=== PATIENT | female | born 1955 | race African-American/Black ===

== ENCOUNTER 2016-06-07 20:16 | Emergency (ER) | payer BC ==
[~2016-06-07] VITALS: Ht 165.1 cm; Wt 68.9 kg
[~2016-06-07 20:16] MED LIST: ACET325T9 PO; ASPI-482 PO; CALC500T PO; DOCU100C5 PO; ENOX40DI3 SQ; GABA-585 PO; GLIM4TAB2 PO; LISI1TAB5 PO; METF10002 PO; NAPR500T3 PO; OXYC1TAB7 PO; POTA20TA84 PO; PRAV40TA2 PO; SITA100T PO; TRAM50TA PO
[2016-06-07 20:38] VITALS: BP 179/111
[2016-06-07] MEDS ORDERED: DOXYCYCLINE HYCLATE 100 MG TABLET PO ONE (21:15)
[2016-06-07] MEDS ORDERED: DOXY100C2 PO (21:26)
--- NOTE | 2016-06-08 02:21 | ED.ADGEN ---
Past Medical History Past Medical History: Diabetes-Type II, High Cholesterol, Hypertension, Vascular Disease Past Surgical History: Cholecystectomy, Hysterectomy Additional Past Surgical Histo: right left vein graft Alcohol Use: None Drug Use: None Adult General Chief Complaint Chief Complaint: POST-OP PROBLEM HPI HPI Patient is a 60 year old woman, with a history of hypertension, diabetes mellitus, vascular disease, who presents to the emergency department for evaluation of her right foot. Patient has a history of bypass graft placement for her right lower extremity several weeks ago with Dr. Spangler of vascular surgery, was seen by a physical therapist today at home, this was the physical therapist first visit, who was concerned the patient may have worsening of known foot necrosis. Patient states that she does have some drainage from her right great toe, however she denies any increased drainage, any increased pain, or any significant change in her symptoms or the evaluation of the foot. She does have daily dressing changes. Patient states that she is compliant with medications. Denies any nausea or vomiting, chest pain or shortness of breath, any fevers or chills. No injuries. Review of Systems Review of Systems Constitutional: Denies fever or chills. [] Eyes: Denies change in visual acuity. [] HENT: Denies nasal congestion or sore throat. [] Respiratory: Denies cough or shortness of breath. [] Cardiovascular: Denies chest pain or edema. [] GI: Denies abdominal pain, nausea, vomiting, bloody stools or diarrhea. [] : Denies dysuria. [] Musculoskeletal: Denies back pain, pain which is chronic and persistent in her right foot in leg. Integument: Denies rash. [] Neurologic: Denies headache, focal weakness or sensory changes. [] Endocrine: Denies polyuria or polydipsia. [] Lymphatic: Denies swollen glands. [] Psychiatric: Denies depression or anxiety. [] Current Medications Current Medications Current Medications Medications (Trade) Dose Ordered Sig/Chai Start Time Stop Time Status Last Admin Dose Admin Doxycycline Hyclate (Vibra-Tab) 100 mg 1X ONCE 06/07/16 21:15 06/07/16 21:16 DC 06/07/16 21:22 100 MG Allergies Allergies Allergies Coded Allergies Type Severity Reaction Last Updated Verified hydrocodone Allergy Intermediate 05/12/16 Yes morphine Adverse Reaction Intermediate 05/11/16 Yes Physical Exam Physical Exam Constitutional: Well developed, well nourished, no acute distress, non-toxic appearance. [] HENT: Normocephalic, atraumatic, bilateral external ears normal, oropharynx moist, no oral exudates, nose normal. [] Eyes: PERRLA, EOMI, conjunctiva normal, no discharge. [] Neck: Normal range of motion, no tenderness, supple, no stridor. [] Cardiovascular:Heart rate regular rhythm, no murmur, S1, S2, rubs or gallops. [] Lungs & Thorax: Bilateral breath sounds clear to auscultation, no wheezing, rhonchi, rales. No chest tenderness or crepitus. [] Abdomen: Bowel sounds normal, soft, no tenderness, no masses, no pulsatile masses. [] Skin: Warm, dry, patient with healing surgical incisions with Steri-Strips in place along her right lower extremity, from the thigh down to the ankle, no evidence of induration or abscess formation, sites are healing well, patient with necrosis of the toes of the right foot, with odor of necrosis, with a small out of wet gangrene, but no active drainage, mild tenderness to palpation , but no significant areas of induration, tenderness, or evidence of acute deformity or injury. Back: No tenderness, no CVA tenderness. [] Extremities: No tenderness, no cyanosis, no clubbing, ROM intact, no edema. [] Neurologic: Alert and oriented X 3, normal motor function, normal sensory function, no focal deficits noted. [] Psychologic: Affect normal, judgement normal, mood normal. [] Current Patient Data Vital Signs Vital Signs Date Time Temp Pulse Resp B/P Pulse Ox O2 Delivery O2 Flow Rate FiO2 06/07/16 20:38 97 18 179/111 100 Room Air 06/07/16 20:33 98.2 98.2 EKG EKG Not indicated. [] Radiology/Procedures Radiology/Procedures Not indicated. [] Course & Med Decision Making Course & Med Decision Making Pertinent Labs and Imaging studies reviewed. (See chart for details) Patient with known necrosis noted of the foot, surgical incision sites look as though they're healing well. Patient states that her foot does not appear to have changed recently, she denies any new symptoms or other concerns. This was the first time that the physical therapist evaluated the patient's foot, and this unfamiliarity with the patient's condition was the trigger for her recommendation. I did discuss the findings and the patient's presentation with Dr. Moody, date that he evaluated the patient yesterday, and that there were no significant changes noted during his examination, or any significant changes based on the report of the examination today in the emergency department. I stated that I do not have any acute concerns and the patient's evaluation, and her denial of any new or different symptoms. I do not believe that any blood work or additional evaluation is required at this time, however we will start the patient on doxycycline to be given twice daily for the next 10 days, to cover for any potential infection that may be brewing. Patient to continue her ibuprofen as needed for pain control, which she states has been controlling her pain without issue. Patient instructed to contact the office tomorrow to set up for an appointment to be seen in the office next Monday. I did discuss these recommendations with the patient and her family at bedside, patient was very much agreeable with this plan, given first dose of doxycycline in the ED without issue, she had recently taken her eye Profen, and declined additional medication in the ED. To return to the ED for any concerning symptoms as discussed, to follow-up as stated. Dragon Disclaimer Dragon Disclaimer This electronic medical record was generated, in whole or in part, using a voice recognition dictation system. Departure Impression: Primary Impression: Foot pain, right Disposition: 01 HOME, SELF-CARE Condition: STABLE Scripts Doxycycline Hyclate 100 Mg Capsule1 Cap PO BID #[id number] CAP Prov:RUSSELL AYALA DO 06/07/16 RUSSELL AYALA DO Jun 08, 2016 02:21
== END 2016-06-07 21:30 | disposition home or self-care (01) ==
LOC: ER 20:16
DX: M79.671 Pain in right foot (principal); E78.00 Pure hypercholesterolemia, unspecified; E11.9 Type 2 diabetes mellitus without complications; I10 Essential (primary) hypertension; Z90.49 Acquired absence of other specified parts of digestive tract; Z90.710 Acquired absence of both cervix and uterus; Z88.5 Allergy status to narcotic agent
CPT/HCPCS: 99284

== ENCOUNTER 2016-07-27 08:35 | Inpatient (IN) | payer BC ==
[2016-07-27] VITALS (9 sets, daily range): BP systolic 134–152; BP diastolic 75–95
[~2016-07-27] VITALS: Ht 162.6 cm; Wt 77.1 kg
[~2016-07-27 08:35] MED LIST changes: +CEFAZOLIN 2GM PREMIX 50 ML IV PRN; +CEFAZOLIN SODIUM IRR ONE; +DOXY100C2 PO; +FENTANYL PF 100 MCG/2 ML VIAL. IV PRN; +INSU100V13 SQ; +IV RINGERS,LACTATED 1000ML 1,000 ML IV SCH; +LIDOCAINE 1% 1 ML SYRINGE. ID PRN; +NORMAL SALINE IRR ONE; +ONDANSETRON PF 4 MG/2 ML VIAL. IV PRN; +PROCHLORPERAZINE 10 MG/2 ML VIAL. IV PRN
[2016-07-27 09:23] LABS: BASO % 0 % (0-3); EOS % 2 % (0-3); HEMOGLOBIN 11.2 g/dL (12.0-15.5); LYMPH # 1.7 x10^3/uL (1.0-4.8); LYMPH % 18 % (24-48); MEAN CORPUSCULAR HEMOGLOBIN 27 pg (25-35); MEAN CORPUSCULAR HGB CONC 33 g/dL (31-37); MEAN CORPUSCULAR VOLUME 83 fL (79-100); MONO % 5 % (0-9); NEUT % 75 % (31-73); PLATELET COUNT 505 x10^3/uL (140-400); RED BLOOD COUNT 4.12 x10^6/uL (3.50-5.40); RED CELL DISTRIBUTION WIDTH 15.4 % (11.5-14.5); WHITE BLOOD COUNT 9.4 x10^3/uL (4.0-11.0)
[2016-07-27 09:32] LABS: CALCIUM 10.4 mg/dL (8.5-10.1); CREATININE 0.9 mg/dL (0.6-1.0); GFR 77.8; POTASSIUM 3.6 mmol/L (3.5-5.1)
[2016-07-27] MEDS ORDERED: SEVOFLURANE 31 TO 60 MINUTES. IH ONE (09:39)
[2016-07-27] MEDS ORDERED: LIDOCAINE 2% 100 MG/5 ML DISP.SYRIN. ONE (09:39)
[2016-07-27] MEDS ORDERED: FAMOTIDINE 20 MG/2 ML VIAL ONE (09:39)
[2016-07-27] MEDS ORDERED: PROPOFOL 20 ML IV ONE (09:39)
[2016-07-27] MEDS ORDERED: LIDOCAINE 1% PF 30 ML VIAL. ONE (09:55)
[2016-07-27] MEDS ORDERED: PHENYLEPHRINE in 0.9% NACL PF 1 MG/10 ML DISP.SYRIN. IV ONE (10:19)
[2016-07-27] MEDS ORDERED: EPHEDRINE PF IN SALINE 50 MG/5 ML DISP.SYRIN. IV ONE (10:40)
[2016-07-27] MEDS ORDERED: DEXTROSE 50% 25 GM / 50ML DISP.SYRIN. IV ONE (11:13)
--- NOTE | 2016-07-27 11:29 | PDOC4 ---
Operative Note Operative Note DX 1. osteo right great toe 2. 3 X 3 cm eschar dorsum of right foot laterally with involvement of fascia and extensor tendons OP: 1. right great toe amputation with primary closure 2. excisional debridement of right dorsal foot ulcer involving skin, fascial and tendons Surg: Amaury local mac pt will need to be admitted for wound care of the dorsal ulcer with wound vac placement. SAVI EDWARDS II, MD Jul 27, 2016 11:29
--- NOTE | 2016-07-27 12:11 | OP ---
DATE OF SURGERY: 07/27/2016 PREOPERATIVE DIAGNOSES: 1. Osteomyelitis, right great toe. 2. Full thickness eschar and dorsum of the right foot. OPERATION PERFORMED: 1. Right great toe partial amputation with primary closure. 2. Excision of dorsal foot wound, full thickness involving the skin, fascia and tendons. SURGEON: Edin Rebolledo MD. ANESTHESIA: Local MAC. INDICATIONS: This is a lady who had a right femoral to anterior tibial bypass for limb threatening ischemia of the right foot. She has developed dry gangrene of the right great toe tip and she has also developed a dorsal foot ulcer with eschar. The operation risks and benefits were explained. OPERATIVE FINDINGS: The toe amputation site bled well. The distal phalanx was resected and the proximal phalanx was rongeured to healthy bone. All bled well and primary closure was done. The dorsal eschar measured 3 x 3 cm and was full thickness and extended down to the extensor tendons which were partially excised. The wound bed bled fairly well. She will need a wound VAC ____ coverage of this. DESCRIPTION OF PROCEDURE: The right foot was prepped and draped. The patient underwent anesthesia sedation. Local infiltration with 1% plain lidocaine was then performed around the base of the right great toe and the dorsal foot eschar. A circumferential incision was made around the great toe and the distal phalanx was resected. The proximal phalanx was then rongeured down to healthy bone. The skin edges bled well. Fish mouth incisions were then made medially and laterally. The wound was then copiously irrigated and closed with interrupted 4-0 nylon. The bone was sent for pathology. The dorsal foot eschar was excised. This measures about 3 x 3 cm. Again excisional debridement was done of the skin, dermis and fascia down to the tendons which were scraped and partially resected. The wound appeared clean ____ this extensive debridement. Wound was then irrigated and dressed with saline moistened gauze, Xeroform and Kerlix. The patient tolerated the procedure well. She will need to be admitted for extensive wound care and wound VAC placement on the dorsal foot ulcer. EDIN REBOLLEDO MD DR: GERARDO/kylee JOB#: [id number] / [id number]
[2016-07-27] MEDS: FENTANYL PF 100 MCG/2 ML VIAL. IV PRN ×4 (12:18→23:33)
[2016-07-27] MEDS ORDERED: KETOROLAC TROMETHAMINE 30 MG/ML SYRINGE. IV ONE (14:15)
[2016-07-27] MEDS ORDERED: ACETAMINOPHEN 325 MG TABLET. PO PRN (14:15)
[2016-07-27] MEDS ORDERED: POTASSIUM CL 20MEQ D5-0.45NACL 1,000 ML IV ONE (14:15)
[2016-07-27] MEDS ORDERED: DEXTROSE 50% 25 GM / 50ML DISP.SYRIN. IV PRN (14:15)
[2016-07-27] MEDS ORDERED: POTASSIUM CHLORIDE 20 MEQ PO SCH (15:00)
[2016-07-27] MEDS: HYDROCHLOROTHIAZIDE 12.5 MG CAPSULE. PO SCH (15:14)
[2016-07-27] MEDS: ASPIRIN ENTERIC COATED 81 MG TABLET.DR. PO SCH (15:17)
[2016-07-27] MEDS: LISINOPRIL 20 MG TABLET PO SCH (15:17)
[2016-07-27] MEDS: GABAPENTIN 100 MG CAPSULE. PO SCH ×2 (15:17→20:58)
--- NOTE | 2016-07-27 15:50 | PDOC1 ---
History and Physical Date of Admission Date of Admission DATE: 07/27/16 TIME: 15:42 Identification/Chief Complaint Chief Complaint foot pain, toe infection Source Source: Caregiver, Chart review, Patient History of Present Illness History of Present Illness Admit for sched amputation by Vascular surgery today ongoing pain left heel and right toe poorly able to ambulate, complains of a lot of pain, both feet her roomate report having to help her more recently with ADL's that Chloé is having more trouble eating Past Medical History Cardiovascular: HTN, Hyperlipidemia Endocrine: Diabetes Past Surgical History Past Surgical History: Cholecystectomy, Hysterectomy Family History Family History: No Significant Social History Smoke: No ALCOHOL: none Drugs: None Current Medications Current Medications Current Medications Ondansetron HCl (Zofran) 4 mg PRN Q6HRS PRN IV Nausea; Start 07/27/16 at 07:00 ; Stop 07/28/16 at 06:59 Fentanyl Citrate (Fentanyl 2ml Vial) 25 mcg PRN Q5MIN PRN IV MILD PAIN; Start 07/27/16 at 07:00; Stop 07/28/16 at 06:59 Fentanyl Citrate 50 mcg 50 mcg PRN Q5MIN PRN IV MODERATE PAIN Last administered on 07/27/16 12:18; Start 07/27/16 at 07:00; Stop 07/28/16 at 06:59 Lactated Ringer's (Iv Lactated Ringers) 1,000 ml @ 30 mls/hr Q24H IV Last administered on 07/27/16 09:21; Start 07/27/16 at 07:00; Stop 07/27/16 at 18:59 Lidocaine HCl 2 ml 1X PRN PRN ID IV START; Start 07/27/16 at 07:00; Stop at 06:59 Prochlorperazine Edisylate 5 mg 5 mg PACU PRN PRN IV NAUSEA; Start 07/27/16 at 07:00; Stop 07/28/16 at 06:59 Cefazolin Sodium 1 gm/Sodium Chloride 250 ml @ 250 mls/hr 1X ONCE IRR Last administered on 07/27/16t 10:20; Start 07/27/16 at 08:00; Stop 07/27/16 at 08:59 ; Status DC Cefazolin Sodium/ Dextrose 50 ml @ 100 mls/hr 1X PREOP PRN IV PRIOR TO PROCEDURE Last administered on 07/27/16 10:17; Start 07/27/16 at 06:00; Stop at 18:00 Propofol (Diprivan) 20 ml @ As Directed STK-MED ONCE IV ; Start 07/27/16 at 09: 39; Stop 07/27/16 at 09:40; Status DC Lidocaine HCl 100 mg STK-MED ONCE .ROUTE ; Start 07/27/16 at 09:39; Stop at 09:40; Status DC Sevoflurane (Ultane) 30 ml STK-MED ONCE IH ; Start 07/27/16 at 09:39; Stop 07/27 at 09:40; Status DC Famotidine (Pepcid) 20 mg STK-MED ONCE .ROUTE ; Start 07/27/16 at 09:39; Stop at 09:40; Status DC Lidocaine HCl 30 ml STK-MED ONCE .ROUTE Last administered on 07/27/16 10:31; Start 07/27/16 at 09:55; Stop 07/27/16 at 09:56; Status DC Phenylephrine HCl 1 mg STK-MED ONCE IV ; Start 07/27/16 at 10:19; Stop 07/27/16 at 10:20; Status DC Ephedrine Sulfate 50 mg STK-MED ONCE IV ; Start 07/27/16 at 10:40; Stop at 10:41; Status DC Dextrose 25 gm STK-MED ONCE IV ; Start 07/27/16 at 11:13; Stop 07/27/16 at 11:14 ; Status DC Fentanyl Citrate 50 mcg 50 mcg PRN Q2HR PRN IV PAIN Last administered on 14:17; Start 07/27/16 at 14:15 Potassium Chloride/Dextrose/ Sod Cl (KCl 20 Meq In D5W-1/2 NS) 1,000 ml @ 80 mls/hr 1X ONCE IV Last administered on 07/27/16 15:03; Start 07/27/16 at 14: 15; Stop 07/28/16 at 02:44 Ketorolac Tromethamine (Toradol) 30 mg 1X ONCE IV Last administered on 15:11; Start 07/27/16 at 14:15; Stop 07/27/16 at 14:16; Status DC Acetaminophen (Tylenol) 325 mg PRN TID PRN PO pain; Start 07/27/16 at 14:15 Aspirin (Ecotrin) 81 mg DAILY PO Last administered on 07/27/16 15:17; Start at 15:00 Gabapentin (Neurontin) 100 mg TID PO Last administered on 07/27/16 15:17; Start 07/27/16 at 15:00 Metformin HCl (Glucophage) 1,000 mg BIDWMEALS PO ; Start 07/27/16 at 17:00 Naproxen (Naprosyn) 500 mg BID PO ; Start 07/27/16 at 21:00 Glimepiride (Amaryl) 4 mg BID PO ; Start 07/27/16 at 21:00 Insulin Detemir (Levemir) 10 units DAILY07 SQ ; Start 07/28/16 at 07:00 Lisinopril (Prinivil) 20 mg DAILY PO Last administered on 07/27/16 15:17; Start 07/27/16 at 15:00 Non-Formulary Medication 20 meq DAILY PO ; Start 07/27/16 at 15:00; Stop at 15:00; Status DC Atorvastatin Calcium (Lipitor) 10 mg QHS PO ; Start 07/27/16 at 21:00 Linagliptin (Tradjenta) 5 mg QHS PO ; Start 07/27/16 at 21:00 Insulin Aspart (Novolog) 0-7 UNITS TIDWMEALS SQ ; Start 07/27/16 at 17:00 Dextrose 12.5 gm PRN Q15MIN PRN IV SEE COMMENTS; Start 07/27/16 at 14:15 Potassium Chloride (Klor-Con) 20 meq DAILYWBKFT PO ; Start 07/28/16 at 08:00 Hydrochlorothiazide (Microzide) 12.5 mg DAILY PO Last administered on 15:14; Start 07/27/16 at 15:00 Active Scripts Active Reported Levemir (Insulin Detemir) 100 Unit/1 Ml Vial 10 Unit SQ DAILY07 K-Tab ER (Potassium Chloride) 20 Meq Tablet.er 20 Meq PO DAILY Oxycodone-Acetaminophen 5-325 (Oxycodone Hcl/Acetaminophen) 1 Each Tablet 1 Each PO Q4HRS PRN Aspir 81 (Aspirin) 81 Mg Tablet.dr 1 Tab PO DAILY Tylenol (Acetaminophen) 325 Mg Tablet 2 Tab PO TID Lisinopril-Hctz 20-12.5 Mg Tab (Lisinopril/Hydrochlorothiazide) 1 Each Tablet 1 Tab PO DAILY Naproxen 500 Mg Tablet 1 Tab PO BID Gabapentin 100 Mg Capsule 100 Mg PO QHS Metformin Hcl 1,000 Mg Tablet 1 Tab PO BID Glimepiride 4 Mg Tablet 1 Tab PO BID Pravastatin Sodium 40 Mg Tablet 1 Tab PO QHS Januvia (Sitagliptin Phosphate) 100 Mg Tablet 1 Tab PO QHS Allergies Allergies: Coded Allergies: hydromorphone (Verified Allergy, Intermediate, Unknown, 07/27/16) HALLUCINATIONS hydrocodone (Verified Adverse Reaction, Intermediate, Nausea and Vomiting , 07/27/16) morphine (Verified Adverse Reaction, Intermediate, Unknown, 07/27/16) hallucinations ROS General: YES: Appetite, Fatigue, Malaise, Night Sweats, No: Chills, Other PSYCHOLOGICAL ROS: YES: Anxiety, Memory difficulties Eyes: Yes Dry eyes, No Blurry vision, No Decreased vision, No Double vision, No Excessive tearing , No Eye Pain, No Itchy Eyes, No Loss of vision, No Other, No Photophobia, No Scotomata, No Uses contacts, No Uses glasses Respiratory: No: Cough, Hemoptysis, Orthopnea, Other, Pleuritic Pain, SOB with excertion, Shortness of breath, Sputum Changes, Stridor, Tachypnea, Wheezing Cardiovascular: No Chest Pain, No Edema, No Lt Headedness, No Orthopnea, No Other, No Palpitations, No Paroxysmal Noc. Dyspnea Gastrointestinal: Yes Nausea, No Abdominal Pain, No Constipation, No Diarrhea, No Hematochezia, No Melena, No Other, No Vomiting Genitourinary: No , No , No , No , No , No , No , No Discharge, No Dysuria, No Flank Pain, No Frequency, No Hematuria, No Incontinence, No Other, No Pain, No Retention, No Urgency Musculoskeletal: Yes Gait Disturbance, Yes Joint Pain, Yes Joint Stiffness, Yes Joint Swelling, Yes Pain In: (feet bilat) Neurological: Yes Gait Disturbance, No Behavorial Changes, No Bowel/Bladder ControlChng, No Confusion, No Dizziness, No Headaches, No Impaired Coord/balance, No Memory Loss, No Numbness/ Tingling, No Other, No Seizures, No Speech Problems, No Tremors, No Visual Changes, No Weakness Skin: No Acne, No Dry Skin, No Eczema, No Hair Changes, No Lumps, No Mole Changes, No Mottling, No Nail Changes, No Other, No Pruritus, No Rash, No Skin Lesion Changes Physical Exam General: Alert, Oriented X3, Cooperative, mild distress, moderate distress HEENT: Atraumatic, EOMI Lungs: Normal air movement Heart: no gallops, no murmurs Abdomen: Normal bowel sounds, Soft Rectal Exam: not examined Extremities: No clubbing, Normal pulses Skin: No rashes, No significant lesion Neuro: Normal tone, Sensation intact, Other (good str. odd affect, complains of pain limits exam) Psych/Mental Status: Other (odd affect, not talking much, family responded to questtions mostly) Vitals Vitals Vital Signs Date Time Temp Pulse Resp B/P Pulse Ox O2 Delivery O2 Flow Rate FiO2 07/27/16 15:17 93 145/80 07/27/16 14:17 Room Air 07/27/16 12:39 14 100 2.0 07/27/16 12:34 93.0 93.0 Labs Labs Laboratory Tests Test 07/27/16 09:10 07/27/16 11:13 07/27/16 11:33 07/27/16 12:41 White Blood Count 9.4x10^3/uL (4.0-11.0) Red Blood Count 4.12x10^6/uL (3.50-5.40) Hemoglobin 11.2g/dL (12.0-15.5) Hematocrit 34.0% (36.0-47.0) Mean Corpuscular Volume 83fL (79-100) Mean Corpuscular Hemoglobin 27pg (25-35) Mean Corpuscular Hemoglobin Concent 33g/dL (31-37) Red Cell Distribution Width 15.4% (11.5-14.5) Platelet Count 505x10^3/uL (140-400) Neutrophils (%) (Auto) 75% (31-73) Lymphocytes (%) (Auto) 18% (24-48) Monocytes (%) (Auto) 5% (0-9) Eosinophils (%) (Auto) 2% (0-3) Basophils (%) (Auto) 0% (0-3) Neutrophils # (Auto) 7.1x10^3uL (1.8-7.7) Lymphocytes # (Auto) 1.7x10^3/uL (1.0-4.8) Monocytes # (Auto) 0.4x10^3/uL (0.0-1.1) Eosinophils # (Auto) 0.2x10^3/uL (0.0-0.7) Basophils # (Auto) 0.0x10^3/uL (0.0-0.2) Prothrombin Time 13.0SEC (11.7-14.0) Prothromb Time International Ratio 1.0 (0.8-1.1) Activated Partial Thromboplast Time 41SEC (24-38) Sodium Level 143mmol/L (136-145) Potassium Level 3.6mmol/L (3.5-5.1) Chloride Level 105mmol/L (98-107) Carbon Dioxide Level 27mmol/L (21-32) Anion Gap 11 (6-14) Blood Urea Nitrogen 37mg/dL (7-20) Creatinine 0.9mg/dL (0.6-1.0) Estimated GFR (Cockcroft-Gault) 77.8 Glucose Level 47mg/dL (70-99) Calcium Level 10.4mg/dL (8.5-10.1) Glucose (Fingerstick) 57mg/dL (70-99) 82mg/dL (70-99) 111mg/dL (70-99) Laboratory Tests Test 07/27/16 09:10 07/27/16 11:13 07/27/16 11:33 07/27/16 12:41 White Blood Count 9.4x10^3/uL (4.0-11.0) Red Blood Count 4.12x10^6/uL (3.50-5.40) Hemoglobin 11.2g/dL (12.0-15.5) Hematocrit 34.0% (36.0-47.0) Mean Corpuscular Volume 83fL (79-100) Mean Corpuscular Hemoglobin 27pg (25-35) Mean Corpuscular Hemoglobin Concent 33g/dL (31-37) Red Cell Distribution Width 15.4% (11.5-14.5) Platelet Count 505x10^3/uL (140-400) Neutrophils (%) (Auto) 75% (31-73) Lymphocytes (%) (Auto) 18% (24-48) Monocytes (%) (Auto) 5% (0-9) Eosinophils (%) (Auto) 2% (0-3) Basophils (%) (Auto) 0% (0-3) Neutrophils # (Auto) 7.1x10^3uL (1.8-7.7) Lymphocytes # (Auto) 1.7x10^3/uL (1.0-4.8) Monocytes # (Auto) 0.4x10^3/uL (0.0-1.1) Eosinophils # (Auto) 0.2x10^3/uL (0.0-0.7) Basophils # (Auto) 0.0x10^3/uL (0.0-0.2) Prothrombin Time 13.0SEC (11.7-14.0) Prothromb Time International Ratio 1.0 (0.8-1.1) Activated Partial Thromboplast Time 41SEC (24-38) Sodium Level 143mmol/L (136-145) Potassium Level 3.6mmol/L (3.5-5.1) Chloride Level 105mmol/L (98-107) Carbon Dioxide Level 27mmol/L (21-32) Anion Gap 11 (6-14) Blood Urea Nitrogen 37mg/dL (7-20) Creatinine 0.9mg/dL (0.6-1.0) Estimated GFR (Cockcroft-Gault) 77.8 Glucose Level 47mg/dL (70-99) Calcium Level 10.4mg/dL (8.5-10.1) Glucose (Fingerstick) 57mg/dL (70-99) 82mg/dL (70-99) 111mg/dL (70-99) VTE Prophylaxis Ordered VTE Prophylaxis Devices: No VTE Pharmacological Prophylaxi: Yes Assessment/Plan Assessment/Plan Osteomyelitis right great toe Dm2, ulceration, infection, PVD DM2, poor control gen weakness adn debility anxiety d/o or depression, not treated CARLOS CHAVEZ MD Jul 27, 2016 15:50
[2016-07-27] MEDS: ENOXAPARIN 40 MG/0.4 ML DISP.SYRIN. SQ SCH (15:58)
[2016-07-27] MEDS ORDERED: FENTANYL PF 100 MCG/2 ML VIAL. IV ONE (16:00)
[2016-07-27] MEDS: INSULIN ASPART 300 UNITS/3 ML INSULN.PEN SQ SCH (16:55)
[2016-07-27] MEDS: METFORMIN 1,000 MG TABLET PO SCH (16:55)
--- NOTE | 2016-07-27 17:05 | RAD ---
EXAM: Left foot 3 views. HISTORY: Left heel pain. COMPARISON: None. FINDINGS: There is soft tissue swelling along the heel inferiorly and laterally. Correlate for IS at the sites. There is no underlying cortical erosion. There are small plantar and posterior calcaneal spurs. There is flattening at the subtalar joint which may be projectional. Osteopenia is severe. IMPRESSION: 1. Soft tissue swelling along the heel. Correlate for overlying ulcer. No evidence of acute osteomyelitis by radiographs. 2. Flattening of Boehler's angle may be projectional artifact. Correlate for prior calcaneal fracture.
[2016-07-27] MEDS ORDERED: PIP/TAZO PER PHARMACY MC PRN (19:15)
[2016-07-27] MEDS ORDERED: VANCOMYCIN 2 GM in IV NORMAL SALINE 500ML BAG 500 ML IV ONE (19:30)
[2016-07-27] MEDS: PIPERACILLIN/TAZOBACTAM 3.375 GM in IV NORMAL SALINE 50ML 50 ML IV SCH ×2 (20:07→20:15)
[2016-07-27] MEDS: ATORVASTATIN CALCIUM 10 MG TABLET. PO SCH (20:58)
[2016-07-27] MEDS: GLIMEPIRIDE 2 MG TABLET PO SCH (20:58)
[2016-07-27] MEDS: OXYCODONE IR 5 MG TABLET. PO PRN (20:58)
[2016-07-27] MEDS: LINAGLIPTIN 5 MG TABLET PO SCH (20:58)
[2016-07-27] MEDS: NAPROXEN 500 MG TABLET PO SCH (20:59)
[2016-07-27] MEDS: VANCOMYCIN PER PHARMACY MC PRN (21:17)
--- NOTE | 2016-07-28 01:55 | ACF ---
Admission Forms Criteria OSTEOMYELITIS Clinical Indications for Admission to Inpatient Care (Place 'X' for any and all applicable criteria) Admission is indicated by ANY ONE of the following (1)(2)(3)(4)(5)(6): [ ] I. Significant systemic illness indicated by 2 or more of the following: [ ]a) Core (eg rectal) temperature greater or equal [id number](37.8C) in an adult [ ]b) Oral temperature[A] greater than or equal to 99.3 degrees F ( 37.4 degrees C) in an adult [ ]c) Heart rate greater than 90 beats per minute [ ]d) Respiratory rate greater than 20 breaths per minute or PaCO2 less than 32 mm Hg (4.3 kPa) [ ]e) White blood cell count > 12,000/mm3 (12 x109/L) or < 4000/mm3 ( 4 x109/L) or > 10% band cells [ ] II. Hemodynamic instability [X] III. Severe pain requiring acute inpatient management [ ] IV. Bacteremia [ ] V. Mental status change (new) [X] . Limb-threatening infection [ ] VII. Suspected necrotizing soft tissue infection (e.g., gas in tissue) [ ] VIII.Surgical intervention required (e.g., bone or soft tissue debridement, removal of foreign body, or revascularization procedure) not performable in outpatient or emergency department level of care(7) [ ] IX. Appropriate monitoring and therapy (IV antibiotics) cannot be immediately arranged for home or outpatient setting [ ] XI. Outpatient treatment failure (e.g., resistant organism identified, adverse medication effect, progression or lack of sufficient improvement of infection) [ ] XII. High-risk comorbid condition present including ANY ONE of the following : [ ]a) Poorly controlled diabetes (e.g., HbA1c greater than 10% (0.1)) [ ]b) Vascular insufficiency to affected area [ ]c) Cirrhosis [ ]d) Neutropenia [ ]e) Asplenia [ ]f) Immunosuppression (e.g., chronic systemic corticosteroid use) [ ]g) Symptomatic heart failure [ ] XIII.Joint involvement (e.g., septic arthritis) suspected [ ] XIV. Vertebral osteomyelitis [ ] XV. Skull-base osteomyelitis (e.g.,"malignant external otitis")[A](8)(9)(10 ) Extended stay beyond goal length of stay may be needed for(1)(3)(4)(5)(24)(25): [ ]a) Inadequate clinical response to antibiotics (e.g., continued fever, hypotension) [ ]b) Bacteremia [ ]c) Surgical intervention needed (e.g., beyond superficial debridement)(26) [ ]d) Vertebral osteomyelitis with spinal cord compression, abscess formation, or mechanical instability [ ]e) Antibiotic-resistant organism identified (e.g., methicillin-resistant Staphylococcal aureus) [ ]f) Deep venous thrombosis [ ]g) Unstable comorbidities (e.g., heart failure, renal insufficiency, immunosuppressed state)(28) The original [facility] [employer] content created by [facility] [employer] has been revised. The portions of the content which have been revised are identified through the use of italic text or in bold, and [facility] has neither reviewed nor approved the modified material. All other unmodified content is copyright [facility].Edition 2016. Admission Criteria Met?: Yes SAMMI GOLD Jul 28, 2016 01:55
[2016-07-28 03:00] VITALS: BP 146/86
[2016-07-28] MEDS: OXYCODONE IR 5 MG TABLET. PO PRN ×4 (03:16→21:22)
[2016-07-28 04:58] LABS: BASO # 0.1 x10^3/uL (0.0-0.2); BASO % 1 % (0-3); EOS % 3 % (0-3); HEMATOCRIT 28.3 % (36.0-47.0); HEMOGLOBIN 9.6 g/dL (12.0-15.5); LYMPH # 2.5 x10^3/uL (1.0-4.8); LYMPH % 28 % (24-48); MEAN CORPUSCULAR HEMOGLOBIN 28 pg (25-35); MEAN CORPUSCULAR HGB CONC 34 g/dL (31-37); MEAN CORPUSCULAR VOLUME 83 fL (79-100); MONO % 5 % (0-9); NEUT % 63 % (31-73); PLATELET COUNT 364 x10^3/uL (140-400); RED CELL DISTRIBUTION WIDTH 15.2 % (11.5-14.5); WHITE BLOOD COUNT 8.9 x10^3/uL (4.0-11.0)
[2016-07-28 05:18] LABS: ALBUMIN 3.2 g/dL (3.4-5.0); ALBUMIN/GLOBULIN RATIO 0.8 (1.0-1.7); CALCIUM 9.4 mg/dL (8.5-10.1); CREATININE 0.9 mg/dL (0.6-1.0); GFR 77.8; POTASSIUM 4.1 mmol/L (3.5-5.1); TOTAL BILIRUBIN 0.3 mg/dL (0.2-1.0); TOTAL PROTEIN 7.2 g/dL (6.4-8.2)
[2016-07-28] MEDS: PIPERACILLIN/TAZOBACTAM 3.375 GM in IV NORMAL SALINE 50ML 50 ML IV SCH ×3 (05:59→17:45)
[2016-07-28] MEDS: FENTANYL PF 100 MCG/2 ML VIAL. IV PRN ×2 (06:07→17:46)
[2016-07-28 07:00] VITALS: BP 129/75
[2016-07-28] MEDS: INSULIN ASPART 300 UNITS/3 ML INSULN.PEN SQ SCH ×3 (08:00→17:00)
[2016-07-28] MEDS: GLIMEPIRIDE 2 MG TABLET PO SCH ×2 (09:03→21:23)
[2016-07-28] MEDS: POTASSIUM CHLORIDE 20 MEQ TABLET.ER. PO SCH (09:04)
[2016-07-28] MEDS: NAPROXEN 500 MG TABLET PO SCH ×2 (09:04→21:23)
[2016-07-28] MEDS: METFORMIN 1,000 MG TABLET PO SCH ×2 (09:04→17:45)
[2016-07-28] MEDS: ASPIRIN ENTERIC COATED 81 MG TABLET.DR. PO SCH (09:04)
[2016-07-28] MEDS: GABAPENTIN 100 MG CAPSULE. PO SCH ×3 (09:04→21:22)
[2016-07-28] MEDS: LISINOPRIL 20 MG TABLET PO SCH (09:05)
[2016-07-28] MEDS: HYDROCHLOROTHIAZIDE 12.5 MG CAPSULE. PO SCH (09:05)
[2016-07-28] MEDS: VANCOMYCIN 1.25 GM in IV NORMAL SALINE 250ML 250 ML IV SCH ×2 (09:06→21:26)
[2016-07-28] MEDS: INSULIN DETEMIR 300 UNITS/3 ML INSULN.PEN. SQ SCH (09:18)
--- NOTE | 2016-07-28 09:31 | PDOC ---
PROGRESS NOTES Chief Complaint Chief Complaint 1. Osteomyelitis right great toe- s/p right great toe amputation 2. Ulceration/ wound secondary to Poorly Controlled T2DM 3. T2DM 4. PVD 5. HTN 6. HLD 7. Generalized weakness 8. Anxiety d/o or depression, not treated History of Present Illness History of Present Illness Pt up in bed doing well this AM. Daughter at bedside had questions about placement after discharge- discussed with daughter that we would get SW to come and evaluate pt. The pt still has some pain at the site of the amputation and is still complaining of the same generalized weakness. Otherwise improved from admission per her report. Vitals Vitals Vital Signs Date Time Temp Pulse Resp B/P Pulse Ox O2 Delivery O2 Flow Rate FiO2 07/28/16 09:05 96 129/75 07/28/16 09:03 Room Air 07/28/16 07:00 97.9 18 98 97.9 07/27/16 12:39 2.0 Physical Exam General: Alert, Oriented X3, Cooperative, No acute distress Heart: Regular rate, Normal S1, Normal S2, No murmurs Lungs: Clear, Other (no wheezes) Abdomen: Normal bowel sounds, Soft, No tenderness Extremities: No clubbing, Normal pulses, Other (Dressing of Right Great Toe Clean/Dry/Intact) Skin: No rashes, Other (Dressing intact of Amputation site) Labs LABS Laboratory Tests Test 07/27/16 11:13 07/27/16 11:33 07/27/16 12:41 07/27/16 16:55 Glucose (Fingerstick) 57mg/dL (70-99) 82mg/dL (70-99) 111mg/dL (70-99) 139mg/dL (70-99) Test 07/27/16 20:43 07/28/16 04:30 07/28/16 08:15 Glucose (Fingerstick) 195mg/dL (70-99) White Blood Count 8.9x10^3/uL (4.0-11.0) Red Blood Count 3.40x10^6/uL (3.50-5.40) Hemoglobin 9.6g/dL (12.0-15.5) Hematocrit 28.3% (36.0-47.0) Mean Corpuscular Volume 83fL (79-100) Mean Corpuscular Hemoglobin 28pg (25-35) Mean Corpuscular Hemoglobin Concent 34g/dL (31-37) Red Cell Distribution Width 15.2% (11.5-14.5) Platelet Count 364x10^3/uL (140-400) Neutrophils (%) (Auto) 63% (31-73) Lymphocytes (%) (Auto) 28% (24-48) Monocytes (%) (Auto) 5% (0-9) Eosinophils (%) (Auto) 3% (0-3) Basophils (%) (Auto) 1% (0-3) Neutrophils # (Auto) 5.6x10^3uL (1.8-7.7) Lymphocytes # (Auto) 2.5x10^3/uL (1.0-4.8) Monocytes # (Auto) 0.4x10^3/uL (0.0-1.1) Eosinophils # (Auto) 0.2x10^3/uL (0.0-0.7) Basophils # (Auto) 0.1x10^3/uL (0.0-0.2) Sodium Level 143mmol/L (136-145) Potassium Level 4.1mmol/L (3.5-5.1) Chloride Level 108mmol/L (98-107) Carbon Dioxide Level 24mmol/L (21-32) Anion Gap 11 (6-14) Blood Urea Nitrogen 27mg/dL (7-20) Creatinine 0.9mg/dL (0.6-1.0) Estimated GFR (Cockcroft-Gault) 77.8 BUN/Creatinine Ratio 30 (6-20) Glucose Level 132mg/dL (70-99) Calcium Level 9.4mg/dL (8.5-10.1) Total Bilirubin 0.3mg/dL (0.2-1.0) Aspartate Amino Transf (AST/SGOT) 11U/L (15-37) Alanine Aminotransferase (ALT/SGPT) 15U/L (14-59) Alkaline Phosphatase 111U/L (46-116) Total Protein 7.2g/dL (6.4-8.2) Albumin 3.2g/dL (3.4-5.0) Albumin/Globulin Ratio 0.8 (1.0-1.7) Ionized Calcium 1.32mmol/L (1.13-1.32) Review of Systems Review of Systems Complaining of Pain at Right Great Toe Complaining of generalized Weakness All other ROS negative Assessment and Plan Assessmemt and Plan Problems Medical Problems: (1) Osteomyelitis due to type 2 diabetes mellitus Status: Acute 1. Osteomyelitis right great toe- s/p right great toe amputation 2. Ulceration/ wound secondary to Poorly Controlled T2DM 3. T2DM 4. PVD 5. HTN 6. HLD 7. Generalized weakness 8. Anxiety d/o or depression, not treated Plan: - Continue Regular care per floor protocol - Continue Regular Glucose checks and Diabetic Regimen - Vascular Surgery Consulted- appreciate recommendations -s/p right great toe amputation - Continue Abx treatment w/ Vancomycin and Zosyn - Continue Pain Control Regimen - Continue Regular Wound Care - PT/OT to evaluate and treat - SW Consulted- for SNU Eval vs. LTAC - Will continue Regular home medications Problems: Comment Review of Relevant I have reviewed the following items alma (where applicable) has been applied. Labs Laboratory Tests Test 07/27/16 09:10 07/27/16 11:13 07/27/16 11:33 07/27/16 12:41 White Blood Count 9.4x10^3/uL (4.0-11.0) Red Blood Count 4.12x10^6/uL (3.50-5.40) Hemoglobin 11.2g/dL (12.0-15.5) Hematocrit 34.0% (36.0-47.0) Mean Corpuscular Volume 83fL (79-100) Mean Corpuscular Hemoglobin 27pg (25-35) Mean Corpuscular Hemoglobin Concent 33g/dL (31-37) Red Cell Distribution Width 15.4% (11.5-14.5) Platelet Count 505x10^3/uL (140-400) Neutrophils (%) (Auto) 75% (31-73) Lymphocytes (%) (Auto) 18% (24-48) Monocytes (%) (Auto) 5% (0-9) Eosinophils (%) (Auto) 2% (0-3) Basophils (%) (Auto) 0% (0-3) Neutrophils # (Auto) 7.1x10^3uL (1.8-7.7) Lymphocytes # (Auto) 1.7x10^3/uL (1.0-4.8) Monocytes # (Auto) 0.4x10^3/uL (0.0-1.1) Eosinophils # (Auto) 0.2x10^3/uL (0.0-0.7) Basophils # (Auto) 0.0x10^3/uL (0.0-0.2) Prothrombin Time 13.0SEC (11.7-14.0) Prothromb Time International Ratio 1.0 (0.8-1.1) Activated Partial Thromboplast Time 41SEC (24-38) Sodium Level 143mmol/L (136-145) Potassium Level 3.6mmol/L (3.5-5.1) Chloride Level 105mmol/L (98-107) Carbon Dioxide Level 27mmol/L (21-32) Anion Gap 11 (6-14) Blood Urea Nitrogen 37mg/dL (7-20) Creatinine 0.9mg/dL (0.6-1.0) Estimated GFR (Cockcroft-Gault) 77.8 Glucose Level 47mg/dL (70-99) Calcium Level 10.4mg/dL (8.5-10.1) Glucose (Fingerstick) 57mg/dL (70-99) 82mg/dL (70-99) 111mg/dL (70-99) Test 07/27/16 16:55 07/27/16 20:43 07/28/16 04:30 07/28/16 08:15 Glucose (Fingerstick) 139mg/dL (70-99) 195mg/dL (70-99) White Blood Count 8.9x10^3/uL (4.0-11.0) Red Blood Count 3.40x10^6/uL (3.50-5.40) Hemoglobin 9.6g/dL (12.0-15.5) Hematocrit 28.3% (36.0-47.0) Mean Corpuscular Volume 83fL (79-100) Mean Corpuscular Hemoglobin 28pg (25-35) Mean Corpuscular Hemoglobin Concent 34g/dL (31-37) Red Cell Distribution Width 15.2% (11.5-14.5) Platelet Count 364x10^3/uL (140-400) Neutrophils (%) (Auto) 63% (31-73) Lymphocytes (%) (Auto) 28% (24-48) Monocytes (%) (Auto) 5% (0-9) Eosinophils (%) (Auto) 3% (0-3) Basophils (%) (Auto) 1% (0-3) Neutrophils # (Auto) 5.6x10^3uL (1.8-7.7) Lymphocytes # (Auto) 2.5x10^3/uL (1.0-4.8) Monocytes # (Auto) 0.4x10^3/uL (0.0-1.1) Eosinophils # (Auto) 0.2x10^3/uL (0.0-0.7) Basophils # (Auto) 0.1x10^3/uL (0.0-0.2) Sodium Level 143mmol/L (136-145) Potassium Level 4.1mmol/L (3.5-5.1) Chloride Level 108mmol/L (98-107) Carbon Dioxide Level 24mmol/L (21-32) Anion Gap 11 (6-14) Blood Urea Nitrogen 27mg/dL (7-20) Creatinine 0.9mg/dL (0.6-1.0) Estimated GFR (Cockcroft-Gault) 77.8 BUN/Creatinine Ratio 30 (6-20) Glucose Level 132mg/dL (70-99) Calcium Level 9.4mg/dL (8.5-10.1) Total Bilirubin 0.3mg/dL (0.2-1.0) Aspartate Amino Transf (AST/SGOT) 11U/L (15-37) Alanine Aminotransferase (ALT/SGPT) 15U/L (14-59) Alkaline Phosphatase 111U/L (46-116) Total Protein 7.2g/dL (6.4-8.2) Albumin 3.2g/dL (3.4-5.0) Albumin/Globulin Ratio 0.8 (1.0-1.7) Ionized Calcium 1.32mmol/L (1.13-1.32) Laboratory Tests Test 07/27/16 11:13 07/27/16 11:33 07/27/16 12:41 07/27/16 16:55 Glucose (Fingerstick) 57mg/dL (70-99) 82mg/dL (70-99) 111mg/dL (70-99) 139mg/dL (70-99) Test 07/27/16 20:43 07/28/16 04:30 07/28/16 08:15 Glucose (Fingerstick) 195mg/dL (70-99) White Blood Count 8.9x10^3/uL (4.0-11.0) Red Blood Count 3.40x10^6/uL (3.50-5.40) Hemoglobin 9.6g/dL (12.0-15.5) Hematocrit 28.3% (36.0-47.0) Mean Corpuscular Volume 83fL (79-100) Mean Corpuscular Hemoglobin 28pg (25-35) Mean Corpuscular Hemoglobin Concent 34g/dL (31-37) Red Cell Distribution Width 15.2% (11.5-14.5) Platelet Count 364x10^3/uL (140-400) Neutrophils (%) (Auto) 63% (31-73) Lymphocytes (%) (Auto) 28% (24-48) Monocytes (%) (Auto) 5% (0-9) Eosinophils (%) (Auto) 3% (0-3) Basophils (%) (Auto) 1% (0-3) Neutrophils # (Auto) 5.6x10^3uL (1.8-7.7) Lymphocytes # (Auto) 2.5x10^3/uL (1.0-4.8) Monocytes # (Auto) 0.4x10^3/uL (0.0-1.1) Eosinophils # (Auto) 0.2x10^3/uL (0.0-0.7) Basophils # (Auto) 0.1x10^3/uL (0.0-0.2) Sodium Level 143mmol/L (136-145) Potassium Level 4.1mmol/L (3.5-5.1) Chloride Level 108mmol/L (98-107) Carbon Dioxide Level 24mmol/L (21-32) Anion Gap 11 (6-14) Blood Urea Nitrogen 27mg/dL (7-20) Creatinine 0.9mg/dL (0.6-1.0) Estimated GFR (Cockcroft-Gault) 77.8 BUN/Creatinine Ratio 30 (6-20) Glucose Level 132mg/dL (70-99) Calcium Level 9.4mg/dL (8.5-10.1) Total Bilirubin 0.3mg/dL (0.2-1.0) Aspartate Amino Transf (AST/SGOT) 11U/L (15-37) Alanine Aminotransferase (ALT/SGPT) 15U/L (14-59) Alkaline Phosphatase 111U/L (46-116) Total Protein 7.2g/dL (6.4-8.2) Albumin 3.2g/dL (3.4-5.0) Albumin/Globulin Ratio 0.8 (1.0-1.7) Ionized Calcium 1.32mmol/L (1.13-1.32) Medications Current Medications Ondansetron HCl (Zofran) 4 mg PRN Q6HRS PRN IV Nausea; Start 07/27/16 at 07:00 ; Stop 07/28/16 at 06:59; Status DC Fentanyl Citrate (Fentanyl 2ml Vial) 25 mcg PRN Q5MIN PRN IV MILD PAIN; Start 07/27/16 at 07:00; Stop 07/28/16 at 06:59; Status DC Fentanyl Citrate 50 mcg 50 mcg PRN Q5MIN PRN IV MODERATE PAIN Last administered on 07/27/16 20:10; Start 07/27/16 at 07:00; Stop 07/28/16 at 06:59 ; Status DC Lactated Ringer's (Iv Lactated Ringers) 1,000 ml @ 30 mls/hr Q24H IV Last administered on 07/27/16 09:21; Start 07/27/16 at 07:00; Stop 07/27/16 at 18:59 ; Status DC Lidocaine HCl 2 ml 1X PRN PRN ID IV START; Start 07/27/16 at 07:00; Stop at 06:59; Status DC Prochlorperazine Edisylate 5 mg 5 mg PACU PRN PRN IV NAUSEA; Start 07/27/16 at 07:00; Stop 07/28/16 at 06:59; Status DC Cefazolin Sodium 1 gm/Sodium Chloride 250 ml @ 250 mls/hr 1X ONCE IRR Last administered on 07/27/16 10:20; Start 07/27/16 at 08:00; Stop 07/27/16 at 08:59 ; Status DC Cefazolin Sodium/ Dextrose 50 ml @ 100 mls/hr 1X PREOP PRN IV PRIOR TO PROCEDURE Last administered on 07/27/16 10:17; Start 07/27/16 at 06:00; Stop at 18:00; Status DC Propofol (Diprivan) 20 ml @ As Directed STK-MED ONCE IV ; Start 07/27/16 at 09: 39; Stop 07/27/16 at 09:40; Status DC Lidocaine HCl 100 mg STK-MED ONCE .ROUTE ; Start 07/27/16 at 09:39; Stop at 09:40; Status DC Sevoflurane (Ultane) 30 ml STK-MED ONCE IH ; Start 07/27/16 at 09:39; Stop 07/27 at 09:40; Status DC Famotidine (Pepcid) 20 mg STK-MED ONCE .ROUTE ; Start 07/27/16 at 09:39; Stop at 09:40; Status DC Lidocaine HCl 30 ml STK-MED ONCE .ROUTE Last administered on 07/27/16 10:31; Start 07/27/16 at 09:55; Stop 07/27/16 at 09:56; Status DC Phenylephrine HCl 1 mg STK-MED ONCE IV ; Start 07/27/16 at 10:19; Stop 07/27/16 at 10:20; Status DC Ephedrine Sulfate 50 mg STK-MED ONCE IV ; Start 07/27/16 at 10:40; Stop at 10:41; Status DC Dextrose 25 gm STK-MED ONCE IV ; Start 07/27/16 at 11:13; Stop 07/27/16 at 11:14 ; Status DC Fentanyl Citrate 50 mcg 50 mcg PRN Q2HR PRN IV PAIN Last administered on 06:07; Start 07/27/16 at 14:15 Potassium Chloride/Dextrose/ Sod Cl (KCl 20 Meq In D5W-1/2 NS) 1,000 ml @ 80 mls/hr 1X ONCE IV Last administered on 07/27/16 15:03; Start 07/27/16 at 14: 15; Stop 07/28/16 at 02:44; Status DC Ketorolac Tromethamine (Toradol) 30 mg 1X ONCE IV Last administered on 15:11; Start 07/27/16 at 14:15; Stop 07/27/16 at 14:16; Status DC Acetaminophen (Tylenol) 325 mg PRN TID PRN PO pain; Start 07/27/16 at 14:15 Aspirin (Ecotrin) 81 mg DAILY PO Last administered on 07/28/16 09:04; Start at 15:00 Gabapentin (Neurontin) 100 mg TID PO Last administered on 07/28/16 09:04; Start 07/27/16 at 15:00 Metformin HCl (Glucophage) 1,000 mg BIDWMEALS PO Last administered on 09:04; Start 07/27/16 at 17:00 Naproxen (Naprosyn) 500 mg BID PO Last administered on 07/28/16 09:04; Start 07/27/16 at 21:00 Glimepiride (Amaryl) 4 mg BID PO Last administered on 07/28/16 09:03; Start at 21:00 Insulin Detemir (Levemir) 10 units DAILY07 SQ Last administered on 07/28/16 09 :18; Start 07/28/16 at 07:00 Lisinopril (Prinivil) 20 mg DAILY PO Last administered on 07/28/16 09:05; Start 07/27/16 at 15:00 Non-Formulary Medication 20 meq DAILY PO ; Start 07/27/16 at 15:00; Stop at 15:00; Status DC Atorvastatin Calcium (Lipitor) 10 mg QHS PO Last administered on 07/27/16 20: 58; Start 07/27/16 at 21:00 Linagliptin (Tradjenta) 5 mg QHS PO Last administered on 07/27/16 20:58; Start 07/27/16 at 21:00 Insulin Aspart (Novolog) 0-7 UNITS TIDWMEALS SQ ; Start 07/27/16 at 17:00 Dextrose 12.5 gm PRN Q15MIN PRN IV SEE COMMENTS; Start 07/27/16 at 14:15 Potassium Chloride (Klor-Con) 20 meq DAILYWBKFT PO Last administered on 09:04; Start 07/28/16 at 08:00 Hydrochlorothiazide (Microzide) 12.5 mg DAILY PO Last administered on 09:05; Start 07/27/16 at 15:00 Fentanyl Citrate (Fentanyl 2ml Vial) 75 mcg 1X ONCE IV Last administered on 16:19; Start 07/27/16 at 16:00; Stop 07/27/16 at 16:01; Status DC Oxycodone HCl (Roxicodone) 5 mg PRN Q4HRS PRN PO PAIN Last administered on 07/28 09:03; Start 07/27/16 at 15:45 Enoxaparin Sodium (Lovenox Per Pharmacy Prophylaxis Dosing) 1 each PRN DAILY PRN MC SEE COMMENTS; Start 07/27/16 at 16:00 Enoxaparin Sodium (Lovenox 40mg Syringe) 40 mg Q24H SQ ; Start 07/27/16 at 16:00 Vancomycin HCl (Vanco Per Pharmacy) 1 each PRN DAILY PRN MC SEE COMMENTS Last administered on 07/27/16 21:17; Start 07/27/16 at 19:15 Piperacillin Sod/ Tazobactam Sod 1 each 1 each PRN DAILY PRN MC SEE COMMENTS; Start 07/27/16 at 19:15 Piperacillin Sod/ Tazobactam Sod 3.375 gm/Sodium Chloride 50 ml @ 100 mls/hr Q6HRS IV Last administered on 07/28/16 05:59; Start 07/27/16 at 19:30 Vancomycin HCl 2 gm/Sodium Chloride 500 ml @ 250 mls/hr 1X ONCE IV Last administered on 07/27/16 20:58; Start 07/27/16 at 19:30; Stop 07/27/16 at 21:29 ; Status DC Vancomycin HCl/ Sodium Chloride (Iv Sodium Chloride 0.9% 250ml) 250 ml @ 167 mls/hr Q12H IV Last administered on 07/28/16 09:06; Start 07/28/16 at 09:00 Vancomycin HCl 1 each 1X ONCE MC ; Start 07/29/16 at 08:30; Stop 07/29/16 at 08 :31 Active Scripts Active Reported Levemir (Insulin Detemir) 100 Unit/1 Ml Vial 10 Unit SQ DAILY07 K-Tab ER (Potassium Chloride) 20 Meq Tablet.er 20 Meq PO DAILY Oxycodone-Acetaminophen 5-325 (Oxycodone Hcl/Acetaminophen) 1 Each Tablet 1 Each PO Q4HRS PRN Aspir 81 (Aspirin) 81 Mg Tablet.dr 1 Tab PO DAILY Tylenol (Acetaminophen) 325 Mg Tablet 2 Tab PO TID Lisinopril-Hctz 20-12.5 Mg Tab (Lisinopril/Hydrochlorothiazide) 1 Each Tablet 1 Tab PO DAILY Naproxen 500 Mg Tablet 1 Tab PO BID Gabapentin 100 Mg Capsule 100 Mg PO QHS Metformin Hcl 1,000 Mg Tablet 1 Tab PO BID Glimepiride 4 Mg Tablet 1 Tab PO BID Pravastatin Sodium 40 Mg Tablet 1 Tab PO QHS Januvia (Sitagliptin Phosphate) 100 Mg Tablet 1 Tab PO QHS Vitals/I & O Vital Sign - Last 24 Hours 07/27/16 07/27/16 07/27/16 07/27/16 11:09 11:09 11:24 11:39 Temp 96 96.0 Pulse 79 80 84 Resp 16 16 16 B/P 124/70 155/80 144/82 Pulse Ox 100 100 100 O2 Delivery Mask Simple Mask Simple Mask Room Air O2 Flow Rate 10 10 10 07/27/16 07/27/16 07/27/16 07/27/16 11:54 12:09 12:18 12:30 Temp 97.2 97.2 97.2 97.2 Pulse 84 90 Resp 18 18 18 B/P 150/87 182/86 Pulse Ox 100 100 100 O2 Delivery Room Air Room Air Room Air O2 Flow Rate 2.0 07/27/16 07/27/16 07/27/16 07/27/16 12:34 12:39 12:39 13:25 Temp 93.0 93.0 Pulse 84 83 83 88 Resp 14 14 14 14 B/P 137/85 141/85 141/85 141/87 Pulse Ox 100 100 100 100 O2 Delivery Nasal Cannula Room Air Nasal Cannula Room Air O2 Flow Rate 2.0 2.0 07/27/16 07/27/16 07/27/16 07/27/16 13:32 13:34 14:17 14:32 Temp 93.0 93.0 Pulse 90 84 89 Resp 14 14 14 B/P 152/95 137/85 136/85 Pulse Ox 100 100 O2 Delivery Room Air Room Air Room Air Room Air 07/27/16 07/27/16 07/27/16 2/22/17 15:00 15:17 19:00 23:00 Temp 97.6 98.8 98.6 97.6 98.8 98.6 Pulse 94 93 93 100 Resp 14 16 16 B/P 134/95 145/80 141/75 150/76 Pulse Ox 100 93 100 O2 Delivery Room Air Room Air Room Air 07/27/16 07/28/16 07/28/16 07/28/16 23:33 03:00 07:00 09:03 Temp 98.6 97.9 98.6 97.9 Pulse 99 96 Resp 18 18 B/P 146/86 129/75 Pulse Ox 94 98 O2 Delivery Room Air Room Air Room Air Room Air 07/28/16 09:05 Pulse 96 B/P 129/75 Intake and Output 07/27/16 07/27/16 07/28/16 15:00 23:00 07:00 Intake Total 800 ml 340 ml 600 ml Output Total 25 ml 400 ml Balance 775 ml -60 ml 600 ml TIFFANIE SIMPSON III DO Jul 28, 2016 09:31
--- NOTE | 2016-07-28 10:05 | PDOC ---
Infectious Disease Note ROS ROS GEN: Denies fevers, chills, sweats HEENT: Denies blurred vision, sore throat CV: Denies chest pain RESP: Denies shortness of air, cough GI: Denies n/v/d NEURO: Denies confusion, dizziness MSK: Denies weakness, joint pain/swelling Vital Sign Vital Signs Vital Signs Date Time Temp Pulse Resp B/P Pulse Ox O2 Delivery O2 Flow Rate FiO2 07/28/16 09:05 96 129/75 07/28/16 09:03 Room Air 07/28/16 07:00 97.9 18 98 97.9 07/27/16 12:39 2.0 Physical Exam PHYSICAL EXAM GENERAL: NAD, Alert HEENT: PERRL, OC/OP NECK: Supple, no JVD, no LN LUNGS: Clear HEART: S1S2, no gallop, no murmur ABD: Soft, NT, no organomegaly, no rebound EXT: No edema, no cyanosis [employer]: Alert, oriented x 3, no focal neurologic deficit SKIN: No rash IV: ok Labs Lab Laboratory Tests Test 07/27/16 11:13 07/27/16 11:33 07/27/16 12:41 07/27/16 16:55 Glucose (Fingerstick) 57mg/dL (70-99) 82mg/dL (70-99) 111mg/dL (70-99) 139mg/dL (70-99) Test 07/27/16 20:43 07/28/16 04:30 07/28/16 08:15 Glucose (Fingerstick) 195mg/dL (70-99) White Blood Count 8.9x10^3/uL (4.0-11.0) Red Blood Count 3.40x10^6/uL (3.50-5.40) Hemoglobin 9.6g/dL (12.0-15.5) Hematocrit 28.3% (36.0-47.0) Mean Corpuscular Volume 83fL (79-100) Mean Corpuscular Hemoglobin 28pg (25-35) Mean Corpuscular Hemoglobin Concent 34g/dL (31-37) Red Cell Distribution Width 15.2% (11.5-14.5) Platelet Count 364x10^3/uL (140-400) Neutrophils (%) (Auto) 63% (31-73) Lymphocytes (%) (Auto) 28% (24-48) Monocytes (%) (Auto) 5% (0-9) Eosinophils (%) (Auto) 3% (0-3) Basophils (%) (Auto) 1% (0-3) Neutrophils # (Auto) 5.6x10^3uL (1.8-7.7) Lymphocytes # (Auto) 2.5x10^3/uL (1.0-4.8) Monocytes # (Auto) 0.4x10^3/uL (0.0-1.1) Eosinophils # (Auto) 0.2x10^3/uL (0.0-0.7) Basophils # (Auto) 0.1x10^3/uL (0.0-0.2) Sodium Level 143mmol/L (136-145) Potassium Level 4.1mmol/L (3.5-5.1) Chloride Level 108mmol/L (98-107) Carbon Dioxide Level 24mmol/L (21-32) Anion Gap 11 (6-14) Blood Urea Nitrogen 27mg/dL (7-20) Creatinine 0.9mg/dL (0.6-1.0) Estimated GFR (Cockcroft-Gault) 77.8 BUN/Creatinine Ratio 30 (6-20) Glucose Level 132mg/dL (70-99) Calcium Level 9.4mg/dL (8.5-10.1) Total Bilirubin 0.3mg/dL (0.2-1.0) Aspartate Amino Transf (AST/SGOT) 11U/L (15-37) Alanine Aminotransferase (ALT/SGPT) 15U/L (14-59) Alkaline Phosphatase 111U/L (46-116) Total Protein 7.2g/dL (6.4-8.2) Albumin 3.2g/dL (3.4-5.0) Albumin/Globulin Ratio 0.8 (1.0-1.7) Ionized Calcium 1.32mmol/L (1.13-1.32) Objective Assessment Infected right great toe s/p amputation with primary closure 07/27 Right foot lateral dorsum eschar s/p I and D to tendon and fascia 07/27 DM PAD s/p bypass RLE 05/2016 Left heel pressure ulcer Plan Plan of Care Wound vac to be placed to lateral foot Cont Iv abx for now hope to change to po soon. Await Vascular F/u F/u labs and cults D/w family Thank you # [id number] BRIAN LEVINE MD Jul 28, 2016 10:05
[2016-07-28] MEDS: VANCOMYCIN PER PHARMACY MC PRN (10:50)
[2016-07-28 11:00] VITALS: BP 131/80
--- NOTE | 2016-07-28 13:37 | PDOC ---
SURGICAL PROGRESS NOTE Subjective complains of incisional pain right foot Vital Signs Vital Signs Date Time Temp Pulse Resp B/P Pulse Ox O2 Delivery O2 Flow Rate FiO2 07/28/16 11:00 97.7 94 18 131/80 98 Room Air 97.7 07/27/16 12:39 2.0 I&O Intake and Output 07/28/16 07:00 Intake Total 1740 ml Output Total 425 ml Balance 1315 ml Intake Oral 590 ml IV Total 1150 ml Output Urine Total 400 ml Estimated Blood Loss 25 ml # Voids 1 Extremities: Other (right great toe amp site ok; awaiting wound vac placement right dorsal foot wound; 2+ graft pulse lateral leg; left heel tender, not fluctuant) Labs Laboratory Tests Test 07/27/16 09:10 07/27/16 11:13 07/27/16 11:33 07/27/16 12:41 White Blood Count 9.4x10^3/uL (4.0-11.0) Red Blood Count 4.12x10^6/uL (3.50-5.40) Hemoglobin 11.2g/dL (12.0-15.5) Hematocrit 34.0% (36.0-47.0) Mean Corpuscular Volume 83fL (79-100) Mean Corpuscular Hemoglobin 27pg (25-35) Mean Corpuscular Hemoglobin Concent 33g/dL (31-37) Red Cell Distribution Width 15.4% (11.5-14.5) Platelet Count 505x10^3/uL (140-400) Neutrophils (%) (Auto) 75% (31-73) Lymphocytes (%) (Auto) 18% (24-48) Monocytes (%) (Auto) 5% (0-9) Eosinophils (%) (Auto) 2% (0-3) Basophils (%) (Auto) 0% (0-3) Neutrophils # (Auto) 7.1x10^3uL (1.8-7.7) Lymphocytes # (Auto) 1.7x10^3/uL (1.0-4.8) Monocytes # (Auto) 0.4x10^3/uL (0.0-1.1) Eosinophils # (Auto) 0.2x10^3/uL (0.0-0.7) Basophils # (Auto) 0.0x10^3/uL (0.0-0.2) Prothrombin Time 13.0SEC (11.7-14.0) Prothromb Time International Ratio 1.0 (0.8-1.1) Activated Partial Thromboplast Time 41SEC (24-38) Sodium Level 143mmol/L (136-145) Potassium Level 3.6mmol/L (3.5-5.1) Chloride Level 105mmol/L (98-107) Carbon Dioxide Level 27mmol/L (21-32) Anion Gap 11 (6-14) Blood Urea Nitrogen 37mg/dL (7-20) Creatinine 0.9mg/dL (0.6-1.0) Estimated GFR (Cockcroft-Gault) 77.8 Glucose Level 47mg/dL (70-99) Calcium Level 10.4mg/dL (8.5-10.1) Glucose (Fingerstick) 57mg/dL (70-99) 82mg/dL (70-99) 111mg/dL (70-99) Test 07/27/16 16:55 07/27/16 20:43 07/28/16 04:30 07/28/16 07:16 Glucose (Fingerstick) 139mg/dL (70-99) 195mg/dL (70-99) 81mg/dL (70-99) White Blood Count 8.9x10^3/uL (4.0-11.0) Red Blood Count 3.40x10^6/uL (3.50-5.40) Hemoglobin 9.6g/dL (12.0-15.5) Hematocrit 28.3% (36.0-47.0) Mean Corpuscular Volume 83fL (79-100) Mean Corpuscular Hemoglobin 28pg (25-35) Mean Corpuscular Hemoglobin Concent 34g/dL (31-37) Red Cell Distribution Width 15.2% (11.5-14.5) Platelet Count 364x10^3/uL (140-400) Neutrophils (%) (Auto) 63% (31-73) Lymphocytes (%) (Auto) 28% (24-48) Monocytes (%) (Auto) 5% (0-9) Eosinophils (%) (Auto) 3% (0-3) Basophils (%) (Auto) 1% (0-3) Neutrophils # (Auto) 5.6x10^3uL (1.8-7.7) Lymphocytes # (Auto) 2.5x10^3/uL (1.0-4.8) Monocytes # (Auto) 0.4x10^3/uL (0.0-1.1) Eosinophils # (Auto) 0.2x10^3/uL (0.0-0.7) Basophils # (Auto) 0.1x10^3/uL (0.0-0.2) Sodium Level 143mmol/L (136-145) Potassium Level 4.1mmol/L (3.5-5.1) Chloride Level 108mmol/L (98-107) Carbon Dioxide Level 24mmol/L (21-32) Anion Gap 11 (6-14) Blood Urea Nitrogen 27mg/dL (7-20) Creatinine 0.9mg/dL (0.6-1.0) Estimated GFR (Cockcroft-Gault) 77.8 BUN/Creatinine Ratio 30 (6-20) Glucose Level 132mg/dL (70-99) Calcium Level 9.4mg/dL (8.5-10.1) Total Bilirubin 0.3mg/dL (0.2-1.0) Aspartate Amino Transf (AST/SGOT) 11U/L (15-37) Alanine Aminotransferase (ALT/SGPT) 15U/L (14-59) Alkaline Phosphatase 111U/L (46-116) Total Protein 7.2g/dL (6.4-8.2) Albumin 3.2g/dL (3.4-5.0) Albumin/Globulin Ratio 0.8 (1.0-1.7) Test 07/28/16 08:15 07/28/16 10:56 Ionized Calcium 1.32mmol/L (1.13-1.32) Glucose (Fingerstick) 125mg/dL (70-99) Laboratory Tests Test 07/27/16 16:55 07/27/16 20:43 07/28/16 04:30 07/28/16 07:16 Glucose (Fingerstick) 139mg/dL (70-99) 195mg/dL (70-99) 81mg/dL (70-99) White Blood Count 8.9x10^3/uL (4.0-11.0) Red Blood Count 3.40x10^6/uL (3.50-5.40) Hemoglobin 9.6g/dL (12.0-15.5) Hematocrit 28.3% (36.0-47.0) Mean Corpuscular Volume 83fL (79-100) Mean Corpuscular Hemoglobin 28pg (25-35) Mean Corpuscular Hemoglobin Concent 34g/dL (31-37) Red Cell Distribution Width 15.2% (11.5-14.5) Platelet Count 364x10^3/uL (140-400) Neutrophils (%) (Auto) 63% (31-73) Lymphocytes (%) (Auto) 28% (24-48) Monocytes (%) (Auto) 5% (0-9) Eosinophils (%) (Auto) 3% (0-3) Basophils (%) (Auto) 1% (0-3) Neutrophils # (Auto) 5.6x10^3uL (1.8-7.7) Lymphocytes # (Auto) 2.5x10^3/uL (1.0-4.8) Monocytes # (Auto) 0.4x10^3/uL (0.0-1.1) Eosinophils # (Auto) 0.2x10^3/uL (0.0-0.7) Basophils # (Auto) 0.1x10^3/uL (0.0-0.2) Sodium Level 143mmol/L (136-145) Potassium Level 4.1mmol/L (3.5-5.1) Chloride Level 108mmol/L (98-107) Carbon Dioxide Level 24mmol/L (21-32) Anion Gap 11 (6-14) Blood Urea Nitrogen 27mg/dL (7-20) Creatinine 0.9mg/dL (0.6-1.0) Estimated GFR (Cockcroft-Gault) 77.8 BUN/Creatinine Ratio 30 (6-20) Glucose Level 132mg/dL (70-99) Calcium Level 9.4mg/dL (8.5-10.1) Total Bilirubin 0.3mg/dL (0.2-1.0) Aspartate Amino Transf (AST/SGOT) 11U/L (15-37) Alanine Aminotransferase (ALT/SGPT) 15U/L (14-59) Alkaline Phosphatase 111U/L (46-116) Total Protein 7.2g/dL (6.4-8.2) Albumin 3.2g/dL (3.4-5.0) Albumin/Globulin Ratio 0.8 (1.0-1.7) Test 07/28/16 08:15 07/28/16 10:56 Ionized Calcium 1.32mmol/L (1.13-1.32) Glucose (Fingerstick) 125mg/dL (70-99) Problem List Problems Medical Problems: (1) Osteomyelitis due to type 2 diabetes mellitus Status: Acute Assessment/Plan Imp: 1. status post right fem tib bypass and recent right great toe amp, debridement of dorsal lateral foot wound down to tendon and right heel decub 2. early pressure decub. left heel Plan: ok to transfer to [facility] facility if wound vac can be placed right dorsal foot wound 2. offload left heel and observe for now. Problems: SAVI EDWARDS II, MD Jul 28, 2016 13:37
[2016-07-28 15:00] VITALS: BP 146/88
[2016-07-28] MEDS: ENOXAPARIN 40 MG/0.4 ML DISP.SYRIN. SQ SCH (17:46)
[2016-07-28 19:00] VITALS: BP 134/81
[2016-07-28] MEDS: LINAGLIPTIN 5 MG TABLET PO SCH (21:22)
[2016-07-28] MEDS: ATORVASTATIN CALCIUM 10 MG TABLET. PO SCH (21:23)
[2016-07-28 23:00] VITALS: BP 140/87
[2016-07-29] MEDS: PIPERACILLIN/TAZOBACTAM 3.375 GM in IV NORMAL SALINE 50ML 50 ML IV SCH ×2 (00:30→06:01)
[2016-07-29 03:00] VITALS: BP 123/77
[2016-07-29 07:00] VITALS: BP 120/69
[2016-07-29] MEDS: INSULIN DETEMIR 300 UNITS/3 ML INSULN.PEN. SQ SCH (07:00)
[2016-07-29] MEDS: INSULIN ASPART 300 UNITS/3 ML INSULN.PEN SQ SCH ×3 (07:35→17:00)
[2016-07-29] MEDS: METFORMIN 1,000 MG TABLET PO SCH (08:00)
[2016-07-29] MEDS: GLIMEPIRIDE 2 MG TABLET PO SCH ×2 (08:33→13:38)
[2016-07-29 08:36] LABS: BASO # 0.1 x10^3/uL (0.0-0.2); BASO % 1 % (0-3); EOS % 3 % (0-3); HEMATOCRIT 28.7 % (36.0-47.0); HEMOGLOBIN 9.4 g/dL (12.0-15.5); LYMPH % 28 % (24-48); MEAN CORPUSCULAR HEMOGLOBIN 28 pg (25-35); MEAN CORPUSCULAR HGB CONC 33 g/dL (31-37); MEAN CORPUSCULAR VOLUME 84 fL (79-100); MONO % 7 % (0-9); NEUT % 62 % (31-73); PLATELET COUNT 304 x10^3/uL (140-400); RED CELL DISTRIBUTION WIDTH 15.2 % (11.5-14.5); WHITE BLOOD COUNT 7.3 x10^3/uL (4.0-11.0)
[2016-07-29 08:48] LABS: CALCIUM 9.5 mg/dL (8.5-10.1); GFR 68.9; POTASSIUM 3.8 mmol/L (3.5-5.1)
[2016-07-29] MEDS: VANCOMYCIN 1.25 GM in IV NORMAL SALINE 250ML 250 ML IV SCH (09:00)
[2016-07-29] MEDS: POTASSIUM CHLORIDE 20 MEQ TABLET.ER. PO SCH (09:11)
[2016-07-29] MEDS: GABAPENTIN 100 MG CAPSULE. PO SCH ×3 (09:11→21:04)
[2016-07-29] MEDS: ASPIRIN ENTERIC COATED 81 MG TABLET.DR. PO SCH (09:11)
[2016-07-29] MEDS: HYDROCHLOROTHIAZIDE 12.5 MG CAPSULE. PO SCH (09:12)
[2016-07-29] MEDS: NAPROXEN 500 MG TABLET PO SCH ×2 (09:12→21:04)
[2016-07-29] MEDS: LISINOPRIL 20 MG TABLET PO SCH (09:13)
[2016-07-29] MEDS: VANCOMYCIN PER PHARMACY MC PRN (09:15)
--- NOTE | 2016-07-29 09:15 | CONS ---
DATE OF CONSULTATION: 07/28/2016 ROOM: 518. REQUESTING PHYSICIAN: Dr. Santos. REASON FOR CONSULTATION: Osteomyelitis of the toe. HISTORY OF PRESENT ILLNESS: This is a very pleasant 60-year-old -[place] female with history of diabetes with peripheral neuropathy as well as peripheral arterial disease. In May of 2016, she underwent right lower extremity bypass grafting. She was placed in a rehab facility for approximately 2 weeks. At that time, she was complaining of pain rubbing her feet and she developed a pressure ulcer on her left foot. She had been seeing Dr. Rebolledo in the outpatient setting every Monday for the past several weeks. This past Monday, she was scheduled to undergo amputation of her right great toe. She states that she was followed by her primary care doctor, ____ who did a culture at some point of the toe and sent those results to Dr. Rebolledo. She took 2 weeks of antibiotics, and she believes it was Augmentin, but she has been off those for several weeks. She has not been having any fever or chills, but she does have some night sweats. She has no headaches, occasional sinus drainage. No cough or chest pain. No nausea, vomiting, diarrhea, dysuria, frequency, or urgency. Denies any trauma. She was admitted on the and taken to the operating room and underwent amputation of her right great toe with primary closure. She then underwent debridement of a 3 x 3 cm eschar on the dorsum of the right foot laterally involving the fascia and the extensor tendons. I was contacted post procedure and was informed that she had osteomyelitis, instituted vancomycin and Zosyn. Currently, she is sitting in the chair. She is feeling somewhat better. PAST MEDICAL HISTORY: Positive again for the history of diabetes. She has a history of neuropathy, history of peripheral arterial disease, hypertension, and hyperlipidemia. She has had a cataract. PAST SURGICAL HISTORY: Positive for hysterectomy, cholecystectomy and the above-mentioned bypass surgery and amputation of the toe and debridement of the wound. REVIEW OF SYSTEMS: Otherwise negative except as mentioned above. ALLERGIES: No known drug allergies. SOCIAL HISTORY: No tobacco or alcohol. FAMILY HISTORY: Noncontributory. CURRENT MEDICATIONS: Include vancomycin and Zosyn. She did receive cefazolin perioperatively. Tylenol, Ecotrin, Lipitor, gabapentin, Amaryl, Levemir, and Prinivil. Other meds are available and reviewed in the chart. PHYSICAL EXAMINATION: VITAL SIGNS: She has been afebrile, temperature 97.9, pulse 96, respirations 18, and blood pressure 129/75. CONSTITUTIONAL: She is sitting in a chair. She is cooperative, in no acute distress. Her feet are elevated. HEENT: Pupils are equal and reactive. She has normal conjunctivae. She has decreased vision in her left eye. Oral cavity, pharynx is clear. NECK: Supple, no JVD. LUNGS: Clear to auscultation bilaterally. HEART: S1, S2. ABDOMEN: Soft, nontender, nondistended, positive bowel sounds. EXTREMITIES: Without clubbing or cyanosis. Her right foot is heavily bandaged. Her left heel has an unstageable pressure ulcer. It is somewhat tender. SKIN: Warm to touch without signs of rash. NEUROLOGIC: She is nonfocal, moves all extremities. PSYCHIATRIC: Affect is appropriate. LABORATORY DATA: White count 8.9, hemoglobin 9.6, platelets of 364 with a normal differential. Creatinine 0.9, glucose 132. Normal liver function study test. There are no culture results. X-ray of her left foot does not show any bony abnormality. IMPRESSION: 1. Infected right great toe status post amputation with primary closure on 07/27/2016. 2. Right lateral dorsum eschar 3 x 3, status post I and D to tendon and fascia on 07/27/2016. 3. Diabetes. 4. Peripheral arterial disease status post bypass right lower extremity in May 2016. 5. Left heel pressure ulcer. RECOMMENDATIONS: Wound VAC is to be placed per Vascular to the lateral foot. Continue IV antibiotics for now. We will change to p.o. soon. We will await [facility]ascular followup. Follow up on labs and cultures. Discussed with the family. Thank you for allowing me to participate in this patient's care. If you have any questions, please do not hesitate to contact me. BRIAN LEVINE MD DR: TRAVIS/kylee JOB#: [id number] / [id number]
--- NOTE | 2016-07-29 09:34 | PDOC ---
Infectious Disease Note Subjective Subjective Min pain but ok Reports feeling "funny" and pain in both legs. ROS ROS GEN: Denies fevers, chills, sweats HEENT: Denies blurred vision, sore throat CV: Denies chest pain RESP: Denies shortness of air, cough GI: Denies n/v/d NEURO: Denies confusion, dizziness MSK: Denies weakness, joint pain/swelling Vital Sign Vital Signs Vital Signs Date Time Temp Pulse Resp B/P Pulse Ox O2 Delivery O2 Flow Rate FiO2 07/29/16 09:13 85 120/69 07/29/16 07:00 98.0 16 98 Room Air 98.0 Physical Exam PHYSICAL EXAM GENERAL: NAD, Alert, coop HEENT: PERRL, OC/OP- clear NECK: Supple, no JVD, no LN LUNGS: Clear HEART: S1S2, no gallop, no murmur ABD: Soft, NT, no organomegaly, no rebound EXT: No edema, no cyanosis; clean, Great toe on right is clean. Right heel is clean. Right lateral foot wound very clean CHIEF RECORDIST: Alert, oriented x 3, no focal neurologic deficit SKIN: No rash IV: ok Labs Lab Laboratory Tests Test 07/28/16 10:56 07/28/16 16:08 07/28/16 21:18 07/29/16 07:31 Glucose (Fingerstick) 125mg/dL (70-99) 94mg/dL (70-99) 55mg/dL (70-99) 33mg/dL (70-99) Test 07/29/16 07:51 07/29/16 08:20 Glucose (Fingerstick) 213mg/dL (70-99) White Blood Count 7.3x10^3/uL (4.0-11.0) Red Blood Count 3.40x10^6/uL (3.50-5.40) Hemoglobin 9.4g/dL (12.0-15.5) Hematocrit 28.7% (36.0-47.0) Mean Corpuscular Volume 84fL (79-100) Mean Corpuscular Hemoglobin 28pg (25-35) Mean Corpuscular Hemoglobin Concent 33g/dL (31-37) Red Cell Distribution Width 15.2% (11.5-14.5) Platelet Count 304x10^3/uL (140-400) Neutrophils (%) (Auto) 62% (31-73) Lymphocytes (%) (Auto) 28% (24-48) Monocytes (%) (Auto) 7% (0-9) Eosinophils (%) (Auto) 3% (0-3) Basophils (%) (Auto) 1% (0-3) Neutrophils # (Auto) 4.5x10^3uL (1.8-7.7) Lymphocytes # (Auto) 2.0x10^3/uL (1.0-4.8) Monocytes # (Auto) 0.5x10^3/uL (0.0-1.1) Eosinophils # (Auto) 0.2x10^3/uL (0.0-0.7) Basophils # (Auto) 0.1x10^3/uL (0.0-0.2) Sodium Level 144mmol/L (136-145) Potassium Level 3.8mmol/L (3.5-5.1) Chloride Level 109mmol/L (98-107) Carbon Dioxide Level 24mmol/L (21-32) Anion Gap 11 (6-14) Blood Urea Nitrogen 21mg/dL (7-20) Creatinine 1.0mg/dL (0.6-1.0) Estimated GFR (Cockcroft-Gault) 68.9 Glucose Level 173mg/dL (70-99) Calcium Level 9.5mg/dL (8.5-10.1) Vancomycin Level Trough 26.4mcg/mL (10.0-20.0) Vancomycin Last Dose Date 07/28/16 Vancomycin Last Dose Time 2100 Objective Assessment Infected right great toe s/p amputation with primary closure 07/27 Right foot lateral dorsum eschar s/p I and D to tendon and fascia 07/27. No bone on exam and very clean DM PAD s/p bypass RLE 05/2016 Left heel pressure ulcer Plan Plan of Care D/c abx Vanc and Zosyn after today Wound vac to be placed to lateral foot Please call with questions BRIAN LEVINE MD Jul 29, 2016 09:34
[2016-07-29] MEDS: FENTANYL PF 100 MCG/2 ML VIAL. IV PRN ×2 (10:18→14:35)
[2016-07-29 11:00] VITALS: BP 135/81
[2016-07-29] MEDS ORDERED: PIPERACILLIN/TAZOBACTAM 3.375 GM in IV NORMAL SALINE 50ML 50 ML IV SCH (12:00)
--- NOTE | 2016-07-29 12:28 | PDOC ---
PROGRESS NOTES Chief Complaint Chief Complaint 1. Osteomyelitis right great toe- s/p right great toe amputation 2. Ulceration/ wound secondary to Poorly Controlled T2DM 3. T2DM 4. Hypoglycemia 5. PVD 6. HTN 7. HLD 8. Generalized weakness 9. Anxiety d/o or depression, not treated History of Present Illness History of Present Illness Pt up in bed doing well this AM. Brother at bedside today with pt. Pt states she is doing better today. She is still complaining of some generalized weakness but has been working with PT/OT when possible. The pt also stated she is having some pain at the incision site but the pain is controlled with the pain medications. MARIAM RN- Pt hypoglycemic overnight; Will modify Diabetic Regimen Vitals Vitals Vital Signs Date Time Temp Pulse Resp B/P Pulse Ox O2 Delivery O2 Flow Rate FiO2 07/29/16 11:00 98.1 97 20 135/81 99 Room Air 98.1 07/29/16 10:48 2.0 Physical Exam General: Alert, Oriented X3, Cooperative, No acute distress Heart: Regular rate, Normal S1, Normal S2, No murmurs Lungs: Clear, Other (no wheezes) Abdomen: Normal bowel sounds, Soft, No tenderness Extremities: No clubbing, No edema, Other (right great toe amp site ok; awaiting wound vac placement right dorsal foot wound; left heel tender, not fluctuant; Normal Capillary Refill in both Lower Extremities) Skin: No rashes, Other (Dressing intact over Amputation site) Labs LABS Laboratory Tests Test 07/28/16 16:08 07/28/16 21:18 07/29/16 07:31 07/29/16 07:51 Glucose (Fingerstick) 94mg/dL (70-99) 55mg/dL (70-99) 33mg/dL (70-99) 213mg/dL (70-99) Test 07/29/16 08:20 White Blood Count 7.3x10^3/uL (4.0-11.0) Red Blood Count 3.40x10^6/uL (3.50-5.40) Hemoglobin 9.4g/dL (12.0-15.5) Hematocrit 28.7% (36.0-47.0) Mean Corpuscular Volume 84fL (79-100) Mean Corpuscular Hemoglobin 28pg (25-35) Mean Corpuscular Hemoglobin Concent 33g/dL (31-37) Red Cell Distribution Width 15.2% (11.5-14.5) Platelet Count 304x10^3/uL (140-400) Neutrophils (%) (Auto) 62% (31-73) Lymphocytes (%) (Auto) 28% (24-48) Monocytes (%) (Auto) 7% (0-9) Eosinophils (%) (Auto) 3% (0-3) Basophils (%) (Auto) 1% (0-3) Neutrophils # (Auto) 4.5x10^3uL (1.8-7.7) Lymphocytes # (Auto) 2.0x10^3/uL (1.0-4.8) Monocytes # (Auto) 0.5x10^3/uL (0.0-1.1) Eosinophils # (Auto) 0.2x10^3/uL (0.0-0.7) Basophils # (Auto) 0.1x10^3/uL (0.0-0.2) Sodium Level 144mmol/L (136-145) Potassium Level 3.8mmol/L (3.5-5.1) Chloride Level 109mmol/L (98-107) Carbon Dioxide Level 24mmol/L (21-32) Anion Gap 11 (6-14) Blood Urea Nitrogen 21mg/dL (7-20) Creatinine 1.0mg/dL (0.6-1.0) Estimated GFR (Cockcroft-Gault) 68.9 Glucose Level 173mg/dL (70-99) Calcium Level 9.5mg/dL (8.5-10.1) Vancomycin Level Trough 26.4mcg/mL (10.0-20.0) Vancomycin Last Dose Date 07/28/16 Vancomycin Last Dose Time 2100 Review of Systems Review of Systems Complaining of weakness Complaining of pain at the amputation site All other ROS negative Assessment and Plan Assessmemt and Plan Problems Medical Problems: (1) Osteomyelitis due to type 2 diabetes mellitus Status: Acute 1. Osteomyelitis right great toe- s/p right great toe amputation 2. Ulceration/ wound secondary to Poorly Controlled T2DM 3. T2DM 4. Hypoglycemia 5. PVD 6. HTN 7. HLD 8. Generalized weakness 9. Anxiety d/o or depression, not treated Plan: - Continue Regular care per floor protocol - Continue Regular Glucose checks and Diabetic Monitoring - hypoglycemic at times overnight per RN report; likely secondary to oral medications - Held: Tradjenta, Amaryl, and Metformin this AM - Will stop Tradjenta and Metformin at this time; May resume Amaryl in AM - Vascular Surgery Consulted- appreciate recommendations -s/p right great toe amputation - ID Consulted- Appreciate recommendations - Continue Abx treatment w/ Vancomycin and Zosyn; will discontinue after (07/29/2016) - Wound Vac to be placed 07/29/2016 - Continue regular home medications - Continue Pain Control with narcotics prn - Continue Regular Wound Care - PT/OT to continue to evaluate and treat - SW Consulted- for SNU Eval vs. LTAC - Disposition: Awaiting SW recommendation on placement after discussion with family; Discharge possible if placement found and wound vac placed Problems: Comment Review of Relevant I have reviewed the following items alma (where applicable) has been applied. Labs Laboratory Tests Test 07/27/16 12:41 07/27/16 16:55 07/27/16 20:43 07/28/16 04:30 Glucose (Fingerstick) 111mg/dL (70-99) 139mg/dL (70-99) 195mg/dL (70-99) White Blood Count 8.9x10^3/uL (4.0-11.0) Red Blood Count 3.40x10^6/uL (3.50-5.40) Hemoglobin 9.6g/dL (12.0-15.5) Hematocrit 28.3% (36.0-47.0) Mean Corpuscular Volume 83fL (79-100) Mean Corpuscular Hemoglobin 28pg (25-35) Mean Corpuscular Hemoglobin Concent 34g/dL (31-37) Red Cell Distribution Width 15.2% (11.5-14.5) Platelet Count 364x10^3/uL (140-400) Neutrophils (%) (Auto) 63% (31-73) Lymphocytes (%) (Auto) 28% (24-48) Monocytes (%) (Auto) 5% (0-9) Eosinophils (%) (Auto) 3% (0-3) Basophils (%) (Auto) 1% (0-3) Neutrophils # (Auto) 5.6x10^3uL (1.8-7.7) Lymphocytes # (Auto) 2.5x10^3/uL (1.0-4.8) Monocytes # (Auto) 0.4x10^3/uL (0.0-1.1) Eosinophils # (Auto) 0.2x10^3/uL (0.0-0.7) Basophils # (Auto) 0.1x10^3/uL (0.0-0.2) Sodium Level 143mmol/L (136-145) Potassium Level 4.1mmol/L (3.5-5.1) Chloride Level 108mmol/L (98-107) Carbon Dioxide Level 24mmol/L (21-32) Anion Gap 11 (6-14) Blood Urea Nitrogen 27mg/dL (7-20) Creatinine 0.9mg/dL (0.6-1.0) Estimated GFR (Cockcroft-Gault) 77.8 BUN/Creatinine Ratio 30 (6-20) Glucose Level 132mg/dL (70-99) Hemoglobin A1c 7.4% (4.8-5.6) Calcium Level 9.4mg/dL (8.5-10.1) Total Bilirubin 0.3mg/dL (0.2-1.0) Aspartate Amino Transf (AST/SGOT) 11U/L (15-37) Alanine Aminotransferase (ALT/SGPT) 15U/L (14-59) Alkaline Phosphatase 111U/L (46-116) Total Protein 7.2g/dL (6.4-8.2) Albumin 3.2g/dL (3.4-5.0) Albumin/Globulin Ratio 0.8 (1.0-1.7) Test 07/28/16 07:16 07/28/16 08:15 07/28/16 10:56 07/28/16 16:08 Glucose (Fingerstick) 81mg/dL (70-99) 125mg/dL (70-99) 94mg/dL (70-99) Ionized Calcium 1.32mmol/L (1.13-1.32) Test 07/28/16 21:18 07/29/16 07:31 07/29/16 07:51 07/29/16 08:20 Glucose (Fingerstick) 55mg/dL (70-99) 33mg/dL (70-99) 213mg/dL (70-99) White Blood Count 7.3x10^3/uL (4.0-11.0) Red Blood Count 3.40x10^6/uL (3.50-5.40) Hemoglobin 9.4g/dL (12.0-15.5) Hematocrit 28.7% (36.0-47.0) Mean Corpuscular Volume 84fL (79-100) Mean Corpuscular Hemoglobin 28pg (25-35) Mean Corpuscular Hemoglobin Concent 33g/dL (31-37) Red Cell Distribution Width 15.2% (11.5-14.5) Platelet Count 304x10^3/uL (140-400) Neutrophils (%) (Auto) 62% (31-73) Lymphocytes (%) (Auto) 28% (24-48) Monocytes (%) (Auto) 7% (0-9) Eosinophils (%) (Auto) 3% (0-3) Basophils (%) (Auto) 1% (0-3) Neutrophils # (Auto) 4.5x10^3uL (1.8-7.7) Lymphocytes # (Auto) 2.0x10^3/uL (1.0-4.8) Monocytes # (Auto) 0.5x10^3/uL (0.0-1.1) Eosinophils # (Auto) 0.2x10^3/uL (0.0-0.7) Basophils # (Auto) 0.1x10^3/uL (0.0-0.2) Sodium Level 144mmol/L (136-145) Potassium Level 3.8mmol/L (3.5-5.1) Chloride Level 109mmol/L (98-107) Carbon Dioxide Level 24mmol/L (21-32) Anion Gap 11 (6-14) Blood Urea Nitrogen 21mg/dL (7-20) Creatinine 1.0mg/dL (0.6-1.0) Estimated GFR (Cockcroft-Gault) 68.9 Glucose Level 173mg/dL (70-99) Calcium Level 9.5mg/dL (8.5-10.1) Vancomycin Level Trough 26.4mcg/mL (10.0-20.0) Vancomycin Last Dose Date 07/28/16 Vancomycin Last Dose Time 2100 Laboratory Tests Test 07/28/16 16:08 07/28/16 21:18 07/29/16 07:31 07/29/16 07:51 Glucose (Fingerstick) 94mg/dL (70-99) 55mg/dL (70-99) 33mg/dL (70-99) 213mg/dL (70-99) Test 07/29/16 08:20 White Blood Count 7.3x10^3/uL (4.0-11.0) Red Blood Count 3.40x10^6/uL (3.50-5.40) Hemoglobin 9.4g/dL (12.0-15.5) Hematocrit 28.7% (36.0-47.0) Mean Corpuscular Volume 84fL (79-100) Mean Corpuscular Hemoglobin 28pg (25-35) Mean Corpuscular Hemoglobin Concent 33g/dL (31-37) Red Cell Distribution Width 15.2% (11.5-14.5) Platelet Count 304x10^3/uL (140-400) Neutrophils (%) (Auto) 62% (31-73) Lymphocytes (%) (Auto) 28% (24-48) Monocytes (%) (Auto) 7% (0-9) Eosinophils (%) (Auto) 3% (0-3) Basophils (%) (Auto) 1% (0-3) Neutrophils # (Auto) 4.5x10^3uL (1.8-7.7) Lymphocytes # (Auto) 2.0x10^3/uL (1.0-4.8) Monocytes # (Auto) 0.5x10^3/uL (0.0-1.1) Eosinophils # (Auto) 0.2x10^3/uL (0.0-0.7) Basophils # (Auto) 0.1x10^3/uL (0.0-0.2) Sodium Level 144mmol/L (136-145) Potassium Level 3.8mmol/L (3.5-5.1) Chloride Level 109mmol/L (98-107) Carbon Dioxide Level 24mmol/L (21-32) Anion Gap 11 (6-14) Blood Urea Nitrogen 21mg/dL (7-20) Creatinine 1.0mg/dL (0.6-1.0) Estimated GFR (Cockcroft-Gault) 68.9 Glucose Level 173mg/dL (70-99) Calcium Level 9.5mg/dL (8.5-10.1) Vancomycin Level Trough 26.4mcg/mL (10.0-20.0) Vancomycin Last Dose Date 07/28/16 Vancomycin Last Dose Time 2100 Medications Current Medications Ondansetron HCl (Zofran) 4 mg PRN Q6HRS PRN IV Nausea; Start 07/27/16 at 07:00 ; Stop 07/28/16 at 06:59; Status DC Fentanyl Citrate (Fentanyl 2ml Vial) 25 mcg PRN Q5MIN PRN IV MILD PAIN; Start 07/27/16 at 07:00; Stop 07/28/16 at 06:59; Status DC Fentanyl Citrate 50 mcg 50 mcg PRN Q5MIN PRN IV MODERATE PAIN Last administered on 07/27/16 20:10; Start 07/27/16 at 07:00; Stop 07/28/16 at 06:59 ; Status DC Lactated Ringer's (Iv Lactated Ringers) 1,000 ml @ 30 mls/hr Q24H IV Last administered on 07/27/16 09:21; Start 07/27/16 at 07:00; Stop 07/27/16 at 18:59 ; Status DC Lidocaine HCl 2 ml 1X PRN PRN ID IV START; Start 07/27/16 at 07:00; Stop at 06:59; Status DC Prochlorperazine Edisylate 5 mg 5 mg PACU PRN PRN IV NAUSEA; Start 07/27/16 at 07:00; Stop 07/28/16 at 06:59; Status DC Cefazolin Sodium 1 gm/Sodium Chloride 250 ml @ 250 mls/hr 1X ONCE IRR Last administered on 07/27/16 10:20; Start 07/27/16 at 08:00; Stop 07/27/16 at 08:59 ; Status DC Cefazolin Sodium/ Dextrose 50 ml @ 100 mls/hr 1X PREOP PRN IV PRIOR TO PROCEDURE Last administered on 07/27/16 10:17; Start 07/27/16 at 06:00; Stop at 18:00; Status DC Propofol (Diprivan) 20 ml @ As Directed STK-MED ONCE IV ; Start 07/27/16 at 09: 39; Stop 07/27/16 at 09:40; Status DC Lidocaine HCl 100 mg STK-MED ONCE .ROUTE ; Start 07/27/16 at 09:39; Stop at 09:40; Status DC Sevoflurane (Ultane) 30 ml STK-MED ONCE IH ; Start 07/27/16 at 09:39; Stop 07/27 at 09:40; Status DC Famotidine (Pepcid) 20 mg STK-MED ONCE .ROUTE ; Start 07/27/16 at 09:39; Stop at 09:40; Status DC Lidocaine HCl 30 ml STK-MED ONCE .ROUTE Last administered on 07/27/16 10:31; Start 07/27/16 at 09:55; Stop 07/27/16 at 09:56; Status DC Phenylephrine HCl 1 mg STK-MED ONCE IV ; Start 07/27/16 at 10:19; Stop 07/27/16 at 10:20; Status DC Ephedrine Sulfate 50 mg STK-MED ONCE IV ; Start 07/27/16 at 10:40; Stop at 10:41; Status DC Dextrose 25 gm STK-MED ONCE IV ; Start 07/27/16 at 11:13; Stop 07/27/16 at 11:14 ; Status DC Fentanyl Citrate 50 mcg 50 mcg PRN Q2HR PRN IV PAIN Last administered on 10:18; Start 07/27/16 at 14:15 Potassium Chloride/Dextrose/ Sod Cl (KCl 20 Meq In D5W-1/2 NS) 1,000 ml @ 80 mls/hr 1X ONCE IV Last administered on 07/27/16 15:03; Start 07/27/16 at 14: 15; Stop 07/28/16 at 02:44; Status DC Ketorolac Tromethamine (Toradol) 30 mg 1X ONCE IV Last administered on 15:11; Start 07/27/16 at 14:15; Stop 07/27/16 at 14:16; Status DC Acetaminophen (Tylenol) 325 mg PRN TID PRN PO pain; Start 07/27/16 at 14:15 Aspirin (Ecotrin) 81 mg DAILY PO Last administered on 07/29/16 09:11; Start at 15:00 Gabapentin (Neurontin) 100 mg TID PO Last administered on 07/29/16 09:11; Start 07/27/16 at 15:00 Metformin HCl (Glucophage) 1,000 mg BIDWMEALS PO Last administered on 17:45; Start 07/27/16 at 17:00 Naproxen (Naprosyn) 500 mg BID PO Last administered on 07/29/16 09:12; Start 07/27/16 at 21:00 Glimepiride (Amaryl) 4 mg BID PO Last administered on 07/28/16 21:23; Start at 21:00 Insulin Detemir (Levemir) 10 units DAILY07 SQ Last administered on 07/28/16 09 :18; Start 07/28/16 at 07:00 Lisinopril (Prinivil) 20 mg DAILY PO Last administered on 07/29/16 09:13; Start 07/27/16 at 15:00 Non-Formulary Medication 20 meq DAILY PO ; Start 07/27/16 at 15:00; Stop at 15:00; Status DC Atorvastatin Calcium (Lipitor) 10 mg QHS PO Last administered on 07/28/16 21: 23; Start 07/27/16 at 21:00 Linagliptin (Tradjenta) 5 mg QHS PO Last administered on 07/28/16 21:22; Start 07/27/16 at 21:00 Insulin Aspart (Novolog) 0-7 UNITS TIDWMEALS SQ ; Start 07/27/16 at 17:00 Dextrose 12.5 gm PRN Q15MIN PRN IV SEE COMMENTS Last administered on 07/29/16 10:19; Start 07/27/16 at 14:15 Potassium Chloride (Klor-Con) 20 meq DAILYWBKFT PO Last administered on 09:11; Start 07/28/16 at 08:00 Hydrochlorothiazide (Microzide) 12.5 mg DAILY PO Last administered on 09:12; Start 07/27/16 at 15:00 Fentanyl Citrate (Fentanyl 2ml Vial) 75 mcg 1X ONCE IV Last administered on 16:19; Start 07/27/16 at 16:00; Stop 07/27/16 at 16:01; Status DC Oxycodone HCl (Roxicodone) 5 mg PRN Q4HRS PRN PO PAIN Last administered on 07/28 21:22; Start 07/27/16 at 15:45 Enoxaparin Sodium (Lovenox Per Pharmacy Prophylaxis Dosing) 1 each PRN DAILY PRN MC SEE COMMENTS; Start 07/27/16 at 16:00 Enoxaparin Sodium (Lovenox 40mg Syringe) 40 mg Q24H SQ Last administered on 17:46; Start 07/27/16 at 16:00 Vancomycin HCl (Vanco Per Pharmacy) 1 each PRN DAILY PRN MC SEE COMMENTS Last administered on 07/29/16 09:15; Start 07/27/16 at 19:15; Stop 07/29/16 at 10:38 ; Status DC Piperacillin Sod/ Tazobactam Sod 1 each 1 each PRN DAILY PRN MC SEE COMMENTS; Start 07/27/16 at 19:15 Piperacillin Sod/ Tazobactam Sod 3.375 gm/Sodium Chloride 50 ml @ 100 mls/hr Q6HRS IV Last administered on 07/29/16 06:01; Start 07/27/16 at 19:30; Stop at 10:38; Status DC Vancomycin HCl 2 gm/Sodium Chloride 500 ml @ 250 mls/hr 1X ONCE IV Last administered on 07/27/16 20:58; Start 07/27/16 at 19:30; Stop 07/27/16 at 21:29 ; Status DC Vancomycin HCl/ Sodium Chloride (Iv Sodium Chloride 0.9% 250ml) 250 ml @ 167 mls/hr Q12H IV Last administered on 07/28/16 21:26; Start 07/28/16 at 09:00; Stop 07/29/16 at 09:10; Status DC Vancomycin HCl 1 each 1 each 1X ONCE MC Last administered on 07/29/16 08:30; Start 07/29/16 at 08:30; Stop 07/29/16 at 08:31; Status DC Vancomycin HCl 1.25 gm/Sodium Chloride 250 ml @ 167 mls/hr Q24H IV ; Start at 21:00; Stop 07/29/16 at 21:00; Status DC Piperacillin Sod/ Tazobactam Sod/ Sodium Chloride (Zosyn/Iv Sodium Chloride 0.9 % 50ml) 50 ml @ 100 mls/hr Q6HRS IV ; Start 07/29/16 at 12:00; Stop 07/29/16 at 14:00 Active Scripts Active Reported Levemir (Insulin Detemir) 100 Unit/1 Ml Vial 10 Unit SQ DAILY07 K-Tab ER (Potassium Chloride) 20 Meq Tablet.er 20 Meq PO DAILY Oxycodone-Acetaminophen 5-325 (Oxycodone Hcl/Acetaminophen) 1 Each Tablet 1 Each PO Q4HRS PRN Aspir 81 (Aspirin) 81 Mg Tablet.dr 1 Tab PO DAILY Tylenol (Acetaminophen) 325 Mg Tablet 2 Tab PO TID Lisinopril-Hctz 20-12.5 Mg Tab (Lisinopril/Hydrochlorothiazide) 1 Each Tablet 1 Tab PO DAILY Naproxen 500 Mg Tablet 1 Tab PO BID Gabapentin 100 Mg Capsule 100 Mg PO QHS Metformin Hcl 1,000 Mg Tablet 1 Tab PO BID Glimepiride 4 Mg Tablet 1 Tab PO BID Pravastatin Sodium 40 Mg Tablet 1 Tab PO QHS Januvia (Sitagliptin Phosphate) 100 Mg Tablet 1 Tab PO QHS Vitals/I & O Vital Sign - Last 24 Hours 07/28/16 07/28/16 07/28/16 07/28/16 13:52 14:52 15:00 17:46 Temp 98.7 98.7 Pulse 97 Resp 20 B/P 146/88 Pulse Ox 98 O2 Delivery Room Air Room Air Room Air Room Air 07/28/16 07/28/16 07/29/16 07/29/16 19:00 23:00 03:00 07:00 Temp 98.8 99.5 98.1 98.0 98.8 99.5 98.1 98.0 Pulse 99 110 93 85 Resp 18 18 16 B/P 134/81 140/87 123/77 120/69 Pulse Ox 99 100 98 98 O2 Delivery Room Air Room Air Room Air Room Air 07/29/16 07/29/16 07/29/16 07/29/16 09:13 10:18 10:48 11:00 Temp 98.1 98.1 Pulse 85 97 Resp 20 B/P 120/69 135/81 Pulse Ox 98 99 99 O2 Delivery Room Air Room Air Room Air O2 Flow Rate 2.0 Intake and Output 07/28/16 07/28/16 07/29/16 15:00 23:00 07:00 Intake Total 220 ml 500 ml Balance 220 ml 500 ml TIFFANIE SIMPSON III DO Jul 29, 2016 12:28
[2016-07-29 15:00] VITALS: BP 159/86
--- NOTE | 2016-07-29 17:13 | PATHOLOGY ---
PATHOLOGY REPORT * * * * * * * * FINAL DIAGNOSIS: Right great toe and separate segments of bone, right great toe amputation: - Gangrenous necrosis of toe with ulceration and acute cellulitis and focal acute osteomyelitis. (JPM:csd; d/t: 07/29/2016) REPORT ELECTRONICALLY SIGNED BY: Rafa De La Cruz M.D. DATE/TIME: 07/29/2016 17:12 * * * * * * * * GROSS PATHOLOGY: A. The specimen is received in formalin labeled "Chloé Arreola, right great toe". Received is an amputated digit measuring 3.4 x 3.4 x 2.8 cm in greatest dimensions. The bone margin is smooth and concave in appearance, consistent with disarticulation. The bone and soft tissue margins are inked black. The nail is present displaying a yeager-murray and slightly thickened appearance measuring 1.6 x 1.4 cm. The epidermal surface is light murray, partially crusted to necrotic in appearance. Also received within the specimen container are multiple additional segments of light murray bone admixed with white-murray fibrous soft tissue measuring 3.6 x 3.0 x 1.1 cm in aggregate dimensions. The specimen is submitted representatively as follows: A1-A2 full-thickness longitudinal cross-section of toe, divided into proximal and distal aspects, following decalcification A3 route sales representative sections of separately submitted segments of bone, following decalcification. (CAA; 07/28/2016) INITIAL CPT CODE(S): A; 24800, 60219 Professional services [place] [facility] [place] [address] Technical services performed by [email or web address] at [address] [place] [address]. 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
[2016-07-29] MEDS: ENOXAPARIN 40 MG/0.4 ML DISP.SYRIN. SQ SCH (17:17)
--- NOTE | 2016-07-29 18:14 | PDOC ---
SURGICAL PROGRESS NOTE Subjective no complaints Vital Signs Vital Signs Date Time Temp Pulse Resp B/P Pulse Ox O2 Delivery O2 Flow Rate FiO2 07/29/16 15:05 97 Room Air 07/29/16 15:00 98.2 97 20 159/86 98.2 07/29/16 14:35 2.0 I&O Intake and Output 07/29/16 07:00 Intake Total 720 ml Balance 720 ml Intake Oral 720 ml # Voids 2 Extremities: Other (2+ graft pulse right leg; wound vac in place dorsum of right foot.; left heel has callous) Labs Laboratory Tests Test 07/27/16 20:43 07/28/16 04:30 07/28/16 07:16 07/28/16 08:15 Glucose (Fingerstick) 195mg/dL (70-99) 81mg/dL (70-99) White Blood Count 8.9x10^3/uL (4.0-11.0) Red Blood Count 3.40x10^6/uL (3.50-5.40) Hemoglobin 9.6g/dL (12.0-15.5) Hematocrit 28.3% (36.0-47.0) Mean Corpuscular Volume 83fL (79-100) Mean Corpuscular Hemoglobin 28pg (25-35) Mean Corpuscular Hemoglobin Concent 34g/dL (31-37) Red Cell Distribution Width 15.2% (11.5-14.5) Platelet Count 364x10^3/uL (140-400) Neutrophils (%) (Auto) 63% (31-73) Lymphocytes (%) (Auto) 28% (24-48) Monocytes (%) (Auto) 5% (0-9) Eosinophils (%) (Auto) 3% (0-3) Basophils (%) (Auto) 1% (0-3) Neutrophils # (Auto) 5.6x10^3uL (1.8-7.7) Lymphocytes # (Auto) 2.5x10^3/uL (1.0-4.8) Monocytes # (Auto) 0.4x10^3/uL (0.0-1.1) Eosinophils # (Auto) 0.2x10^3/uL (0.0-0.7) Basophils # (Auto) 0.1x10^3/uL (0.0-0.2) Sodium Level 143mmol/L (136-145) Potassium Level 4.1mmol/L (3.5-5.1) Chloride Level 108mmol/L (98-107) Carbon Dioxide Level 24mmol/L (21-32) Anion Gap 11 (6-14) Blood Urea Nitrogen 27mg/dL (7-20) Creatinine 0.9mg/dL (0.6-1.0) Estimated GFR (Cockcroft-Gault) 77.8 BUN/Creatinine Ratio 30 (6-20) Glucose Level 132mg/dL (70-99) Hemoglobin A1c 7.4% (4.8-5.6) Calcium Level 9.4mg/dL (8.5-10.1) Total Bilirubin 0.3mg/dL (0.2-1.0) Aspartate Amino Transf (AST/SGOT) 11U/L (15-37) Alanine Aminotransferase (ALT/SGPT) 15U/L (14-59) Alkaline Phosphatase 111U/L (46-116) Total Protein 7.2g/dL (6.4-8.2) Albumin 3.2g/dL (3.4-5.0) Albumin/Globulin Ratio 0.8 (1.0-1.7) Ionized Calcium 1.32mmol/L (1.13-1.32) Test 07/28/16 10:56 07/28/16 16:08 07/28/16 21:18 07/29/16 07:31 Glucose (Fingerstick) 125mg/dL (70-99) 94mg/dL (70-99) 55mg/dL (70-99) 33mg/dL (70-99) Test 07/29/16 07:51 07/29/16 08:20 07/29/16 11:45 07/29/16 17:07 Glucose (Fingerstick) 213mg/dL (70-99) 140mg/dL (70-99) 95mg/dL (70-99) White Blood Count 7.3x10^3/uL (4.0-11.0) Red Blood Count 3.40x10^6/uL (3.50-5.40) Hemoglobin 9.4g/dL (12.0-15.5) Hematocrit 28.7% (36.0-47.0) Mean Corpuscular Volume 84fL (79-100) Mean Corpuscular Hemoglobin 28pg (25-35) Mean Corpuscular Hemoglobin Concent 33g/dL (31-37) Red Cell Distribution Width 15.2% (11.5-14.5) Platelet Count 304x10^3/uL (140-400) Neutrophils (%) (Auto) 62% (31-73) Lymphocytes (%) (Auto) 28% (24-48) Monocytes (%) (Auto) 7% (0-9) Eosinophils (%) (Auto) 3% (0-3) Basophils (%) (Auto) 1% (0-3) Neutrophils # (Auto) 4.5x10^3uL (1.8-7.7) Lymphocytes # (Auto) 2.0x10^3/uL (1.0-4.8) Monocytes # (Auto) 0.5x10^3/uL (0.0-1.1) Eosinophils # (Auto) 0.2x10^3/uL (0.0-0.7) Basophils # (Auto) 0.1x10^3/uL (0.0-0.2) Sodium Level 144mmol/L (136-145) Potassium Level 3.8mmol/L (3.5-5.1) Chloride Level 109mmol/L (98-107) Carbon Dioxide Level 24mmol/L (21-32) Anion Gap 11 (6-14) Blood Urea Nitrogen 21mg/dL (7-20) Creatinine 1.0mg/dL (0.6-1.0) Estimated GFR (Cockcroft-Gault) 68.9 Glucose Level 173mg/dL (70-99) Calcium Level 9.5mg/dL (8.5-10.1) Vancomycin Level Trough 26.4mcg/mL (10.0-20.0) Vancomycin Last Dose Date 07/28/16 Vancomycin Last Dose Time 2100 Laboratory Tests Test 07/28/16 21:18 07/29/16 07:31 07/29/16 07:51 07/29/16 08:20 Glucose (Fingerstick) 55mg/dL (70-99) 33mg/dL (70-99) 213mg/dL (70-99) White Blood Count 7.3x10^3/uL (4.0-11.0) Red Blood Count 3.40x10^6/uL (3.50-5.40) Hemoglobin 9.4g/dL (12.0-15.5) Hematocrit 28.7% (36.0-47.0) Mean Corpuscular Volume 84fL (79-100) Mean Corpuscular Hemoglobin 28pg (25-35) Mean Corpuscular Hemoglobin Concent 33g/dL (31-37) Red Cell Distribution Width 15.2% (11.5-14.5) Platelet Count 304x10^3/uL (140-400) Neutrophils (%) (Auto) 62% (31-73) Lymphocytes (%) (Auto) 28% (24-48) Monocytes (%) (Auto) 7% (0-9) Eosinophils (%) (Auto) 3% (0-3) Basophils (%) (Auto) 1% (0-3) Neutrophils # (Auto) 4.5x10^3uL (1.8-7.7) Lymphocytes # (Auto) 2.0x10^3/uL (1.0-4.8) Monocytes # (Auto) 0.5x10^3/uL (0.0-1.1) Eosinophils # (Auto) 0.2x10^3/uL (0.0-0.7) Basophils # (Auto) 0.1x10^3/uL (0.0-0.2) Sodium Level 144mmol/L (136-145) Potassium Level 3.8mmol/L (3.5-5.1) Chloride Level 109mmol/L (98-107) Carbon Dioxide Level 24mmol/L (21-32) Anion Gap 11 (6-14) Blood Urea Nitrogen 21mg/dL (7-20) Creatinine 1.0mg/dL (0.6-1.0) Estimated GFR (Cockcroft-Gault) 68.9 Glucose Level 173mg/dL (70-99) Calcium Level 9.5mg/dL (8.5-10.1) Vancomycin Level Trough 26.4mcg/mL (10.0-20.0) Vancomycin Last Dose Date 07/28/16 Vancomycin Last Dose Time 2100 Test 07/29/16 11:45 07/29/16 17:07 Glucose (Fingerstick) 140mg/dL (70-99) 95mg/dL (70-99) Problem List Problems Medical Problems: (1) Osteomyelitis due to type 2 diabetes mellitus Status: Acute Assessment/Plan 1. patent right fem-ant. tib bypass; debridement of dorsal foot ulcer and right great toe amp. 2. left heel decubitus , extent unknown Plan: cont suction dressing right foot 2. will debride left heel with a ronguer tomorrow to determine extent of wound. Problems: SAVI EDWARDS II, MD Jul 29, 2016 18:14
[2016-07-29 19:05] VITALS: BP 164/92
[2016-07-29] MEDS: OXYCODONE IR 5 MG TABLET. PO PRN (19:29)
[2016-07-29] MEDS ORDERED: VANCOMYCIN 1.25 GM in IV NORMAL SALINE 250ML 250 ML IV SCH (21:00)
[2016-07-29] MEDS: ATORVASTATIN CALCIUM 10 MG TABLET. PO SCH (21:05)
[2016-07-29 23:08] VITALS: BP 172/103
[2016-07-30 02:56] VITALS: BP 161/92
[2016-07-30 03:49] LABS: BASO # 0.1 x10^3/uL (0.0-0.2); BASO % 1 % (0-3); EOS % 3 % (0-3); HEMATOCRIT 27.6 % (36.0-47.0); HEMOGLOBIN 9.1 g/dL (12.0-15.5); LYMPH # 2.4 x10^3/uL (1.0-4.8); LYMPH % 35 % (24-48); MEAN CORPUSCULAR HEMOGLOBIN 27 pg (25-35); MEAN CORPUSCULAR HGB CONC 33 g/dL (31-37); MEAN CORPUSCULAR VOLUME 83 fL (79-100); MONO % 7 % (0-9); NEUT % 54 % (31-73); PLATELET COUNT 299 x10^3/uL (140-400); RED BLOOD COUNT 3.31 x10^6/uL (3.50-5.40); WHITE BLOOD COUNT 6.8 x10^3/uL (4.0-11.0)
[2016-07-30 04:08] LABS: CALCIUM 9.8 mg/dL (8.5-10.1); CREATININE 0.8 mg/dL (0.6-1.0); GFR 89.1; POTASSIUM 3.8 mmol/L (3.5-5.1)
[2016-07-30 07:00] VITALS: BP 144/89
[2016-07-30] MEDS: INSULIN ASPART 300 UNITS/3 ML INSULN.PEN SQ SCH ×3 (08:00→18:10)
[2016-07-30] MEDS: POTASSIUM CHLORIDE 20 MEQ TABLET.ER. PO SCH (09:19)
[2016-07-30] MEDS: GABAPENTIN 100 MG CAPSULE. PO SCH ×3 (09:19→21:07)
[2016-07-30] MEDS: ASPIRIN ENTERIC COATED 81 MG TABLET.DR. PO SCH (09:19)
[2016-07-30] MEDS: HYDROCHLOROTHIAZIDE 12.5 MG CAPSULE. PO SCH (09:19)
[2016-07-30] MEDS: NAPROXEN 500 MG TABLET PO SCH ×2 (09:19→21:07)
[2016-07-30] MEDS: GLIMEPIRIDE 2 MG TABLET PO SCH ×2 (09:19→21:07)
[2016-07-30] MEDS: LISINOPRIL 20 MG TABLET PO SCH (09:20)
[2016-07-30] MEDS: OXYCODONE IR 5 MG TABLET. PO PRN ×4 (09:23→22:57)
[2016-07-30] MEDS: INSULIN DETEMIR 300 UNITS/3 ML INSULN.PEN. SQ SCH (09:28)
[2016-07-30 11:40] VITALS: BP 137/92
--- NOTE | 2016-07-30 11:45 | PDOC ---
PROGRESS NOTES Chief Complaint Chief Complaint 1. Osteomyelitis right great toe- s/p right great toe amputation 2. Ulceration/ wound secondary to Poorly Controlled T2DM 3. T2DM 4. Hypoglycemia 5. PVD 6. HTN 7. HLD 8. Generalized weakness 9. Anxiety d/o or depression, not treated History of Present Illness History of Present Illness Pt resting comfortably in bed today NAD. VSS Awaiting possible procedure later today [facility]- Glucose under control with medication adjustments yesterday ; Awaiting procedure today per Ama[facility] note from 07/29/2016 Vitals Vitals Vital Signs Date Time Temp Pulse Resp B/P Pulse Ox O2 Delivery O2 Flow Rate FiO2 07/30/16 10:20 Room Air 07/30/16 09:20 88 144/89 07/30/16 07:00 98.1 20 100 98.1 07/29/16 14:35 2.0 Physical Exam General: Alert, Oriented X3, Cooperative, No acute distress Heart: Regular rate, Normal S1, Normal S2, No murmurs Lungs: Clear, Other (no wheezes) Abdomen: Normal bowel sounds, Soft, No tenderness Extremities: No cyanosis, No edema, Other (Normal Capillary Refill present; Dressing in place over amputation site C/D/I; left heel callous noted) Skin: No rashes, No significant lesion, Other (Dressing C/D/I over Amputation site) Labs LABS Laboratory Tests Test 07/29/16 11:45 07/29/16 17:07 07/29/16 20:34 07/30/16 03:10 Glucose (Fingerstick) 140mg/dL (70-99) 95mg/dL (70-99) 196mg/dL (70-99) White Blood Count 6.8x10^3/uL (4.0-11.0) Red Blood Count 3.31x10^6/uL (3.50-5.40) Hemoglobin 9.1g/dL (12.0-15.5) Hematocrit 27.6% (36.0-47.0) Mean Corpuscular Volume 83fL (79-100) Mean Corpuscular Hemoglobin 27pg (25-35) Mean Corpuscular Hemoglobin Concent 33g/dL (31-37) Red Cell Distribution Width 15.0% (11.5-14.5) Platelet Count 299x10^3/uL (140-400) Neutrophils (%) (Auto) 54% (31-73) Lymphocytes (%) (Auto) 35% (24-48) Monocytes (%) (Auto) 7% (0-9) Eosinophils (%) (Auto) 3% (0-3) Basophils (%) (Auto) 1% (0-3) Neutrophils # (Auto) 3.6x10^3uL (1.8-7.7) Lymphocytes # (Auto) 2.4x10^3/uL (1.0-4.8) Monocytes # (Auto) 0.5x10^3/uL (0.0-1.1) Eosinophils # (Auto) 0.2x10^3/uL (0.0-0.7) Basophils # (Auto) 0.1x10^3/uL (0.0-0.2) Sodium Level 142mmol/L (136-145) Potassium Level 3.8mmol/L (3.5-5.1) Chloride Level 108mmol/L (98-107) Carbon Dioxide Level 25mmol/L (21-32) Anion Gap 9 (6-14) Blood Urea Nitrogen 20mg/dL (7-20) Creatinine 0.8mg/dL (0.6-1.0) Estimated GFR (Cockcroft-Gault) 89.1 Glucose Level 117mg/dL (70-99) Calcium Level 9.8mg/dL (8.5-10.1) Test 07/30/16 07:51 Glucose (Fingerstick) 131mg/dL (70-99) Review of Systems Review of Systems Complaining of weakness Complaining of pain at site of toe amputation All other ROS negative Assessment and Plan Assessmemt and Plan Problems Medical Problems: (1) Osteomyelitis due to type 2 diabetes mellitus Status: Acute 1. Osteomyelitis right great toe- s/p right great toe amputation 2. Ulceration/ wound secondary to Poorly Controlled T2DM 3. T2DM 4. Hypoglycemia 5. PVD 6. HTN 7. HLD 8. Generalized weakness 9. Anxiety d/o or depression, not treated Plan: - Continue Regular care per floor protocol - Continue Regular Glucose checks and Diabetic Monitoring - Hypoglycemic episodes; Adjustments to meds on 07/29/2016 show improvement in sugars today - Stopped Tradjenta and Metformin yesterday - Amaryl Given today and will continue daily - Vascular Surgery Consulted- appreciate recommendations - s/p right great toe amputation - plan is for Left Heel debridement w/ candy on 07/30/2016 - ID Consulted- Appreciate recommendations - Vanc and Zosyn Discontinued - Wound Vac needed - Continue Regular Wound Care - Pending Wound Vac Placement; waiting on insurance approval - Continue regular home medications - Continue Pain Control with narcotics prn - PT/OT to continue to evaluate and treat - SW Consulted- Spoke with daughter (NOE) would like to take pt home on discharge and F/U outpt with wound care clinic in place of [facility]. [facility] wound vac application started online awaiting datacap developer by wound care nurse before application can be completed for submission/Insurance approval. - Disposition: Discharge pending due to further procedures today and wound vac placement Problems: Comment Review of Relevant I have reviewed the following items alma (where applicable) has been applied. Labs Laboratory Tests Test 07/28/16 16:08 07/28/16 21:18 07/29/16 07:31 07/29/16 07:51 Glucose (Fingerstick) 94mg/dL (70-99) 55mg/dL (70-99) 33mg/dL (70-99) 213mg/dL (70-99) Test 07/29/16 08:20 07/29/16 11:45 07/29/16 17:07 07/29/16 20:34 White Blood Count 7.3x10^3/uL (4.0-11.0) Red Blood Count 3.40x10^6/uL (3.50-5.40) Hemoglobin 9.4g/dL (12.0-15.5) Hematocrit 28.7% (36.0-47.0) Mean Corpuscular Volume 84fL (79-100) Mean Corpuscular Hemoglobin 28pg (25-35) Mean Corpuscular Hemoglobin Concent 33g/dL (31-37) Red Cell Distribution Width 15.2% (11.5-14.5) Platelet Count 304x10^3/uL (140-400) Neutrophils (%) (Auto) 62% (31-73) Lymphocytes (%) (Auto) 28% (24-48) Monocytes (%) (Auto) 7% (0-9) Eosinophils (%) (Auto) 3% (0-3) Basophils (%) (Auto) 1% (0-3) Neutrophils # (Auto) 4.5x10^3uL (1.8-7.7) Lymphocytes # (Auto) 2.0x10^3/uL (1.0-4.8) Monocytes # (Auto) 0.5x10^3/uL (0.0-1.1) Eosinophils # (Auto) 0.2x10^3/uL (0.0-0.7) Basophils # (Auto) 0.1x10^3/uL (0.0-0.2) Sodium Level 144mmol/L (136-145) Potassium Level 3.8mmol/L (3.5-5.1) Chloride Level 109mmol/L (98-107) Carbon Dioxide Level 24mmol/L (21-32) Anion Gap 11 (6-14) Blood Urea Nitrogen 21mg/dL (7-20) Creatinine 1.0mg/dL (0.6-1.0) Estimated GFR (Cockcroft-Gault) 68.9 Glucose Level 173mg/dL (70-99) Calcium Level 9.5mg/dL (8.5-10.1) Vancomycin Level Trough 26.4mcg/mL (10.0-20.0) Vancomycin Last Dose Date 07/28/16 Vancomycin Last Dose Time 2100 Glucose (Fingerstick) 140mg/dL (70-99) 95mg/dL (70-99) 196mg/dL (70-99) Test 07/30/16 03:10 07/30/16 07:51 White Blood Count 6.8x10^3/uL (4.0-11.0) Red Blood Count 3.31x10^6/uL (3.50-5.40) Hemoglobin 9.1g/dL (12.0-15.5) Hematocrit 27.6% (36.0-47.0) Mean Corpuscular Volume 83fL (79-100) Mean Corpuscular Hemoglobin 27pg (25-35) Mean Corpuscular Hemoglobin Concent 33g/dL (31-37) Red Cell Distribution Width 15.0% (11.5-14.5) Platelet Count 299x10^3/uL (140-400) Neutrophils (%) (Auto) 54% (31-73) Lymphocytes (%) (Auto) 35% (24-48) Monocytes (%) (Auto) 7% (0-9) Eosinophils (%) (Auto) 3% (0-3) Basophils (%) (Auto) 1% (0-3) Neutrophils # (Auto) 3.6x10^3uL (1.8-7.7) Lymphocytes # (Auto) 2.4x10^3/uL (1.0-4.8) Monocytes # (Auto) 0.5x10^3/uL (0.0-1.1) Eosinophils # (Auto) 0.2x10^3/uL (0.0-0.7) Basophils # (Auto) 0.1x10^3/uL (0.0-0.2) Sodium Level 142mmol/L (136-145) Potassium Level 3.8mmol/L (3.5-5.1) Chloride Level 108mmol/L (98-107) Carbon Dioxide Level 25mmol/L (21-32) Anion Gap 9 (6-14) Blood Urea Nitrogen 20mg/dL (7-20) Creatinine 0.8mg/dL (0.6-1.0) Estimated GFR (Cockcroft-Gault) 89.1 Glucose Level 117mg/dL (70-99) Calcium Level 9.8mg/dL (8.5-10.1) Glucose (Fingerstick) 131mg/dL (70-99) Laboratory Tests Test 07/29/16 11:45 07/29/16 17:07 07/29/16 20:34 07/30/16 03:10 Glucose (Fingerstick) 140mg/dL (70-99) 95mg/dL (70-99) 196mg/dL (70-99) White Blood Count 6.8x10^3/uL (4.0-11.0) Red Blood Count 3.31x10^6/uL (3.50-5.40) Hemoglobin 9.1g/dL (12.0-15.5) Hematocrit 27.6% (36.0-47.0) Mean Corpuscular Volume 83fL (79-100) Mean Corpuscular Hemoglobin 27pg (25-35) Mean Corpuscular Hemoglobin Concent 33g/dL (31-37) Red Cell Distribution Width 15.0% (11.5-14.5) Platelet Count 299x10^3/uL (140-400) Neutrophils (%) (Auto) 54% (31-73) Lymphocytes (%) (Auto) 35% (24-48) Monocytes (%) (Auto) 7% (0-9) Eosinophils (%) (Auto) 3% (0-3) Basophils (%) (Auto) 1% (0-3) Neutrophils # (Auto) 3.6x10^3uL (1.8-7.7) Lymphocytes # (Auto) 2.4x10^3/uL (1.0-4.8) Monocytes # (Auto) 0.5x10^3/uL (0.0-1.1) Eosinophils # (Auto) 0.2x10^3/uL (0.0-0.7) Basophils # (Auto) 0.1x10^3/uL (0.0-0.2) Sodium Level 142mmol/L (136-145) Potassium Level 3.8mmol/L (3.5-5.1) Chloride Level 108mmol/L (98-107) Carbon Dioxide Level 25mmol/L (21-32) Anion Gap 9 (6-14) Blood Urea Nitrogen 20mg/dL (7-20) Creatinine 0.8mg/dL (0.6-1.0) Estimated GFR (Cockcroft-Gault) 89.1 Glucose Level 117mg/dL (70-99) Calcium Level 9.8mg/dL (8.5-10.1) Test 07/30/16 07:51 Glucose (Fingerstick) 131mg/dL (70-99) Medications Current Medications Ondansetron HCl (Zofran) 4 mg PRN Q6HRS PRN IV Nausea; Start 07/27/16 at 07:00 ; Stop 07/28/16 at 06:59; Status DC Fentanyl Citrate (Fentanyl 2ml Vial) 25 mcg PRN Q5MIN PRN IV MILD PAIN; Start 07/27/16 at 07:00; Stop 07/28/16 at 06:59; Status DC Fentanyl Citrate 50 mcg 50 mcg PRN Q5MIN PRN IV MODERATE PAIN Last administered on 07/27/16t 20:10; Start 07/27/16 at 07:00; Stop 07/28/16 at 06:59 ; Status DC Lactated Ringer's (Iv Lactated Ringers) 1,000 ml @ 30 mls/hr Q24H IV Last administered on 07/27/16 09:21; Start 07/27/16 at 07:00; Stop 07/27/16 at 18:59 ; Status DC Lidocaine HCl 2 ml 1X PRN PRN ID IV START; Start 07/27/16 at 07:00; Stop at 06:59; Status DC Prochlorperazine Edisylate 5 mg 5 mg PACU PRN PRN IV NAUSEA; Start 07/27/16 at 07:00; Stop 07/28/16 at 06:59; Status DC Cefazolin Sodium 1 gm/Sodium Chloride 250 ml @ 250 mls/hr 1X ONCE IRR Last administered on 07/27/16 10:20; Start 07/27/16 at 08:00; Stop 07/27/16 at 08:59 ; Status DC Cefazolin Sodium/ Dextrose 50 ml @ 100 mls/hr 1X PREOP PRN IV PRIOR TO PROCEDURE Last administered on 07/27/16 10:17; Start 07/27/16 at 06:00; Stop at 18:00; Status DC Propofol (Diprivan) 20 ml @ As Directed STK-MED ONCE IV ; Start 07/27/16 at 09: 39; Stop 07/27/16 at 09:40; Status DC Lidocaine HCl 100 mg STK-MED ONCE .ROUTE ; Start 07/27/16 at 09:39; Stop at 09:40; Status DC Sevoflurane (Ultane) 30 ml STK-MED ONCE IH ; Start 07/27/16 at 09:39; Stop 07/27 at 09:40; Status DC Famotidine (Pepcid) 20 mg STK-MED ONCE .ROUTE ; Start 07/27/16 at 09:39; Stop at 09:40; Status DC Lidocaine HCl 30 ml STK-MED ONCE .ROUTE Last administered on 07/27/16 10:31; Start 07/27/16 at 09:55; Stop 07/27/16 at 09:56; Status DC Phenylephrine HCl 1 mg STK-MED ONCE IV ; Start 07/27/16 at 10:19; Stop 07/27/16 at 10:20; Status DC Ephedrine Sulfate 50 mg STK-MED ONCE IV ; Start 07/27/16 at 10:40; Stop at 10:41; Status DC Dextrose 25 gm STK-MED ONCE IV ; Start 07/27/16 at 11:13; Stop 07/27/16 at 11:14 ; Status DC Fentanyl Citrate 50 mcg 50 mcg PRN Q2HR PRN IV PAIN Last administered on 14:35; Start 07/27/16 at 14:15 Potassium Chloride/Dextrose/ Sod Cl (KCl 20 Meq In D5W-1/2 NS) 1,000 ml @ 80 mls/hr 1X ONCE IV Last administered on 07/27/16 15:03; Start 07/27/16 at 14: 15; Stop 07/28/16 at 02:44; Status DC Ketorolac Tromethamine (Toradol) 30 mg 1X ONCE IV Last administered on 15:11; Start 07/27/16 at 14:15; Stop 07/27/16 at 14:16; Status DC Acetaminophen (Tylenol) 325 mg PRN TID PRN PO pain; Start 07/27/16 at 14:15 Aspirin (Ecotrin) 81 mg DAILY PO Last administered on 07/30/16 09:19; Start at 15:00 Gabapentin (Neurontin) 100 mg TID PO Last administered on 07/30/16 09:19; Start 07/27/16 at 15:00 Metformin HCl (Glucophage) 1,000 mg BIDWMEALS PO Last administered on 17:45; Start 07/27/16 at 17:00; Stop 07/29/16 at 12:32; Status DC Naproxen (Naprosyn) 500 mg BID PO Last administered on 07/30/16 09:19; Start 07/27/16 at 21:00 Glimepiride (Amaryl) 4 mg BID PO Last administered on 07/30/16 09:19; Start at 21:00 Insulin Detemir (Levemir) 10 units DAILY07 SQ Last administered on 07/30/16 09 :28; Start 07/28/16 at 07:00 Lisinopril (Prinivil) 20 mg DAILY PO Last administered on 07/30/16 09:20; Start 07/27/16 at 15:00 Non-Formulary Medication 20 meq DAILY PO ; Start 07/27/16 at 15:00; Stop at 15:00; Status DC Atorvastatin Calcium (Lipitor) 10 mg QHS PO Last administered on 07/29/16 21: 05; Start 07/27/16 at 21:00 Linagliptin (Tradjenta) 5 mg QHS PO Last administered on 07/28/16 21:22; Start 07/27/16 at 21:00; Stop 07/29/16 at 12:32; Status DC Insulin Aspart (Novolog) 0-7 UNITS TIDWMEALS SQ ; Start 07/27/16 at 17:00 Dextrose 12.5 gm PRN Q15MIN PRN IV SEE COMMENTS Last administered on 07/29/16 10:19; Start 07/27/16 at 14:15 Potassium Chloride (Klor-Con) 20 meq DAILYWBKFT PO Last administered on 09:19; Start 07/28/16 at 08:00 Hydrochlorothiazide (Microzide) 12.5 mg DAILY PO Last administered on 09:19; Start 07/27/16 at 15:00 Fentanyl Citrate (Fentanyl 2ml Vial) 75 mcg 1X ONCE IV Last administered on 16:19; Start 07/27/16 at 16:00; Stop 07/27/16 at 16:01; Status DC Oxycodone HCl (Roxicodone) 5 mg PRN Q4HRS PRN PO PAIN Last administered on 07/30 09:23; Start 07/27/16 at 15:45 Enoxaparin Sodium (Lovenox Per Pharmacy Prophylaxis Dosing) 1 each PRN DAILY PRN MC SEE COMMENTS; Start 07/27/16 at 16:00 Enoxaparin Sodium (Lovenox 40mg Syringe) 40 mg Q24H SQ Last administered on 17:17; Start 07/27/16 at 16:00 Vancomycin HCl (Vanco Per Pharmacy) 1 each PRN DAILY PRN MC SEE COMMENTS Last administered on 2/24/17at 09:15; Start 07/27/16 at 19:15; Stop 07/29/16 at 10:38 ; Status DC Piperacillin Sod/ Tazobactam Sod 1 each 1 each PRN DAILY PRN MC SEE COMMENTS; Start 07/27/16 at 19:15; Stop 07/29/16 at 12:14; Status DC Piperacillin Sod/ Tazobactam Sod 3.375 gm/Sodium Chloride 50 ml @ 100 mls/hr Q6HRS IV Last administered on 07/29/16 06:01; Start 07/27/16 at 19:30; Stop at 10:38; Status DC Vancomycin HCl 2 gm/Sodium Chloride 500 ml @ 250 mls/hr 1X ONCE IV Last administered on 07/27/16 20:58; Start 07/27/16 at 19:30; Stop 07/27/16 at 21:29 ; Status DC Vancomycin HCl/ Sodium Chloride (Iv Sodium Chloride 0.9% 250ml) 250 ml @ 167 mls/hr Q12H IV Last administered on 07/28/16 21:26; Start 07/28/16 at 09:00; Stop 07/29/16 at 09:10; Status DC Vancomycin HCl 1 each 1 each 1X ONCE MC Last administered on 07/29/16 08:30; Start 07/29/16 at 08:30; Stop 07/29/16 at 08:31; Status DC Vancomycin HCl 1.25 gm/Sodium Chloride 250 ml @ 167 mls/hr Q24H IV ; Start at 21:00; Stop 07/29/16 at 21:00; Status DC Piperacillin Sod/ Tazobactam Sod/ Sodium Chloride (Zosyn/Iv Sodium Chloride 0.9 % 50ml) 50 ml @ 100 mls/hr Q6HRS IV Last administered on 07/29/16 12:49; Start 07/29/16 at 12:00; Stop 07/29/16 at 14:00; Status DC Active Scripts Active Reported Levemir (Insulin Detemir) 100 Unit/1 Ml Vial 10 Unit SQ DAILY07 K-Tab ER (Potassium Chloride) 20 Meq Tablet.er 20 Meq PO DAILY Oxycodone-Acetaminophen 5-325 (Oxycodone Hcl/Acetaminophen) 1 Each Tablet 1 Each PO Q4HRS PRN Aspir 81 (Aspirin) 81 Mg Tablet.dr 1 Tab PO DAILY Tylenol (Acetaminophen) 325 Mg Tablet 2 Tab PO TID Lisinopril-Hctz 20-12.5 Mg Tab (Lisinopril/Hydrochlorothiazide) 1 Each Tablet 1 Tab PO DAILY Naproxen 500 Mg Tablet 1 Tab PO BID Gabapentin 100 Mg Capsule 100 Mg PO QHS Metformin Hcl 1,000 Mg Tablet 1 Tab PO BID Glimepiride 4 Mg Tablet 1 Tab PO BID Pravastatin Sodium 40 Mg Tablet 1 Tab PO QHS Januvia (Sitagliptin Phosphate) 100 Mg Tablet 1 Tab PO QHS Vitals/I & O Vital Sign - Last 24 Hours 07/29/16 07/29/16 07/29/16 07/29/16 14:35 15:00 15:05 19:05 Temp 98.2 98.1 98.2 98.1 Pulse 97 97 Resp 20 18 B/P 159/86 164/92 Pulse Ox 99 97 97 97 O2 Delivery Room Air Room Air Room Air Room Air O2 Flow Rate 2.0 07/29/16 07/30/16 07/30/16 07/30/16 23:08 02:56 07:00 08:00 Temp 98.0 97.7 98.1 98.0 97.7 98.1 Pulse 100 81 88 Resp 18 18 20 B/P 172/103 161/92 144/89 Pulse Ox 99 100 100 O2 Delivery Room Air Room Air Room Air Room Air 07/30/16 07/30/16 07/30/16 09:20 09:23 10:20 Pulse 88 B/P 144/89 O2 Delivery Room Air Room Air Intake and Output 07/29/16 07/29/16 07/30/16 15:00 23:00 07:00 Intake Total 220 ml Output Total 500 ml Balance -500 ml 220 ml TIFFANIE SIMPSON III DO Jul 30, 2016 11:45
[2016-07-30 13:45] VITALS: BP 142/91
--- NOTE | 2016-07-30 15:25 | PDOC ---
SURGICAL PROGRESS NOTE Subjective no complaints. Vital Signs Vital Signs Date Time Temp Pulse Resp B/P Pulse Ox O2 Delivery O2 Flow Rate FiO2 07/30/16 14:55 Room Air 07/30/16 13:45 97.9 101 20 142/91 99 97.9 07/29/16 14:35 2.0 I&O Intake and Output 07/30/16 07:00 Intake Total 220 ml Output Total 500 ml Balance -280 ml Intake Oral 220 ml Output Urine Total 500 ml # Voids 1 Extremities: Other (wound vac in place, right great toe amp site looks excellent.; left heel explored with ronguer-only callous, no undermining wound.) Labs Laboratory Tests Test 07/28/16 16:08 07/28/16 21:18 07/29/16 07:31 07/29/16 07:51 Glucose (Fingerstick) 94mg/dL (70-99) 55mg/dL (70-99) 33mg/dL (70-99) 213mg/dL (70-99) Test 07/29/16 08:20 07/29/16 11:45 07/29/16 17:07 07/29/16 20:34 White Blood Count 7.3x10^3/uL (4.0-11.0) Red Blood Count 3.40x10^6/uL (3.50-5.40) Hemoglobin 9.4g/dL (12.0-15.5) Hematocrit 28.7% (36.0-47.0) Mean Corpuscular Volume 84fL (79-100) Mean Corpuscular Hemoglobin 28pg (25-35) Mean Corpuscular Hemoglobin Concent 33g/dL (31-37) Red Cell Distribution Width 15.2% (11.5-14.5) Platelet Count 304x10^3/uL (140-400) Neutrophils (%) (Auto) 62% (31-73) Lymphocytes (%) (Auto) 28% (24-48) Monocytes (%) (Auto) 7% (0-9) Eosinophils (%) (Auto) 3% (0-3) Basophils (%) (Auto) 1% (0-3) Neutrophils # (Auto) 4.5x10^3uL (1.8-7.7) Lymphocytes # (Auto) 2.0x10^3/uL (1.0-4.8) Monocytes # (Auto) 0.5x10^3/uL (0.0-1.1) Eosinophils # (Auto) 0.2x10^3/uL (0.0-0.7) Basophils # (Auto) 0.1x10^3/uL (0.0-0.2) Sodium Level 144mmol/L (136-145) Potassium Level 3.8mmol/L (3.5-5.1) Chloride Level 109mmol/L (98-107) Carbon Dioxide Level 24mmol/L (21-32) Anion Gap 11 (6-14) Blood Urea Nitrogen 21mg/dL (7-20) Creatinine 1.0mg/dL (0.6-1.0) Estimated GFR (Cockcroft-Gault) 68.9 Glucose Level 173mg/dL (70-99) Calcium Level 9.5mg/dL (8.5-10.1) Vancomycin Level Trough 26.4mcg/mL (10.0-20.0) Vancomycin Last Dose Date 07/28/16 Vancomycin Last Dose Time 2100 Glucose (Fingerstick) 140mg/dL (70-99) 95mg/dL (70-99) 196mg/dL (70-99) Test 07/30/16 03:10 07/30/16 07:51 07/30/16 11:58 White Blood Count 6.8x10^3/uL (4.0-11.0) Red Blood Count 3.31x10^6/uL (3.50-5.40) Hemoglobin 9.1g/dL (12.0-15.5) Hematocrit 27.6% (36.0-47.0) Mean Corpuscular Volume 83fL (79-100) Mean Corpuscular Hemoglobin 27pg (25-35) Mean Corpuscular Hemoglobin Concent 33g/dL (31-37) Red Cell Distribution Width 15.0% (11.5-14.5) Platelet Count 299x10^3/uL (140-400) Neutrophils (%) (Auto) 54% (31-73) Lymphocytes (%) (Auto) 35% (24-48) Monocytes (%) (Auto) 7% (0-9) Eosinophils (%) (Auto) 3% (0-3) Basophils (%) (Auto) 1% (0-3) Neutrophils # (Auto) 3.6x10^3uL (1.8-7.7) Lymphocytes # (Auto) 2.4x10^3/uL (1.0-4.8) Monocytes # (Auto) 0.5x10^3/uL (0.0-1.1) Eosinophils # (Auto) 0.2x10^3/uL (0.0-0.7) Basophils # (Auto) 0.1x10^3/uL (0.0-0.2) Sodium Level 142mmol/L (136-145) Potassium Level 3.8mmol/L (3.5-5.1) Chloride Level 108mmol/L (98-107) Carbon Dioxide Level 25mmol/L (21-32) Anion Gap 9 (6-14) Blood Urea Nitrogen 20mg/dL (7-20) Creatinine 0.8mg/dL (0.6-1.0) Estimated GFR (Cockcroft-Gault) 89.1 Glucose Level 117mg/dL (70-99) Calcium Level 9.8mg/dL (8.5-10.1) Glucose (Fingerstick) 131mg/dL (70-99) 190mg/dL (70-99) Laboratory Tests Test 07/29/16 17:07 07/29/16 20:34 07/30/16 03:10 07/30/16 07:51 Glucose (Fingerstick) 95mg/dL (70-99) 196mg/dL (70-99) 131mg/dL (70-99) White Blood Count 6.8x10^3/uL (4.0-11.0) Red Blood Count 3.31x10^6/uL (3.50-5.40) Hemoglobin 9.1g/dL (12.0-15.5) Hematocrit 27.6% (36.0-47.0) Mean Corpuscular Volume 83fL (79-100) Mean Corpuscular Hemoglobin 27pg (25-35) Mean Corpuscular Hemoglobin Concent 33g/dL (31-37) Red Cell Distribution Width 15.0% (11.5-14.5) Platelet Count 299x10^3/uL (140-400) Neutrophils (%) (Auto) 54% (31-73) Lymphocytes (%) (Auto) 35% (24-48) Monocytes (%) (Auto) 7% (0-9) Eosinophils (%) (Auto) 3% (0-3) Basophils (%) (Auto) 1% (0-3) Neutrophils # (Auto) 3.6x10^3uL (1.8-7.7) Lymphocytes # (Auto) 2.4x10^3/uL (1.0-4.8) Monocytes # (Auto) 0.5x10^3/uL (0.0-1.1) Eosinophils # (Auto) 0.2x10^3/uL (0.0-0.7) Basophils # (Auto) 0.1x10^3/uL (0.0-0.2) Sodium Level 142mmol/L (136-145) Potassium Level 3.8mmol/L (3.5-5.1) Chloride Level 108mmol/L (98-107) Carbon Dioxide Level 25mmol/L (21-32) Anion Gap 9 (6-14) Blood Urea Nitrogen 20mg/dL (7-20) Creatinine 0.8mg/dL (0.6-1.0) Estimated GFR (Cockcroft-Gault) 89.1 Glucose Level 117mg/dL (70-99) Calcium Level 9.8mg/dL (8.5-10.1) Test 07/30/16 11:58 Glucose (Fingerstick) 190mg/dL (70-99) Problem List Problems Medical Problems: (1) Osteomyelitis due to type 2 diabetes mellitus Status: Acute Assessment/Plan Imp: 1. stable post debridement Plan: ok to discharge from my standpoint. Cont. to offload left heel; f/u at [facility] for vac change . Problems: SAVI EDWARDS II, MD Jul 30, 2016 15:25
[2016-07-30] MEDS: ENOXAPARIN 40 MG/0.4 ML DISP.SYRIN. SQ SCH (18:05)
[2016-07-30 19:00] VITALS: BP 155/89
[2016-07-30] MEDS: ATORVASTATIN CALCIUM 10 MG TABLET. PO SCH (21:07)
[2016-07-30] MEDS: FENTANYL PF 100 MCG/2 ML VIAL. IV PRN ×2 (21:33→23:00)
[2016-07-30 23:00] VITALS: BP 141/83
[2016-07-31 03:00] VITALS: BP 144/84
[2016-07-31 07:00] VITALS: BP 177/101
[2016-07-31] MEDS: HYDROCHLOROTHIAZIDE 12.5 MG CAPSULE. PO SCH (09:15)
[2016-07-31] MEDS: OXYCODONE IR 5 MG TABLET. PO PRN ×3 (09:15→19:52)
[2016-07-31] MEDS: GABAPENTIN 100 MG CAPSULE. PO SCH ×3 (09:16→19:51)
[2016-07-31] MEDS: GLIMEPIRIDE 2 MG TABLET PO SCH ×2 (09:16→19:51)
[2016-07-31] MEDS: NAPROXEN 500 MG TABLET PO SCH ×2 (09:16→19:51)
[2016-07-31] MEDS: POTASSIUM CHLORIDE 20 MEQ TABLET.ER. PO SCH (09:16)
[2016-07-31] MEDS: ASPIRIN ENTERIC COATED 81 MG TABLET.DR. PO SCH (09:16)
[2016-07-31] MEDS: LISINOPRIL 20 MG TABLET PO SCH (09:17)
[2016-07-31] MEDS: INSULIN DETEMIR 300 UNITS/3 ML INSULN.PEN. SQ SCH (09:24)
[2016-07-31] MEDS: INSULIN ASPART 300 UNITS/3 ML INSULN.PEN SQ SCH ×3 (09:24→17:34)
[2016-07-31 11:00] VITALS: BP 141/92
--- NOTE | 2016-07-31 13:46 | PDOC ---
PROGRESS NOTES Chief Complaint Chief Complaint 1. Osteomyelitis right great toe- s/p right great toe amputation 2. Ulceration/ wound secondary to Poorly Controlled T2DM 3. T2DM 4. Hypoglycemia 5. PVD 6. HTN 7. HLD 8. Generalized weakness 9. Anxiety d/o or depression, not treated History of Present Illness History of Present Illness Pt sitting up in chair upon arrival to her room. Pt states she is feeling somewhat tired and still weak today but improved since admission. Asking about possible discharge tomorrow home. Healthcare Team- Glucose continues to be stable with the medication adjustments; Plan is for discharge possibly in AM to family/home Vitals Vitals Vital Signs Date Time Temp Pulse Resp B/P Pulse Ox O2 Delivery O2 Flow Rate FiO2 07/31/16 11:00 97.9 89 16 141/92 99 Room Air 97.9 Physical Exam General: Alert, Oriented X3, Cooperative, No acute distress Heart: Regular rate, Normal S1, Normal S2, No murmurs Lungs: Clear, Other (no wheezes) Abdomen: Normal bowel sounds, Soft, No tenderness Extremities: Other (wound vac in place, right great toe amp site looks excellent.; left heel explored with ronguer-only callous, no undermining wound.) Skin: No rashes, No significant lesion, Other (Dressing C/D/I over Amputation site) Labs LABS Laboratory Tests Test 07/30/16 16:24 07/30/16 20:50 07/31/16 08:36 07/31/16 11:12 Glucose (Fingerstick) 261mg/dL (70-99) 165mg/dL (70-99) 161mg/dL (70-99) 181mg/dL (70-99) Review of Systems Review of Systems Complaining of fatigue Complaining of weakness- improving since admission All other ROS negative Assessment and Plan Assessmemt and Plan Problems Medical Problems: (1) Osteomyelitis due to type 2 diabetes mellitus Status: Acute 1. Osteomyelitis right great toe- s/p right great toe amputation 2. Ulceration/ wound secondary to Poorly Controlled T2DM 3. T2DM 4. Hypoglycemia 5. PVD 6. HTN 7. HLD 8. Generalized weakness 9. Anxiety d/o or depression, not treated Plan: - Continue Regular care per floor protocol - Continue Regular Glucose checks and Diabetic Monitoring - Continue Daily Amaryl as prescribed - Stop taking Metformin and Tradjenta - Vascular Surgery Consulted- appreciate recommendations - s/p right great toe amputation - Left Heel debridement complete - ID Consulted- Appreciate recommendations - Vanc and Zosyn Discontinued - Wound Vac in place - ok with f/u at outpatient wound clinic - Continue Regular Wound Care - Wound Vac in place at this time - Continue regular home medications - Continue Pain Control with narcotics prn - PT/OT to continue to evaluate and treat - SW Consulted- Spoke with daughter ([email or web address]) would like to take pt home on discharge and F/U outpt with wound care clinic in place of SNU - Disposition- Probable D/C in AM with H/H and follow up with outpatient wound care clinic Problems: Comment Review of Relevant I have reviewed the following items alma (where applicable) has been applied. Labs Laboratory Tests Test 07/29/16 17:07 07/29/16 20:34 07/30/16 03:10 07/30/16 07:51 Glucose (Fingerstick) 95mg/dL (70-99) 196mg/dL (70-99) 131mg/dL (70-99) White Blood Count 6.8x10^3/uL (4.0-11.0) Red Blood Count 3.31x10^6/uL (3.50-5.40) Hemoglobin 9.1g/dL (12.0-15.5) Hematocrit 27.6% (36.0-47.0) Mean Corpuscular Volume 83fL (79-100) Mean Corpuscular Hemoglobin 27pg (25-35) Mean Corpuscular Hemoglobin Concent 33g/dL (31-37) Red Cell Distribution Width 15.0% (11.5-14.5) Platelet Count 299x10^3/uL (140-400) Neutrophils (%) (Auto) 54% (31-73) Lymphocytes (%) (Auto) 35% (24-48) Monocytes (%) (Auto) 7% (0-9) Eosinophils (%) (Auto) 3% (0-3) Basophils (%) (Auto) 1% (0-3) Neutrophils # (Auto) 3.6x10^3uL (1.8-7.7) Lymphocytes # (Auto) 2.4x10^3/uL (1.0-4.8) Monocytes # (Auto) 0.5x10^3/uL (0.0-1.1) Eosinophils # (Auto) 0.2x10^3/uL (0.0-0.7) Basophils # (Auto) 0.1x10^3/uL (0.0-0.2) Sodium Level 142mmol/L (136-145) Potassium Level 3.8mmol/L (3.5-5.1) Chloride Level 108mmol/L (98-107) Carbon Dioxide Level 25mmol/L (21-32) Anion Gap 9 (6-14) Blood Urea Nitrogen 20mg/dL (7-20) Creatinine 0.8mg/dL (0.6-1.0) Estimated GFR (Cockcroft-Gault) 89.1 Glucose Level 117mg/dL (70-99) Calcium Level 9.8mg/dL (8.5-10.1) Test 07/30/16 11:58 07/30/16 16:24 07/30/16 20:50 07/31/16 08:36 Glucose (Fingerstick) 190mg/dL (70-99) 261mg/dL (70-99) 165mg/dL (70-99) 161mg/dL (70-99) Test 07/31/16 11:12 Glucose (Fingerstick) 181mg/dL (70-99) Laboratory Tests Test 07/30/16 16:24 07/30/16 20:50 07/31/16 08:36 07/31/16 11:12 Glucose (Fingerstick) 261mg/dL (70-99) 165mg/dL (70-99) 161mg/dL (70-99) 181mg/dL (70-99) Medications Current Medications Ondansetron HCl (Zofran) 4 mg PRN Q6HRS PRN IV Nausea; Start 07/27/16 at 07:00 ; Stop 07/28/16 at 06:59; Status DC Fentanyl Citrate (Fentanyl 2ml Vial) 25 mcg PRN Q5MIN PRN IV MILD PAIN; Start 07/27/16 at 07:00; Stop 07/28/16 at 06:59; Status DC Fentanyl Citrate 50 mcg 50 mcg PRN Q5MIN PRN IV MODERATE PAIN Last administered on 07/27/16t 20:10; Start 07/27/16 at 07:00; Stop 07/28/16 at 06:59 ; Status DC Lactated Ringer's (Iv Lactated Ringers) 1,000 ml @ 30 mls/hr Q24H IV Last administered on 07/27/16 09:21; Start 07/27/16 at 07:00; Stop 07/27/16 at 18:59 ; Status DC Lidocaine HCl 2 ml 1X PRN PRN ID IV START; Start 07/27/16 at 07:00; Stop at 06:59; Status DC Prochlorperazine Edisylate 5 mg 5 mg PACU PRN PRN IV NAUSEA; Start 07/27/16 at 07:00; Stop 07/28/16 at 06:59; Status DC Cefazolin Sodium 1 gm/Sodium Chloride 250 ml @ 250 mls/hr 1X ONCE IRR Last administered on 07/27/16 10:20; Start 07/27/16 at 08:00; Stop 07/27/16 at 08:59 ; Status DC Cefazolin Sodium/ Dextrose 50 ml @ 100 mls/hr 1X PREOP PRN IV PRIOR TO PROCEDURE Last administered on 07/27/16 10:17; Start 07/27/16 at 06:00; Stop at 18:00; Status DC Propofol (Diprivan) 20 ml @ As Directed STK-MED ONCE IV ; Start 07/27/16 at 09: 39; Stop 07/27/16 at 09:40; Status DC Lidocaine HCl 100 mg STK-MED ONCE .ROUTE ; Start 07/27/16 at 09:39; Stop at 09:40; Status DC Sevoflurane (Ultane) 30 ml STK-MED ONCE IH ; Start 07/27/16 at 09:39; Stop 07/27 at 09:40; Status DC Famotidine (Pepcid) 20 mg STK-MED ONCE .ROUTE ; Start 07/27/16 at 09:39; Stop at 09:40; Status DC Lidocaine HCl 30 ml STK-MED ONCE .ROUTE Last administered on 07/27/16 10:31; Start 07/27/16 at 09:55; Stop 07/27/16 at 09:56; Status DC Phenylephrine HCl 1 mg STK-MED ONCE IV ; Start 07/27/16 at 10:19; Stop 07/27/16 at 10:20; Status DC Ephedrine Sulfate 50 mg STK-MED ONCE IV ; Start 07/27/16 at 10:40; Stop at 10:41; Status DC Dextrose 25 gm STK-MED ONCE IV ; Start 07/27/16 at 11:13; Stop 07/27/16 at 11:14 ; Status DC Fentanyl Citrate 50 mcg 50 mcg PRN Q2HR PRN IV PAIN Last administered on 23:00; Start 07/27/16 at 14:15 Potassium Chloride/Dextrose/ Sod Cl (KCl 20 Meq In D5W-1/2 NS) 1,000 ml @ 80 mls/hr 1X ONCE IV Last administered on 07/27/16 15:03; Start 07/27/16 at 14: 15; Stop 07/28/16 at 02:44; Status DC Ketorolac Tromethamine (Toradol) 30 mg 1X ONCE IV Last administered on 15:11; Start 07/27/16 at 14:15; Stop 07/27/16 at 14:16; Status DC Acetaminophen (Tylenol) 325 mg PRN TID PRN PO pain; Start 07/27/16 at 14:15 Aspirin (Ecotrin) 81 mg DAILY PO Last administered on 07/31/16 09:16; Start at 15:00 Gabapentin (Neurontin) 100 mg TID PO Last administered on 07/31/16 09:16; Start 07/27/16 at 15:00 Metformin HCl (Glucophage) 1,000 mg BIDWMEALS PO Last administered on 17:45; Start 07/27/16 at 17:00; Stop 07/29/16 at 12:32; Status DC Naproxen (Naprosyn) 500 mg BID PO Last administered on 07/31/16 09:16; Start 07/27/16 at 21:00 Glimepiride (Amaryl) 4 mg BID PO Last administered on 07/31/16 09:16; Start at 21:00 Insulin Detemir (Levemir) 10 units DAILY07 SQ Last administered on 07/31/16 09 :24; Start 07/28/16 at 07:00 Lisinopril (Prinivil) 20 mg DAILY PO Last administered on 07/31/16 09:17; Start 07/27/16 at 15:00 Non-Formulary Medication 20 meq DAILY PO ; Start 07/27/16 at 15:00; Stop at 15:00; Status DC Atorvastatin Calcium (Lipitor) 10 mg QHS PO Last administered on 07/30/16 21: 07; Start 07/27/16 at 21:00 Linagliptin (Tradjenta) 5 mg QHS PO Last administered on 07/28/16 21:22; Start 07/27/16 at 21:00; Stop 07/29/16 at 12:32; Status DC Insulin Aspart (Novolog) 0-7 UNITS TIDWMEALS SQ Last administered on 07/31/16 12:38; Start 07/27/16 at 17:00 Dextrose 12.5 gm PRN Q15MIN PRN IV SEE COMMENTS Last administered on 07/29/16 10:19; Start 07/27/16 at 14:15 Potassium Chloride (Klor-Con) 20 meq DAILYWBKFT PO Last administered on 09:16; Start 07/28/16 at 08:00 Hydrochlorothiazide (Microzide) 12.5 mg DAILY PO Last administered on 09:15; Start 07/27/16 at 15:00 Fentanyl Citrate (Fentanyl 2ml Vial) 75 mcg 1X ONCE IV Last administered on 16:19; Start 07/27/16 at 16:00; Stop 07/27/16 at 16:01; Status DC Oxycodone HCl (Roxicodone) 5 mg PRN Q4HRS PRN PO PAIN Last administered on 07/31 09:15; Start 07/27/16 at 15:45 Enoxaparin Sodium (Lovenox Per Pharmacy Prophylaxis Dosing) 1 each PRN DAILY PRN MC SEE COMMENTS; Start 07/27/16 at 16:00 Enoxaparin Sodium (Lovenox 40mg Syringe) 40 mg Q24H SQ Last administered on 18:05; Start 07/27/16 at 16:00 Vancomycin HCl (Vanco Per Pharmacy) 1 each PRN DAILY PRN MC SEE COMMENTS Last administered on 07/29/16 09:15; Start 07/27/16 at 19:15; Stop 07/29/16 at 10:38 ; Status DC Piperacillin Sod/ Tazobactam Sod 1 each 1 each PRN DAILY PRN MC SEE COMMENTS; Start 07/27/16 at 19:15; Stop 07/29/16 at 12:14; Status DC Piperacillin Sod/ Tazobactam Sod 3.375 gm/Sodium Chloride 50 ml @ 100 mls/hr Q6HRS IV Last administered on 07/29/16 06:01; Start 07/27/16 at 19:30; Stop at 10:38; Status DC Vancomycin HCl 2 gm/Sodium Chloride 500 ml @ 250 mls/hr 1X ONCE IV Last administered on 07/27/16 20:58; Start 07/27/16 at 19:30; Stop 07/27/16 at 21:29 ; Status DC Vancomycin HCl/ Sodium Chloride (Iv Sodium Chloride 0.9% 250ml) 250 ml @ 167 mls/hr Q12H IV Last administered on 07/28/16 21:26; Start 07/28/16 at 09:00; Stop 07/29/16 at 09:10; Status DC Vancomycin HCl 1 each 1 each 1X ONCE MC Last administered on 07/29/16 08:30; Start 07/29/16 at 08:30; Stop 07/29/16 at 08:31; Status DC Vancomycin HCl 1.25 gm/Sodium Chloride 250 ml @ 167 mls/hr Q24H IV ; Start at 21:00; Stop 07/29/16 at 21:00; Status DC Piperacillin Sod/ Tazobactam Sod/ Sodium Chloride (Zosyn/Iv Sodium Chloride 0.9 % 50ml) 50 ml @ 100 mls/hr Q6HRS IV Last administered on 07/29/16 12:49; Start 07/29/16 at 12:00; Stop 07/29/16 at 14:00; Status DC Active Scripts Active Reported Levemir (Insulin Detemir) 100 Unit/1 Ml Vial 10 Unit SQ DAILY07 K-Tab ER (Potassium Chloride) 20 Meq Tablet.er 20 Meq PO DAILY Oxycodone-Acetaminophen 5-325 (Oxycodone Hcl/Acetaminophen) 1 Each Tablet 1 Each PO Q4HRS PRN Aspir 81 (Aspirin) 81 Mg Tablet.dr 1 Tab PO DAILY Tylenol (Acetaminophen) 325 Mg Tablet 2 Tab PO TID Lisinopril-Hctz 20-12.5 Mg Tab (Lisinopril/Hydrochlorothiazide) 1 Each Tablet 1 Tab PO DAILY Naproxen 500 Mg Tablet 1 Tab PO BID Gabapentin 100 Mg Capsule 100 Mg PO QHS Metformin Hcl 1,000 Mg Tablet 1 Tab PO BID Glimepiride 4 Mg Tablet 1 Tab PO BID Pravastatin Sodium 40 Mg Tablet 1 Tab PO QHS Januvia (Sitagliptin Phosphate) 100 Mg Tablet 1 Tab PO QHS Vitals/I & O Vital Sign - Last 24 Hours 07/30/16 07/30/16 07/30/16 07/30/16 13:44 13:45 15:00 18:05 Temp 97.9 97.9 Pulse 101 Resp 20 20 B/P 142/91 Pulse Ox 99 O2 Delivery Room Air Room Air Room Air Room Air 07/30/16 07/30/16 07/30/16 07/30/16 19:00 20:00 21:33 22:57 Temp 98.2 98.2 Pulse 98 Resp 18 20 20 B/P 155/89 Pulse Ox 99 99 O2 Delivery Room Air Room Air Room Air Room Air 07/30/16 07/30/16 07/30/16 07/30/16 23:00 23:00 23:30 23:57 Temp 98.2 98.2 Pulse 93 Resp 20 18 20 20 B/P 141/83 Pulse Ox 97 99 O2 Delivery Room Air Room Air Room Air Room Air 07/31/16 07/31/16 07/31/16 07/31/16 03:00 07:00 08:00 09:17 Temp 98.2 97.6 98.2 97.6 Pulse 86 93 93 Resp 18 16 B/P 144/84 177/101 177/101 Pulse Ox 97 100 O2 Delivery Room Air Room Air Room Air 07/31/16 11:00 Temp 97.9 97.9 Pulse 89 Resp 16 B/P 141/92 Pulse Ox 99 O2 Delivery Room Air Intake and Output 07/30/16 07/30/16 07/31/16 15:00 23:00 07:00 Output Total 100 ml Balance -100 ml CASTLENIAL K III DO Jul 31, 2016 13:45
--- NOTE | 2016-07-31 14:18 | PDOC ---
SURGICAL PROGRESS NOTE Subjective no complaints Vital Signs Vital Signs Date Time Temp Pulse Resp B/P Pulse Ox O2 Delivery O2 Flow Rate FiO2 07/31/16 11:00 97.9 89 16 141/92 99 Room Air 97.9 I&O Intake and Output 07/31/16 07:00 Output Total 100 ml Balance -100 ml Output Urine Total 100 ml # Voids 5 # Bowel Movements 1 Extremities: Other (wound vac in place dorsum right foot; left heel decub stable) Labs Laboratory Tests Test 07/29/16 17:07 07/29/16 20:34 07/30/16 03:10 07/30/16 07:51 Glucose (Fingerstick) 95mg/dL (70-99) 196mg/dL (70-99) 131mg/dL (70-99) White Blood Count 6.8x10^3/uL (4.0-11.0) Red Blood Count 3.31x10^6/uL (3.50-5.40) Hemoglobin 9.1g/dL (12.0-15.5) Hematocrit 27.6% (36.0-47.0) Mean Corpuscular Volume 83fL (79-100) Mean Corpuscular Hemoglobin 27pg (25-35) Mean Corpuscular Hemoglobin Concent 33g/dL (31-37) Red Cell Distribution Width 15.0% (11.5-14.5) Platelet Count 299x10^3/uL (140-400) Neutrophils (%) (Auto) 54% (31-73) Lymphocytes (%) (Auto) 35% (24-48) Monocytes (%) (Auto) 7% (0-9) Eosinophils (%) (Auto) 3% (0-3) Basophils (%) (Auto) 1% (0-3) Neutrophils # (Auto) 3.6x10^3uL (1.8-7.7) Lymphocytes # (Auto) 2.4x10^3/uL (1.0-4.8) Monocytes # (Auto) 0.5x10^3/uL (0.0-1.1) Eosinophils # (Auto) 0.2x10^3/uL (0.0-0.7) Basophils # (Auto) 0.1x10^3/uL (0.0-0.2) Sodium Level 142mmol/L (136-145) Potassium Level 3.8mmol/L (3.5-5.1) Chloride Level 108mmol/L (98-107) Carbon Dioxide Level 25mmol/L (21-32) Anion Gap 9 (6-14) Blood Urea Nitrogen 20mg/dL (7-20) Creatinine 0.8mg/dL (0.6-1.0) Estimated GFR (Cockcroft-Gault) 89.1 Glucose Level 117mg/dL (70-99) Calcium Level 9.8mg/dL (8.5-10.1) Test 07/30/16 11:58 07/30/16 16:24 07/30/16 20:50 07/31/16 08:36 Glucose (Fingerstick) 190mg/dL (70-99) 261mg/dL (70-99) 165mg/dL (70-99) 161mg/dL (70-99) Test 07/31/16 11:12 Glucose (Fingerstick) 181mg/dL (70-99) Laboratory Tests Test 07/30/16 16:24 07/30/16 20:50 07/31/16 08:36 07/31/16 11:12 Glucose (Fingerstick) 261mg/dL (70-99) 165mg/dL (70-99) 161mg/dL (70-99) 181mg/dL (70-99) Problem List Problems Medical Problems: (1) Osteomyelitis due to type 2 diabetes mellitus Status: Acute Assessment/Plan 1. status post right fem-ant. tib bypass, debridement right dorsal foot wound with wound vac placement Plan: ok to discharge tomorrow after wound vac change. Problems: SAVI EDWARDS II, MD Jul 31, 2016 14:18
[2016-07-31 15:00] VITALS: BP 156/85
[2016-07-31] MEDS: ENOXAPARIN 40 MG/0.4 ML DISP.SYRIN. SQ SCH (17:31)
[2016-07-31 19:00] VITALS: BP 107/68
[2016-07-31] MEDS: FENTANYL PF 100 MCG/2 ML VIAL. IV PRN (19:52)
[2016-07-31] MEDS: ATORVASTATIN CALCIUM 10 MG TABLET. PO SCH (19:52)
[2016-07-31 23:00] VITALS: BP 145/82
[2016-08-01] MEDS: OXYCODONE IR 5 MG TABLET. PO PRN ×5 (04:32→21:48)
[2016-08-01 05:22] LABS: BASO # 0.1 x10^3/uL (0.0-0.2); BASO % 1 % (0-3); EOS % 1 % (0-3); HEMATOCRIT 27.2 % (36.0-47.0); HEMOGLOBIN 8.9 g/dL (12.0-15.5); LYMPH # 1.3 x10^3/uL (1.0-4.8); LYMPH % 19 % (24-48); MEAN CORPUSCULAR HEMOGLOBIN 28 pg (25-35); MEAN CORPUSCULAR HGB CONC 33 g/dL (31-37); MEAN CORPUSCULAR VOLUME 84 fL (79-100); MONO % 8 % (0-9); NEUT % 71 % (31-73); PLATELET COUNT 281 x10^3/uL (140-400); RED BLOOD COUNT 3.24 x10^6/uL (3.50-5.40); RED CELL DISTRIBUTION WIDTH 15.2 % (11.5-14.5); WHITE BLOOD COUNT 6.9 x10^3/uL (4.0-11.0)
[2016-08-01 05:42] LABS: CALCIUM 9.7 mg/dL (8.5-10.1); CREATININE 0.9 mg/dL (0.6-1.0); GFR 77.8
[2016-08-01 07:00] VITALS: BP 126/74
[2016-08-01] MEDS: POTASSIUM CHLORIDE 20 MEQ TABLET.ER. PO SCH (08:09)
[2016-08-01] MEDS: NAPROXEN 500 MG TABLET PO SCH ×2 (08:09→21:48)
[2016-08-01] MEDS: LISINOPRIL 20 MG TABLET PO SCH (08:11)
[2016-08-01] MEDS: GABAPENTIN 100 MG CAPSULE. PO SCH ×3 (08:11→21:47)
[2016-08-01] MEDS: GLIMEPIRIDE 2 MG TABLET PO SCH ×2 (08:11→21:48)
[2016-08-01] MEDS: ASPIRIN ENTERIC COATED 81 MG TABLET.DR. PO SCH (08:11)
[2016-08-01] MEDS: INSULIN DETEMIR 300 UNITS/3 ML INSULN.PEN. SQ SCH ×2 (08:18→18:12)
[2016-08-01] MEDS: INSULIN ASPART 300 UNITS/3 ML INSULN.PEN SQ SCH ×3 (08:19→17:19)
[2016-08-01] MEDS: HYDROCHLOROTHIAZIDE 12.5 MG CAPSULE. PO SCH (09:00)
[2016-08-01] MEDS: FENTANYL PF 100 MCG/2 ML VIAL. IV PRN ×2 (10:41→21:49)
[2016-08-01 11:00] VITALS: BP 148/86
--- NOTE | 2016-08-01 12:38 | PDOC ---
PROGRESS NOTES Subjective Subjective "My left heel is what hurts." Objective Objective Vascular Surgery - POD#5 Right 1st toe amp and forefoot ulcer debridement O: Anxious and worried. Wound care staff in room and wound vac has been removed. RLE: Strong, palpable graft pulse. Foot warm. Right 1st toe amp incision intact. No drainage. Right forefoot ulcer bed with significant slough material. Bedside wound base debridement performed and able to clean up wound significantly. Has medial right heel ulcer that has dried, white fleshy tissue beginning to cover fresh fleshy area. LLE: Very tender to palpation on the lateral aspect of the left heel. Patient teared up and pulls foot way. Thick, callous tissue with what appears to be a fissure. Some of the skin peeled away but unable to unroof flesh underneath. Strong palpable popliteal pulse. Unable to palpate or dopple DP or PT pulses. EXAM: Left foot 3 views on 07/27/2016 HISTORY: Left heel pain. FINDINGS: There is soft tissue swelling along the heel inferiorly and laterally. Correlate for IS at the sites. There is no underlying cortical erosion. There are small plantar and posterior calcaneal spurs. There is flattening at the subtalar joint which may be projectional. Osteopenia is severe. IMPRESSION: 1. Soft tissue swelling along the heel. Correlate for overlying ulcer. No evidence of acute osteomyelitis by radiographs. 2. Flattening of Boehler's angle may be projectional artifact. Correlate for prior calcaneal fracture. Assessment/Plan: 1. PAD with right femoral to distal tibial bypass 05/09/[address] Rebolledo with patent bypass graft. 2. POD#5 right 1st toe amp with forefoot wound debridement. Continue wound vac therapy to forefoot ulcer. 3. Best case scenario is to be completely non-weight bearing to right foot. Will have PT work with patient on a knee walker. 4. Left foot pain. Foot x-ray negative for osteo 5 days ago. Foot pain continues and now, this is her dominant foot due to weight-bearing restrictions on the right. Consult [employer] for a left foot heel off-loading shoe. 5. Will obtain an arterial doppler of LLE as unable to palpate or dopple DP or PT pulses. +palpable popliteal pulse. However, development of heel ulcers. 6. Scheduled for left heel wound debridement in the OR tomorrow at 1:[address] Lucia pending results of arterial doppler. Vital Signs Date Time Temp Pulse Resp B/P Pulse Ox O2 Delivery O2 Flow Rate FiO2 08/01/16 11:15 98 Room Air 2.0 08/01/16 08:11 93 145/82 08/01/16 07:00 98.3 18 98.3 Intake and Output 08/01/16 07:00 Intake Total 650 ml Output Total 0 ml Balance 650 ml Intake Oral 650 ml Other 0 ml # Voids 1 Assessment Assessment Problems Medical Problems: (1) Osteomyelitis due to type 2 diabetes mellitus Status: Acute Comment Review of Relevant I have reviewed the following items alma (where applicable) has been applied. Labs Laboratory Tests Test 07/30/16 16:24 07/30/16 20:50 07/31/16 08:36 07/31/16 11:12 Glucose (Fingerstick) 261mg/dL (70-99) 165mg/dL (70-99) 161mg/dL (70-99) 181mg/dL (70-99) Test 07/31/16 16:45 07/31/16 21:02 08/01/16 04:30 08/01/16 07:22 Glucose (Fingerstick) 251mg/dL (70-99) 247mg/dL (70-99) 208mg/dL (70-99) White Blood Count 6.9x10^3/uL (4.0-11.0) Red Blood Count 3.24x10^6/uL (3.50-5.40) Hemoglobin 8.9g/dL (12.0-15.5) Hematocrit 27.2% (36.0-47.0) Mean Corpuscular Volume 84fL (79-100) Mean Corpuscular Hemoglobin 28pg (25-35) Mean Corpuscular Hemoglobin Concent 33g/dL (31-37) Red Cell Distribution Width 15.2% (11.5-14.5) Platelet Count 281x10^3/uL (140-400) Neutrophils (%) (Auto) 71% (31-73) Lymphocytes (%) (Auto) 19% (24-48) Monocytes (%) (Auto) 8% (0-9) Eosinophils (%) (Auto) 1% (0-3) Basophils (%) (Auto) 1% (0-3) Neutrophils # (Auto) 4.9x10^3uL (1.8-7.7) Lymphocytes # (Auto) 1.3x10^3/uL (1.0-4.8) Monocytes # (Auto) 0.5x10^3/uL (0.0-1.1) Eosinophils # (Auto) 0.1x10^3/uL (0.0-0.7) Basophils # (Auto) 0.1x10^3/uL (0.0-0.2) Sodium Level 142mmol/L (136-145) Potassium Level 4.0mmol/L (3.5-5.1) Chloride Level 108mmol/L (98-107) Carbon Dioxide Level 28mmol/L (21-32) Anion Gap 6 (6-14) Blood Urea Nitrogen 28mg/dL (7-20) Creatinine 0.9mg/dL (0.6-1.0) Estimated GFR (Cockcroft-Gault) 77.8 Glucose Level 296mg/dL (70-99) Calcium Level 9.7mg/dL (8.5-10.1) Test 08/01/16 11:32 Glucose (Fingerstick) 145mg/dL (70-99) Laboratory Tests Test 07/31/16 16:45 07/31/16 21:02 08/01/16 04:30 08/01/16 07:22 Glucose (Fingerstick) 251mg/dL (70-99) 247mg/dL (70-99) 208mg/dL (70-99) White Blood Count 6.9x10^3/uL (4.0-11.0) Red Blood Count 3.24x10^6/uL (3.50-5.40) Hemoglobin 8.9g/dL (12.0-15.5) Hematocrit 27.2% (36.0-47.0) Mean Corpuscular Volume 84fL (79-100) Mean Corpuscular Hemoglobin 28pg (25-35) Mean Corpuscular Hemoglobin Concent 33g/dL (31-37) Red Cell Distribution Width 15.2% (11.5-14.5) Platelet Count 281x10^3/uL (140-400) Neutrophils (%) (Auto) 71% (31-73) Lymphocytes (%) (Auto) 19% (24-48) Monocytes (%) (Auto) 8% (0-9) Eosinophils (%) (Auto) 1% (0-3) Basophils (%) (Auto) 1% (0-3) Neutrophils # (Auto) 4.9x10^3uL (1.8-7.7) Lymphocytes # (Auto) 1.3x10^3/uL (1.0-4.8) Monocytes # (Auto) 0.5x10^3/uL (0.0-1.1) Eosinophils # (Auto) 0.1x10^3/uL (0.0-0.7) Basophils # (Auto) 0.1x10^3/uL (0.0-0.2) Sodium Level 142mmol/L (136-145) Potassium Level 4.0mmol/L (3.5-5.1) Chloride Level 108mmol/L (98-107) Carbon Dioxide Level 28mmol/L (21-32) Anion Gap 6 (6-14) Blood Urea Nitrogen 28mg/dL (7-20) Creatinine 0.9mg/dL (0.6-1.0) Estimated GFR (Cockcroft-Gault) 77.8 Glucose Level 296mg/dL (70-99) Calcium Level 9.7mg/dL (8.5-10.1) Test 08/01/16 11:32 Glucose (Fingerstick) 145mg/dL (70-99) Medications Current Medications Ondansetron HCl (Zofran) 4 mg PRN Q6HRS PRN IV Nausea; Start 07/27/16 at 07:00 ; Stop 07/28/16 at 06:59; Status DC Fentanyl Citrate (Fentanyl 2ml Vial) 25 mcg PRN Q5MIN PRN IV MILD PAIN; Start 07/27/16 at 07:00; Stop 07/28/16 at 06:59; Status DC Fentanyl Citrate 50 mcg 50 mcg PRN Q5MIN PRN IV MODERATE PAIN Last administered on 07/27/16t 20:10; Start 07/27/16 at 07:00; Stop 07/28/16 at 06:59 ; Status DC Lactated Ringer's (Iv Lactated Ringers) 1,000 ml @ 30 mls/hr Q24H IV Last administered on 07/27/16 09:21; Start 07/27/16 at 07:00; Stop 07/27/16 at 18:59 ; Status DC Lidocaine HCl 2 ml 1X PRN PRN ID IV START; Start 07/27/16 at 07:00; Stop at 06:59; Status DC Prochlorperazine Edisylate 5 mg 5 mg PACU PRN PRN IV NAUSEA; Start 07/27/16 at 07:00; Stop 07/28/16 at 06:59; Status DC Cefazolin Sodium 1 gm/Sodium Chloride 250 ml @ 250 mls/hr 1X ONCE IRR Last administered on 07/27/16 10:20; Start 07/27/16 at 08:00; Stop 07/27/16 at 08:59 ; Status DC Cefazolin Sodium/ Dextrose 50 ml @ 100 mls/hr 1X PREOP PRN IV PRIOR TO PROCEDURE Last administered on 07/27/16 10:17; Start 07/27/16 at 06:00; Stop at 18:00; Status DC Propofol (Diprivan) 20 ml @ As Directed STK-MED ONCE IV ; Start 07/27/16 at 09: 39; Stop 07/27/16 at 09:40; Status DC Lidocaine HCl 100 mg STK-MED ONCE .ROUTE ; Start 07/27/16 at 09:39; Stop at 09:40; Status DC Sevoflurane (Ultane) 30 ml STK-MED ONCE IH ; Start 07/27/16 at 09:39; Stop 07/27 at 09:40; Status DC Famotidine (Pepcid) 20 mg STK-MED ONCE .ROUTE ; Start 07/27/16 at 09:39; Stop at 09:40; Status DC Lidocaine HCl 30 ml STK-MED ONCE .ROUTE Last administered on 07/27/16 10:31; Start 07/27/16 at 09:55; Stop 07/27/16 at 09:56; Status DC Phenylephrine HCl 1 mg STK-MED ONCE IV ; Start 07/27/16 at 10:19; Stop 07/27/16 at 10:20; Status DC Ephedrine Sulfate 50 mg STK-MED ONCE IV ; Start 07/27/16 at 10:40; Stop at 10:41; Status DC Dextrose 25 gm STK-MED ONCE IV ; Start 07/27/16 at 11:13; Stop 07/27/16 at 11:14 ; Status DC Fentanyl Citrate 50 mcg 50 mcg PRN Q2HR PRN IV PAIN Last administered on 10:41; Start 07/27/16 at 14:15 Potassium Chloride/Dextrose/ Sod Cl (KCl 20 Meq In D5W-1/2 NS) 1,000 ml @ 80 mls/hr 1X ONCE IV Last administered on 07/27/16 15:03; Start 07/27/16 at 14: 15; Stop 07/28/16 at 02:44; Status DC Ketorolac Tromethamine (Toradol) 30 mg 1X ONCE IV Last administered on 15:11; Start 07/27/16 at 14:15; Stop 07/27/16 at 14:16; Status DC Acetaminophen (Tylenol) 325 mg PRN TID PRN PO pain; Start 07/27/16 at 14:15 Aspirin (Ecotrin) 81 mg DAILY PO Last administered on 08/01/16 08:11; Start at 15:00 Gabapentin (Neurontin) 100 mg TID PO Last administered on 08/01/16 08:11; Start 07/27/16 at 15:00 Metformin HCl (Glucophage) 1,000 mg BIDWMEALS PO Last administered on 17:45; Start 07/27/16 at 17:00; Stop 07/29/16 at 12:32; Status DC Naproxen (Naprosyn) 500 mg BID PO Last administered on 08/01/16 08:09; Start 07/27/16 at 21:00 Glimepiride (Amaryl) 4 mg BID PO Last administered on 08/01/16 08:11; Start at 21:00 Insulin Detemir (Levemir) 10 units DAILY07 SQ Last administered on 08/01/16 08 :18; Start 07/28/16 at 07:00 Lisinopril (Prinivil) 20 mg DAILY PO Last administered on 08/01/16 08:11; Start 07/27/16 at 15:00 Non-Formulary Medication 20 meq DAILY PO ; Start 07/27/16 at 15:00; Stop at 15:00; Status DC Atorvastatin Calcium (Lipitor) 10 mg QHS PO Last administered on 07/31/16 19: 52; Start 07/27/16 at 21:00 Linagliptin (Tradjenta) 5 mg QHS PO Last administered on 07/28/16 21:22; Start 07/27/16 at 21:00; Stop 07/29/16 at 12:32; Status DC Insulin Aspart (Novolog) 0-7 UNITS TIDWMEALS SQ Last administered on 08/01/16 08:19; Start 07/27/16 at 17:00 Dextrose 12.5 gm PRN Q15MIN PRN IV SEE COMMENTS Last administered on 07/29/16 10:19; Start 07/27/16 at 14:15 Potassium Chloride (Klor-Con) 20 meq [id number] PO Last administered on 08:09; Start 07/28/16 at 08:00 Hydrochlorothiazide (Microzide) 12.5 mg DAILY PO Last administered on 09:00; Start 07/27/16 at 15:00 Fentanyl Citrate (Fentanyl 2ml Vial) 75 mcg 1X ONCE IV Last administered on 16:19; Start 07/27/16 at 16:00; Stop 07/27/16 at 16:01; Status DC Oxycodone HCl (Roxicodone) 5 mg PRN Q4HRS PRN PO PAIN Last administered on 08/01 08:14; Start 07/27/16 at 15:45 Enoxaparin Sodium (Lovenox Per Pharmacy Prophylaxis Dosing) 1 each PRN DAILY PRN MC SEE COMMENTS; Start 07/27/16 at 16:00 Enoxaparin Sodium (Lovenox 40mg Syringe) 40 mg Q24H SQ Last administered on 17:31; Start 07/27/16 at 16:00 Vancomycin HCl (Vanco Per Pharmacy) 1 each PRN DAILY PRN MC SEE COMMENTS Last administered on 07/29/16 09:15; Start 07/27/16 at 19:15; Stop 07/29/16 at 10:38 ; Status DC Piperacillin Sod/ Tazobactam Sod 1 each 1 each PRN DAILY PRN MC SEE COMMENTS; Start 07/27/16 at 19:15; Stop 07/29/16 at 12:14; Status DC Piperacillin Sod/ Tazobactam Sod 3.375 gm/Sodium Chloride 50 ml @ 100 mls/hr Q6HRS IV Last administered on 07/29/16 06:01; Start 07/27/16 at 19:30; Stop at 10:38; Status DC Vancomycin HCl 2 gm/Sodium Chloride 500 ml @ 250 mls/hr 1X ONCE IV Last administered on 07/27/16 20:58; Start 07/27/16 at 19:30; Stop 07/27/16 at 21:29 ; Status DC Vancomycin HCl/ Sodium Chloride (Iv Sodium Chloride 0.9% 250ml) 250 ml @ 167 mls/hr Q12H IV Last administered on 07/28/16 21:26; Start 07/28/16 at 09:00; Stop 07/29/16 at 09:10; Status DC Vancomycin HCl 1 each 1 each 1X ONCE MC Last administered on 07/29/16 08:30; Start 07/29/16 at 08:30; Stop 07/29/16 at 08:31; Status DC Vancomycin HCl 1.25 gm/Sodium Chloride 250 ml @ 167 mls/hr Q24H IV ; Start at 21:00; Stop 07/29/16 at 21:00; Status DC Piperacillin Sod/ Tazobactam Sod 3.375 gm/Sodium Chloride 50 ml @ 100 mls/hr Q6HRS IV Last administered on 07/29/16 12:49; Start 07/29/16 at 12:00; Stop at 14:00; Status DC Cefazolin Sodium/ Dextrose (Ancef 2gm Premix) 50 ml @ 100 mls/hr 1X ONCE IV ; Start 08/02/16 at 13:00; Stop 08/02/16 at 13:29 Active Scripts Active Reported Levemir (Insulin Detemir) 100 Unit/1 Ml Vial 10 Unit SQ DAILY07 K-Tab ER (Potassium Chloride) 20 Meq Tablet.er 20 Meq PO DAILY Oxycodone-Acetaminophen 5-325 (Oxycodone Hcl/Acetaminophen) 1 Each Tablet 1 Each PO Q4HRS PRN Aspir 81 (Aspirin) 81 Mg Tablet.dr 1 Tab PO DAILY Tylenol (Acetaminophen) 325 Mg Tablet 2 Tab PO TID Lisinopril-Hctz 20-12.5 Mg Tab (Lisinopril/Hydrochlorothiazide) 1 Each Tablet 1 Tab PO DAILY Naproxen 500 Mg Tablet 1 Tab PO BID Gabapentin 100 Mg Capsule 100 Mg PO QHS Metformin Hcl 1,000 Mg Tablet 1 Tab PO BID Glimepiride 4 Mg Tablet 1 Tab PO BID Pravastatin Sodium 40 Mg Tablet 1 Tab PO QHS Januvia (Sitagliptin Phosphate) 100 Mg Tablet 1 Tab PO QHS Vitals/I & O Vital Sign - Last 24 Hours 07/31/16 07/31/16 07/31/16 07/31/16 15:00 17:31 19:00 19:52 Temp 98.3 98.5 98.3 98.5 Pulse 89 97 Resp 16 18 20 B/P 156/85 107/68 Pulse Ox 97 99 97 O2 Delivery Room Air Room Air Room Air Room Air 07/31/16 07/31/16 07/31/16 07/31/16 19:52 20:00 20:22 23:00 Temp 98.4 98.4 Pulse 93 Resp 20 20 18 B/P 145/82 Pulse Ox 97 98 O2 Delivery Room Air Room Air Room Air O2 Flow Rate 2.0 08/01/16 08/01/16 08/01/16 08/01/16 03:00 04:32 05:32 07:00 Temp 98.3 98.3 Pulse 85 Resp 20 20 18 B/P 126/74 Pulse Ox 98 97 O2 Delivery Room Air Room Air Room Air 08/01/16 08/01/16 08/01/16 08/01/16 08:00 08:11 08:14 10:06 Pulse 93 B/P 145/82 Pulse Ox 98 98 O2 Delivery Room Air Room Air Room Air O2 Flow Rate 2.0 2.0 08/01/16 08/01/16 10:41 11:15 Pulse Ox 98 98 O2 Delivery Room Air Room Air O2 Flow Rate 2.0 Intake and Output 07/31/16 07/31/16 08/01/16 15:00 23:00 07:00 Intake Total 650 ml Output Total 0 ml Balance 0 ml 650 ml DARCIE NICOLE APRN Aug 01, 2016 12:38
--- NOTE | 2016-08-01 13:31 | PDOC ---
PROGRESS NOTES Chief Complaint Chief Complaint 1. Osteomyelitis right great toe- s/p right great toe amputation, on wound wac. 2. Ulceration/ wound secondary to Poorly Controlled T2DM 3. T2DM 4. Hyperglycemia 5. PVD 6. HTN 7. HLD 8. Generalized weakness 9. Anxiety d/o or depression, not treated Plan continue Cefazolin, Planning for left heel wound debridement in AM wound care Pain control with Fentanyl Limit narcotics Avoid CO2 Narcosis SSI with Levemir Labs reviewed PT/OT DVT prophylaxis prognosis guarded. History of Present Illness History of Present Illness pain 6/10 no fever wound wac present no chest pain Vitals Vitals Vital Signs Date Time Temp Pulse Resp B/P Pulse Ox O2 Delivery O2 Flow Rate FiO2 08/01/16 12:56 98 Room Air 08/01/16 11:15 2.0 08/01/16 08:11 93 145/82 08/01/16 07:00 98.3 18 98.3 Physical Exam General: Alert, Oriented X3, Cooperative, No acute distress Heart: Regular rate, Normal S1, Normal S2, No murmurs Lungs: Clear, Other Abdomen: Normal bowel sounds, Soft, No tenderness Extremities: Other (wound vac in place dorsum right foot; left heel decub stable) Skin: No rashes, No significant lesion, Other (Dressing C/D/I over Amputation site) Labs LABS Laboratory Tests Test 07/31/16 16:45 07/31/16 21:02 08/01/16 04:30 08/01/16 07:22 Glucose (Fingerstick) 251mg/dL (70-99) 247mg/dL (70-99) 208mg/dL (70-99) White Blood Count 6.9x10^3/uL (4.0-11.0) Red Blood Count 3.24x10^6/uL (3.50-5.40) Hemoglobin 8.9g/dL (12.0-15.5) Hematocrit 27.2% (36.0-47.0) Mean Corpuscular Volume 84fL (79-100) Mean Corpuscular Hemoglobin 28pg (25-35) Mean Corpuscular Hemoglobin Concent 33g/dL (31-37) Red Cell Distribution Width 15.2% (11.5-14.5) Platelet Count 281x10^3/uL (140-400) Neutrophils (%) (Auto) 71% (31-73) Lymphocytes (%) (Auto) 19% (24-48) Monocytes (%) (Auto) 8% (0-9) Eosinophils (%) (Auto) 1% (0-3) Basophils (%) (Auto) 1% (0-3) Neutrophils # (Auto) 4.9x10^3uL (1.8-7.7) Lymphocytes # (Auto) 1.3x10^3/uL (1.0-4.8) Monocytes # (Auto) 0.5x10^3/uL (0.0-1.1) Eosinophils # (Auto) 0.1x10^3/uL (0.0-0.7) Basophils # (Auto) 0.1x10^3/uL (0.0-0.2) Sodium Level 142mmol/L (136-145) Potassium Level 4.0mmol/L (3.5-5.1) Chloride Level 108mmol/L (98-107) Carbon Dioxide Level 28mmol/L (21-32) Anion Gap 6 (6-14) Blood Urea Nitrogen 28mg/dL (7-20) Creatinine 0.9mg/dL (0.6-1.0) Estimated GFR (Cockcroft-Gault) 77.8 Glucose Level 296mg/dL (70-99) Calcium Level 9.7mg/dL (8.5-10.1) Test 08/01/16 11:32 Glucose (Fingerstick) 145mg/dL (70-99) Assessment and Plan Assessmemt and Plan Problems Medical Problems: (1) Osteomyelitis due to type 2 diabetes mellitus Status: Acute Problems: Comment Review of Relevant I have reviewed the following items alma (where applicable) has been applied. Labs Laboratory Tests Test 07/30/16 16:24 07/30/16 20:50 07/31/16 08:36 07/31/16 11:12 Glucose (Fingerstick) 261mg/dL (70-99) 165mg/dL (70-99) 161mg/dL (70-99) 181mg/dL (70-99) Test 07/31/16 16:45 07/31/16 21:02 08/01/16 04:30 08/01/16 07:22 Glucose (Fingerstick) 251mg/dL (70-99) 247mg/dL (70-99) 208mg/dL (70-99) White Blood Count 6.9x10^3/uL (4.0-11.0) Red Blood Count 3.24x10^6/uL (3.50-5.40) Hemoglobin 8.9g/dL (12.0-15.5) Hematocrit 27.2% (36.0-47.0) Mean Corpuscular Volume 84fL (79-100) Mean Corpuscular Hemoglobin 28pg (25-35) Mean Corpuscular Hemoglobin Concent 33g/dL (31-37) Red Cell Distribution Width 15.2% (11.5-14.5) Platelet Count 281x10^3/uL (140-400) Neutrophils (%) (Auto) 71% (31-73) Lymphocytes (%) (Auto) 19% (24-48) Monocytes (%) (Auto) 8% (0-9) Eosinophils (%) (Auto) 1% (0-3) Basophils (%) (Auto) 1% (0-3) Neutrophils # (Auto) 4.9x10^3uL (1.8-7.7) Lymphocytes # (Auto) 1.3x10^3/uL (1.0-4.8) Monocytes # (Auto) 0.5x10^3/uL (0.0-1.1) Eosinophils # (Auto) 0.1x10^3/uL (0.0-0.7) Basophils # (Auto) 0.1x10^3/uL (0.0-0.2) Sodium Level 142mmol/L (136-145) Potassium Level 4.0mmol/L (3.5-5.1) Chloride Level 108mmol/L (98-107) Carbon Dioxide Level 28mmol/L (21-32) Anion Gap 6 (6-14) Blood Urea Nitrogen 28mg/dL (7-20) Creatinine 0.9mg/dL (0.6-1.0) Estimated GFR (Cockcroft-Gault) 77.8 Glucose Level 296mg/dL (70-99) Calcium Level 9.7mg/dL (8.5-10.1) Test 08/01/16 11:32 Glucose (Fingerstick) 145mg/dL (70-99) Laboratory Tests Test 07/31/16 16:45 07/31/16 21:02 08/01/16 04:30 08/01/16 07:22 Glucose (Fingerstick) 251mg/dL (70-99) 247mg/dL (70-99) 208mg/dL (70-99) White Blood Count 6.9x10^3/uL (4.0-11.0) Red Blood Count 3.24x10^6/uL (3.50-5.40) Hemoglobin 8.9g/dL (12.0-15.5) Hematocrit 27.2% (36.0-47.0) Mean Corpuscular Volume 84fL (79-100) Mean Corpuscular Hemoglobin 28pg (25-35) Mean Corpuscular Hemoglobin Concent 33g/dL (31-37) Red Cell Distribution Width 15.2% (11.5-14.5) Platelet Count 281x10^3/uL (140-400) Neutrophils (%) (Auto) 71% (31-73) Lymphocytes (%) (Auto) 19% (24-48) Monocytes (%) (Auto) 8% (0-9) Eosinophils (%) (Auto) 1% (0-3) Basophils (%) (Auto) 1% (0-3) Neutrophils # (Auto) 4.9x10^3uL (1.8-7.7) Lymphocytes # (Auto) 1.3x10^3/uL (1.0-4.8) Monocytes # (Auto) 0.5x10^3/uL (0.0-1.1) Eosinophils # (Auto) 0.1x10^3/uL (0.0-0.7) Basophils # (Auto) 0.1x10^3/uL (0.0-0.2) Sodium Level 142mmol/L (136-145) Potassium Level 4.0mmol/L (3.5-5.1) Chloride Level 108mmol/L (98-107) Carbon Dioxide Level 28mmol/L (21-32) Anion Gap 6 (6-14) Blood Urea Nitrogen 28mg/dL (7-20) Creatinine 0.9mg/dL (0.6-1.0) Estimated GFR (Cockcroft-Gault) 77.8 Glucose Level 296mg/dL (70-99) Calcium Level 9.7mg/dL (8.5-10.1) Test 08/01/16 11:32 Glucose (Fingerstick) 145mg/dL (70-99) Medications Current Medications Ondansetron HCl (Zofran) 4 mg PRN Q6HRS PRN IV Nausea; Start 07/27/16 at 07:00 ; Stop 07/28/16 at 06:59; Status DC Fentanyl Citrate (Fentanyl 2ml Vial) 25 mcg PRN Q5MIN PRN IV MILD PAIN; Start 07/27/16 at 07:00; Stop 07/28/16 at 06:59; Status DC Fentanyl Citrate 50 mcg 50 mcg PRN Q5MIN PRN IV MODERATE PAIN Last administered on 07/27/16 20:10; Start 07/27/16 at 07:00; Stop 07/28/16 at 06:59 ; Status DC Lactated Ringer's (Iv Lactated Ringers) 1,000 ml @ 30 mls/hr Q24H IV Last administered on 07/27/16 09:21; Start 07/27/16 at 07:00; Stop 07/27/16 at 18:59 ; Status DC Lidocaine HCl 2 ml 1X PRN PRN ID IV START; Start 07/27/16 at 07:00; Stop at 06:59; Status DC Prochlorperazine Edisylate 5 mg 5 mg PACU PRN PRN IV NAUSEA; Start 07/27/16 at 07:00; Stop 07/28/16 at 06:59; Status DC Cefazolin Sodium 1 gm/Sodium Chloride 250 ml @ 250 mls/hr 1X ONCE IRR Last administered on 07/27/16 10:20; Start 07/27/16 at 08:00; Stop 07/27/16 at 08:59 ; Status DC Cefazolin Sodium/ Dextrose 50 ml @ 100 mls/hr 1X PREOP PRN IV PRIOR TO PROCEDURE Last administered on 07/27/16 10:17; Start 07/27/16 at 06:00; Stop at 18:00; Status DC Propofol (Diprivan) 20 ml @ As Directed STK-MED ONCE IV ; Start 07/27/16 at 09: 39; Stop 07/27/16 at 09:40; Status DC Lidocaine HCl 100 mg STK-MED ONCE .ROUTE ; Start 07/27/16 at 09:39; Stop at 09:40; Status DC Sevoflurane (Ultane) 30 ml STK-MED ONCE IH ; Start 07/27/16 at 09:39; Stop 07/27 at 09:40; Status DC Famotidine (Pepcid) 20 mg STK-MED ONCE .ROUTE ; Start 07/27/16 at 09:39; Stop at 09:40; Status DC Lidocaine HCl 30 ml STK-MED ONCE .ROUTE Last administered on 07/27/16 10:31; Start 07/27/16 at 09:55; Stop 07/27/16 at 09:56; Status DC Phenylephrine HCl 1 mg STK-MED ONCE IV ; Start 07/27/16 at 10:19; Stop 07/27/16 at 10:20; Status DC Ephedrine Sulfate 50 mg STK-MED ONCE IV ; Start 07/27/16 at 10:40; Stop at 10:41; Status DC Dextrose 25 gm STK-MED ONCE IV ; Start 07/27/16 at 11:13; Stop 07/27/16 at 11:14 ; Status DC Fentanyl Citrate 50 mcg 50 mcg PRN Q2HR PRN IV PAIN Last administered on 10:41; Start 07/27/16 at 14:15 Potassium Chloride/Dextrose/ Sod Cl (KCl 20 Meq In D5W-1/2 NS) 1,000 ml @ 80 mls/hr 1X ONCE IV Last administered on 07/27/16 15:03; Start 07/27/16 at 14: 15; Stop 07/28/16 at 02:44; Status DC Ketorolac Tromethamine (Toradol) 30 mg 1X ONCE IV Last administered on 15:11; Start 07/27/16 at 14:15; Stop 07/27/16 at 14:16; Status DC Acetaminophen (Tylenol) 325 mg PRN TID PRN PO pain; Start 07/27/16 at 14:15 Aspirin (Ecotrin) 81 mg DAILY PO Last administered on 08/01/16 08:11; Start at 15:00 Gabapentin (Neurontin) 100 mg TID PO Last administered on 08/01/16 08:11; Start 07/27/16 at 15:00 Metformin HCl (Glucophage) 1,000 mg BIDWMEALS PO Last administered on 17:45; Start 07/27/16 at 17:00; Stop 07/29/16 at 12:32; Status DC Naproxen (Naprosyn) 500 mg BID PO Last administered on 08/01/16 08:09; Start 07/27/16 at 21:00 Glimepiride (Amaryl) 4 mg BID PO Last administered on 08/01/16 08:11; Start at 21:00 Insulin Detemir (Levemir) 10 units DAILY07 SQ Last administered on 08/01/16 08 :18; Start 07/28/16 at 07:00 Lisinopril (Prinivil) 20 mg DAILY PO Last administered on 08/01/16 08:11; Start 07/27/16 at 15:00 Non-Formulary Medication 20 meq DAILY PO ; Start 07/27/16 at 15:00; Stop at 15:00; Status DC Atorvastatin Calcium (Lipitor) 10 mg QHS PO Last administered on 07/31/16 19: 52; Start 07/27/16 at 21:00 Linagliptin (Tradjenta) 5 mg QHS PO Last administered on 07/28/16 21:22; Start 07/27/16 at 21:00; Stop 07/29/16 at 12:32; Status DC Insulin Aspart (Novolog) 0-7 UNITS TIDWMEALS SQ Last administered on 08/01/16 08:19; Start 07/27/16 at 17:00 Dextrose 12.5 gm PRN Q15MIN PRN IV SEE COMMENTS Last administered on 07/29/16 10:19; Start 07/27/16 at 14:15 Potassium Chloride (Klor-Con) 20 meq DAILYWBKFT PO Last administered on 08:09; Start 07/28/16 at 08:00 Hydrochlorothiazide (Microzide) 12.5 mg DAILY PO Last administered on 09:00; Start 07/27/16 at 15:00 Fentanyl Citrate (Fentanyl 2ml Vial) 75 mcg 1X ONCE IV Last administered on 16:19; Start 07/27/16 at 16:00; Stop 07/27/16 at 16:01; Status DC Oxycodone HCl (Roxicodone) 5 mg PRN Q4HRS PRN PO PAIN Last administered on 08/01 12:56; Start 07/27/16 at 15:45 Enoxaparin Sodium (Lovenox Per Pharmacy Prophylaxis Dosing) 1 each PRN DAILY PRN MC SEE COMMENTS; Start 07/27/16 at 16:00 Enoxaparin Sodium (Lovenox 40mg Syringe) 40 mg Q24H SQ Last administered on 17:31; Start 07/27/16 at 16:00 Vancomycin HCl (Vanco Per Pharmacy) 1 each PRN DAILY PRN MC SEE COMMENTS Last administered on 07/29/16 09:15; Start 07/27/16 at 19:15; Stop 07/29/16 at 10:38 ; Status DC Piperacillin Sod/ Tazobactam Sod 1 each 1 each PRN DAILY PRN MC SEE COMMENTS; Start 07/27/16 at 19:15; Stop 07/29/16 at 12:14; Status DC Piperacillin Sod/ Tazobactam Sod 3.375 gm/Sodium Chloride 50 ml @ 100 mls/hr Q6HRS IV Last administered on 07/29/16 06:01; Start 07/27/16 at 19:30; Stop at 10:38; Status DC Vancomycin HCl 2 gm/Sodium Chloride 500 ml @ 250 mls/hr 1X ONCE IV Last administered on 07/27/16 20:58; Start 07/27/16 at 19:30; Stop 07/27/16 at 21:29 ; Status DC Vancomycin HCl/ Sodium Chloride (Iv Sodium Chloride 0.9% 250ml) 250 ml @ 167 mls/hr Q12H IV Last administered on 07/28/16 21:26; Start 07/28/16 at 09:00; Stop 07/29/16 at 09:10; Status DC Vancomycin HCl 1 each 1 each 1X ONCE MC Last administered on 07/29/16 08:30; Start 07/29/16 at 08:30; Stop 07/29/16 at 08:31; Status DC Vancomycin HCl 1.25 gm/Sodium Chloride 250 ml @ 167 mls/hr Q24H IV ; Start at 21:00; Stop 07/29/16 at 21:00; Status DC Piperacillin Sod/ Tazobactam Sod 3.375 gm/Sodium Chloride 50 ml @ 100 mls/hr Q6HRS IV Last administered on 07/29/16t 12:49; Start 07/29/16 at 12:00; Stop at 14:00; Status DC Cefazolin Sodium/ Dextrose (Ancef 2gm Premix) 50 ml @ 100 mls/hr 1X ONCE IV ; Start 08/02/16 at 13:00; Stop 08/02/16 at 13:29 Active Scripts Active Reported Levemir (Insulin Detemir) 100 Unit/1 Ml Vial 10 Unit SQ DAILY07 K-Tab ER (Potassium Chloride) 20 Meq Tablet.er 20 Meq PO DAILY Oxycodone-Acetaminophen 5-325 (Oxycodone Hcl/Acetaminophen) 1 Each Tablet 1 Each PO Q4HRS PRN Aspir 81 (Aspirin) 81 Mg Tablet.dr 1 Tab PO DAILY Tylenol (Acetaminophen) 325 Mg Tablet 2 Tab PO TID Lisinopril-Hctz 20-12.5 Mg Tab (Lisinopril/Hydrochlorothiazide) 1 Each Tablet 1 Tab PO DAILY Naproxen 500 Mg Tablet 1 Tab PO BID Gabapentin 100 Mg Capsule 100 Mg PO QHS Metformin Hcl 1,000 Mg Tablet 1 Tab PO BID Glimepiride 4 Mg Tablet 1 Tab PO BID Pravastatin Sodium 40 Mg Tablet 1 Tab PO QHS Januvia (Sitagliptin Phosphate) 100 Mg Tablet 1 Tab PO QHS Vitals/I & O Vital Sign - Last 24 Hours 07/31/16 07/31/16 07/31/16 07/31/16 15:00 17:31 19:00 19:52 Temp 98.3 98.5 98.3 98.5 Pulse 89 97 Resp 16 18 20 B/P 156/85 107/68 Pulse Ox 97 99 97 O2 Delivery Room Air Room Air Room Air Room Air 07/31/16 07/31/16 07/31/16 07/31/16 19:52 20:00 20:22 23:00 Temp 98.4 98.4 Pulse 93 Resp 20 20 18 B/P 145/82 Pulse Ox 97 98 O2 Delivery Room Air Room Air Room Air O2 Flow Rate 2.0 08/01/16 08/01/16 08/01/16 08/01/16 03:00 04:32 05:32 07:00 Temp 98.3 98.3 Pulse 85 Resp 20 20 18 B/P 126/74 Pulse Ox 98 97 O2 Delivery Room Air Room Air Room Air 08/01/16 08/01/16 08/01/16 08/01/16 08:00 08:11 08:14 10:06 Pulse 93 B/P 145/82 Pulse Ox 98 98 O2 Delivery Room Air Room Air Room Air O2 Flow Rate 2.0 2.0 08/01/16 08/01/16 08/01/16 10:41 11:15 12:56 Pulse Ox 98 98 98 O2 Delivery Room Air Room Air Room Air O2 Flow Rate 2.0 Intake and Output 07/31/16 07/31/16 08/01/16 15:00 23:00 07:00 Intake Total 650 ml Output Total 0 ml Balance 0 ml 650 ml TARIK BENAVIDES MD Aug 01, 2016 13:31
[2016-08-01 15:34] VITALS: BP 155/85
--- NOTE | 2016-08-01 15:45 | RAD ---
Lower extremity duplex artery ultrasound - Left Indication: Left heel ulcer. Absent ankle pulse Comparison: None available. Procedure: Real-time grayscale, color-flow, duplex Doppler and spectral analysis of the left lower extremity arterial system is performed and images are obtained. Findings: There is complete occlusion of the left distal popliteal artery and posterior tibial arteries. There is monophasic flow in the anterior tibial and dorsalis pedis artery in the calf. Scattered atheromatous plaquing is seen in the common and superficial femoral arteries. No areas of focally elevated peak systolic velocity to suggest focal stenosis seen. Impression: 1. 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 2. Diffuse atheromatous plaquing involving the common and superficial femoral and the calf arteries with monophasic flow in the anterior tibial and dorsalis pedis artery.
[2016-08-01] MEDS: ENOXAPARIN 40 MG/0.4 ML DISP.SYRIN. SQ SCH (16:30)
--- NOTE | 2016-08-01 17:39 | EKG ---
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
[2016-08-01 19:15] VITALS: BP 150/77
[2016-08-01] MEDS: ATORVASTATIN CALCIUM 10 MG TABLET. PO SCH (21:47)
[2016-08-01 23:00] VITALS: BP 161/89
[2016-08-02 03:10] VITALS: BP 152/86
[2016-08-02 05:11] LABS: BASO # 0.1 x10^3/uL (0.0-0.2); BASO % 1 % (0-3); EOS % 2 % (0-3); HEMATOCRIT 28.2 % (36.0-47.0); HEMOGLOBIN 9.3 g/dL (12.0-15.5); LYMPH # 1.2 x10^3/uL (1.0-4.8); LYMPH % 23 % (24-48); MEAN CORPUSCULAR HEMOGLOBIN 28 pg (25-35); MEAN CORPUSCULAR HGB CONC 33 g/dL (31-37); MEAN CORPUSCULAR VOLUME 84 fL (79-100); MONO % 12 % (0-9); NEUT % 61 % (31-73); PLATELET COUNT 248 x10^3/uL (140-400); RED BLOOD COUNT 3.38 x10^6/uL (3.50-5.40); RED CELL DISTRIBUTION WIDTH 15.5 % (11.5-14.5); WHITE BLOOD COUNT 5.1 x10^3/uL (4.0-11.0)
[2016-08-02] MEDS: FENTANYL PF 100 MCG/2 ML VIAL. IV PRN ×4 (05:29→17:04)
[2016-08-02 05:42] LABS: CALCIUM 10.1 mg/dL (8.5-10.1); CREATININE 0.8 mg/dL (0.6-1.0); GFR 89.1; POTASSIUM 3.7 mmol/L (3.5-5.1)
[2016-08-02 07:00] VITALS: BP 141/76
[2016-08-02] MEDS ORDERED: IV RINGERS,LACTATED 1000ML 1,000 ML IV SCH (07:00)
[2016-08-02] MEDS ORDERED: LIDOCAINE 1% 1 ML SYRINGE. ID PRN (07:00)
[2016-08-02] MEDS ORDERED: FENTANYL PF 100 MCG/2 ML VIAL. IV PRN ×2 (07:00)
[2016-08-02] MEDS ORDERED: PROCHLORPERAZINE 10 MG/2 ML VIAL. IV PRN (07:00)
[2016-08-02] MEDS ORDERED: ONDANSETRON PF 4 MG/2 ML VIAL. IV PRN (07:00)
[2016-08-02] MEDS: INSULIN ASPART 300 UNITS/3 ML INSULN.PEN SQ SCH ×3 (08:00→17:08)
[2016-08-02] MEDS: POTASSIUM CHLORIDE 20 MEQ TABLET.ER. PO SCH ×2 (08:00→12:23)
[2016-08-02] MEDS: GABAPENTIN 100 MG CAPSULE. PO SCH ×3 (09:00→21:32)
[2016-08-02] MEDS: LISINOPRIL 20 MG TABLET PO SCH ×2 (09:00→12:23)
[2016-08-02] MEDS: HYDROCHLOROTHIAZIDE 12.5 MG CAPSULE. PO SCH ×2 (09:00→12:23)
[2016-08-02] MEDS: NAPROXEN 500 MG TABLET PO SCH ×2 (09:00→21:32)
[2016-08-02] MEDS: ASPIRIN ENTERIC COATED 81 MG TABLET.DR. PO SCH ×2 (09:00→12:23)
[2016-08-02] MEDS: GLIMEPIRIDE 2 MG TABLET PO SCH ×3 (09:00→21:32)
--- NOTE | 2016-08-02 09:32 | PDOC ---
PROGRESS NOTES Chief Complaint Chief Complaint 1. Osteomyelitis right great toe- s/p right great toe amputation, on wound wac. POD#6 2. Ulceration/ wound secondary to Poorly Controlled T2DM Left 3. T2DM 4. Hyperglycemia 5. PVD 6. HTN 7. HLD 8. Generalized weakness 9. Anxiety d/o or depression, not treated Plan continue Cefazolin, Planning for left heel wound debridement by vascular surgery wound care Pain control with Fentanyl Limit narcotics Avoid CO2 Narcosis SSI with Levemir Labs reviewed PT/OT DVT prophylaxis prognosis guarded. d/w daughter at bedside, answered all questions. History of Present Illness History of Present Illness pain 6/10 no fever wound wac present no chest pain Vitals Vitals Vital Signs Date Time Temp Pulse Resp B/P Pulse Ox O2 Delivery O2 Flow Rate FiO2 08/02/16 07:00 99.0 94 18 141/76 99 Room Air 99.0 08/01/16 11:15 2.0 Physical Exam General: Alert, Oriented X3, Cooperative, No acute distress Heart: Regular rate, Normal S1, Normal S2, No murmurs Lungs: Clear, Other Abdomen: Normal bowel sounds, Soft, No tenderness Extremities: Other (wound vac in place dorsum right foot; left heel decub stable) Skin: No rashes, No significant lesion, Other (Dressing C/D/I over Amputation site) Labs LABS Laboratory Tests Test 08/01/16 11:32 08/01/16 16:46 08/01/16 20:54 08/02/16 04:30 Glucose (Fingerstick) 145mg/dL (70-99) 275mg/dL (70-99) 177mg/dL (70-99) White Blood Count 5.1x10^3/uL (4.0-11.0) Red Blood Count 3.38x10^6/uL (3.50-5.40) Hemoglobin 9.3g/dL (12.0-15.5) Hematocrit 28.2% (36.0-47.0) Mean Corpuscular Volume 84fL (79-100) Mean Corpuscular Hemoglobin 28pg (25-35) Mean Corpuscular Hemoglobin Concent 33g/dL (31-37) Red Cell Distribution Width 15.5% (11.5-14.5) Platelet Count 248x10^3/uL (140-400) Neutrophils (%) (Auto) 61% (31-73) Lymphocytes (%) (Auto) 23% (24-48) Monocytes (%) (Auto) 12% (0-9) Eosinophils (%) (Auto) 2% (0-3) Basophils (%) (Auto) 1% (0-3) Neutrophils # (Auto) 3.1x10^3uL (1.8-7.7) Lymphocytes # (Auto) 1.2x10^3/uL (1.0-4.8) Monocytes # (Auto) 0.6x10^3/uL (0.0-1.1) Eosinophils # (Auto) 0.1x10^3/uL (0.0-0.7) Basophils # (Auto) 0.1x10^3/uL (0.0-0.2) Sodium Level 144mmol/L (136-145) Potassium Level 3.7mmol/L (3.5-5.1) Chloride Level 107mmol/L (98-107) Carbon Dioxide Level 27mmol/L (21-32) Anion Gap 10 (6-14) Blood Urea Nitrogen 23mg/dL (7-20) Creatinine 0.8mg/dL (0.6-1.0) Estimated GFR (Cockcroft-Gault) 89.1 Glucose Level 96mg/dL (70-99) Calcium Level 10.1mg/dL (8.5-10.1) Assessment and Plan Assessmemt and Plan Problems Medical Problems: (1) Osteomyelitis due to type 2 diabetes mellitus Status: Acute Problems: Comment Review of Relevant I have reviewed the following items alma (where applicable) has been applied. Labs Laboratory Tests Test 07/31/16 11:12 07/31/16 16:45 07/31/16 21:02 08/01/16 04:30 Glucose (Fingerstick) 181mg/dL (70-99) 251mg/dL (70-99) 247mg/dL (70-99) White Blood Count 6.9x10^3/uL (4.0-11.0) Red Blood Count 3.24x10^6/uL (3.50-5.40) Hemoglobin 8.9g/dL (12.0-15.5) Hematocrit 27.2% (36.0-47.0) Mean Corpuscular Volume 84fL (79-100) Mean Corpuscular Hemoglobin 28pg (25-35) Mean Corpuscular Hemoglobin Concent 33g/dL (31-37) Red Cell Distribution Width 15.2% (11.5-14.5) Platelet Count 281x10^3/uL (140-400) Neutrophils (%) (Auto) 71% (31-73) Lymphocytes (%) (Auto) 19% (24-48) Monocytes (%) (Auto) 8% (0-9) Eosinophils (%) (Auto) 1% (0-3) Basophils (%) (Auto) 1% (0-3) Neutrophils # (Auto) 4.9x10^3uL (1.8-7.7) Lymphocytes # (Auto) 1.3x10^3/uL (1.0-4.8) Monocytes # (Auto) 0.5x10^3/uL (0.0-1.1) Eosinophils # (Auto) 0.1x10^3/uL (0.0-0.7) Basophils # (Auto) 0.1x10^3/uL (0.0-0.2) Sodium Level 142mmol/L (136-145) Potassium Level 4.0mmol/L (3.5-5.1) Chloride Level 108mmol/L (98-107) Carbon Dioxide Level 28mmol/L (21-32) Anion Gap 6 (6-14) Blood Urea Nitrogen 28mg/dL (7-20) Creatinine 0.9mg/dL (0.6-1.0) Estimated GFR (Cockcroft-Gault) 77.8 Glucose Level 296mg/dL (70-99) Calcium Level 9.7mg/dL (8.5-10.1) Test 08/01/16 07:22 08/01/16 11:32 08/01/16 16:46 08/01/16 20:54 Glucose (Fingerstick) 208mg/dL (70-99) 145mg/dL (70-99) 275mg/dL (70-99) 177mg/dL (70-99) Test 08/02/16 04:30 White Blood Count 5.1x10^3/uL (4.0-11.0) Red Blood Count 3.38x10^6/uL (3.50-5.40) Hemoglobin 9.3g/dL (12.0-15.5) Hematocrit 28.2% (36.0-47.0) Mean Corpuscular Volume 84fL (79-100) Mean Corpuscular Hemoglobin 28pg (25-35) Mean Corpuscular Hemoglobin Concent 33g/dL (31-37) Red Cell Distribution Width 15.5% (11.5-14.5) Platelet Count 248x10^3/uL (140-400) Neutrophils (%) (Auto) 61% (31-73) Lymphocytes (%) (Auto) 23% (24-48) Monocytes (%) (Auto) 12% (0-9) Eosinophils (%) (Auto) 2% (0-3) Basophils (%) (Auto) 1% (0-3) Neutrophils # (Auto) 3.1x10^3uL (1.8-7.7) Lymphocytes # (Auto) 1.2x10^3/uL (1.0-4.8) Monocytes # (Auto) 0.6x10^3/uL (0.0-1.1) Eosinophils # (Auto) 0.1x10^3/uL (0.0-0.7) Basophils # (Auto) 0.1x10^3/uL (0.0-0.2) Sodium Level 144mmol/L (136-145) Potassium Level 3.7mmol/L (3.5-5.1) Chloride Level 107mmol/L (98-107) Carbon Dioxide Level 27mmol/L (21-32) Anion Gap 10 (6-14) Blood Urea Nitrogen 23mg/dL (7-20) Creatinine 0.8mg/dL (0.6-1.0) Estimated GFR (Cockcroft-Gault) 89.1 Glucose Level 96mg/dL (70-99) Calcium Level 10.1mg/dL (8.5-10.1) Laboratory Tests Test 08/01/16 11:32 08/01/16 16:46 08/01/16 20:54 08/02/16 04:30 Glucose (Fingerstick) 145mg/dL (70-99) 275mg/dL (70-99) 177mg/dL (70-99) White Blood Count 5.1x10^3/uL (4.0-11.0) Red Blood Count 3.38x10^6/uL (3.50-5.40) Hemoglobin 9.3g/dL (12.0-15.5) Hematocrit 28.2% (36.0-47.0) Mean Corpuscular Volume 84fL (79-100) Mean Corpuscular Hemoglobin 28pg (25-35) Mean Corpuscular Hemoglobin Concent 33g/dL (31-37) Red Cell Distribution Width 15.5% (11.5-14.5) Platelet Count 248x10^3/uL (140-400) Neutrophils (%) (Auto) 61% (31-73) Lymphocytes (%) (Auto) 23% (24-48) Monocytes (%) (Auto) 12% (0-9) Eosinophils (%) (Auto) 2% (0-3) Basophils (%) (Auto) 1% (0-3) Neutrophils # (Auto) 3.1x10^3uL (1.8-7.7) Lymphocytes # (Auto) 1.2x10^3/uL (1.0-4.8) Monocytes # (Auto) 0.6x10^3/uL (0.0-1.1) Eosinophils # (Auto) 0.1x10^3/uL (0.0-0.7) Basophils # (Auto) 0.1x10^3/uL (0.0-0.2) Sodium Level 144mmol/L (136-145) Potassium Level 3.7mmol/L (3.5-5.1) Chloride Level 107mmol/L (98-107) Carbon Dioxide Level 27mmol/L (21-32) Anion Gap 10 (6-14) Blood Urea Nitrogen 23mg/dL (7-20) Creatinine 0.8mg/dL (0.6-1.0) Estimated GFR (Cockcroft-Gault) 89.1 Glucose Level 96mg/dL (70-99) Calcium Level 10.1mg/dL (8.5-10.1) Medications Current Medications Ondansetron HCl (Zofran) 4 mg PRN Q6HRS PRN IV Nausea; Start 07/27/16 at 07:00 ; Stop 07/28/16 at 06:59; Status DC Fentanyl Citrate (Fentanyl 2ml Vial) 25 mcg PRN Q5MIN PRN IV MILD PAIN; Start 07/27/16 at 07:00; Stop 07/28/16 at 06:59; Status DC Fentanyl Citrate 50 mcg 50 mcg PRN Q5MIN PRN IV MODERATE PAIN Last administered on 07/27/16 20:10; Start 07/27/16 at 07:00; Stop 07/28/16 at 06:59 ; Status DC Lactated Ringer's (Iv Lactated Ringers) 1,000 ml @ 30 mls/hr Q24H IV Last administered on 07/27/16 09:21; Start 07/27/16 at 07:00; Stop 07/27/16 at 18:59 ; Status DC Lidocaine HCl 2 ml 1X PRN PRN ID IV START; Start 07/27/16 at 07:00; Stop at 06:59; Status DC Prochlorperazine Edisylate 5 mg 5 mg PACU PRN PRN IV NAUSEA; Start 07/27/16 at 07:00; Stop 07/28/16 at 06:59; Status DC Cefazolin Sodium 1 gm/Sodium Chloride 250 ml @ 250 mls/hr 1X ONCE IRR Last administered on 07/27/16 10:20; Start 07/27/16 at 08:00; Stop 07/27/16 at 08:59 ; Status DC Cefazolin Sodium/ Dextrose 50 ml @ 100 mls/hr 1X PREOP PRN IV PRIOR TO PROCEDURE Last administered on 07/27/16 10:17; Start 07/27/16 at 06:00; Stop at 18:00; Status DC Propofol (Diprivan) 20 ml @ As Directed STK-MED ONCE IV ; Start 07/27/16 at 09: 39; Stop 07/27/16 at 09:40; Status DC Lidocaine HCl 100 mg STK-MED ONCE .ROUTE ; Start 07/27/16 at 09:39; Stop at 09:40; Status DC Sevoflurane (Ultane) 30 ml STK-MED ONCE IH ; Start 07/27/16 at 09:39; Stop 07/27 at 09:40; Status DC Famotidine (Pepcid) 20 mg STK-MED ONCE .ROUTE ; Start 07/27/16 at 09:39; Stop at 09:40; Status DC Lidocaine HCl 30 ml STK-MED ONCE .ROUTE Last administered on 07/27/16 10:31; Start 07/27/16 at 09:55; Stop 07/27/16 at 09:56; Status DC Phenylephrine HCl 1 mg STK-MED ONCE IV ; Start 07/27/16 at 10:19; Stop 07/27/16 at 10:20; Status DC Ephedrine Sulfate 50 mg STK-MED ONCE IV ; Start 07/27/16 at 10:40; Stop at 10:41; Status DC Dextrose 25 gm STK-MED ONCE IV ; Start 07/27/16 at 11:13; Stop 07/27/16 at 11:14 ; Status DC Fentanyl Citrate 50 mcg 50 mcg PRN Q2HR PRN IV PAIN Last administered on 10:41; Start 07/27/16 at 14:15; Stop 08/01/16 at 13:32; Status DC Potassium Chloride/Dextrose/ Sod Cl (KCl 20 Meq In D5W-1/2 NS) 1,000 ml @ 80 mls/hr 1X ONCE IV Last administered on 07/27/16 15:03; Start 07/27/16 at 14: 15; Stop 07/28/16 at 02:44; Status DC Ketorolac Tromethamine (Toradol) 30 mg 1X ONCE IV Last administered on 15:11; Start 07/27/16 at 14:15; Stop 07/27/16 at 14:16; Status DC Acetaminophen (Tylenol) 325 mg PRN TID PRN PO MILD PAIN; Start 07/27/16 at 14: 15 Aspirin (Ecotrin) 81 mg DAILY PO Last administered on 08/01/16 08:11; Start at 15:00 Gabapentin (Neurontin) 100 mg TID PO Last administered on 08/01/16 21:47; Start 07/27/16 at 15:00 Metformin HCl (Glucophage) 1,000 mg BIDWMEALS PO Last administered on 17:45; Start 07/27/16 at 17:00; Stop 07/29/16 at 12:32; Status DC Naproxen (Naprosyn) 500 mg BID PO Last administered on 08/01/16 21:48; Start 07/27/16 at 21:00 Glimepiride (Amaryl) 4 mg BID PO Last administered on 08/01/16 21:48; Start at 21:00 Insulin Detemir (Levemir) 10 units DAILY07 SQ Last administered on 08/01/16 18 :12; Start 07/28/16 at 07:00 Lisinopril (Prinivil) 20 mg DAILY PO Last administered on 08/01/16 08:11; Start 07/27/16 at 15:00 Non-Formulary Medication 20 meq DAILY PO ; Start 07/27/16 at 15:00; Stop at 15:00; Status DC Atorvastatin Calcium (Lipitor) 10 mg QHS PO Last administered on 08/01/16 21: 47; Start 07/27/16 at 21:00 Linagliptin (Tradjenta) 5 mg QHS PO Last administered on 07/28/16 21:22; Start 07/27/16 at 21:00; Stop 07/29/16 at 12:32; Status DC Insulin Aspart (Novolog) 0-7 UNITS TIDWMEALS SQ Last administered on 08/01/16 17:19; Start 07/27/16 at 17:00 Dextrose 12.5 gm PRN Q15MIN PRN IV SEE COMMENTS Last administered on 07/29/16 10:19; Start 07/27/16 at 14:15 Potassium Chloride (Klor-Con) 20 meq DAILYWBKFT PO Last administered on 08:09; Start 07/28/16 at 08:00 Hydrochlorothiazide (Microzide) 12.5 mg DAILY PO Last administered on 09:00; Start 07/27/16 at 15:00 Fentanyl Citrate (Fentanyl 2ml Vial) 75 mcg 1X ONCE IV Last administered on 16:19; Start 07/27/16 at 16:00; Stop 07/27/16 at 16:01; Status DC Oxycodone HCl (Roxicodone) 5 mg PRN Q4HRS PRN PO MODERATE TO SEVERE PAIN Last administered on 08/01/16 21:48; Start 07/27/16 at 15:45 Enoxaparin Sodium (Lovenox Per Pharmacy Prophylaxis Dosing) 1 each PRN DAILY PRN MC SEE COMMENTS; Start 07/27/16 at 16:00 Enoxaparin Sodium (Lovenox 40mg Syringe) 40 mg Q24H SQ Last administered on 16:30; Start 07/27/16 at 16:00 Vancomycin HCl (Vanco Per Pharmacy) 1 each PRN DAILY PRN MC SEE COMMENTS Last administered on 07/29/16 09:15; Start 07/27/16 at 19:15; Stop 07/29/16 at 10:38 ; Status DC Piperacillin Sod/ Tazobactam Sod 1 each 1 each PRN DAILY PRN MC SEE COMMENTS; Start 07/27/16 at 19:15; Stop 07/29/16 at 12:14; Status DC Piperacillin Sod/ Tazobactam Sod 3.375 gm/Sodium Chloride 50 ml @ 100 mls/hr Q6HRS IV Last administered on 07/29/16 06:01; Start 07/27/16 at 19:30; Stop at 10:38; Status DC Vancomycin HCl 2 gm/Sodium Chloride 500 ml @ 250 mls/hr 1X ONCE IV Last administered on 07/27/16 20:58; Start 07/27/16 at 19:30; Stop 07/27/16 at 21:29 ; Status DC Vancomycin HCl/ Sodium Chloride (Iv Sodium Chloride 0.9% 250ml) 250 ml @ 167 mls/hr Q12H IV Last administered on 07/28/16 21:26; Start 07/28/16 at 09:00; Stop 07/29/16 at 09:10; Status DC Vancomycin HCl 1 each 1 each 1X ONCE MC Last administered on 07/29/16 08:30; Start 07/29/16 at 08:30; Stop 07/29/16 at 08:31; Status DC Vancomycin HCl 1.25 gm/Sodium Chloride 250 ml @ 167 mls/hr Q24H IV ; Start at 21:00; Stop 07/29/16 at 21:00; Status DC Piperacillin Sod/ Tazobactam Sod 3.375 gm/Sodium Chloride 50 ml @ 100 mls/hr Q6HRS IV Last administered on 07/29/16 12:49; Start 07/29/16 at 12:00; Stop at 14:00; Status DC Cefazolin Sodium/ Dextrose (Ancef 2gm Premix) 50 ml @ 100 mls/hr 1X ONCE IV ; Start 08/02/16 at 13:00; Stop 08/02/16 at 13:29 Fentanyl Citrate (Fentanyl 2ml Vial) 25 mcg PRN Q2HR PRN IV PAIN Last administered on 08/02/16t 09:15; Start 08/01/16 at 13:30 Ondansetron HCl (Zofran) 4 mg PRN Q6HRS PRN IV Nausea; Start 08/02/16 at 07:00 ; Stop 08/03/16 at 06:59 Fentanyl Citrate (Fentanyl 2ml Vial) 25 mcg PRN Q5MIN PRN IV MILD PAIN; Start 08/02/16 at 07:00; Stop 08/03/16 at 06:59 Fentanyl Citrate 50 mcg 50 mcg PRN Q5MIN PRN IV MODERATE PAIN; Start 08/02/16 at 07:00; Stop 08/03/16 at 06:59 Lactated Ringer's (Iv Lactated Ringers) 1,000 ml @ 30 mls/hr Q24H IV ; Start at 07:00; Stop 08/02/16 at 18:59 Lidocaine HCl 2 ml 1X PRN PRN ID IV START; Start 08/02/16 at 07:00; Stop at 06:59 Prochlorperazine Edisylate (Compazine) 5 mg PACU PRN PRN IV NAUSEA; Start 08/02 at 07:00; Stop 08/03/16 at 06:59 Active Scripts Active Reported Levemir (Insulin Detemir) 100 Unit/1 Ml Vial 10 Unit SQ DAILY07 K-Tab ER (Potassium Chloride) 20 Meq Tablet.er 20 Meq PO DAILY Oxycodone-Acetaminophen 5-325 (Oxycodone Hcl/Acetaminophen) 1 Each Tablet 1 Each PO Q4HRS PRN Aspir 81 (Aspirin) 81 Mg Tablet.dr 1 Tab PO DAILY Tylenol (Acetaminophen) 325 Mg Tablet 2 Tab PO TID Lisinopril-Hctz 20-12.5 Mg Tab (Lisinopril/Hydrochlorothiazide) 1 Each Tablet 1 Tab PO DAILY Naproxen 500 Mg Tablet 1 Tab PO BID Gabapentin 100 Mg Capsule 100 Mg PO QHS Metformin Hcl 1,000 Mg Tablet 1 Tab PO BID Glimepiride 4 Mg Tablet 1 Tab PO BID Pravastatin Sodium 40 Mg Tablet 1 Tab PO QHS Januvia (Sitagliptin Phosphate) 100 Mg Tablet 1 Tab PO QHS Vitals/I & O Vital Sign - Last 24 Hours 08/01/16 08/01/16 08/01/16 08/01/16 10:06 10:41 11:00 11:15 Temp 98.0 98.0 Pulse 86 Resp 18 B/P 148/86 Pulse Ox 98 99 98 O2 Delivery Room Air Room Air Room Air O2 Flow Rate 2.0 2.0 08/01/16 08/01/16 08/01/16 08/01/16 12:56 15:34 17:21 18:24 Temp 97.9 97.9 Pulse 88 Resp 20 B/P 155/85 Pulse Ox 98 99 99 99 O2 Delivery Room Air Room Air Room Air 08/01/16 08/01/16 08/01/16 08/01/16 19:15 20:00 21:48 21:49 Temp 98.8 98.8 Pulse 96 Resp 18 B/P 150/77 Pulse Ox 96 O2 Delivery Room Air Room Air Room Air Room Air 08/01/16 08/01/16 08/02/16 08/02/16 22:48 23:00 03:10 05:29 Temp 99.4 98.7 99.4 98.7 Pulse 93 93 Resp 18 18 B/P 161/89 152/86 Pulse Ox 94 95 O2 Delivery Room Air Room Air Room Air Room Air 08/02/16 08/02/16 05:59 07:00 Temp 99.0 99.0 Pulse 94 Resp 18 B/P 141/76 Pulse Ox 99 O2 Delivery Room Air Room Air Intake and Output 08/01/16 08/01/16 08/02/16 15:00 23:00 07:00 Intake Total 360 ml 740 ml Output Total 250 ml Balance 360 ml -250 ml 740 ml TARIK BENAVIDES MD Aug 02, 2016 09:32
--- NOTE | 2016-08-02 09:45 | PDOC ---
Provider Note Provider Note Vascular Surgery - POD#6 Right 1st toe amp and forefoot ulcer debridement S: Patient anxious about surgery, discussed US findings with patient and the need for further testing O: Alert and Ox3 RLE: Strong, palpable graft pulse. Foot warm. Right 1st toe amp incision intact. No drainage. Right forefoot wound vac in place LLE: Very tender to palpation on the lateral aspect of the left heel. thick callous tissue Strong palpable popliteal pulse. Unable to palpate or dopple DP or PT pulses. US: Impression: 1. 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 2. Diffuse atheromatous plaquing involving the common and superficial femoral and the calf arteries with monophasic flow in the anterior tibial and dorsalis pedis artery. Assessment/Plan: 1. PAD with right femoral to distal tibial bypass 05/09/[address] Rebolledo with patent bypass graft. 2. POD#6 right 1st toe amp with forefoot wound debridement. Continue wound vac therapy to forefoot ulcer. 3. Continue non-weight bearing to right foot. Will have PT work with patient on a knee walker. 4. Left foot pain. Foot x-ray negative for osteo 5 days ago. US demonstrates decreased arterial circulation left leg, consult IR, BELINDA with runoff left leg 5. Consult [employer] for a left foot heel off-loading shoe. Continue to off-load on pillows until boot arrives. 6. Cancelled left heel wound debridement for today. continue NPO for RASHEED NASSAR APRN Aug 02, 2016 09:45
--- NOTE | 2016-08-02 10:37 | RAD ---
Left lower extremity vein mapping, 08/02/2016: History: Arterial bypass planning Grayscale imaging of the saphenous veins in the left lower extremity was performed. The greater saphenous vein is patent measuring 1.4 to 3.8 mm in diameter in the thigh and 2.5 to 3.1 mm in the lower leg. A tiny patent lesser saphenous vein is present in the left calf measuring approximately 1 mm. IMPRESSION: Patent left greater saphenous vein with measurements as described above and fully delineated on the accompanying technologist worksheet available in the [employer] PACS system.
[2016-08-02 11:00] VITALS: BP 140/79
[2016-08-02] MEDS ORDERED: CEFAZOLIN 2GM PREMIX 50 ML IV ONE (13:00)
[2016-08-02] MEDS: OXYCODONE IR 5 MG TABLET. PO PRN ×2 (14:06→21:33)
[2016-08-02 15:00] VITALS: BP 150/94
[2016-08-02] MEDS: ENOXAPARIN 40 MG/0.4 ML DISP.SYRIN. SQ SCH (17:10)
[2016-08-02 19:20] VITALS: BP 162/92
[2016-08-02] MEDS: ATORVASTATIN CALCIUM 10 MG TABLET. PO SCH (21:32)
[2016-08-02] MEDS: BENZOCAINE/MENTHOL LOZENGE. PO PRN (21:33)
[2016-08-02 23:00] VITALS: BP 150/82
[2016-08-03] VITALS (15 sets, daily range): BP systolic 101–176; BP diastolic 65–89
[2016-08-03] MEDS: FENTANYL PF 100 MCG/2 ML VIAL. IV PRN ×7 (00:21→23:39)
[2016-08-03 05:43] LABS: BASO # 0.1 x10^3/uL (0.0-0.2); BASO % 1 % (0-3); EOS % 1 % (0-3); HEMATOCRIT 26.1 % (36.0-47.0); LYMPH # 1.4 x10^3/uL (1.0-4.8); LYMPH % 26 % (24-48); MEAN CORPUSCULAR HEMOGLOBIN 28 pg (25-35); MEAN CORPUSCULAR HGB CONC 34 g/dL (31-37); MEAN CORPUSCULAR VOLUME 82 fL (79-100); MONO % 18 % (0-9); NEUT % 54 % (31-73); PLATELET COUNT 229 x10^3/uL (140-400); RED CELL DISTRIBUTION WIDTH 15.3 % (11.5-14.5); WHITE BLOOD COUNT 5.5 x10^3/uL (4.0-11.0)
[2016-08-03 05:57] LABS: CALCIUM 9.7 mg/dL (8.5-10.1); GFR 68.9; POTASSIUM 3.7 mmol/L (3.5-5.1)
[2016-08-03] MEDS: INSULIN DETEMIR 300 UNITS/3 ML INSULN.PEN. SQ SCH (07:00)
[2016-08-03] MEDS: INSULIN ASPART 300 UNITS/3 ML INSULN.PEN SQ SCH ×3 (07:53→17:00)
[2016-08-03] MEDS: POTASSIUM CHLORIDE 20 MEQ TABLET.ER. PO SCH (07:53)
[2016-08-03] MEDS: GLIMEPIRIDE 2 MG TABLET PO SCH ×2 (07:53→21:33)
[2016-08-03] MEDS: LISINOPRIL 20 MG TABLET PO SCH (07:54)
[2016-08-03] MEDS: GABAPENTIN 100 MG CAPSULE. PO SCH ×3 (07:54→21:31)
[2016-08-03] MEDS: ASPIRIN ENTERIC COATED 81 MG TABLET.DR. PO SCH (07:54)
[2016-08-03] MEDS: HYDROCHLOROTHIAZIDE 12.5 MG CAPSULE. PO SCH (07:54)
[2016-08-03] MEDS: NAPROXEN 500 MG TABLET PO SCH ×2 (07:54→21:32)
[2016-08-03] MEDS ORDERED: LIDOCAINE 1% / SOD BICARB 8.4% 20 ML VIAL. IJ ONE ×2 (08:04→08:45)
[2016-08-03] MEDS ORDERED: IODIXANOL 320 MG/ML 100 ML VIAL. ONE (08:05)
[2016-08-03] MEDS ORDERED: MIDAZOLAM HCL 2 MG/2 ML VIAL. ONE ×2 (08:11→13:57)
[2016-08-03] MEDS ORDERED: MIDAZOLAM HCL 2 MG/2 ML VIAL. IV ONE (08:45)
[2016-08-03] MEDS ORDERED: IODIXANOL 320 MG/ML 100 ML VIAL. IART ONE (08:45)
[2016-08-03] MEDS ORDERED: CONTRAST GIVEN MC PRN (08:45)
[2016-08-03] MEDS ORDERED: FENTANYL PF 100 MCG/2 ML VIAL. IV ONE (08:45)
--- NOTE | 2016-08-03 08:45 | PDOC ---
Provider Note Provider Note Vascular F/U Pt. out of room in IR getting angio, result not known at this time BECKY NICOLE MD Aug 03, 2016 08:45
--- NOTE | 2016-08-03 09:13 | PDOC ---
MODERATE SEDATION ASSESSMENT RISKS/ALTERNATIVES Risks/Alternatives Risks and alternatives of this type of sedation and procedure discussed with: RISK/ALTERNATIVES: Patient H & P ON CHART H & P H & P on chart and reviewed for co-morbid conditions and appropriate labs. H&P ON CHART: Yes STATUS PREG STATUS ASSESSED: Yes MEDS/ALLERGIES REVIEWED Meds/Allergies Reviewed Medications and Allergies including time and route of recently administered narcotics and sedatives. MEDS/ALLERGIES REVIEWED: Yes ASA RATING ASA RATING: II AIRWAY ASSESSMENT Airway Assessment Airway patency, oral function limitations, presence of caps, crowns, dentures, partials, and ability to extend neck assessed. AIRWAY ASSESSMENT: Yes MALLAMPATI SCORE MALLAMPATI SCORE: II PRE-SEDATION ASSESSMENT PRE-SEDATION ASSESSMENT: Yes ANNA DHALIWAL MD Aug 03, 2016 09:13
--- NOTE | 2016-08-03 09:16 | PDOC ---
BRIEF OPERATIVE NOTE Pre-Op Diagnosis critical limb ischemia Post-Op Diagnosis same Procedure Performed left leg arteriogram Surgeon Lashanda Anesthesia Type: Conscious Sedation Findings Complex mid popliteal occlusion involving the TPT, PT, Peroneal and proximal AT with reconstitution of a diseased proximal-mid AT. Distal AT and DP are normal. PT and Peroneal are essentially occluded throughout and there it minimal calcaneal perfusion with delayed imaging. Complications No immediate ANNA DHALIWAL MD Aug 03, 2016 09:16
[2016-08-03] MEDS ORDERED: CEFAZOLIN 2GM PREMIX 50 ML IV PRN (10:30)
[2016-08-03] MEDS ORDERED: HEPARIN S0DIUM 5,000 UNIT in IV NORMAL SALINE 500ML BAG 500 ML IRR ONE (11:00)
[2016-08-03] MEDS ORDERED: CEFAZOLIN SODIUM 1 GM in IV NORMAL SALINE 500ML BAG 500 ML IRR ONE (11:01)
[2016-08-03] MEDS ORDERED: SURGICEL FIBRILLAR 1X2 EACH. ONE (13:56)
[2016-08-03] MEDS ORDERED: IOHEXOL 300 MG/ML 50 ML VIAL. ONE (13:56)
[2016-08-03] MEDS ORDERED: PROTAMINE 50 MG/5 ML VIAL. IV ONE (13:56)
[2016-08-03] MEDS ORDERED: FENTANYL PF 100 MCG/2 ML VIAL. ONE ×2 (13:57→15:30)
[2016-08-03] MEDS ORDERED: LIDOCAINE 2% 100 MG/5 ML DISP.SYRIN. ONE (13:57)
[2016-08-03] MEDS ORDERED: PROPOFOL 20 ML IV ONE (13:57)
[2016-08-03] MEDS: IV RINGERS,LACTATED 1000ML 1,000 ML IV SCH (14:09)
--- NOTE | 2016-08-03 14:27 | PDOC ---
PROGRESS NOTES Chief Complaint Chief Complaint 1. Osteomyelitis right great toe- s/p right great toe amputation, on wound wac. POD#7 2. Ulceration/ wound secondary to poorly Controlled T2DM Left 3. T2DM 4. Hyperglycemia 5. PVD 6. HTN 7. HLD 8. Generalized weakness 9. Anxiety d/o or depression History of Present Illness History of Present Illness Patient lying down in bed when evaluated this AM; family at bedside. Case discussed with RN who was dressing the wound of the R foot. Pt complaining of anxiety when undergoing wound care. Pt and family expressed desire to be treated for anxiety. Vitals Vitals Vital Signs Date Time Temp Pulse Resp B/P Pulse Ox O2 Delivery O2 Flow Rate FiO2 08/03/16 13:51 98.0 83 14 152/84 96 Room Air 98.0 Physical Exam General: Alert, Oriented X3, Cooperative, No acute distress Heart: Regular rate, Normal S1, Normal S2, No murmurs Lungs: Clear, Other Abdomen: Normal bowel sounds, Soft, No tenderness Extremities: Other (wound vac in place dorsum right foot; left heel decub stable) Skin: No rashes, No significant lesion, Other (Dressing C/D/I over Amputation site) Labs LABS Laboratory Tests Test 08/02/16 16:16 08/02/16 21:09 08/03/16 04:56 08/03/16 07:42 Glucose (Fingerstick) 281mg/dL (70-99) 205mg/dL (70-99) 162mg/dL (70-99) White Blood Count 5.5x10^3/uL (4.0-11.0) Red Blood Count 3.20x10^6/uL (3.50-5.40) Hemoglobin 9.0g/dL (12.0-15.5) Hematocrit 26.1% (36.0-47.0) Mean Corpuscular Volume 82fL (79-100) Mean Corpuscular Hemoglobin 28pg (25-35) Mean Corpuscular Hemoglobin Concent 34g/dL (31-37) Red Cell Distribution Width 15.3% (11.5-14.5) Platelet Count 229x10^3/uL (140-400) Neutrophils (%) (Auto) 54% (31-73) Lymphocytes (%) (Auto) 26% (24-48) Monocytes (%) (Auto) 18% (0-9) Eosinophils (%) (Auto) 1% (0-3) Basophils (%) (Auto) 1% (0-3) Neutrophils # (Auto) 2.9x10^3uL (1.8-7.7) Lymphocytes # (Auto) 1.4x10^3/uL (1.0-4.8) Monocytes # (Auto) 1.0x10^3/uL (0.0-1.1) Eosinophils # (Auto) 0.1x10^3/uL (0.0-0.7) Basophils # (Auto) 0.1x10^3/uL (0.0-0.2) Sodium Level 139mmol/L (136-145) Potassium Level 3.7mmol/L (3.5-5.1) Chloride Level 102mmol/L (98-107) Carbon Dioxide Level 30mmol/L (21-32) Anion Gap 7 (6-14) Blood Urea Nitrogen 23mg/dL (7-20) Creatinine 1.0mg/dL (0.6-1.0) Estimated GFR (Cockcroft-Gault) 68.9 Glucose Level 188mg/dL (70-99) Calcium Level 9.7mg/dL (8.5-10.1) Test 08/03/16 11:43 08/03/16 13:50 Glucose (Fingerstick) 176mg/dL (70-99) 159mg/dL (70-99) Review of Systems Review of Systems complaints of anxiety denies fever/ chills Assessment and Plan Assessmemt and Plan ASSESSMENT: 1. Osteomyelitis right great toe- s/p right great toe amputation, on wound wac. POD#7 2. Ulceration/ wound secondary to poorly Controlled T2DM Left 3. T2DM 4. Hyperglycemia 5. PVD 6. HTN 7. HLD 8. Generalized weakness 9. Anxiety d/o or depression PLAN: - Ativan 1 mg q6h PRN anxiety - cont Cefazolin - cont wound care - appreciate subspecialty input - cont pain control with Fentanyl - repeat daily labs - PT/OT Problems: Comment Review of Relevant I have reviewed the following items alma (where applicable) has been applied. Labs Laboratory Tests Test 08/01/16 16:46 08/01/16 20:54 08/02/16 04:30 08/02/16 07:36 Glucose (Fingerstick) 275mg/dL (70-99) 177mg/dL (70-99) 95mg/dL (70-99) White Blood Count 5.1x10^3/uL (4.0-11.0) Red Blood Count 3.38x10^6/uL (3.50-5.40) Hemoglobin 9.3g/dL (12.0-15.5) Hematocrit 28.2% (36.0-47.0) Mean Corpuscular Volume 84fL (79-100) Mean Corpuscular Hemoglobin 28pg (25-35) Mean Corpuscular Hemoglobin Concent 33g/dL (31-37) Red Cell Distribution Width 15.5% (11.5-14.5) Platelet Count 248x10^3/uL (140-400) Neutrophils (%) (Auto) 61% (31-73) Lymphocytes (%) (Auto) 23% (24-48) Monocytes (%) (Auto) 12% (0-9) Eosinophils (%) (Auto) 2% (0-3) Basophils (%) (Auto) 1% (0-3) Neutrophils # (Auto) 3.1x10^3uL (1.8-7.7) Lymphocytes # (Auto) 1.2x10^3/uL (1.0-4.8) Monocytes # (Auto) 0.6x10^3/uL (0.0-1.1) Eosinophils # (Auto) 0.1x10^3/uL (0.0-0.7) Basophils # (Auto) 0.1x10^3/uL (0.0-0.2) Sodium Level 144mmol/L (136-145) Potassium Level 3.7mmol/L (3.5-5.1) Chloride Level 107mmol/L (98-107) Carbon Dioxide Level 27mmol/L (21-32) Anion Gap 10 (6-14) Blood Urea Nitrogen 23mg/dL (7-20) Creatinine 0.8mg/dL (0.6-1.0) Estimated GFR (Cockcroft-Gault) 89.1 Glucose Level 96mg/dL (70-99) Calcium Level 10.1mg/dL (8.5-10.1) Test 08/02/16 10:55 08/02/16 16:16 08/02/16 21:09 08/03/16 04:56 Glucose (Fingerstick) 125mg/dL (70-99) 281mg/dL (70-99) 205mg/dL (70-99) White Blood Count 5.5x10^3/uL (4.0-11.0) Red Blood Count 3.20x10^6/uL (3.50-5.40) Hemoglobin 9.0g/dL (12.0-15.5) Hematocrit 26.1% (36.0-47.0) Mean Corpuscular Volume 82fL (79-100) Mean Corpuscular Hemoglobin 28pg (25-35) Mean Corpuscular Hemoglobin Concent 34g/dL (31-37) Red Cell Distribution Width 15.3% (11.5-14.5) Platelet Count 229x10^3/uL (140-400) Neutrophils (%) (Auto) 54% (31-73) Lymphocytes (%) (Auto) 26% (24-48) Monocytes (%) (Auto) 18% (0-9) Eosinophils (%) (Auto) 1% (0-3) Basophils (%) (Auto) 1% (0-3) Neutrophils # (Auto) 2.9x10^3uL (1.8-7.7) Lymphocytes # (Auto) 1.4x10^3/uL (1.0-4.8) Monocytes # (Auto) 1.0x10^3/uL (0.0-1.1) Eosinophils # (Auto) 0.1x10^3/uL (0.0-0.7) Basophils # (Auto) 0.1x10^3/uL (0.0-0.2) Sodium Level 139mmol/L (136-145) Potassium Level 3.7mmol/L (3.5-5.1) Chloride Level 102mmol/L (98-107) Carbon Dioxide Level 30mmol/L (21-32) Anion Gap 7 (6-14) Blood Urea Nitrogen 23mg/dL (7-20) Creatinine 1.0mg/dL (0.6-1.0) Estimated GFR (Cockcroft-Gault) 68.9 Glucose Level 188mg/dL (70-99) Calcium Level 9.7mg/dL (8.5-10.1) Test 08/03/16 07:42 08/03/16 11:43 08/03/16 13:50 Glucose (Fingerstick) 162mg/dL (70-99) 176mg/dL (70-99) 159mg/dL (70-99) Laboratory Tests Test 08/02/16 16:16 08/02/16 21:09 08/03/16 04:56 08/03/16 07:42 Glucose (Fingerstick) 281mg/dL (70-99) 205mg/dL (70-99) 162mg/dL (70-99) White Blood Count 5.5x10^3/uL (4.0-11.0) Red Blood Count 3.20x10^6/uL (3.50-5.40) Hemoglobin 9.0g/dL (12.0-15.5) Hematocrit 26.1% (36.0-47.0) Mean Corpuscular Volume 82fL (79-100) Mean Corpuscular Hemoglobin 28pg (25-35) Mean Corpuscular Hemoglobin Concent 34g/dL (31-37) Red Cell Distribution Width 15.3% (11.5-14.5) Platelet Count 229x10^3/uL (140-400) Neutrophils (%) (Auto) 54% (31-73) Lymphocytes (%) (Auto) 26% (24-48) Monocytes (%) (Auto) 18% (0-9) Eosinophils (%) (Auto) 1% (0-3) Basophils (%) (Auto) 1% (0-3) Neutrophils # (Auto) 2.9x10^3uL (1.8-7.7) Lymphocytes # (Auto) 1.4x10^3/uL (1.0-4.8) Monocytes # (Auto) 1.0x10^3/uL (0.0-1.1) Eosinophils # (Auto) 0.1x10^3/uL (0.0-0.7) Basophils # (Auto) 0.1x10^3/uL (0.0-0.2) Sodium Level 139mmol/L (136-145) Potassium Level 3.7mmol/L (3.5-5.1) Chloride Level 102mmol/L (98-107) Carbon Dioxide Level 30mmol/L (21-32) Anion Gap 7 (6-14) Blood Urea Nitrogen 23mg/dL (7-20) Creatinine 1.0mg/dL (0.6-1.0) Estimated GFR (Cockcroft-Gault) 68.9 Glucose Level 188mg/dL (70-99) Calcium Level 9.7mg/dL (8.5-10.1) Test 08/03/16 11:43 08/03/16 13:50 Glucose (Fingerstick) 176mg/dL (70-99) 159mg/dL (70-99) Medications Current Medications Ondansetron HCl (Zofran) 4 mg PRN Q6HRS PRN IV Nausea; Start 07/27/16 at 07:00 ; Stop 07/28/16 at 06:59; Status DC Fentanyl Citrate (Fentanyl 2ml Vial) 25 mcg PRN Q5MIN PRN IV MILD PAIN; Start 07/27/16 at 07:00; Stop 07/28/16 at 06:59; Status DC Fentanyl Citrate 50 mcg 50 mcg PRN Q5MIN PRN IV MODERATE PAIN Last administered on 07/27/16 20:10; Start 07/27/16 at 07:00; Stop 07/28/16 at 06:59 ; Status DC Lactated Ringer's (Iv Lactated Ringers) 1,000 ml @ 30 mls/hr Q24H IV Last administered on 07/27/16 09:21; Start 07/27/16 at 07:00; Stop 07/27/16 at 18:59 ; Status DC Lidocaine HCl 2 ml 1X PRN PRN ID IV START; Start 07/27/16 at 07:00; Stop at 06:59; Status DC Prochlorperazine Edisylate 5 mg 5 mg PACU PRN PRN IV NAUSEA; Start 07/27/16 at 07:00; Stop 07/28/16 at 06:59; Status DC Cefazolin Sodium 1 gm/Sodium Chloride 250 ml @ 250 mls/hr 1X ONCE IRR Last administered on 07/27/16 10:20; Start 07/27/16 at 08:00; Stop 07/27/16 at 08:59 ; Status DC Cefazolin Sodium/ Dextrose 50 ml @ 100 mls/hr 1X PREOP PRN IV PRIOR TO PROCEDURE Last administered on 07/27/16 10:17; Start 07/27/16 at 06:00; Stop at 18:00; Status DC Propofol (Diprivan) 20 ml @ As Directed STK-MED ONCE IV ; Start 07/27/16 at 09: 39; Stop 07/27/16 at 09:40; Status DC Lidocaine HCl 100 mg STK-MED ONCE .ROUTE ; Start 07/27/16 at 09:39; Stop at 09:40; Status DC Sevoflurane (Ultane) 30 ml STK-MED ONCE IH ; Start 07/27/16 at 09:39; Stop 07/27 at 09:40; Status DC Famotidine (Pepcid) 20 mg STK-MED ONCE .ROUTE ; Start 07/27/16 at 09:39; Stop at 09:40; Status DC Lidocaine HCl 30 ml STK-MED ONCE .ROUTE Last administered on 07/27/16 10:31; Start 07/27/16 at 09:55; Stop 07/27/16 at 09:56; Status DC Phenylephrine HCl 1 mg STK-MED ONCE IV ; Start 07/27/16 at 10:19; Stop 07/27/16 at 10:20; Status DC Ephedrine Sulfate 50 mg STK-MED ONCE IV ; Start 07/27/16 at 10:40; Stop at 10:41; Status DC Dextrose 25 gm STK-MED ONCE IV ; Start 07/27/16 at 11:13; Stop 07/27/16 at 11:14 ; Status DC Fentanyl Citrate 50 mcg 50 mcg PRN Q2HR PRN IV PAIN Last administered on 10:41; Start 07/27/16 at 14:15; Stop 08/01/16 at 13:32; Status DC Potassium Chloride/Dextrose/ Sod Cl (KCl 20 Meq In D5W-1/2 NS) 1,000 ml @ 80 mls/hr 1X ONCE IV Last administered on 07/27/16 15:03; Start 07/27/16 at 14: 15; Stop 07/28/16 at 02:44; Status DC Ketorolac Tromethamine (Toradol) 30 mg 1X ONCE IV Last administered on 15:11; Start 07/27/16 at 14:15; Stop 07/27/16 at 14:16; Status DC Acetaminophen (Tylenol) 325 mg PRN TID PRN PO MILD PAIN; Start 07/27/16 at 14: 15 Aspirin (Ecotrin) 81 mg DAILY PO Last administered on 08/02/16 12:23; Start at 15:00 Gabapentin (Neurontin) 100 mg TID PO Last administered on 08/02/16 21:32; Start 07/27/16 at 15:00 Metformin HCl (Glucophage) 1,000 mg BIDWMEALS PO Last administered on 17:45; Start 07/27/16 at 17:00; Stop 07/29/16 at 12:32; Status DC Naproxen (Naprosyn) 500 mg BID PO Last administered on 08/02/16 21:32; Start 07/27/16 at 21:00 Glimepiride (Amaryl) 4 mg BID PO Last administered on 08/02/16 21:32; Start at 21:00 Insulin Detemir (Levemir) 10 units DAILY07 SQ Last administered on 08/01/16 18 :12; Start 07/28/16 at 07:00 Lisinopril (Prinivil) 20 mg DAILY PO Last administered on 08/02/16 12:23; Start 07/27/16 at 15:00 Non-Formulary Medication 20 meq DAILY PO ; Start 07/27/16 at 15:00; Stop at 15:00; Status DC Atorvastatin Calcium (Lipitor) 10 mg QHS PO Last administered on 08/02/16 21: 32; Start 07/27/16 at 21:00 Linagliptin (Tradjenta) 5 mg QHS PO Last administered on 07/28/16 21:22; Start 07/27/16 at 21:00; Stop 07/29/16 at 12:32; Status DC Insulin Aspart (Novolog) 0-7 UNITS TIDWMEALS SQ Last administered on 08/02/16 17:08; Start 07/27/16 at 17:00 Dextrose 12.5 gm PRN Q15MIN PRN IV SEE COMMENTS Last administered on 07/29/16 10:19; Start 07/27/16 at 14:15 Potassium Chloride (Klor-Con) 20 meq DAILYWBKFT PO Last administered on 12:23; Start 07/28/16 at 08:00 Hydrochlorothiazide (Microzide) 12.5 mg DAILY PO Last administered on 12:23; Start 07/27/16 at 15:00 Fentanyl Citrate (Fentanyl 2ml Vial) 75 mcg 1X ONCE IV Last administered on 16:19; Start 07/27/16 at 16:00; Stop 07/27/16 at 16:01; Status DC Oxycodone HCl (Roxicodone) 5 mg PRN Q4HRS PRN PO MODERATE TO SEVERE PAIN Last administered on 08/02/16 21:33; Start 07/27/16 at 15:45 Enoxaparin Sodium (Lovenox Per Pharmacy Prophylaxis Dosing) 1 each PRN DAILY PRN MC SEE COMMENTS; Start 07/27/16 at 16:00 Enoxaparin Sodium (Lovenox 40mg Syringe) 40 mg Q24H SQ Last administered on 17:10; Start 07/27/16 at 16:00 Vancomycin HCl (Vanco Per Pharmacy) 1 each PRN DAILY PRN MC SEE COMMENTS Last administered on 07/29/16 09:15; Start 07/27/16 at 19:15; Stop 07/29/16 at 10:38 ; Status DC Piperacillin Sod/ Tazobactam Sod 1 each 1 each PRN DAILY PRN MC SEE COMMENTS; Start 07/27/16 at 19:15; Stop 07/29/16 at 12:14; Status DC Piperacillin Sod/ Tazobactam Sod 3.375 gm/Sodium Chloride 50 ml @ 100 mls/hr Q6HRS IV Last administered on 07/29/16 06:01; Start 07/27/16 at 19:30; Stop at 10:38; Status DC Vancomycin HCl 2 gm/Sodium Chloride 500 ml @ 250 mls/hr 1X ONCE IV Last administered on 07/27/16 20:58; Start 07/27/16 at 19:30; Stop 07/27/16 at 21:29 ; Status DC Vancomycin HCl/ Sodium Chloride (Iv Sodium Chloride 0.9% 250ml) 250 ml @ 167 mls/hr Q12H IV Last administered on 07/28/16 21:26; Start 07/28/16 at 09:00; Stop 07/29/16 at 09:10; Status DC Vancomycin HCl 1 each 1 each 1X ONCE MC Last administered on 07/29/16 08:30; Start 07/29/16 at 08:30; Stop 07/29/16 at 08:31; Status DC Vancomycin HCl 1.25 gm/Sodium Chloride 250 ml @ 167 mls/hr Q24H IV ; Start at 21:00; Stop 07/29/16 at 21:00; Status DC Piperacillin Sod/ Tazobactam Sod 3.375 gm/Sodium Chloride 50 ml @ 100 mls/hr Q6HRS IV Last administered on 07/29/16 12:49; Start 07/29/16 at 12:00; Stop at 14:00; Status DC Cefazolin Sodium/ Dextrose (Ancef 2gm Premix) 50 ml @ 100 mls/hr 1X ONCE IV ; Start 08/02/16 at 13:00; Stop 08/02/16 at 13:29; Status DC Fentanyl Citrate (Fentanyl 2ml Vial) 25 mcg PRN Q2HR PRN IV PAIN Last administered on 08/03/16 09:47; Start 08/01/16 at 13:30 Ondansetron HCl (Zofran) 4 mg PRN Q6HRS PRN IV Nausea; Start 08/02/16 at 07:00 ; Stop 08/03/16 at 06:59; Status DC Fentanyl Citrate (Fentanyl 2ml Vial) 25 mcg PRN Q5MIN PRN IV MILD PAIN; Start 08/02/16 at 07:00; Stop 08/03/16 at 06:59; Status DC Fentanyl Citrate 50 mcg 50 mcg PRN Q5MIN PRN IV MODERATE PAIN; Start 08/02/16 at 07:00; Stop 08/03/16 at 06:59; Status DC Lactated Ringer's (Iv Lactated Ringers) 1,000 ml @ 30 mls/hr Q24H IV ; Start at 07:00; Stop 08/02/16 at 18:59; Status DC Lidocaine HCl 2 ml 1X PRN PRN ID IV START; Start 08/02/16 at 07:00; Stop at 06:59; Status DC Prochlorperazine Edisylate (Compazine) 5 mg PACU PRN PRN IV NAUSEA; Start 08/02 at 07:00; Stop 08/03/16 at 06:59; Status DC Throat Lozenges (Cepacol Sore Throat Lozenge) 1 jacquie PRN Q2HRS PRN PO SORE THROAT Last administered on 08/02/16 21:33; Start 08/02/16 at 20:00 Lidocaine/Sodium Bicarbonate 20 ml 20 ml STK-MED ONCE IJ ; Start 08/03/16 at 08: 04; Stop 08/03/16 at 08:05; Status DC Heparin Sodium/ Sodium Chloride 1,000 ml @ As Directed STK-MED ONCE .ROUTE ; Start 08/03/16 at 08:05; Stop 08/03/16 at 08:06; Status DC Iodixanol (Visipaque 320) 100 ml STK-MED ONCE .ROUTE ; Start 08/03/16 at 08:05; Stop 08/03/16 at 08:06; Status DC Midazolam HCl (Versed) 2 mg STK-MED ONCE .ROUTE ; Start 08/03/16 at 08:11; Stop 08/03/16 at 08:12; Status DC Heparin Sodium/ Sodium Chloride 1,000 unit 1X ONCE IART Last administered on 09:13; Start 08/03/16 at 08:45; Stop 08/03/16 at 08:46; Status DC Lidocaine/Sodium Bicarbonate (Buffered Lidocaine 1%) 20 ml 1X ONCE IJ Last administered on 08/03/16 09:15; Start 08/03/16 at 08:45; Stop 08/03/16 at 08:46; Status DC Midazolam HCl (Versed) 2 mg 1X ONCE IV Last administered on 08/03/16 09:16; Start 08/03/16 at 08:45; Stop 08/03/16 at 08:46; Status DC Fentanyl Citrate (Fentanyl 2ml Vial) 100 mcg 1X ONCE IV Last administered on 09:16; Start 08/03/16 at 08:45; Stop 08/03/16 at 08:46; Status DC Iodixanol (Visipaque 320) 100 ml 1X ONCE IART Last administered on 08/03/16t 09 :15; Start 08/03/16 at 08:45; Stop 08/03/16 at 08:46; Status DC Info 1 each 1 each PRN DAILY PRN MC SEE COMMENTS; Start 08/03/16 at 08:45; Stop 08/05/16 at 08:44 Cefazolin Sodium/ Dextrose 50 ml @ 100 mls/hr 1X PREOP PRN IV PER PROTOCOL; Start 08/03/16 at 10:30; Stop 08/04/16 at 10:29 Heparin Sodium (Porcine) 5000 unit/Sodium Chloride 505 ml @ 505 mls/hr 1X PERIOP ONCE IRR ; Start 08/03/16 at 11:00; Stop 08/03/16 at 11:59; Status DC Cefazolin Sodium/ Sodium Chloride (Ancef/Iv Sodium Chloride 0.9% 500ml Bag) 500 ml @ 500 mls/hr 1X PERIOP ONCE IRR ; Start 08/03/16 at 11:01; Stop 08/03/16 at 12:00; Status DC Cellulose 1 each STK-MED ONCE .ROUTE ; Start 08/03/16 at 13:56; Stop 08/03/16 at 13:57; Status DC Iohexol (Omnipaque 300 Mg/ml) 50 ml STK-MED ONCE .ROUTE ; Start 08/03/16 at 13:56 ; Stop 08/03/16 at 13:57; Status DC Protamine Sulfate 50 mg 50 mg STK-MED ONCE IV ; Start 08/03/16 at 13:56; Stop 08/03/16 at 13:57; Status DC Propofol (Diprivan) 20 ml @ As Directed STK-MED ONCE IV ; Start 08/03/16 at 13:57 ; Stop 08/03/16 at 13:58; Status DC Lidocaine HCl 100 mg STK-MED ONCE .ROUTE ; Start 08/03/16 at 13:57; Stop 08/03/16 at 13:58; Status DC Midazolam HCl (Versed) 2 mg STK-MED ONCE .ROUTE ; Start 08/03/16 at 13:57; Stop 08/03/16 at 13:58; Status DC Fentanyl Citrate 100 mcg 100 mcg STK-MED ONCE .ROUTE ; Start 08/03/16 at 13:57; Stop 08/03/16 at 13:58; Status DC Lactated Ringer's (Iv Lactated Ringers) 1,000 ml @ 75 mls/hr [id number] IV Last administered on 08/03/16t 14:09; Start 08/03/16 at 14:15 Active Scripts Active Reported Levemir (Insulin Detemir) 100 Unit/1 Ml Vial 10 Unit SQ DAILY07 K-Tab ER (Potassium Chloride) 20 Meq Tablet.er 20 Meq PO DAILY Oxycodone-Acetaminophen 5-325 (Oxycodone Hcl/Acetaminophen) 1 Each Tablet 1 Each PO Q4HRS PRN Aspir 81 (Aspirin) 81 Mg Tablet.dr 1 Tab PO DAILY Tylenol (Acetaminophen) 325 Mg Tablet 2 Tab PO TID Lisinopril-Hctz 20-12.5 Mg Tab (Lisinopril/Hydrochlorothiazide) 1 Each Tablet 1 Tab PO DAILY Naproxen 500 Mg Tablet 1 Tab PO BID Gabapentin 100 Mg Capsule 100 Mg PO QHS Metformin Hcl 1,000 Mg Tablet 1 Tab PO BID Glimepiride 4 Mg Tablet 1 Tab PO BID Pravastatin Sodium 40 Mg Tablet 1 Tab PO QHS Januvia (Sitagliptin Phosphate) 100 Mg Tablet 1 Tab PO QHS Vitals/I & O Vital Sign - Last 24 Hours 08/02/16 08/02/16 08/02/16 08/02/16 15:00 19:20 19:50 21:33 Temp 99.2 99.5 99.2 99.5 Pulse 104 104 Resp 18 18 20 B/P 150/94 162/92 Pulse Ox 98 94 94 O2 Delivery Room Air Room Air Room Air Room Air 08/02/16 08/02/16 08/03/16 08/03/16 22:35 23:00 00:21 01:00 Temp 99.9 99.9 Pulse 99 Resp 20 18 20 20 B/P 150/82 Pulse Ox 98 98 98 98 O2 Delivery Room Air Room Air Room Air Room Air 08/03/16 08/03/16 08/03/16 08/03/16 03:09 07:00 09:16 09:17 Temp 99.0 98.1 99.0 98.1 Pulse 84 83 80 Resp 18 16 14 14 B/P 144/86 134/73 Pulse Ox 98 95 99 99 O2 Delivery Room Air Room Air Room Air Room Air 08/03/16 08/03/16 08/03/16 08/03/16 09:38 09:53 10:08 10:23 Pulse 89 72 74 77 Resp 16 B/P 113/67 125/65 113/66 101/74 Pulse Ox 97 92 96 95 O2 Delivery Room Air Room Air Room Air Room Air 08/03/16 08/03/16 08/03/16 10:38 11:08 13:51 Temp 98.0 98.0 Pulse 80 80 83 Resp 14 B/P 131/73 153/86 152/84 Pulse Ox 99 93 96 O2 Delivery Room Air Room Air Room Air Intake and Output 08/02/16 08/02/16 08/03/16 15:00 23:00 07:00 Intake Total 120 ml 240 ml Balance 120 ml 240 ml TIFFANIE SIMPSON III DO Aug 03, 2016 14:26
[2016-08-03] MEDS ORDERED: ROCURONIUM 50 MG/5 ML VIAL. ONE (14:28)
[2016-08-03] MEDS ORDERED: ONDANSETRON PF 4 MG/2 ML VIAL. ONE (14:28)
[2016-08-03] MEDS ORDERED: LORAZEPAM 1 MG TABLET. PO PRN (14:30)
[2016-08-03] MEDS ORDERED: EPHEDRINE PF IN SALINE 50 MG/5 ML DISP.SYRIN. IV ONE (15:14)
--- NOTE | 2016-08-03 15:40 | RAD ---
Procedure: Pelvic arteriogram and left lower extremity arteriogram, diagnostic Clinical Indication: 60-year-old with nonhealing left heel wound, peripheral arterial disease Sedation: Conscious sedation was administered for 52 minutes. The patient was monitored by a qualified independent observer throughout the time of sedation. Please refer to the medical record for exact doses of medications utilized to achieve moderate sedation. Antibiotics: None Exposure: Kerma-Area Product: 144 Gycm2 Sterility: All elements of maximal sterile barrier technique including the use of a cap, mask, sterile gown, sterile gloves, large sterile sheet, appropriate hand hygiene, and 2% chlorhexidine for cutaneous antisepsis (or acceptable alternative antiseptic per current guidelines) were followed for this procedure. Consent: The procedure was explained in its entirety to the patient or the patients designated car sales representative by a member of the treatment team, including a discussion of the risks, benefits and commonly accepted alternatives to the procedure, as well as the expected consequences of no therapy whatsoever. Discussion of the risks included, but was not limited to, those that are most frequent and those that are rare but possibly severe or life-threatening, as well as the possibility of unforeseen complications. Technique and Findings: Following informed consent, the patient was prepped and draped in usual sterile fashion. Ultrasound interrogation of the right groin revealed patency of the right common femoral artery. A hardcopy ultrasound image was recorded as a 21-gauge micropuncture needle was used to gain access to this vessel. The needle was exchanged over wire for 5 Welsh sheath. A flush catheter was then advanced into the abdominal aorta and angiography of the pelvis was performed in multiple obliquities. The bilateral common iliac, internal iliac, external iliac, and common femoral arteries are widely patent with minimal atherosclerotic disease. The catheter was then used in conjunction with a wire across over to the contralateral left common femoral artery and contrast angiography of the left leg was performed. The profunda femoral artery is patent. Superficial femoral artery is patent as well, with a few areas of tandem stenosis of 50% or less. There is abrupt occlusion of the mid popliteal artery. Several well-developed collateral vessels are present, which reconstitute the proximal left anterior tibial artery. There are couple areas of tandem high-grade stenosis within the proximal left anterior tibial artery. The mid and distal anterior tibial artery are widely patent and appear healthy save for single focal stenosis just above the ankle. Dorsalis pedis artery is patent and appears healthy. There is also partial reconstitution of the proximal tibial peroneal trunk, however this rapidly reoccludes, and there is no discernible flow to the posterior tibial or peroneal artery. No calcaneal arterial flow is identified on delayed imaging. The catheter was then removed and contrast angiography of the right groin was performed to assess for suitability of a closure device. The sheath was then exchanged for a star close device which was successfully utilized to obtain hemostasis. Complications: No immediate Impression: 1. Popliteal artery occlusion on the left, with reconstitution of the anterior tibial artery. This provides solitary relative perfusion to the foot. Dorsalis pedis artery is healthy. 2. Occlusion of the posterior tibial and peroneal arteries throughout their length, including the posterior tibial artery of the foot. 3. No significant calcaneal perfusion.
[2016-08-03] MEDS: ENOXAPARIN 40 MG/0.4 ML DISP.SYRIN. SQ SCH (16:00)
[2016-08-03] MEDS ORDERED: HEPARIN for IV BOLUS 10,000 UNIT/10 ML VIAL. ONE (16:27)
[2016-08-03] MEDS ORDERED: DESFLURANE > 120 MINUTES IH ONE (16:49)
[2016-08-03] MEDS ORDERED: PHENYLEPHRINE in 0.9% NACL PF 1 MG/10 ML DISP.SYRIN. IV ONE ×2 (17:22→17:24)
[2016-08-03] MEDS ORDERED: NEOSTIGMINE METHYLSULFATE 5 MG/5 ML SYRINGE. ONE (17:50)
[2016-08-03] MEDS ORDERED: GLYCOPYRROLATE 1 MG/5 ML VIAL. ONE (17:50)
[2016-08-03] MEDS ORDERED: CEFAZOLIN 2GM PREMIX 50 ML IV ONE (18:30)
--- NOTE | 2016-08-03 18:42 | PDOC4 ---
Operative Note Operative Note Dx: 1. decub ulcer left heel 2. arterial insufficiency left leg Op: 1. left sup. femoral to mid ant. tibial artery bypass with reversed saph. vein 2. excisional debridement left heel eschar, skin and subcutaneous tissue Surg: [facility] asst: SHEFALI Martinez GOT to rr in sat cond; 2+ graft pulse. SAVI EDWARDS II, MD Aug 03, 2016 18:42
[2016-08-03] MEDS: OXYCODONE IR 5 MG TABLET. PO PRN (21:32)
[2016-08-03] MEDS: ATORVASTATIN CALCIUM 10 MG TABLET. PO SCH (21:33)
--- NOTE | 2016-08-03 23:47 | OP ---
DATE OF SURGERY: 08/03/2016 PREOPERATIVE DIAGNOSIS: Left heel decubitus ulcer. POSTOPERATIVE DIAGNOSES: Left heel decubitus ulcer plus arterial insufficiency of the left leg. OPERATION PERFORMED: 1. Left femoral to anterior tibial bypass using reversed great saphenous vein. 2. Excisional debridement of left heel involving the skin and subcutaneous tissue, 6 x 6 cm. SURGEON: Savi Edwards M.D. STRAW HAT MACHINE OPERATOR: Matilda Bond, ____. ANESTHESIA: General. INDICATIONS: This is a 60-year-old female who had revascularization of the right leg. During her recovery from that, she developed a wound on the left heel. 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 There is reconstitution of the anterior tibial artery at the mid calf. The operation risks and benefits were explained. The patient understood and wished to proceed. OPERATIVE FINDINGS: The patient had a rather sclerotic saphenous vein. Therefore, I was placed in a reversed orientation. There was no diameter discrepancy proximally versus distally. Inflow was taken from the mid superficial femoral artery and the graft was tunneled subcutaneously laterally down to the anterior tibial artery. The distal anterior tibial artery was an excellent target vessel, approximately ____ mm in diameter. Following the procedure, the patient had excellent flow in the outflow anterior tibial artery and a nicely palpable graft pulse. The excised eschar from the left heel, remaining tissues bled very well. DESCRIPTION OF PROCEDURE: After general anesthetic was administered, the left leg was prepped and draped circumferentially. The saphenous vein was harvested from the mid thigh to below the knee in the usual manner using 4-0 silk ties to ligate the branches on the vein side and clips on the patient's side. The vein was then distended with heparinized saline. The valve lysis was attempted, but the vein was so sclerotic. I felt that it would be better just to reverse the vein. The superficial femoral artery was then dissected in the mid thigh. It was soft at this location. The patient was given 5000 units of heparin. The graft was then sutured end-to-side using a 6-0 Prolene. After completing the anastomosis, there was excellent pulsatile flow through the graft, which was then tunneled in the lateral orientation and brought down to an incision, which was made on the lateral aspect of the left calf. The anterior tibial artery had been exposed there. An arteriotomy was made in the anterior tibial artery after proximal and distal occlusion with atraumatic clips. The graft was then sutured in the side using 7-0 Prolene. After completing anastomosis, there was excellent flow through the graft, which was then irrigated retrograde with heparinized saline. The wounds were then approximated with absorbable suture and yuriy ____ nylon sutures. The dressings were applied. Next, the eschar of the left heel was excised full thickness including skin and subcutaneous tissue for a diameter of about 6 x 6 cm. The underlying tissues bled well. A sterile compression dressing was applied to the heel. The patient was then taken to the recovery room in satisfactory condition. SAVI EDWARDS MD DR: GERARDO/nts JOB#: [id number] / [id number]
[2016-08-04] MEDS: FENTANYL PF 100 MCG/2 ML VIAL. IV PRN ×11 (01:30→20:24)
[2016-08-04] MEDS: OXYCODONE IR 5 MG TABLET. PO PRN ×3 (01:31→15:15)
[2016-08-04] MEDS: BENZOCAINE/MENTHOL LOZENGE. PO PRN (01:35)
[2016-08-04 03:28] VITALS: BP 127/77
[2016-08-04 04:15] LABS: BASO # 0.1 x10^3/uL (0.0-0.2); BASO % 1 % (0-3); EOS % 0 % (0-3); HEMATOCRIT 25.6 % (36.0-47.0); HEMOGLOBIN 8.9 g/dL (12.0-15.5); LYMPH # 1.3 x10^3/uL (1.0-4.8); LYMPH % 14 % (24-48); MEAN CORPUSCULAR HEMOGLOBIN 28 pg (25-35); MEAN CORPUSCULAR HGB CONC 35 g/dL (31-37); MEAN CORPUSCULAR VOLUME 81 fL (79-100); MONO % 10 % (0-9); NEUT % 76 % (31-73); PLATELET COUNT 231 x10^3/uL (140-400); RED BLOOD COUNT 3.15 x10^6/uL (3.50-5.40); RED CELL DISTRIBUTION WIDTH 15.4 % (11.5-14.5); WHITE BLOOD COUNT 9.6 x10^3/uL (4.0-11.0)
[2016-08-04 04:25] LABS: CALCIUM 9.4 mg/dL (8.5-10.1); CREATININE 0.9 mg/dL (0.6-1.0); GFR 77.8; POTASSIUM 4.3 mmol/L (3.5-5.1)
[2016-08-04] MEDS: IV RINGERS,LACTATED 1000ML 1,000 ML IV SCH ×2 (05:29→16:45)
[2016-08-04 07:00] VITALS: BP 149/80
[2016-08-04] MEDS: GABAPENTIN 100 MG CAPSULE. PO SCH ×3 (08:26→21:15)
[2016-08-04] MEDS: HYDROCHLOROTHIAZIDE 12.5 MG CAPSULE. PO SCH (08:27)
[2016-08-04] MEDS: LISINOPRIL 20 MG TABLET PO SCH (08:27)
[2016-08-04] MEDS: POTASSIUM CHLORIDE 20 MEQ TABLET.ER. PO SCH (08:28)
[2016-08-04] MEDS: ASPIRIN ENTERIC COATED 81 MG TABLET.DR. PO SCH (08:28)
[2016-08-04] MEDS: NAPROXEN 500 MG TABLET PO SCH ×2 (08:28→21:16)
[2016-08-04] MEDS: GLIMEPIRIDE 2 MG TABLET PO SCH ×2 (08:29→21:15)
[2016-08-04] MEDS: INSULIN DETEMIR 300 UNITS/3 ML INSULN.PEN. SQ SCH (08:34)
[2016-08-04] MEDS: INSULIN ASPART 300 UNITS/3 ML INSULN.PEN SQ SCH ×3 (08:35→17:23)
--- NOTE | 2016-08-04 09:14 | PDOC ---
PROGRESS NOTES Subjective Subjective Patient c/o left leg pain, uncontrolled with meds, Insomnia Objective Objective Vital Signs Date Time Temp Pulse Resp B/P Pulse Ox O2 Delivery O2 Flow Rate FiO2 08/04/16 08:27 95 149/80 08/04/16 08:26 Room Air 08/04/16 07:35 2.0 08/04/16 07:30 20 98 08/04/16 07:00 99.4 99.4 Intake and Output 08/04/16 07:00 Intake Total 2410 ml Output Total 1450 ml Balance 960 ml Intake Oral 560 ml IV Total 1850 ml Output Urine Total 1350 ml Estimated Blood Loss 100 ml # Voids 1 # Bowel Movements 1 Physical Exam Abdomen: Soft Heart: Regular rate Extremities: Other (dressings intact left leg, palpable graft pulse, moderate swelling, right foot wound vac in place, dressing to heel, small ulcer with pink wound bed, clean skin edges, no drainage, palpable graft pulse, feet warm) General: Alert, Oriented X3 Assessment Assessment Problems Medical Problems: (1) Osteomyelitis due to type 2 diabetes mellitus Status: Acute PVD POD #8 Right toe amputation with forefoot debridement and wound vac POD #1 left femoral to anterior tibial bypass and heel debridement Right heel wound Plan Plan of Care Continue local wound vac to left heel, does not need wound vac Continue wound care therapy to right foot Dressing changes to left leg tomorrow Maintain monte for accurate I&O, d/c tomorrow Bedrest, may be up in chair and weight bearing on left foot for transfers only Off load both heels with boots while in bed Pain control Comment Review of Relevant I have reviewed the following items alma (where applicable) has been applied. Labs Laboratory Tests Test 08/02/16 10:55 08/02/16 16:16 08/02/16 21:09 08/03/16 04:56 Glucose (Fingerstick) 125mg/dL (70-99) 281mg/dL (70-99) 205mg/dL (70-99) White Blood Count 5.5x10^3/uL (4.0-11.0) Red Blood Count 3.20x10^6/uL (3.50-5.40) Hemoglobin 9.0g/dL (12.0-15.5) Hematocrit 26.1% (36.0-47.0) Mean Corpuscular Volume 82fL (79-100) Mean Corpuscular Hemoglobin 28pg (25-35) Mean Corpuscular Hemoglobin Concent 34g/dL (31-37) Red Cell Distribution Width 15.3% (11.5-14.5) Platelet Count 229x10^3/uL (140-400) Neutrophils (%) (Auto) 54% (31-73) Lymphocytes (%) (Auto) 26% (24-48) Monocytes (%) (Auto) 18% (0-9) Eosinophils (%) (Auto) 1% (0-3) Basophils (%) (Auto) 1% (0-3) Neutrophils # (Auto) 2.9x10^3uL (1.8-7.7) Lymphocytes # (Auto) 1.4x10^3/uL (1.0-4.8) Monocytes # (Auto) 1.0x10^3/uL (0.0-1.1) Eosinophils # (Auto) 0.1x10^3/uL (0.0-0.7) Basophils # (Auto) 0.1x10^3/uL (0.0-0.2) Sodium Level 139mmol/L (136-145) Potassium Level 3.7mmol/L (3.5-5.1) Chloride Level 102mmol/L (98-107) Carbon Dioxide Level 30mmol/L (21-32) Anion Gap 7 (6-14) Blood Urea Nitrogen 23mg/dL (7-20) Creatinine 1.0mg/dL (0.6-1.0) Estimated GFR (Cockcroft-Gault) 68.9 Glucose Level 188mg/dL (70-99) Calcium Level 9.7mg/dL (8.5-10.1) Test 08/03/16 07:42 08/03/16 11:43 08/03/16 13:50 08/03/16 18:34 Glucose (Fingerstick) 162mg/dL (70-99) 176mg/dL (70-99) 159mg/dL (70-99) 196mg/dL (70-99) Test 08/03/16 20:56 08/04/16 02:55 08/04/16 07:26 Glucose (Fingerstick) 210mg/dL (70-99) 205mg/dL (70-99) White Blood Count 9.6x10^3/uL (4.0-11.0) Red Blood Count 3.15x10^6/uL (3.50-5.40) Hemoglobin 8.9g/dL (12.0-15.5) Hematocrit 25.6% (36.0-47.0) Mean Corpuscular Volume 81fL (79-100) Mean Corpuscular Hemoglobin 28pg (25-35) Mean Corpuscular Hemoglobin Concent 35g/dL (31-37) Red Cell Distribution Width 15.4% (11.5-14.5) Platelet Count 231x10^3/uL (140-400) Neutrophils (%) (Auto) 76% (31-73) Lymphocytes (%) (Auto) 14% (24-48) Monocytes (%) (Auto) 10% (0-9) Eosinophils (%) (Auto) 0% (0-3) Basophils (%) (Auto) 1% (0-3) Neutrophils # (Auto) 7.3x10^3uL (1.8-7.7) Lymphocytes # (Auto) 1.3x10^3/uL (1.0-4.8) Monocytes # (Auto) 0.9x10^3/uL (0.0-1.1) Eosinophils # (Auto) 0.0x10^3/uL (0.0-0.7) Basophils # (Auto) 0.1x10^3/uL (0.0-0.2) Sodium Level 139mmol/L (136-145) Potassium Level 4.3mmol/L (3.5-5.1) Chloride Level 101mmol/L (98-107) Carbon Dioxide Level 27mmol/L (21-32) Anion Gap 11 (6-14) Blood Urea Nitrogen 21mg/dL (7-20) Creatinine 0.9mg/dL (0.6-1.0) Estimated GFR (Cockcroft-Gault) 77.8 Glucose Level 250mg/dL (70-99) Calcium Level 9.4mg/dL (8.5-10.1) Laboratory Tests Test 08/03/16 11:43 08/03/16 13:50 08/03/16 18:34 08/03/16 20:56 Glucose (Fingerstick) 176mg/dL (70-99) 159mg/dL (70-99) 196mg/dL (70-99) 210mg/dL (70-99) Test 08/04/16 02:55 08/04/16 07:26 White Blood Count 9.6x10^3/uL (4.0-11.0) Red Blood Count 3.15x10^6/uL (3.50-5.40) Hemoglobin 8.9g/dL (12.0-15.5) Hematocrit 25.6% (36.0-47.0) Mean Corpuscular Volume 81fL (79-100) Mean Corpuscular Hemoglobin 28pg (25-35) Mean Corpuscular Hemoglobin Concent 35g/dL (31-37) Red Cell Distribution Width 15.4% (11.5-14.5) Platelet Count 231x10^3/uL (140-400) Neutrophils (%) (Auto) 76% (31-73) Lymphocytes (%) (Auto) 14% (24-48) Monocytes (%) (Auto) 10% (0-9) Eosinophils (%) (Auto) 0% (0-3) Basophils (%) (Auto) 1% (0-3) Neutrophils # (Auto) 7.3x10^3uL (1.8-7.7) Lymphocytes # (Auto) 1.3x10^3/uL (1.0-4.8) Monocytes # (Auto) 0.9x10^3/uL (0.0-1.1) Eosinophils # (Auto) 0.0x10^3/uL (0.0-0.7) Basophils # (Auto) 0.1x10^3/uL (0.0-0.2) Sodium Level 139mmol/L (136-145) Potassium Level 4.3mmol/L (3.5-5.1) Chloride Level 101mmol/L (98-107) Carbon Dioxide Level 27mmol/L (21-32) Anion Gap 11 (6-14) Blood Urea Nitrogen 21mg/dL (7-20) Creatinine 0.9mg/dL (0.6-1.0) Estimated GFR (Cockcroft-Gault) 77.8 Glucose Level 250mg/dL (70-99) Calcium Level 9.4mg/dL (8.5-10.1) Glucose (Fingerstick) 205mg/dL (70-99) Medications Current Medications Ondansetron HCl (Zofran) 4 mg PRN Q6HRS PRN IV Nausea; Start 07/27/16 at 07:00 ; Stop 07/28/16 at 06:59; Status DC Fentanyl Citrate (Fentanyl 2ml Vial) 25 mcg PRN Q5MIN PRN IV MILD PAIN; Start 07/27/16 at 07:00; Stop 07/28/16 at 06:59; Status DC Fentanyl Citrate 50 mcg 50 mcg PRN Q5MIN PRN IV MODERATE PAIN Last administered on 07/27/16 20:10; Start 07/27/16 at 07:00; Stop 07/28/16 at 06:59 ; Status DC Lactated Ringer's (Iv Lactated Ringers) 1,000 ml @ 30 mls/hr Q24H IV Last administered on 07/27/16 09:21; Start 07/27/16 at 07:00; Stop 07/27/16 at 18:59 ; Status DC Lidocaine HCl 2 ml 1X PRN PRN ID IV START; Start 07/27/16 at 07:00; Stop at 06:59; Status DC Prochlorperazine Edisylate 5 mg 5 mg PACU PRN PRN IV NAUSEA; Start 07/27/16 at 07:00; Stop 07/28/16 at 06:59; Status DC Cefazolin Sodium 1 gm/Sodium Chloride 250 ml @ 250 mls/hr 1X ONCE IRR Last administered on 07/27/16 10:20; Start 07/27/16 at 08:00; Stop 07/27/16 at 08:59 ; Status DC Cefazolin Sodium/ Dextrose 50 ml @ 100 mls/hr 1X PREOP PRN IV PRIOR TO PROCEDURE Last administered on 07/27/16 10:17; Start 07/27/16 at 06:00; Stop at 18:00; Status DC Propofol (Diprivan) 20 ml @ As Directed STK-MED ONCE IV ; Start 07/27/16 at 09: 39; Stop 07/27/16 at 09:40; Status DC Lidocaine HCl 100 mg STK-MED ONCE .ROUTE ; Start 07/27/16 at 09:39; Stop at 09:40; Status DC Sevoflurane (Ultane) 30 ml STK-MED ONCE IH ; Start 07/27/16 at 09:39; Stop 07/27 at 09:40; Status DC Famotidine (Pepcid) 20 mg STK-MED ONCE .ROUTE ; Start 07/27/16 at 09:39; Stop at 09:40; Status DC Lidocaine HCl 30 ml STK-MED ONCE .ROUTE Last administered on 07/27/16 10:31; Start 07/27/16 at 09:55; Stop 07/27/16 at 09:56; Status DC Phenylephrine HCl 1 mg STK-MED ONCE IV ; Start 07/27/16 at 10:19; Stop 07/27/16 at 10:20; Status DC Ephedrine Sulfate 50 mg STK-MED ONCE IV ; Start 07/27/16 at 10:40; Stop at 10:41; Status DC Dextrose 25 gm STK-MED ONCE IV ; Start 07/27/16 at 11:13; Stop 07/27/16 at 11:14 ; Status DC Fentanyl Citrate 50 mcg 50 mcg PRN Q2HR PRN IV PAIN Last administered on 10:41; Start 07/27/16 at 14:15; Stop 08/01/16 at 13:32; Status DC Potassium Chloride/Dextrose/ Sod Cl (KCl 20 Meq In D5W-1/2 NS) 1,000 ml @ 80 mls/hr 1X ONCE IV Last administered on 07/27/16 15:03; Start 07/27/16 at 14: 15; Stop 07/28/16 at 02:44; Status DC Ketorolac Tromethamine (Toradol) 30 mg 1X ONCE IV Last administered on 15:11; Start 07/27/16 at 14:15; Stop 07/27/16 at 14:16; Status DC Acetaminophen (Tylenol) 325 mg PRN TID PRN PO MILD PAIN; Start 07/27/16 at 14: 15 Aspirin (Ecotrin) 81 mg DAILY PO Last administered on 08/04/16 08:28; Start at 15:00 Gabapentin (Neurontin) 100 mg TID PO Last administered on 08/04/16 08:26; Start 07/27/16 at 15:00 Metformin HCl (Glucophage) 1,000 mg BIDWMEALS PO Last administered on 17:45; Start 07/27/16 at 17:00; Stop 07/29/16 at 12:32; Status DC Naproxen (Naprosyn) 500 mg BID PO Last administered on 08/04/16 08:28; Start at 21:00 Glimepiride (Amaryl) 4 mg BID PO Last administered on 08/04/16 08:29; Start at 21:00 Insulin Detemir (Levemir) 10 units DAILY07 SQ Last administered on 08/04/16 08: 34; Start 07/28/16 at 07:00 Lisinopril (Prinivil) 20 mg DAILY PO Last administered on 08/04/16 08:27; Start 07/27/16 at 15:00 Non-Formulary Medication 20 meq DAILY PO ; Start 07/27/16 at 15:00; Stop at 15:00; Status DC Atorvastatin Calcium (Lipitor) 10 mg QHS PO Last administered on 08/02/16 21: 32; Start 07/27/16 at 21:00 Linagliptin (Tradjenta) 5 mg QHS PO Last administered on 07/28/16 21:22; Start 07/27/16 at 21:00; Stop 07/29/16 at 12:32; Status DC Insulin Aspart (Novolog) 0-7 UNITS TIDWMEALS SQ Last administered on 08/04/16 08:35; Start 07/27/16 at 17:00 Dextrose 12.5 gm PRN Q15MIN PRN IV SEE COMMENTS Last administered on 07/29/16 10:19; Start 07/27/16 at 14:15 Potassium Chloride (Klor-Con) 20 meq [id number] PO Last administered on 08:28; Start 07/28/16 at 08:00 Hydrochlorothiazide (Microzide) 12.5 mg DAILY PO Last administered on 08/04/16 08:27; Start 07/27/16 at 15:00 Fentanyl Citrate (Fentanyl 2ml Vial) 75 mcg 1X ONCE IV Last administered on 16:19; Start 07/27/16 at 16:00; Stop 07/27/16 at 16:01; Status DC Oxycodone HCl (Roxicodone) 5 mg PRN Q4HRS PRN PO MODERATE TO SEVERE PAIN Last administered on 08/04/16 06:13; Start 07/27/16 at 15:45 Enoxaparin Sodium (Lovenox Per Pharmacy Prophylaxis Dosing) 1 each PRN DAILY PRN MC SEE COMMENTS; Start 07/27/16 at 16:00 Enoxaparin Sodium (Lovenox 40mg Syringe) 40 mg Q24H SQ Last administered on 17:10; Start 07/27/16 at 16:00 Vancomycin HCl (Vanco Per Pharmacy) 1 each PRN DAILY PRN MC SEE COMMENTS Last administered on 07/29/16 09:15; Start 07/27/16 at 19:15; Stop 07/29/16 at 10:38 ; Status DC Piperacillin Sod/ Tazobactam Sod 1 each 1 each PRN DAILY PRN MC SEE COMMENTS; Start 07/27/16 at 19:15; Stop 07/29/16 at 12:14; Status DC Piperacillin Sod/ Tazobactam Sod 3.375 gm/Sodium Chloride 50 ml @ 100 mls/hr Q6HRS IV Last administered on 07/29/16 06:01; Start 07/27/16 at 19:30; Stop at 10:38; Status DC Vancomycin HCl 2 gm/Sodium Chloride 500 ml @ 250 mls/hr 1X ONCE IV Last administered on 07/27/16 20:58; Start 07/27/16 at 19:30; Stop 07/27/16 at 21:29 ; Status DC Vancomycin HCl/ Sodium Chloride (Iv Sodium Chloride 0.9% 250ml) 250 ml @ 167 mls/hr Q12H IV Last administered on 07/28/16 21:26; Start 07/28/16 at 09:00; Stop 07/29/16 at 09:10; Status DC Vancomycin HCl 1 each 1 each 1X ONCE MC Last administered on 07/29/16 08:30; Start 07/29/16 at 08:30; Stop 07/29/16 at 08:31; Status DC Vancomycin HCl 1.25 gm/Sodium Chloride 250 ml @ 167 mls/hr Q24H IV ; Start at 21:00; Stop 07/29/16 at 21:00; Status DC Piperacillin Sod/ Tazobactam Sod 3.375 gm/Sodium Chloride 50 ml @ 100 mls/hr Q6HRS IV Last administered on 07/29/16 12:49; Start 07/29/16 at 12:00; Stop at 14:00; Status DC Cefazolin Sodium/ Dextrose (Ancef 2gm Premix) 50 ml @ 100 mls/hr 1X ONCE IV ; Start 08/02/16 at 13:00; Stop 08/02/16 at 13:29; Status DC Fentanyl Citrate (Fentanyl 2ml Vial) 25 mcg PRN Q2HR PRN IV PAIN Last administered on 08/04/16 01:30; Start 08/01/16 at 13:30; Stop 08/04/16 at 03:50; Status DC Ondansetron HCl (Zofran) 4 mg PRN Q6HRS PRN IV Nausea; Start 08/02/16 at 07:00 ; Stop 08/03/16 at 06:59; Status DC Fentanyl Citrate (Fentanyl 2ml Vial) 25 mcg PRN Q5MIN PRN IV MILD PAIN; Start 08/02/16 at 07:00; Stop 08/03/16 at 18:19; Status DC Fentanyl Citrate 50 mcg 50 mcg PRN Q5MIN PRN IV MODERATE PAIN; Start 08/02/16 at 07:00; Stop 08/03/16 at 06:59; Status Cancel Lactated Ringer's (Iv Lactated Ringers) 1,000 ml @ 30 mls/hr Q24H IV ; Start at 07:00; Stop 08/03/16 at 18:19; Status DC Lidocaine HCl 2 ml 1X PRN PRN ID IV START; Start 08/02/16 at 07:00; Stop at 06:59; Status DC Prochlorperazine Edisylate (Compazine) 5 mg PACU PRN PRN IV NAUSEA; Start 08/02 at 07:00; Stop 08/03/16 at 06:59; Status DC Throat Lozenges (Cepacol Sore Throat Lozenge) 1 jacquie PRN Q2HRS PRN PO SORE THROAT Last administered on 08/04/16 01:35; Start 08/02/16 at 20:00 Lidocaine/Sodium Bicarbonate 20 ml 20 ml STK-MED ONCE IJ ; Start 08/03/16 at 08: 04; Stop 08/03/16 at 08:05; Status DC Heparin Sodium/ Sodium Chloride 1,000 ml @ As Directed STK-MED ONCE .ROUTE ; Start 08/03/16 at 08:05; Stop 08/03/16 at 08:06; Status DC Iodixanol (Visipaque 320) 100 ml STK-MED ONCE .ROUTE ; Start 08/03/16 at 08:05; Stop 08/03/16 at 08:06; Status DC Midazolam HCl (Versed) 2 mg STK-MED ONCE .ROUTE ; Start 08/03/16 at 08:11; Stop 08/03/16 at 08:12; Status DC Heparin Sodium/ Sodium Chloride 1,000 unit 1X ONCE IART Last administered on 09:13; Start 08/03/16 at 08:45; Stop 08/03/16 at 08:46; Status DC Lidocaine/Sodium Bicarbonate (Buffered Lidocaine 1%) 20 ml 1X ONCE IJ Last administered on 08/03/16 09:15; Start 08/03/16 at 08:45; Stop 08/03/16 at 08:46; Status DC Midazolam HCl (Versed) 2 mg 1X ONCE IV Last administered on 08/03/16 09:16; Start 08/03/16 at 08:45; Stop 08/03/16 at 08:46; Status DC Fentanyl Citrate (Fentanyl 2ml Vial) 100 mcg 1X ONCE IV Last administered on 09:16; Start 08/03/16 at 08:45; Stop 08/03/16 at 08:46; Status DC Iodixanol (Visipaque 320) 100 ml 1X ONCE IART Last administered on 08/03/16 09 :15; Start 08/03/16 at 08:45; Stop 08/03/16 at 08:46; Status DC Info 1 each 1 each PRN DAILY PRN MC SEE COMMENTS; Start 08/03/16 at 08:45; Stop 08/05/16 at 08:44 Cefazolin Sodium/ Dextrose 50 ml @ 100 mls/hr 1X PREOP PRN IV PER PROTOCOL Last administered on 08/03/16 15:00; Start 08/03/16 at 10:30; Stop 08/04/16 at 10: 29 Heparin Sodium (Porcine) 5000 unit/Sodium Chloride 505 ml @ 505 mls/hr 1X PERIOP ONCE IRR Last administered on 08/03/16 15:28; Start 08/03/16 at 11:00; Stop 08/03/16 at 11:59; Status DC Cefazolin Sodium/ Sodium Chloride (Ancef/Iv Sodium Chloride 0.9% 500ml Bag) 500 ml @ 500 mls/hr 1X PERIOP ONCE IRR Last administered on 08/03/16 15:28; Start 08/03/16 at 11:01; Stop 08/03/16 at 12:00; Status DC Cellulose 1 each STK-MED ONCE .ROUTE ; Start 08/03/16 at 13:56; Stop 08/03/16 at 13:57; Status DC Iohexol (Omnipaque 300 Mg/ml) 50 ml STK-MED ONCE .ROUTE ; Start 08/03/16 at 13:56 ; Stop 08/03/16 at 13:57; Status DC Protamine Sulfate 50 mg 50 mg STK-MED ONCE IV ; Start 08/03/16 at 13:56; Stop 08/03/16 at 13:57; Status DC Propofol (Diprivan) 20 ml @ As Directed STK-MED ONCE IV ; Start 08/03/16 at 13:57 ; Stop 08/03/16 at 13:58; Status DC Lidocaine HCl 100 mg STK-MED ONCE .ROUTE ; Start 08/03/16 at 13:57; Stop 08/03/16 at 13:58; Status DC Midazolam HCl (Versed) 2 mg STK-MED ONCE .ROUTE ; Start 08/03/16 at 13:57; Stop 08/03/16 at 13:58; Status DC Fentanyl Citrate 100 mcg 100 mcg STK-MED ONCE .ROUTE ; Start 08/03/16 at 13:57; Stop 08/03/16 at 13:58; Status DC Lactated Ringer's (Iv Lactated Ringers) 1,000 ml @ 75 mls/hr [id number] IV Last administered on 08/03/16 14:09; Start 08/03/16 at 14:15 Lorazepam (Ativan) 1 mg PRN Q6HRS PRN PO ANXIETY / AGITATION Last administered on 08/04/16t 08:29; Start 08/03/16 at 14:30 Ondansetron HCl (Zofran) 4 mg STK-MED ONCE .ROUTE ; Start 08/03/16 at 14:28; Stop 08/03/16 at 14:29; Status DC Rocuronium [place] (Zemuron) 50 mg STK-MED ONCE .ROUTE ; Start 08/03/16 at 14:28 ; Stop 08/03/16 at 14:29; Status DC Ephedrine Sulfate 50 mg STK-MED ONCE IV ; Start 08/03/16 at 15:14; Stop 08/03/16 at 15:15; Status DC Fentanyl Citrate (Fentanyl 2ml Vial) 100 mcg STK-MED ONCE .ROUTE ; Start at 15:30; Stop 08/03/16 at 15:31; Status DC Heparin Sodium (Porcine) 10,000 unit STK-MED ONCE .ROUTE ; Start 08/03/16 at 16: 27; Stop 08/03/16 at 16:28; Status DC Desflurane (Suprane) 90 ml STK-MED ONCE IH ; Start 08/03/16 at 16:49; Stop at 16:50; Status DC Phenylephrine HCl 1 mg STK-MED ONCE IV ; Start 08/03/16 at 17:22; Stop 08/03/16 at 17:23; Status DC Phenylephrine HCl 1 mg STK-MED ONCE IV ; Start 08/03/16 at 17:24; Stop 08/03/16 at 17:25; Status DC Neostigmine Methylsulfate 5 mg STK-MED ONCE .ROUTE ; Start 08/03/16 at 17:50; Stop 08/03/16 at 17:51; Status DC Glycopyrrolate 1 mg 1 mg STK-MED ONCE .ROUTE ; Start 08/03/16 at 17:50; Stop 08/03 at 17:51; Status DC Cefazolin Sodium/ Dextrose (Ancef 2gm Premix) 50 ml @ 100 mls/hr 1X ONCE IV ; Start 08/03/16 at 18:30; Stop 08/03/16 at 18:59; Status DC Fentanyl Citrate (Fentanyl 2ml Vial) 50 mcg PRN Q5MIN PRN IV MODERATE PAIN Last administered on 08/03/16 19:05; Start 08/03/16 at 18:30; Stop 08/03/16 at 23: 00; Status DC Fentanyl Citrate (Fentanyl 2ml Vial) 25 mcg PRN Q1HR PRN IV SEVERE PAIN Last administered on 08/04/16 08:26; Start 08/04/16 at 04:15 Active Scripts Active Reported Levemir (Insulin Detemir) 100 Unit/1 Ml Vial 10 Unit SQ DAILY07 K-Tab ER (Potassium Chloride) 20 Meq Tablet.er 20 Meq PO DAILY Oxycodone-Acetaminophen 5-325 (Oxycodone Hcl/Acetaminophen) 1 Each Tablet 1 Each PO Q4HRS PRN Aspir 81 (Aspirin) 81 Mg Tablet.dr 1 Tab PO DAILY Tylenol (Acetaminophen) 325 Mg Tablet 2 Tab PO TID Lisinopril-Hctz 20-12.5 Mg Tab (Lisinopril/Hydrochlorothiazide) 1 Each Tablet 1 Tab PO DAILY Naproxen 500 Mg Tablet 1 Tab PO BID Gabapentin 100 Mg Capsule 100 Mg PO QHS Metformin Hcl 1,000 Mg Tablet 1 Tab PO BID Glimepiride 4 Mg Tablet 1 Tab PO BID Pravastatin Sodium 40 Mg Tablet 1 Tab PO QHS Januvia (Sitagliptin Phosphate) 100 Mg Tablet 1 Tab PO QHS Vitals/I & O Vital Sign - Last 24 Hours 08/03/16 08/03/16 08/03/16 08/03/16 09:16 09:17 09:38 09:53 Pulse 80 89 72 Resp 14 14 16 B/P 113/67 125/65 Pulse Ox 99 99 97 92 O2 Delivery Room Air Room Air Room Air Room Air 08/03/16 08/03/16 08/03/16 08/03/16 10:08 10:23 10:38 11:08 Pulse 74 77 80 80 B/P 113/66 101/74 131/73 153/86 Pulse Ox 96 95 99 93 O2 Delivery Room Air Room Air Room Air Room Air 08/03/16 08/03/16 08/03/16 08/03/16 13:51 18:18 18:18 18:32 Temp 98.0 97.8 98.0 97.8 Pulse 83 92 Resp 14 15 15 B/P 152/84 145/75 Pulse Ox 96 100 100 O2 Delivery Room Air Room Air Simple Mask Room Air O2 Flow Rate 2.0 10 08/03/16 08/03/16 08/03/16 08/03/16 18:33 18:48 19:05 19:15 Temp 97.8 97.8 97.8 97.8 Pulse 92 88 Resp 12 15 15 B/P 155/86 150/76 Pulse Ox 93 100 100 O2 Delivery Room Air Nasal Cannula Nasal Cannula Nasal Cannula O2 Flow Rate 2.0 2.0 2.0 08/03/16 08/03/16 08/03/16 08/03/16 19:20 19:35 19:40 20:05 Temp 97.6 97.7 97.7 97.6 97.7 97.7 Pulse 86 99 99 Resp 18 20 20 18 B/P 167/88 176/89 176/88 Pulse Ox 97 98 100 98 O2 Delivery Nasal Cannula Nasal Cannula Nasal Cannula Nasal Cannula O2 Flow Rate 2.0 2.0 2.0 2.0 08/03/16 08/03/16 08/03/16 08/03/16 20:35 21:05 21:32 21:39 Temp 97.8 97.7 97.8 97.7 Pulse 98 95 Resp 18 18 20 20 B/P 168/86 149/78 Pulse Ox 100 97 100 100 O2 Delivery Nasal Cannula Nasal Cannula Nasal Cannula Nasal Cannula O2 Flow Rate 2.0 1.0 1.0 1.0 08/03/16 08/03/16 08/04/16 08/04/16 23:09 23:39 00:10 01:30 Temp 98.7 98.7 Pulse 95 Resp 18 20 20 B/P 151/88 Pulse Ox 98 98 98 O2 Delivery Nasal Cannula Nasal Cannula Room Air O2 Flow Rate 1.0 1.0 1.0 1.0 08/04/16 08/04/16 08/04/16 08/04/16 01:31 02:00 03:28 04:18 Temp 98.5 98.5 Pulse 99 Resp 20 20 18 20 B/P 127/77 Pulse Ox 98 98 98 98 O2 Delivery Room Air Room Air Nasal Cannula Nasal Cannula O2 Flow Rate 1.0 2.0 08/04/16 08/04/16 08/04/16 08/04/16 06:13 06:14 06:45 07:00 Temp 99.4 99.4 Pulse 95 Resp 20 20 20 18 B/P 149/80 Pulse Ox 98 98 98 99 O2 Delivery Nasal Cannula Nasal Cannula Nasal Cannula Nasal Cannula O2 Flow Rate 2.0 2.0 2.0 1.0 08/04/16 08/04/16 08/04/16 08/04/16 07:30 07:35 08:26 08:27 Pulse 95 Resp 20 B/P 149/80 Pulse Ox 98 O2 Delivery Nasal Cannula Nasal Cannula Room Air O2 Flow Rate 2.0 2.0 Intake and Output 08/03/16 08/03/16 08/04/16 15:00 23:00 07:00 Intake Total 1970 ml 440 ml Output Total 1200 ml 250 ml Balance 770 ml 190 ml 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
[2016-08-04] MEDS ORDERED: ZOLPIDEM 5 MG TABLET. PO PRN ×2 (09:15→11:45)
[2016-08-04 11:00] VITALS: BP 134/77
--- NOTE | 2016-08-04 11:49 | PDOC ---
PROGRESS NOTES Chief Complaint Chief Complaint - Osteomyelitis R great toe; s/p R great toe amputation, on wound [facility]. POD#8 - L leg occlusion; s/p arterial bypass. POD#1 - L heel ulceration / wound 2/2 to poorly controlled T2DM; s/p excisional debridement POD#1 - T2DM - Hyperglycemia - PVD - HTN - HLD - Generalized weakness - Anxiety d/o or depression History of Present Illness History of Present Illness Patient lying down in bed when evaluated this AM; family at bedside. Pt tearful as she explained that she has not been sleeping well at night. Denies complications of surgery. All dressings clean, dry, and intact. Possible need for LTAC placement discussed with pt and family. Pt seems to understand that it will likely take some time to recover. Vitals Vitals Vital Signs Date Time Temp Pulse Resp B/P Pulse Ox O2 Delivery O2 Flow Rate FiO2 08/04/16 11:00 98.0 102 20 134/77 93 Room Air 98.0 08/04/16 07:35 2.0 Physical Exam General: Alert, Oriented X3, mild distress (tearful) Heart: Regular rate Lungs: Clear, Other Abdomen: Soft Extremities: Other (dressings intact left leg, palpable graft pulse, moderate swelling, right foot wound vac in place, dressing to heel, small ulcer with pink wound bed, clean skin edges, no drainage, palpable graft pulse, feet warm) Skin: No rashes, No significant lesion, Other (Dressing C/D/I over Amputation site) Labs LABS Laboratory Tests Test 08/03/16 11:43 08/03/16 13:50 08/03/16 18:34 08/03/16 20:56 Glucose (Fingerstick) 176mg/dL (70-99) 159mg/dL (70-99) 196mg/dL (70-99) 210mg/dL (70-99) Test 08/04/16 02:55 08/04/16 07:26 08/04/16 11:12 White Blood Count 9.6x10^3/uL (4.0-11.0) Red Blood Count 3.15x10^6/uL (3.50-5.40) Hemoglobin 8.9g/dL (12.0-15.5) Hematocrit 25.6% (36.0-47.0) Mean Corpuscular Volume 81fL (79-100) Mean Corpuscular Hemoglobin 28pg (25-35) Mean Corpuscular Hemoglobin Concent 35g/dL (31-37) Red Cell Distribution Width 15.4% (11.5-14.5) Platelet Count 231x10^3/uL (140-400) Neutrophils (%) (Auto) 76% (31-73) Lymphocytes (%) (Auto) 14% (24-48) Monocytes (%) (Auto) 10% (0-9) Eosinophils (%) (Auto) 0% (0-3) Basophils (%) (Auto) 1% (0-3) Neutrophils # (Auto) 7.3x10^3uL (1.8-7.7) Lymphocytes # (Auto) 1.3x10^3/uL (1.0-4.8) Monocytes # (Auto) 0.9x10^3/uL (0.0-1.1) Eosinophils # (Auto) 0.0x10^3/uL (0.0-0.7) Basophils # (Auto) 0.1x10^3/uL (0.0-0.2) Sodium Level 139mmol/L (136-145) Potassium Level 4.3mmol/L (3.5-5.1) Chloride Level 101mmol/L (98-107) Carbon Dioxide Level 27mmol/L (21-32) Anion Gap 11 (6-14) Blood Urea Nitrogen 21mg/dL (7-20) Creatinine 0.9mg/dL (0.6-1.0) Estimated GFR (Cockcroft-Gault) 77.8 Glucose Level 250mg/dL (70-99) Calcium Level 9.4mg/dL (8.5-10.1) Glucose (Fingerstick) 205mg/dL (70-99) 180mg/dL (70-99) Review of Systems Review of Systems denies fever/chills denies chest pain, SOB Assessment and Plan Assessmemt and Plan ASSESSMENT: - Osteomyelitis R great toe; s/p R great toe amputation, on wound [facility]. POD#8 - L leg occlusion; s/p arterial bypass. POD#1 - L heel ulceration / wound 2/2 to poorly controlled T2DM; s/p excisional debridement. POD#1 - T2DM - Hyperglycemia - PVD - HTN - HLD - Generalized weakness - Anxiety d/o or depression PLAN: - Ambien 10 mg po qhs; for poor sleep. - LTAC eval - cont wound care - appreciate subspecialty input - cont pain control with Fentanyl - repeat daily labs - PT/OT Problems: Comment Review of Relevant I have reviewed the following items alma (where applicable) has been applied. Labs Laboratory Tests Test 08/02/16 16:16 08/02/16 21:09 08/03/16 04:56 08/03/16 07:42 Glucose (Fingerstick) 281mg/dL (70-99) 205mg/dL (70-99) 162mg/dL (70-99) White Blood Count 5.5x10^3/uL (4.0-11.0) Red Blood Count 3.20x10^6/uL (3.50-5.40) Hemoglobin 9.0g/dL (12.0-15.5) Hematocrit 26.1% (36.0-47.0) Mean Corpuscular Volume 82fL (79-100) Mean Corpuscular Hemoglobin 28pg (25-35) Mean Corpuscular Hemoglobin Concent 34g/dL (31-37) Red Cell Distribution Width 15.3% (11.5-14.5) Platelet Count 229x10^3/uL (140-400) Neutrophils (%) (Auto) 54% (31-73) Lymphocytes (%) (Auto) 26% (24-48) Monocytes (%) (Auto) 18% (0-9) Eosinophils (%) (Auto) 1% (0-3) Basophils (%) (Auto) 1% (0-3) Neutrophils # (Auto) 2.9x10^3uL (1.8-7.7) Lymphocytes # (Auto) 1.4x10^3/uL (1.0-4.8) Monocytes # (Auto) 1.0x10^3/uL (0.0-1.1) Eosinophils # (Auto) 0.1x10^3/uL (0.0-0.7) Basophils # (Auto) 0.1x10^3/uL (0.0-0.2) Sodium Level 139mmol/L (136-145) Potassium Level 3.7mmol/L (3.5-5.1) Chloride Level 102mmol/L (98-107) Carbon Dioxide Level 30mmol/L (21-32) Anion Gap 7 (6-14) Blood Urea Nitrogen 23mg/dL (7-20) Creatinine 1.0mg/dL (0.6-1.0) Estimated GFR (Cockcroft-Gault) 68.9 Glucose Level 188mg/dL (70-99) Calcium Level 9.7mg/dL (8.5-10.1) Test 08/03/16 11:43 08/03/16 13:50 08/03/16 18:34 08/03/16 20:56 Glucose (Fingerstick) 176mg/dL (70-99) 159mg/dL (70-99) 196mg/dL (70-99) 210mg/dL (70-99) Test 08/04/16 02:55 08/04/16 07:26 08/04/16 11:12 White Blood Count 9.6x10^3/uL (4.0-11.0) Red Blood Count 3.15x10^6/uL (3.50-5.40) Hemoglobin 8.9g/dL (12.0-15.5) Hematocrit 25.6% (36.0-47.0) Mean Corpuscular Volume 81fL (79-100) Mean Corpuscular Hemoglobin 28pg (25-35) Mean Corpuscular Hemoglobin Concent 35g/dL (31-37) Red Cell Distribution Width 15.4% (11.5-14.5) Platelet Count 231x10^3/uL (140-400) Neutrophils (%) (Auto) 76% (31-73) Lymphocytes (%) (Auto) 14% (24-48) Monocytes (%) (Auto) 10% (0-9) Eosinophils (%) (Auto) 0% (0-3) Basophils (%) (Auto) 1% (0-3) Neutrophils # (Auto) 7.3x10^3uL (1.8-7.7) Lymphocytes # (Auto) 1.3x10^3/uL (1.0-4.8) Monocytes # (Auto) 0.9x10^3/uL (0.0-1.1) Eosinophils # (Auto) 0.0x10^3/uL (0.0-0.7) Basophils # (Auto) 0.1x10^3/uL (0.0-0.2) Sodium Level 139mmol/L (136-145) Potassium Level 4.3mmol/L (3.5-5.1) Chloride Level 101mmol/L (98-107) Carbon Dioxide Level 27mmol/L (21-32) Anion Gap 11 (6-14) Blood Urea Nitrogen 21mg/dL (7-20) Creatinine 0.9mg/dL (0.6-1.0) Estimated GFR (Cockcroft-Gault) 77.8 Glucose Level 250mg/dL (70-99) Calcium Level 9.4mg/dL (8.5-10.1) Glucose (Fingerstick) 205mg/dL (70-99) 180mg/dL (70-99) Laboratory Tests Test 08/03/16 11:43 08/03/16 13:50 08/03/16 18:34 08/03/16 20:56 Glucose (Fingerstick) 176mg/dL (70-99) 159mg/dL (70-99) 196mg/dL (70-99) 210mg/dL (70-99) Test 08/04/16 02:55 08/04/16 07:26 08/04/16 11:12 White Blood Count 9.6x10^3/uL (4.0-11.0) Red Blood Count 3.15x10^6/uL (3.50-5.40) Hemoglobin 8.9g/dL (12.0-15.5) Hematocrit 25.6% (36.0-47.0) Mean Corpuscular Volume 81fL (79-100) Mean Corpuscular Hemoglobin 28pg (25-35) Mean Corpuscular Hemoglobin Concent 35g/dL (31-37) Red Cell Distribution Width 15.4% (11.5-14.5) Platelet Count 231x10^3/uL (140-400) Neutrophils (%) (Auto) 76% (31-73) Lymphocytes (%) (Auto) 14% (24-48) Monocytes (%) (Auto) 10% (0-9) Eosinophils (%) (Auto) 0% (0-3) Basophils (%) (Auto) 1% (0-3) Neutrophils # (Auto) 7.3x10^3uL (1.8-7.7) Lymphocytes # (Auto) 1.3x10^3/uL (1.0-4.8) Monocytes # (Auto) 0.9x10^3/uL (0.0-1.1) Eosinophils # (Auto) 0.0x10^3/uL (0.0-0.7) Basophils # (Auto) 0.1x10^3/uL (0.0-0.2) Sodium Level 139mmol/L (136-145) Potassium Level 4.3mmol/L (3.5-5.1) Chloride Level 101mmol/L (98-107) Carbon Dioxide Level 27mmol/L (21-32) Anion Gap 11 (6-14) Blood Urea Nitrogen 21mg/dL (7-20) Creatinine 0.9mg/dL (0.6-1.0) Estimated GFR (Cockcroft-Gault) 77.8 Glucose Level 250mg/dL (70-99) Calcium Level 9.4mg/dL (8.5-10.1) Glucose (Fingerstick) 205mg/dL (70-99) 180mg/dL (70-99) Medications Current Medications Ondansetron HCl (Zofran) 4 mg PRN Q6HRS PRN IV Nausea; Start 07/27/16 at 07:00 ; Stop 07/28/16 at 06:59; Status DC Fentanyl Citrate (Fentanyl 2ml Vial) 25 mcg PRN Q5MIN PRN IV MILD PAIN; Start 07/27/16 at 07:00; Stop 07/28/16 at 06:59; Status DC Fentanyl Citrate 50 mcg 50 mcg PRN Q5MIN PRN IV MODERATE PAIN Last administered on 07/27/16 20:10; Start 07/27/16 at 07:00; Stop 07/28/16 at 06:59 ; Status DC Lactated Ringer's (Iv Lactated Ringers) 1,000 ml @ 30 mls/hr Q24H IV Last administered on 07/27/16 09:21; Start 07/27/16 at 07:00; Stop 07/27/16 at 18:59 ; Status DC Lidocaine HCl 2 ml 1X PRN PRN ID IV START; Start 07/27/16 at 07:00; Stop at 06:59; Status DC Prochlorperazine Edisylate 5 mg 5 mg PACU PRN PRN IV NAUSEA; Start 07/27/16 at 07:00; Stop 07/28/16 at 06:59; Status DC Cefazolin Sodium 1 gm/Sodium Chloride 250 ml @ 250 mls/hr 1X ONCE IRR Last administered on 07/27/16 10:20; Start 07/27/16 at 08:00; Stop 07/27/16 at 08:59 ; Status DC Cefazolin Sodium/ Dextrose 50 ml @ 100 mls/hr 1X PREOP PRN IV PRIOR TO PROCEDURE Last administered on 07/27/16 10:17; Start 07/27/16 at 06:00; Stop at 18:00; Status DC Propofol (Diprivan) 20 ml @ As Directed STK-MED ONCE IV ; Start 07/27/16 at 09: 39; Stop 07/27/16 at 09:40; Status DC Lidocaine HCl 100 mg STK-MED ONCE .ROUTE ; Start 07/27/16 at 09:39; Stop at 09:40; Status DC Sevoflurane (Ultane) 30 ml STK-MED ONCE IH ; Start 07/27/16 at 09:39; Stop 07/27 at 09:40; Status DC Famotidine (Pepcid) 20 mg STK-MED ONCE .ROUTE ; Start 07/27/16 at 09:39; Stop at 09:40; Status DC Lidocaine HCl 30 ml STK-MED ONCE .ROUTE Last administered on 07/27/16 10:31; Start 07/27/16 at 09:55; Stop 07/27/16 at 09:56; Status DC Phenylephrine HCl 1 mg STK-MED ONCE IV ; Start 07/27/16 at 10:19; Stop 07/27/16 at 10:20; Status DC Ephedrine Sulfate 50 mg STK-MED ONCE IV ; Start 07/27/16 at 10:40; Stop at 10:41; Status DC Dextrose 25 gm STK-MED ONCE IV ; Start 07/27/16 at 11:13; Stop 07/27/16 at 11:14 ; Status DC Fentanyl Citrate 50 mcg 50 mcg PRN Q2HR PRN IV PAIN Last administered on 10:41; Start 07/27/16 at 14:15; Stop 08/01/16 at 13:32; Status DC Potassium Chloride/Dextrose/ Sod Cl (KCl 20 Meq In D5W-1/2 NS) 1,000 ml @ 80 mls/hr 1X ONCE IV Last administered on 07/27/16 15:03; Start 07/27/16 at 14: 15; Stop 07/28/16 at 02:44; Status DC Ketorolac Tromethamine (Toradol) 30 mg 1X ONCE IV Last administered on 15:11; Start 07/27/16 at 14:15; Stop 07/27/16 at 14:16; Status DC Acetaminophen (Tylenol) 325 mg PRN TID PRN PO MILD PAIN; Start 07/27/16 at 14: 15 Aspirin (Ecotrin) 81 mg DAILY PO Last administered on 08/04/16 08:28; Start at 15:00 Gabapentin (Neurontin) 100 mg TID PO Last administered on 08/04/16 08:26; Start 07/27/16 at 15:00 Metformin HCl (Glucophage) 1,000 mg BIDWMEALS PO Last administered on 17:45; Start 07/27/16 at 17:00; Stop 07/29/16 at 12:32; Status DC Naproxen (Naprosyn) 500 mg BID PO Last administered on 08/04/16 08:28; Start at 21:00 Glimepiride (Amaryl) 4 mg BID PO Last administered on 08/04/16 08:29; Start at 21:00 Insulin Detemir (Levemir) 10 units DAILY07 SQ Last administered on 08/04/16 08: 34; Start 07/28/16 at 07:00 Lisinopril (Prinivil) 20 mg DAILY PO Last administered on 08/04/16 08:27; Start 07/27/16 at 15:00 Non-Formulary Medication 20 meq DAILY PO ; Start 07/27/16 at 15:00; Stop at 15:00; Status DC Atorvastatin Calcium (Lipitor) 10 mg QHS PO Last administered on 08/02/16 21: 32; Start 07/27/16 at 21:00 Linagliptin (Tradjenta) 5 mg QHS PO Last administered on 07/28/16 21:22; Start 07/27/16 at 21:00; Stop 07/29/16 at 12:32; Status DC Insulin Aspart (Novolog) 0-7 UNITS TIDWMEALS SQ Last administered on 08/04/16 08:35; Start 07/27/16 at 17:00 Dextrose 12.5 gm PRN Q15MIN PRN IV SEE COMMENTS Last administered on 07/29/16 10:19; Start 07/27/16 at 14:15 Potassium Chloride (Klor-Con) 20 meq DAILYWBKFT PO Last administered on 08:28; Start 07/28/16 at 08:00 Hydrochlorothiazide (Microzide) 12.5 mg DAILY PO Last administered on 08/04/16 08:27; Start 07/27/16 at 15:00 Fentanyl Citrate (Fentanyl 2ml Vial) 75 mcg 1X ONCE IV Last administered on 16:19; Start 07/27/16 at 16:00; Stop 07/27/16 at 16:01; Status DC Oxycodone HCl (Roxicodone) 5 mg PRN Q4HRS PRN PO MODERATE TO SEVERE PAIN Last administered on 08/04/16 06:13; Start 07/27/16 at 15:45 Enoxaparin Sodium (Lovenox Per Pharmacy Prophylaxis Dosing) 1 each PRN DAILY PRN MC SEE COMMENTS; Start 07/27/16 at 16:00 Enoxaparin Sodium (Lovenox 40mg Syringe) 40 mg Q24H SQ Last administered on 17:10; Start 07/27/16 at 16:00 Vancomycin HCl (Vanco Per Pharmacy) 1 each PRN DAILY PRN MC SEE COMMENTS Last administered on 07/29/16 09:15; Start 07/27/16 at 19:15; Stop 07/29/16 at 10:38 ; Status DC Piperacillin Sod/ Tazobactam Sod 1 each 1 each PRN DAILY PRN MC SEE COMMENTS; Start 07/27/16 at 19:15; Stop 07/29/16 at 12:14; Status DC Piperacillin Sod/ Tazobactam Sod 3.375 gm/Sodium Chloride 50 ml @ 100 mls/hr Q6HRS IV Last administered on 07/29/16 06:01; Start 07/27/16 at 19:30; Stop at 10:38; Status DC Vancomycin HCl 2 gm/Sodium Chloride 500 ml @ 250 mls/hr 1X ONCE IV Last administered on 07/27/16 20:58; Start 07/27/16 at 19:30; Stop 07/27/16 at 21:29 ; Status DC Vancomycin HCl/ Sodium Chloride (Iv Sodium Chloride 0.9% 250ml) 250 ml @ 167 mls/hr Q12H IV Last administered on 07/28/16 21:26; Start 07/28/16 at 09:00; Stop 07/29/16 at 09:10; Status DC Vancomycin HCl 1 each 1 each 1X ONCE MC Last administered on 07/29/16 08:30; Start 07/29/16 at 08:30; Stop 07/29/16 at 08:31; Status DC Vancomycin HCl 1.25 gm/Sodium Chloride 250 ml @ 167 mls/hr Q24H IV ; Start at 21:00; Stop 07/29/16 at 21:00; Status DC Piperacillin Sod/ Tazobactam Sod 3.375 gm/Sodium Chloride 50 ml @ 100 mls/hr Q6HRS IV Last administered on 07/29/16 12:49; Start 07/29/16 at 12:00; Stop at 14:00; Status DC Cefazolin Sodium/ Dextrose (Ancef 2gm Premix) 50 ml @ 100 mls/hr 1X ONCE IV ; Start 08/02/16 at 13:00; Stop 08/02/16 at 13:29; Status DC Fentanyl Citrate (Fentanyl 2ml Vial) 25 mcg PRN Q2HR PRN IV PAIN Last administered on 08/04/16 01:30; Start 08/01/16 at 13:30; Stop 08/04/16 at 03:50; Status DC Ondansetron HCl (Zofran) 4 mg PRN Q6HRS PRN IV Nausea; Start 08/02/16 at 07:00 ; Stop 08/03/16 at 06:59; Status DC Fentanyl Citrate (Fentanyl 2ml Vial) 25 mcg PRN Q5MIN PRN IV MILD PAIN; Start 08/02/16 at 07:00; Stop 08/03/16 at 18:19; Status DC Fentanyl Citrate 50 mcg 50 mcg PRN Q5MIN PRN IV MODERATE PAIN; Start 08/02/16 at 07:00; Stop 08/03/16 at 06:59; Status Cancel Lactated Ringer's (Iv Lactated Ringers) 1,000 ml @ 30 mls/hr Q24H IV ; Start at 07:00; Stop 08/03/16 at 18:19; Status DC Lidocaine HCl 2 ml 1X PRN PRN ID IV START; Start 08/02/16 at 07:00; Stop at 06:59; Status DC Prochlorperazine Edisylate (Compazine) 5 mg PACU PRN PRN IV NAUSEA; Start 08/02 at 07:00; Stop 08/03/16 at 06:59; Status DC Throat Lozenges (Cepacol Sore Throat Lozenge) 1 jacquie PRN Q2HRS PRN PO SORE THROAT Last administered on 08/04/16t 01:35; Start 08/02/16 at 20:00 Lidocaine/Sodium Bicarbonate 20 ml 20 ml STK-MED ONCE IJ ; Start 08/03/16 at 08: 04; Stop 08/03/16 at 08:05; Status DC Heparin Sodium/ Sodium Chloride 1,000 ml @ As Directed STK-MED ONCE .ROUTE ; Start 08/03/16 at 08:05; Stop 08/03/16 at 08:06; Status DC Iodixanol (Visipaque 320) 100 ml STK-MED ONCE .ROUTE ; Start 08/03/16 at 08:05; Stop 08/03/16 at 08:06; Status DC Midazolam HCl (Versed) 2 mg STK-MED ONCE .ROUTE ; Start 08/03/16 at 08:11; Stop 08/03/16 at 08:12; Status DC Heparin Sodium/ Sodium Chloride 1,000 unit 1X ONCE IART Last administered on t 09:13; Start 08/03/16 at 08:45; Stop 08/03/16 at 08:46; Status DC Lidocaine/Sodium Bicarbonate (Buffered Lidocaine 1%) 20 ml 1X ONCE IJ Last administered on 08/03/16 09:15; Start 08/03/16 at 08:45; Stop 08/03/16 at 08:46; Status DC Midazolam HCl (Versed) 2 mg 1X ONCE IV Last administered on 08/03/16 09:16; Start 08/03/16 at 08:45; Stop 08/03/16 at 08:46; Status DC Fentanyl Citrate (Fentanyl 2ml Vial) 100 mcg 1X ONCE IV Last administered on 09:16; Start 08/03/16 at 08:45; Stop 08/03/16 at 08:46; Status DC Iodixanol (Visipaque 320) 100 ml 1X ONCE IART Last administered on 08/03/16 09 :15; Start 08/03/16 at 08:45; Stop 08/03/16 at 08:46; Status DC Info 1 each 1 each PRN DAILY PRN MC SEE COMMENTS; Start 08/03/16 at 08:45; Stop 08/05/16 at 08:44 Cefazolin Sodium/ Dextrose 50 ml @ 100 mls/hr 1X PREOP PRN IV PER PROTOCOL Last administered on 08/03/16 15:00; Start 08/03/16 at 10:30; Stop 08/04/16 at 10: 29; Status DC Heparin Sodium (Porcine) 5000 unit/Sodium Chloride 505 ml @ 505 mls/hr 1X PERIOP ONCE IRR Last administered on 08/03/16 15:28; Start 08/03/16 at 11:00; Stop 08/03/16 at 11:59; Status DC Cefazolin Sodium/ Sodium Chloride (Ancef/Iv Sodium Chloride 0.9% 500ml Bag) 500 ml @ 500 mls/hr 1X PERIOP ONCE IRR Last administered on 08/03/16 15:28; Start 08/03/16 at 11:01; Stop 08/03/16 at 12:00; Status DC Cellulose 1 each STK-MED ONCE .ROUTE ; Start 08/03/16 at 13:56; Stop 08/03/16 at 13:57; Status DC Iohexol (Omnipaque 300 Mg/ml) 50 ml STK-MED ONCE .ROUTE ; Start 08/03/16 at 13:56 ; Stop 08/03/16 at 13:57; Status DC Protamine Sulfate 50 mg 50 mg STK-MED ONCE IV ; Start 08/03/16 at 13:56; Stop 08/03/16 at 13:57; Status DC Propofol (Diprivan) 20 ml @ As Directed STK-MED ONCE IV ; Start 08/03/16 at 13:57 ; Stop 08/03/16 at 13:58; Status DC Lidocaine HCl 100 mg STK-MED ONCE .ROUTE ; Start 08/03/16 at 13:57; Stop 08/03/16 at 13:58; Status DC Midazolam HCl (Versed) 2 mg STK-MED ONCE .ROUTE ; Start 08/03/16 at 13:57; Stop 08/03/16 at 13:58; Status DC Fentanyl Citrate 100 mcg 100 mcg STK-MED ONCE .ROUTE ; Start 08/03/16 at 13:57; Stop 08/03/16 at 13:58; Status DC Lactated Ringer's (Iv Lactated Ringers) 1,000 ml @ 75 mls/hr [id number] IV Last administered on 08/03/16 14:09; Start 08/03/16 at 14:15 Lorazepam (Ativan) 1 mg PRN Q6HRS PRN PO ANXIETY / AGITATION Last administered on 08/04/16 08:29; Start 08/03/16 at 14:30 Ondansetron HCl (Zofran) 4 mg STK-MED ONCE .ROUTE ; Start 08/03/16 at 14:28; Stop 08/03/16 at 14:29; Status DC Rocuronium [place] (Zemuron) 50 mg STK-MED ONCE .ROUTE ; Start 08/03/16 at 14:28 ; Stop 08/03/16 at 14:29; Status DC Ephedrine Sulfate 50 mg STK-MED ONCE IV ; Start 08/03/16 at 15:14; Stop 08/03/16 at 15:15; Status DC Fentanyl Citrate (Fentanyl 2ml Vial) 100 mcg STK-MED ONCE .ROUTE ; Start at 15:30; Stop 08/03/16 at 15:31; Status DC Heparin Sodium (Porcine) 10,000 unit STK-MED ONCE .ROUTE ; Start 08/03/16 at 16: 27; Stop 08/03/16 at 16:28; Status DC Desflurane (Suprane) 90 ml STK-MED ONCE IH ; Start 08/03/16 at 16:49; Stop at 16:50; Status DC Phenylephrine HCl 1 mg STK-MED ONCE IV ; Start 08/03/16 at 17:22; Stop 08/03/16 at 17:23; Status DC Phenylephrine HCl 1 mg STK-MED ONCE IV ; Start 08/03/16 at 17:24; Stop 08/03/16 at 17:25; Status DC Neostigmine Methylsulfate 5 mg STK-MED ONCE .ROUTE ; Start 08/03/16 at 17:50; Stop 08/03/16 at 17:51; Status DC Glycopyrrolate 1 mg 1 mg STK-MED ONCE .ROUTE ; Start 08/03/16 at 17:50; Stop 08/03 at 17:51; Status DC Cefazolin Sodium/ Dextrose (Ancef 2gm Premix) 50 ml @ 100 mls/hr 1X ONCE IV ; Start 08/03/16 at 18:30; Stop 08/03/16 at 18:59; Status DC Fentanyl Citrate (Fentanyl 2ml Vial) 50 mcg PRN Q5MIN PRN IV MODERATE PAIN Last administered on 08/03/16 19:05; Start 08/03/16 at 18:30; Stop 08/03/16 at 23: 00; Status DC Fentanyl Citrate (Fentanyl 2ml Vial) 25 mcg PRN Q1HR PRN IV SEVERE PAIN Last administered on 08/04/16 08:26; Start 08/04/16 at 04:15; Stop 08/04/16 at 09:18; Status DC Fentanyl Citrate (Fentanyl 2ml Vial) 50 mcg PRN Q1HR PRN IV SEVERE PAIN Last administered on 08/04/16 10:42; Start 08/04/16 at 09:15 Zolpidem Tartrate (Ambien) 5 mg PRN QHS PRN PO INSOMNIA; Start 08/04/16 at 09:15 Active Scripts Active Reported Levemir (Insulin Detemir) 100 Unit/1 Ml Vial 10 Unit SQ DAILY07 K-Tab ER (Potassium Chloride) 20 Meq Tablet.er 20 Meq PO DAILY Oxycodone-Acetaminophen 5-325 (Oxycodone Hcl/Acetaminophen) 1 Each Tablet 1 Each PO Q4HRS PRN Aspir 81 (Aspirin) 81 Mg Tablet.dr 1 Tab PO DAILY Tylenol (Acetaminophen) 325 Mg Tablet 2 Tab PO TID Lisinopril-Hctz 20-12.5 Mg Tab (Lisinopril/Hydrochlorothiazide) 1 Each Tablet 1 Tab PO DAILY Naproxen 500 Mg Tablet 1 Tab PO BID Gabapentin 100 Mg Capsule 100 Mg PO QHS Metformin Hcl 1,000 Mg Tablet 1 Tab PO BID Glimepiride 4 Mg Tablet 1 Tab PO BID Pravastatin Sodium 40 Mg Tablet 1 Tab PO QHS Januvia (Sitagliptin Phosphate) 100 Mg Tablet 1 Tab PO QHS Vitals/I & O Vital Sign - Last 24 Hours 08/03/16 08/03/16 08/03/16 08/03/16 13:51 18:18 18:18 18:32 Temp 98.0 97.8 98.0 97.8 Pulse 83 92 Resp 14 15 15 B/P 152/84 145/75 Pulse Ox 96 100 100 O2 Delivery Room Air Room Air Simple Mask Room Air O2 Flow Rate 2.0 10 08/03/16 08/03/16 08/03/16 08/03/16 18:33 18:48 19:05 19:15 Temp 97.8 97.8 97.8 97.8 Pulse 92 88 Resp 15 15 B/P 155/86 150/76 Pulse Ox 93 100 100 O2 Delivery Room Air Nasal Cannula Nasal Cannula Nasal Cannula O2 Flow Rate 2.0 2.0 2.0 08/03/16 08/03/16 08/03/16 08/03/16 19:20 19:35 19:40 20:05 Temp 97.6 97.7 97.7 97.6 97.7 97.7 Pulse 86 99 99 Resp 18 20 20 18 B/P 167/88 176/89 176/88 Pulse Ox 97 98 100 98 O2 Delivery Nasal Cannula Nasal Cannula Nasal Cannula Nasal Cannula O2 Flow Rate 2.0 2.0 2.0 2.0 08/03/16 08/03/16 08/03/16 08/03/16 20:35 21:05 21:32 21:39 Temp 97.8 97.7 97.8 97.7 Pulse 98 95 Resp 18 18 20 20 B/P 168/86 149/78 Pulse Ox 100 97 100 100 O2 Delivery Nasal Cannula Nasal Cannula Nasal Cannula Nasal Cannula O2 Flow Rate 2.0 1.0 1.0 1.0 08/03/16 08/03/16 08/04/16 08/04/16 23:09 23:39 00:10 01:30 Temp 98.7 98.7 Pulse 95 Resp 18 20 20 B/P 151/88 Pulse Ox 98 98 98 O2 Delivery Nasal Cannula Nasal Cannula Room Air O2 Flow Rate 1.0 1.0 1.0 1.0 08/04/16 08/04/16 08/04/16 08/04/16 01:31 02:00 03:28 04:18 Temp 98.5 98.5 Pulse 99 Resp 20 20 18 20 B/P 127/77 Pulse Ox 98 98 98 98 O2 Delivery Room Air Room Air Nasal Cannula Nasal Cannula O2 Flow Rate 1.0 2.0 08/04/16 08/04/16 08/04/16 08/04/16 06:13 06:14 06:45 07:00 Temp 99.4 99.4 Pulse 95 Resp 20 20 20 18 B/P 149/80 Pulse Ox 98 98 98 99 O2 Delivery Nasal Cannula Nasal Cannula Nasal Cannula O2 Flow Rate 2.0 2.0 2.0 1.0 08/04/16 08/04/16 08/04/16 08/04/16 07:30 07:35 08:26 08:27 Pulse 95 Resp 20 B/P 149/80 Pulse Ox 98 O2 Delivery Nasal Cannula Nasal Cannula Room Air O2 Flow Rate 2.0 2.0 08/04/16 08/04/16 08/04/16 08/04/16 09:08 09:40 10:42 11:00 Temp 98.0 98.0 Pulse 102 Resp 20 B/P 134/77 Pulse Ox 93 O2 Delivery Room Air Room Air Room Air Room Air Intake and Output 08/03/16 08/03/16 08/04/16 15:00 23:00 07:00 Intake Total 1970 ml 440 ml Output Total 1200 ml 250 ml Balance 770 ml 190 ml TIFFANIE SIMPSON III DO Aug 04, 2016 11:49
[2016-08-04 15:00] VITALS: BP 134/76
[2016-08-04] MEDS: ENOXAPARIN 40 MG/0.4 ML DISP.SYRIN. SQ SCH (16:43)
[2016-08-04 19:00] VITALS: BP 126/71
[2016-08-04] MEDS: ATORVASTATIN CALCIUM 10 MG TABLET. PO SCH (21:16)
[2016-08-04 23:00] VITALS: BP 121/70
[2016-08-05] MEDS: FENTANYL PF 100 MCG/2 ML VIAL. IV PRN ×5 (02:52→14:56)
[2016-08-05 03:00] VITALS: BP 129/76
[2016-08-05 05:23] LABS: BASO # 0.1 x10^3/uL (0.0-0.2); BASO % 1 % (0-3); EOS % 1 % (0-3); HEMATOCRIT 24.2 % (36.0-47.0); LYMPH # 1.8 x10^3/uL (1.0-4.8); LYMPH % 27 % (24-48); MEAN CORPUSCULAR HEMOGLOBIN 28 pg (25-35); MEAN CORPUSCULAR HGB CONC 33 g/dL (31-37); MEAN CORPUSCULAR VOLUME 83 fL (79-100); MONO % 13 % (0-9); NEUT % 59 % (31-73); PLATELET COUNT 215 x10^3/uL (140-400); RED BLOOD COUNT 2.92 x10^6/uL (3.50-5.40); RED CELL DISTRIBUTION WIDTH 15.4 % (11.5-14.5); WHITE BLOOD COUNT 6.8 x10^3/uL (4.0-11.0)
[2016-08-05 05:31] LABS: CALCIUM 9.2 mg/dL (8.5-10.1); GFR 68.9; POTASSIUM 4.2 mmol/L (3.5-5.1)
[2016-08-05] MEDS: IV RINGERS,LACTATED 1000ML 1,000 ML IV SCH (06:15)
[2016-08-05] MEDS: OXYCODONE IR 5 MG TABLET. PO PRN ×2 (07:24→15:34)
[2016-08-05 07:41] VITALS: BP 106/67
[2016-08-05] MEDS: HYDROCHLOROTHIAZIDE 12.5 MG CAPSULE. PO SCH (08:56)
[2016-08-05] MEDS: GLIMEPIRIDE 2 MG TABLET PO SCH (08:56)
[2016-08-05] MEDS: LISINOPRIL 20 MG TABLET PO SCH (08:56)
[2016-08-05] MEDS: GABAPENTIN 100 MG CAPSULE. PO SCH ×2 (08:56→14:56)
[2016-08-05] MEDS: ASPIRIN ENTERIC COATED 81 MG TABLET.DR. PO SCH (08:57)
[2016-08-05] MEDS: NAPROXEN 500 MG TABLET PO SCH (08:57)
[2016-08-05] MEDS: POTASSIUM CHLORIDE 20 MEQ TABLET.ER. PO SCH (08:57)
[2016-08-05] MEDS: INSULIN DETEMIR 300 UNITS/3 ML INSULN.PEN. SQ SCH (09:01)
[2016-08-05] MEDS: INSULIN ASPART 300 UNITS/3 ML INSULN.PEN SQ SCH ×2 (09:01→12:27)
--- NOTE | 2016-08-05 10:11 | PDOC ---
PROGRESS NOTES Subjective Subjective Patient resting in bed, states pain improved this am Objective Objective Vital Signs Date Time Temp Pulse Resp B/P Pulse Ox O2 Delivery O2 Flow Rate FiO2 08/05/16 09:44 Room Air 08/05/16 08:56 93 106/67 08/05/16 07:41 99.3 20 95 99.3 08/04/16 07:35 2.0 Intake and Output 08/05/16 07:00 Intake Total 1965 ml Output Total 950 ml Balance 1015 ml Intake Oral 1965 ml Output Urine Total 950 ml Physical Exam Abdomen: Soft, No tenderness Heart: Regular rate General: Alert, Oriented X3, mild distress COMMENT right foot wound vac in place, heel dressing intact, removed, continues to have some maceration around skin edges left leg dressing removed, incisions intact, slight sanguinous drainage proximal thigh wound, heel wound clean, bleeding stimulated with dressing change , dressing difficult and painful to remove palpable bilateral lower extremity bypass graft, doppler biphasic AT and DP, moderate swelling in left foot Assessment Assessment Problems Medical Problems: (1) Osteomyelitis due to type 2 diabetes mellitus Status: Acute PVD POD #9 Right toe amputation with forefoot debridement and wound vac POD #2 left femoral to anterior tibial bypass and heel debridement Right heel wound Anemia Chronic/Acute post op blood loss-stable Pain-limited mobility due to pain DM-IM managing Plan Plan of Care Continue ASA add Augmentin for open wound right foot Continue PT/OT, encouraged active exercises while in bed may be weight bearing left foot, non-weight bearing right foot D/C monte Wound vac change today Continue local wound care bilateral heels CBC in am SS working on placement hopefully LTAC will be option Comment Review of Relevant I have reviewed the following items alma (where applicable) has been applied. Labs Laboratory Tests Laboratory Tests Test 08/04/16 11:12 08/04/16 16:02 08/04/16 20:55 08/05/16 04:30 Glucose (Fingerstick) 180mg/dL (70-99) 250mg/dL (70-99) 210mg/dL (70-99) White Blood Count 6.8x10^3/uL (4.0-11.0) Red Blood Count 2.92x10^6/uL (3.50-5.40) Hemoglobin 8.0g/dL (12.0-15.5) Hematocrit 24.2% (36.0-47.0) Mean Corpuscular Volume 83fL (79-100) Mean Corpuscular Hemoglobin 28pg (25-35) Mean Corpuscular Hemoglobin Concent 33g/dL (31-37) Red Cell Distribution Width 15.4% (11.5-14.5) Platelet Count 215x10^3/uL (140-400) Neutrophils (%) (Auto) 59% (31-73) Lymphocytes (%) (Auto) 27% (24-48) Monocytes (%) (Auto) 13% (0-9) Eosinophils (%) (Auto) 1% (0-3) Basophils (%) (Auto) 1% (0-3) Neutrophils # (Auto) 4.0x10^3uL (1.8-7.7) Lymphocytes # (Auto) 1.8x10^3/uL (1.0-4.8) Monocytes # (Auto) 0.9x10^3/uL (0.0-1.1) Eosinophils # (Auto) 0.1x10^3/uL (0.0-0.7) Basophils # (Auto) 0.1x10^3/uL (0.0-0.2) Sodium Level 136mmol/L (136-145) Potassium Level 4.2mmol/L (3.5-5.1) Chloride Level 99mmol/L (98-107) Carbon Dioxide Level 29mmol/L (21-32) Anion Gap 8 (6-14) Blood Urea Nitrogen 22mg/dL (7-20) Creatinine 1.0mg/dL (0.6-1.0) Estimated GFR (Cockcroft-Gault) 68.9 Glucose Level 182mg/dL (70-99) Calcium Level 9.2mg/dL (8.5-10.1) Medications Medications reviewed Vitals/I & O Vital Sign - Last 24 Hours 08/04/16 08/04/16 08/04/16 08/04/16 10:42 11:00 12:35 13:43 Temp 98.0 98.0 Pulse 102 Resp 20 B/P 134/77 Pulse Ox 93 O2 Delivery Room Air Room Air Room Air Room Air 08/04/16 08/04/16 08/04/16 08/04/16 15:00 15:15 15:15 16:42 Temp 101.7 101.7 Pulse 107 Resp 18 B/P 134/76 Pulse Ox 97 O2 Delivery Room Air Room Air Room Air Room Air 08/04/16 08/04/16 08/04/16 08/04/16 19:00 20:10 20:24 23:00 Temp 101.2 100.4 101.2 100.4 Pulse 101 104 Resp 18 18 18 B/P 126/71 121/70 Pulse Ox 95 97 O2 Delivery Room Air Room Air Room Air Room Air 08/05/16 08/05/16 08/05/16 08/05/16 02:52 03:00 04:59 05:29 Temp 99.8 99.8 Pulse 94 Resp 18 18 18 18 B/P 129/76 Pulse Ox 95 O2 Delivery Room Air Room Air Room Air Room Air 08/05/16 08/05/16 08/05/16 08/05/16 07:10 07:24 07:41 08:56 Temp 99.3 99.3 Pulse 93 93 Resp 20 B/P 106/67 106/67 Pulse Ox 95 O2 Delivery Room Air Room Air Room Air 08/05/16 08/05/16 08:57 09:44 O2 Delivery Room Air Room Air Intake and Output 08/04/16 08/04/16 08/05/16 15:00 23:00 07:00 Intake Total 120 ml 900 ml 945 ml Output Total 950 ml Balance 120 ml -50 ml 945 ml 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
[2016-08-05 10:40] VITALS: BP 127/74
[2016-08-05] MEDS ORDERED: AMOXICILLIN/K CLAV 875/125MG TABLET. PO SCH (11:00)
--- NOTE | 2016-08-05 11:55 | PDOC ---
PROGRESS NOTES Chief Complaint Chief Complaint - Osteomyelitis R great toe; s/p R great toe amputation, on wound [facility]. POD#9 - L leg occlusion; s/p arterial bypass. POD#2 - L heel ulceration / wound 2/2 to poorly controlled T2DM; s/p excisional debridement POD#2 - T2DM - Hyperglycemia - PVD - HTN - HLD - Generalized weakness - Anxiety d/o or depression History of Present Illness History of Present Illness Patient lying down in bed when evaluated this AM; in obvious pain. Pain not necessarily out of proportion to that which could be expected from this type of surgery. Otherwise, denies complications of surgery. Social work has been in to see the patient and she is agreeable to transfer to [facility] if approved. Discussed case with vascular surgery. Vitals Vitals Vital Signs Date Time Temp Pulse Resp B/P Pulse Ox O2 Delivery O2 Flow Rate FiO2 08/05/16 10:52 Room Air 08/05/16 10:40 98.4 88 16 127/74 91 98.4 08/04/16 07:35 2.0 Physical Exam General: Alert, Oriented X3, mild distress Heart: Regular rate Lungs: Clear, Other Abdomen: Soft, No tenderness Extremities: Other (dressings intact left leg, palpable graft pulse, moderate swelling, right foot wound vac in place, dressing to heel, small ulcer with pink wound bed, clean skin edges, no drainage, palpable graft pulse, feet warm) Skin: No rashes, No significant lesion, Other (Dressing C/D/I over Amputation site) Labs LABS Laboratory Tests Test 08/04/16 16:02 08/04/16 20:55 08/05/16 04:30 08/05/16 07:05 Glucose (Fingerstick) 250mg/dL (70-99) 210mg/dL (70-99) 158mg/dL (70-99) White Blood Count 6.8x10^3/uL (4.0-11.0) Red Blood Count 2.92x10^6/uL (3.50-5.40) Hemoglobin 8.0g/dL (12.0-15.5) Hematocrit 24.2% (36.0-47.0) Mean Corpuscular Volume 83fL (79-100) Mean Corpuscular Hemoglobin 28pg (25-35) Mean Corpuscular Hemoglobin Concent 33g/dL (31-37) Red Cell Distribution Width 15.4% (11.5-14.5) Platelet Count 215x10^3/uL (140-400) Neutrophils (%) (Auto) 59% (31-73) Lymphocytes (%) (Auto) 27% (24-48) Monocytes (%) (Auto) 13% (0-9) Eosinophils (%) (Auto) 1% (0-3) Basophils (%) (Auto) 1% (0-3) Neutrophils # (Auto) 4.0x10^3uL (1.8-7.7) Lymphocytes # (Auto) 1.8x10^3/uL (1.0-4.8) Monocytes # (Auto) 0.9x10^3/uL (0.0-1.1) Eosinophils # (Auto) 0.1x10^3/uL (0.0-0.7) Basophils # (Auto) 0.1x10^3/uL (0.0-0.2) Sodium Level 136mmol/L (136-145) Potassium Level 4.2mmol/L (3.5-5.1) Chloride Level 99mmol/L (98-107) Carbon Dioxide Level 29mmol/L (21-32) Anion Gap 8 (6-14) Blood Urea Nitrogen 22mg/dL (7-20) Creatinine 1.0mg/dL (0.6-1.0) Estimated GFR (Cockcroft-Gault) 68.9 Glucose Level 182mg/dL (70-99) Calcium Level 9.2mg/dL (8.5-10.1) Review of Systems Review of Systems Pain at surgical site, to be expected with this type of procedure. denies fever, chills Assessment and Plan Assessmemt and Plan ASSESSMENT: - Osteomyelitis R great toe; s/p R great toe amputation, on wound [facility]. POD#9 - L leg occlusion; s/p arterial bypass. POD#2 - L heel ulceration / wound 2/2 to poorly controlled T2DM; s/p excisional debridement. POD#2 - T2DM - Hyperglycemia - PVD - HTN - HLD - Generalized weakness - Anxiety d/o or depression PLAN: - has been seen by SW and is agreeable to transfer to [facility]; Select to screen - cont Ambien prn for poor sleep. - cont wound care - appreciate subspecialty input - cont pain control with Fentanyl - repeat daily labs - PT/OT Problems: Comment Review of Relevant I have reviewed the following items alma (where applicable) has been applied. Labs Laboratory Tests Test 08/03/16 13:50 08/03/16 18:34 08/03/16 20:56 08/04/16 02:55 Glucose (Fingerstick) 159mg/dL (70-99) 196mg/dL (70-99) 210mg/dL (70-99) White Blood Count 9.6x10^3/uL (4.0-11.0) Red Blood Count 3.15x10^6/uL (3.50-5.40) Hemoglobin 8.9g/dL (12.0-15.5) Hematocrit 25.6% (36.0-47.0) Mean Corpuscular Volume 81fL (79-100) Mean Corpuscular Hemoglobin 28pg (25-35) Mean Corpuscular Hemoglobin Concent 35g/dL (31-37) Red Cell Distribution Width 15.4% (11.5-14.5) Platelet Count 231x10^3/uL (140-400) Neutrophils (%) (Auto) 76% (31-73) Lymphocytes (%) (Auto) 14% (24-48) Monocytes (%) (Auto) 10% (0-9) Eosinophils (%) (Auto) 0% (0-3) Basophils (%) (Auto) 1% (0-3) Neutrophils # (Auto) 7.3x10^3uL (1.8-7.7) Lymphocytes # (Auto) 1.3x10^3/uL (1.0-4.8) Monocytes # (Auto) 0.9x10^3/uL (0.0-1.1) Eosinophils # (Auto) 0.0x10^3/uL (0.0-0.7) Basophils # (Auto) 0.1x10^3/uL (0.0-0.2) Sodium Level 139mmol/L (136-145) Potassium Level 4.3mmol/L (3.5-5.1) Chloride Level 101mmol/L (98-107) Carbon Dioxide Level 27mmol/L (21-32) Anion Gap 11 (6-14) Blood Urea Nitrogen 21mg/dL (7-20) Creatinine 0.9mg/dL (0.6-1.0) Estimated GFR (Cockcroft-Gault) 77.8 Glucose Level 250mg/dL (70-99) Calcium Level 9.4mg/dL (8.5-10.1) Test 08/04/16 07:26 08/04/16 11:12 08/04/16 16:02 08/04/16 20:55 Glucose (Fingerstick) 205mg/dL (70-99) 180mg/dL (70-99) 250mg/dL (70-99) 210mg/dL (70-99) Test 08/05/16 04:30 08/05/16 07:05 White Blood Count 6.8x10^3/uL (4.0-11.0) Red Blood Count 2.92x10^6/uL (3.50-5.40) Hemoglobin 8.0g/dL (12.0-15.5) Hematocrit 24.2% (36.0-47.0) Mean Corpuscular Volume 83fL (79-100) Mean Corpuscular Hemoglobin 28pg (25-35) Mean Corpuscular Hemoglobin Concent 33g/dL (31-37) Red Cell Distribution Width 15.4% (11.5-14.5) Platelet Count 215x10^3/uL (140-400) Neutrophils (%) (Auto) 59% (31-73) Lymphocytes (%) (Auto) 27% (24-48) Monocytes (%) (Auto) 13% (0-9) Eosinophils (%) (Auto) 1% (0-3) Basophils (%) (Auto) 1% (0-3) Neutrophils # (Auto) 4.0x10^3uL (1.8-7.7) Lymphocytes # (Auto) 1.8x10^3/uL (1.0-4.8) Monocytes # (Auto) 0.9x10^3/uL (0.0-1.1) Eosinophils # (Auto) 0.1x10^3/uL (0.0-0.7) Basophils # (Auto) 0.1x10^3/uL (0.0-0.2) Sodium Level 136mmol/L (136-145) Potassium Level 4.2mmol/L (3.5-5.1) Chloride Level 99mmol/L (98-107) Carbon Dioxide Level 29mmol/L (21-32) Anion Gap 8 (6-14) Blood Urea Nitrogen 22mg/dL (7-20) Creatinine 1.0mg/dL (0.6-1.0) Estimated GFR (Cockcroft-Gault) 68.9 Glucose Level 182mg/dL (70-99) Calcium Level 9.2mg/dL (8.5-10.1) Glucose (Fingerstick) 158mg/dL (70-99) Laboratory Tests Test 08/04/16 16:02 08/04/16 20:55 08/05/16 04:30 08/05/16 07:05 Glucose (Fingerstick) 250mg/dL (70-99) 210mg/dL (70-99) 158mg/dL (70-99) White Blood Count 6.8x10^3/uL (4.0-11.0) Red Blood Count 2.92x10^6/uL (3.50-5.40) Hemoglobin 8.0g/dL (12.0-15.5) Hematocrit 24.2% (36.0-47.0) Mean Corpuscular Volume 83fL (79-100) Mean Corpuscular Hemoglobin 28pg (25-35) Mean Corpuscular Hemoglobin Concent 33g/dL (31-37) Red Cell Distribution Width 15.4% (11.5-14.5) Platelet Count 215x10^3/uL (140-400) Neutrophils (%) (Auto) 59% (31-73) Lymphocytes (%) (Auto) 27% (24-48) Monocytes (%) (Auto) 13% (0-9) Eosinophils (%) (Auto) 1% (0-3) Basophils (%) (Auto) 1% (0-3) Neutrophils # (Auto) 4.0x10^3uL (1.8-7.7) Lymphocytes # (Auto) 1.8x10^3/uL (1.0-4.8) Monocytes # (Auto) 0.9x10^3/uL (0.0-1.1) Eosinophils # (Auto) 0.1x10^3/uL (0.0-0.7) Basophils # (Auto) 0.1x10^3/uL (0.0-0.2) Sodium Level 136mmol/L (136-145) Potassium Level 4.2mmol/L (3.5-5.1) Chloride Level 99mmol/L (98-107) Carbon Dioxide Level 29mmol/L (21-32) Anion Gap 8 (6-14) Blood Urea Nitrogen 22mg/dL (7-20) Creatinine 1.0mg/dL (0.6-1.0) Estimated GFR (Cockcroft-Gault) 68.9 Glucose Level 182mg/dL (70-99) Calcium Level 9.2mg/dL (8.5-10.1) Medications Current Medications Ondansetron HCl (Zofran) 4 mg PRN Q6HRS PRN IV Nausea; Start 07/27/16 at 07:00 ; Stop 07/28/16 at 06:59; Status DC Fentanyl Citrate (Fentanyl 2ml Vial) 25 mcg PRN Q5MIN PRN IV MILD PAIN; Start 07/27/16 at 07:00; Stop 07/28/16 at 06:59; Status DC Fentanyl Citrate 50 mcg 50 mcg PRN Q5MIN PRN IV MODERATE PAIN Last administered on 07/27/16 20:10; Start 07/27/16 at 07:00; Stop 07/28/16 at 06:59 ; Status DC Lactated Ringer's (Iv Lactated Ringers) 1,000 ml @ 30 mls/hr Q24H IV Last administered on 07/27/16 09:21; Start 07/27/16 at 07:00; Stop 07/27/16 at 18:59 ; Status DC Lidocaine HCl 2 ml 1X PRN PRN ID IV START; Start 07/27/16 at 07:00; Stop at 06:59; Status DC Prochlorperazine Edisylate 5 mg 5 mg PACU PRN PRN IV NAUSEA; Start 07/27/16 at 07:00; Stop 07/28/16 at 06:59; Status DC Cefazolin Sodium 1 gm/Sodium Chloride 250 ml @ 250 mls/hr 1X ONCE IRR Last administered on 07/27/16 10:20; Start 07/27/16 at 08:00; Stop 07/27/16 at 08:59 ; Status DC Cefazolin Sodium/ Dextrose 50 ml @ 100 mls/hr 1X PREOP PRN IV PRIOR TO PROCEDURE Last administered on 07/27/16 10:17; Start 07/27/16 at 06:00; Stop at 18:00; Status DC Propofol (Diprivan) 20 ml @ As Directed STK-MED ONCE IV ; Start 07/27/16 at 09: 39; Stop 07/27/16 at 09:40; Status DC Lidocaine HCl 100 mg STK-MED ONCE .ROUTE ; Start 07/27/16 at 09:39; Stop at 09:40; Status DC Sevoflurane (Ultane) 30 ml STK-MED ONCE IH ; Start 07/27/16 at 09:39; Stop 07/27 at 09:40; Status DC Famotidine (Pepcid) 20 mg STK-MED ONCE .ROUTE ; Start 07/27/16 at 09:39; Stop at 09:40; Status DC Lidocaine HCl 30 ml STK-MED ONCE .ROUTE Last administered on 07/27/16 10:31; Start 07/27/16 at 09:55; Stop 07/27/16 at 09:56; Status DC Phenylephrine HCl 1 mg STK-MED ONCE IV ; Start 07/27/16 at 10:19; Stop 07/27/16 at 10:20; Status DC Ephedrine Sulfate 50 mg STK-MED ONCE IV ; Start 07/27/16 at 10:40; Stop at 10:41; Status DC Dextrose 25 gm STK-MED ONCE IV ; Start 07/27/16 at 11:13; Stop 07/27/16 at 11:14 ; Status DC Fentanyl Citrate 50 mcg 50 mcg PRN Q2HR PRN IV PAIN Last administered on 10:41; Start 07/27/16 at 14:15; Stop 08/01/16 at 13:32; Status DC Potassium Chloride/Dextrose/ Sod Cl (KCl 20 Meq In D5W-1/2 NS) 1,000 ml @ 80 mls/hr 1X ONCE IV Last administered on 07/27/16 15:03; Start 07/27/16 at 14: 15; Stop 07/28/16 at 02:44; Status DC Ketorolac Tromethamine (Toradol) 30 mg 1X ONCE IV Last administered on 15:11; Start 07/27/16 at 14:15; Stop 07/27/16 at 14:16; Status DC Acetaminophen (Tylenol) 325 mg PRN TID PRN PO MILD PAIN Last administered on 20:22; Start 07/27/16 at 14:15 Aspirin (Ecotrin) 81 mg DAILY PO Last administered on 08/05/16 08:57; Start at 15:00 Gabapentin (Neurontin) 100 mg TID PO Last administered on 08/05/16 08:56; Start 07/27/16 at 15:00 Metformin HCl (Glucophage) 1,000 mg BIDWMEALS PO Last administered on 17:45; Start 07/27/16 at 17:00; Stop 07/29/16 at 12:32; Status DC Naproxen (Naprosyn) 500 mg BID PO Last administered on 08/05/16 08:57; Start at 21:00 Glimepiride (Amaryl) 4 mg BID PO Last administered on 08/05/16 08:56; Start at 21:00 Insulin Detemir (Levemir) 10 units DAILY07 SQ Last administered on 08/05/16 09: 01; Start 07/28/16 at 07:00 Lisinopril (Prinivil) 20 mg DAILY PO Last administered on 08/05/16 08:56; Start 07/27/16 at 15:00 Non-Formulary Medication 20 meq DAILY PO ; Start 07/27/16 at 15:00; Stop at 15:00; Status DC Atorvastatin Calcium (Lipitor) 10 mg QHS PO Last administered on 08/04/16 21:16 ; Start 07/27/16 at 21:00 Linagliptin (Tradjenta) 5 mg QHS PO Last administered on 07/28/16 21:22; Start 07/27/16 at 21:00; Stop 07/29/16 at 12:32; Status DC Insulin Aspart (Novolog) 0-7 UNITS TIDWMEALS SQ Last administered on 08/05/16 09:01; Start 07/27/16 at 17:00 Dextrose 12.5 gm PRN Q15MIN PRN IV SEE COMMENTS Last administered on 07/29/16 10:19; Start 07/27/16 at 14:15 Potassium Chloride (Klor-Con) 20 meq [id number] PO Last administered on 08:57; Start 07/28/16 at 08:00 Hydrochlorothiazide (Microzide) 12.5 mg DAILY PO Last administered on 08/05/16 08:56; Start 07/27/16 at 15:00 Fentanyl Citrate (Fentanyl 2ml Vial) 75 mcg 1X ONCE IV Last administered on 16:19; Start 07/27/16 at 16:00; Stop 07/27/16 at 16:01; Status DC Oxycodone HCl (Roxicodone) 5 mg PRN Q4HRS PRN PO MODERATE TO SEVERE PAIN Last administered on 08/05/16 07:24; Start 07/27/16 at 15:45 Enoxaparin Sodium (Lovenox Per Pharmacy Prophylaxis Dosing) 1 each PRN DAILY PRN MC SEE COMMENTS; Start 07/27/16 at 16:00; Stop 08/05/16 at 11:40; Status DC Enoxaparin Sodium (Lovenox 40mg Syringe) 40 mg Q24H SQ Last administered on 08/04 16:43; Start 07/27/16 at 16:00 Vancomycin HCl (Vanco Per Pharmacy) 1 each PRN DAILY PRN MC SEE COMMENTS Last administered on 07/29/16 09:15; Start 07/27/16 at 19:15; Stop 07/29/16 at 10:38 ; Status DC Piperacillin Sod/ Tazobactam Sod 1 each 1 each PRN DAILY PRN MC SEE COMMENTS; Start 07/27/16 at 19:15; Stop 07/29/16 at 12:14; Status DC Piperacillin Sod/ Tazobactam Sod 3.375 gm/Sodium Chloride 50 ml @ 100 mls/hr Q6HRS IV Last administered on 07/29/16 06:01; Start 07/27/16 at 19:30; Stop at 10:38; Status DC Vancomycin HCl 2 gm/Sodium Chloride 500 ml @ 250 mls/hr 1X ONCE IV Last administered on 07/27/16 20:58; Start 07/27/16 at 19:30; Stop 07/27/16 at 21:29 ; Status DC Vancomycin HCl/ Sodium Chloride (Iv Sodium Chloride 0.9% 250ml) 250 ml @ 167 mls/hr Q12H IV Last administered on 07/28/16 21:26; Start 07/28/16 at 09:00; Stop 07/29/16 at 09:10; Status DC Vancomycin HCl 1 each 1 each 1X ONCE MC Last administered on 07/29/16 08:30; Start 07/29/16 at 08:30; Stop 07/29/16 at 08:31; Status DC Vancomycin HCl 1.25 gm/Sodium Chloride 250 ml @ 167 mls/hr Q24H IV ; Start at 21:00; Stop 07/29/16 at 21:00; Status DC Piperacillin Sod/ Tazobactam Sod 3.375 gm/Sodium Chloride 50 ml @ 100 mls/hr Q6HRS IV Last administered on 07/29/16 12:49; Start 07/29/16 at 12:00; Stop at 14:00; Status DC Cefazolin Sodium/ Dextrose (Ancef 2gm Premix) 50 ml @ 100 mls/hr 1X ONCE IV ; Start 08/02/16 at 13:00; Stop 08/02/16 at 13:29; Status DC Fentanyl Citrate (Fentanyl 2ml Vial) 25 mcg PRN Q2HR PRN IV PAIN Last administered on 08/04/16 01:30; Start 08/01/16 at 13:30; Stop 08/04/16 at 03:50; Status DC Ondansetron HCl (Zofran) 4 mg PRN Q6HRS PRN IV Nausea; Start 08/02/16 at 07:00 ; Stop 08/03/16 at 06:59; Status DC Fentanyl Citrate (Fentanyl 2ml Vial) 25 mcg PRN Q5MIN PRN IV MILD PAIN; Start 08/02/16 at 07:00; Stop 08/03/16 at 18:19; Status DC Fentanyl Citrate 50 mcg 50 mcg PRN Q5MIN PRN IV MODERATE PAIN; Start 08/02/16 at 07:00; Stop 08/03/16 at 06:59; Status Cancel Lactated Ringer's (Iv Lactated Ringers) 1,000 ml @ 30 mls/hr Q24H IV ; Start at 07:00; Stop 08/03/16 at 18:19; Status DC Lidocaine HCl 2 ml 1X PRN PRN ID IV START; Start 08/02/16 at 07:00; Stop at 06:59; Status DC Prochlorperazine Edisylate (Compazine) 5 mg PACU PRN PRN IV NAUSEA; Start 08/02 at 07:00; Stop 08/03/16 at 06:59; Status DC Throat Lozenges (Cepacol Sore Throat Lozenge) 1 jacquie PRN Q2HRS PRN PO SORE THROAT Last administered on 08/04/16 01:35; Start 08/02/16 at 20:00 Lidocaine/Sodium Bicarbonate 20 ml 20 ml STK-MED ONCE IJ ; Start 08/03/16 at 08: 04; Stop 08/03/16 at 08:05; Status DC Heparin Sodium/ Sodium Chloride 1,000 ml @ As Directed STK-MED ONCE .ROUTE ; Start 08/03/16 at 08:05; Stop 08/03/16 at 08:06; Status DC Iodixanol (Visipaque 320) 100 ml STK-MED ONCE .ROUTE ; Start 08/03/16 at 08:05; Stop 08/03/16 at 08:06; Status DC Midazolam HCl (Versed) 2 mg STK-MED ONCE .ROUTE ; Start 08/03/16 at 08:11; Stop 08/03/16 at 08:12; Status DC Heparin Sodium/ Sodium Chloride 1,000 unit 1X ONCE IART Last administered on 09:13; Start 08/03/16 at 08:45; Stop 08/03/16 at 08:46; Status DC Lidocaine/Sodium Bicarbonate (Buffered Lidocaine 1%) 20 ml 1X ONCE IJ Last administered on 08/03/16 09:15; Start 08/03/16 at 08:45; Stop 08/03/16 at 08:46; Status DC Midazolam HCl (Versed) 2 mg 1X ONCE IV Last administered on 08/03/16 09:16; Start 08/03/16 at 08:45; Stop 08/03/16 at 08:46; Status DC Fentanyl Citrate (Fentanyl 2ml Vial) 100 mcg 1X ONCE IV Last administered on 09:16; Start 08/03/16 at 08:45; Stop 08/03/16 at 08:46; Status DC Iodixanol (Visipaque 320) 100 ml 1X ONCE IART Last administered on 08/03/16 09 :15; Start 08/03/16 at 08:45; Stop 08/03/16 at 08:46; Status DC Info 1 each 1 each PRN DAILY PRN MC SEE COMMENTS; Start 08/03/16 at 08:45; Stop 08/05/16 at 08:44; Status DC Cefazolin Sodium/ Dextrose 50 ml @ 100 mls/hr 1X PREOP PRN IV PER PROTOCOL Last administered on 08/03/16 15:00; Start 08/03/16 at 10:30; Stop 08/04/16 at 10: 29; Status DC Heparin Sodium (Porcine) 5000 unit/Sodium Chloride 505 ml @ 505 mls/hr 1X PERIOP ONCE IRR Last administered on 08/03/16 15:28; Start 08/03/16 at 11:00; Stop 08/03/16 at 11:59; Status DC Cefazolin Sodium/ Sodium Chloride (Ancef/Iv Sodium Chloride 0.9% 500ml Bag) 500 ml @ 500 mls/hr 1X PERIOP ONCE IRR Last administered on 08/03/16 15:28; Start 08/03/16 at 11:01; Stop 08/03/16 at 12:00; Status DC Cellulose 1 each STK-MED ONCE .ROUTE ; Start 08/03/16 at 13:56; Stop 08/03/16 at 13:57; Status DC Iohexol (Omnipaque 300 Mg/ml) 50 ml STK-MED ONCE .ROUTE ; Start 08/03/16 at 13:56 ; Stop 08/03/16 at 13:57; Status DC Protamine Sulfate 50 mg 50 mg STK-MED ONCE IV ; Start 08/03/16 at 13:56; Stop 08/03/16 at 13:57; Status DC Propofol (Diprivan) 20 ml @ As Directed STK-MED ONCE IV ; Start 08/03/16 at 13:57 ; Stop 08/03/16 at 13:58; Status DC Lidocaine HCl 100 mg STK-MED ONCE .ROUTE ; Start 08/03/16 at 13:57; Stop 08/03/16 at 13:58; Status DC Midazolam HCl (Versed) 2 mg STK-MED ONCE .ROUTE ; Start 08/03/16 at 13:57; Stop 08/03/16 at 13:58; Status DC Fentanyl Citrate 100 mcg 100 mcg STK-MED ONCE .ROUTE ; Start 08/03/16 at 13:57; Stop 08/03/16 at 13:58; Status DC Lactated Ringer's (Iv Lactated Ringers) 1,000 ml @ 75 mls/hr [id number] IV Last administered on 08/03/16t 14:09; Start 08/03/16 at 14:15 Lorazepam (Ativan) 1 mg PRN Q6HRS PRN PO ANXIETY / AGITATION Last administered on 08/04/16 08:29; Start 08/03/16 at 14:30 Ondansetron HCl (Zofran) 4 mg STK-MED ONCE .ROUTE ; Start 08/03/16 at 14:28; Stop 08/03/16 at 14:29; Status DC Rocuronium [place] (Zemuron) 50 mg STK-MED ONCE .ROUTE ; Start 08/03/16 at 14:28 ; Stop 08/03/16 at 14:29; Status DC Ephedrine Sulfate 50 mg STK-MED ONCE IV ; Start 08/03/16 at 15:14; Stop 08/03/16 at 15:15; Status DC Fentanyl Citrate (Fentanyl 2ml Vial) 100 mcg STK-MED ONCE .ROUTE ; Start at 15:30; Stop 08/03/16 at 15:31; Status DC Heparin Sodium (Porcine) 10,000 unit STK-MED ONCE .ROUTE ; Start 08/03/16 at 16: 27; Stop 08/03/16 at 16:28; Status DC Desflurane (Suprane) 90 ml STK-MED ONCE IH ; Start 08/03/16 at 16:49; Stop at 16:50; Status DC Phenylephrine HCl 1 mg STK-MED ONCE IV ; Start 08/03/16 at 17:22; Stop 08/03/16 at 17:23; Status DC Phenylephrine HCl 1 mg STK-MED ONCE IV ; Start 08/03/16 at 17:24; Stop 08/03/16 at 17:25; Status DC Neostigmine Methylsulfate 5 mg STK-MED ONCE .ROUTE ; Start 08/03/16 at 17:50; Stop 08/03/16 at 17:51; Status DC Glycopyrrolate 1 mg 1 mg STK-MED ONCE .ROUTE ; Start 08/03/16 at 17:50; Stop 08/03 at 17:51; Status DC Cefazolin Sodium/ Dextrose (Ancef 2gm Premix) 50 ml @ 100 mls/hr 1X ONCE IV ; Start 08/03/16 at 18:30; Stop 08/03/16 at 18:59; Status DC Fentanyl Citrate (Fentanyl 2ml Vial) 50 mcg PRN Q5MIN PRN IV MODERATE PAIN Last administered on 08/03/16 19:05; Start 08/03/16 at 18:30; Stop 08/03/16 at 23: 00; Status DC Fentanyl Citrate (Fentanyl 2ml Vial) 25 mcg PRN Q1HR PRN IV SEVERE PAIN Last administered on 08/04/16 08:26; Start 08/04/16 at 04:15; Stop 08/04/16 at 09:18; Status DC Fentanyl Citrate (Fentanyl 2ml Vial) 50 mcg PRN Q1HR PRN IV SEVERE PAIN Last administered on 08/05/16 10:52; Start 08/04/16 at 09:15 Zolpidem Tartrate (Ambien) 5 mg PRN QHS PRN PO INSOMNIA; Start 08/04/16 at 09:15 ; Stop 08/04/16 at 11:44; Status DC Zolpidem Tartrate (Ambien) 10 mg PRN QHS PRN PO INSOMNIA; Start 08/04/16 at 11: 45 Amoxicillin/ Clavulanate Potassium (Augmentin 875/ 125mg) 1 tab BID PO Last administered on 08/05/16 10:52; Start 08/05/16 at 11:00 Active Scripts Active Reported Levemir (Insulin Detemir) 100 Unit/1 Ml Vial 10 Unit SQ DAILY07 K-Tab ER (Potassium Chloride) 20 Meq Tablet.er 20 Meq PO DAILY Oxycodone-Acetaminophen 5-325 (Oxycodone Hcl/Acetaminophen) 1 Each Tablet 1 Each PO Q4HRS PRN Aspir 81 (Aspirin) 81 Mg Tablet.dr 1 Tab PO DAILY Tylenol (Acetaminophen) 325 Mg Tablet 2 Tab PO TID Lisinopril-Hctz 20-12.5 Mg Tab (Lisinopril/Hydrochlorothiazide) 1 Each Tablet 1 Tab PO DAILY Naproxen 500 Mg Tablet 1 Tab PO BID Gabapentin 100 Mg Capsule 100 Mg PO QHS Metformin Hcl 1,000 Mg Tablet 1 Tab PO BID Glimepiride 4 Mg Tablet 1 Tab PO BID Pravastatin Sodium 40 Mg Tablet 1 Tab PO QHS Januvia (Sitagliptin Phosphate) 100 Mg Tablet 1 Tab PO QHS Vitals/I & O Vital Sign - Last 24 Hours 08/04/16 08/04/16 08/04/16 08/04/16 12:35 13:43 15:00 15:15 Temp 101.7 101.7 Pulse 107 Resp 18 B/P 134/76 Pulse Ox 97 O2 Delivery Room Air Room Air Room Air Room Air 08/04/16 08/04/16 08/04/16 08/04/16 15:15 16:42 19:00 20:10 Temp 101.2 101.2 Pulse 101 Resp 18 B/P 126/71 Pulse Ox 95 O2 Delivery Room Air Room Air Room Air Room Air 08/04/16 08/04/16 08/05/16 08/05/16 20:24 23:00 02:52 03:00 Temp 100.4 99.8 100.4 99.8 Pulse 104 94 Resp 18 18 18 18 B/P 121/70 129/76 Pulse Ox 97 95 O2 Delivery Room Air Room Air Room Air Room Air 08/05/16 08/05/16 08/05/16 08/05/16 04:59 05:29 07:10 07:24 Resp 18 18 O2 Delivery Room Air Room Air Room Air 08/05/16 08/05/16 08/05/16 08/05/16 07:41 08:56 08:57 09:44 Temp 99.3 99.3 Pulse 93 93 Resp 20 B/P 106/67 106/67 Pulse Ox 95 O2 Delivery Room Air Room Air Room Air 08/05/16 08/05/16 08/05/16 10:18 10:40 10:52 Temp 98.4 98.4 Pulse 88 Resp 16 B/P 127/74 Pulse Ox 91 O2 Delivery Room Air Room Air Room Air Intake and Output 08/04/16 08/04/16 08/05/16 15:00 23:00 07:00 Intake Total 120 ml 900 ml 945 ml Output Total 950 ml Balance 120 ml -50 ml 945 ml TIFFANIE SIMPSON III DO Aug 05, 2016 11:55
--- NOTE | 2016-08-11 17:32 | DS ---
DATE OF DISCHARGE: 08/05/2016 ADMISSION DIAGNOSIS: Foot infection. DISCHARGE DIAGNOSES: 1. Postoperative incision and drainage of foot infection. 2. Postoperative debridement as well. HOSPITAL COURSE: The patient is a pleasant 60-year-old female who has severe vascular disease secondary to diabetes and multiple medical issues. Basically, she had a severe open wound to the dorsum of the right foot. She was admitted. We did wound care. We put wound VAC on. She also went for 2 procedures, to debride it and to drain it. She has also bypass surgery. DICTATION ENDS HERE TIFFANIE SIMPSON DO DR: PIPO/kylee JOB#: [id number] / [id number]
== END 2016-08-05 15:40 | DRG 857 ==
LOC: SURG 08:35 → 4 NORTH 11:14
PROVIDERS: ADMIT Surgery; ATTEND Surgery
PROC: 0LBV0ZZ Excision of Right Foot Tendon, Open Approach (ICD-10-PCS; 2016-07-27)
PROC: 0Y6P0Z0 Detachment at Right 1st Toe, Complete, Open Approach (ICD-10-PCS; principal; 2016-07-27 10:00)
PROC: 041L09Q Bypass Left Femoral Artery to Lower Extremity Artery with Autologous Venous Tissue, Open Approach (ICD-10-PCS; 2016-08-03)
PROC: 06BQ0ZZ Excision of Left Saphenous Vein, Open Approach (ICD-10-PCS; 2016-08-03)
PROC: 0JBP0ZZ Excision of Left Lower Leg Subcutaneous Tissue and Fascia, Open Approach (ICD-10-PCS; 2016-08-03)
PROC: B41G1ZZ Fluoroscopy of Left Lower Extremity Arteries using Low Osmolar Contrast (ICD-10-PCS; 2016-08-03)
PROC: B41C1ZZ Fluoroscopy of Pelvic Arteries using Low Osmolar Contrast (ICD-10-PCS; 2016-08-03)
DX: T81.4XXA Infection following a procedure, initial encounter (principal); M86.171 Other acute osteomyelitis, right ankle and foot; D62 Acute posthemorrhagic anemia; E11.52 Type 2 diabetes mellitus with diabetic peripheral angiopathy with gangrene; E11.69 Type 2 diabetes mellitus with other specified complication; E11.42 Type 2 diabetes mellitus with diabetic polyneuropathy; E11.621 Type 2 diabetes mellitus with foot ulcer; E11.649 Type 2 diabetes mellitus with hypoglycemia without coma; E78.5 Hyperlipidemia, unspecified; F32.9 Major depressive disorder, single episode, unspecified; F41.9 Anxiety disorder, unspecified; I10 Essential (primary) hypertension; I77.1 Stricture of artery; I99.8 Other disorder of circulatory system; L08.9 Local infection of the skin and subcutaneous tissue, unspecified; L97.509 Non-pressure chronic ulcer of other part of unspecified foot with unspecified severity; D63.8 Anemia in other chronic diseases classified elsewhere; L89.622 Pressure ulcer of left heel, stage 2; Z88.6 Allergy status to analgesic agent; Z88.8 Allergy status to other drugs, medicaments and biological substances
CPT/HCPCS: 36246; 36415; 73630; 75625; 75710; 76937; 80048; 80053; 80202; 82310; 82947; 83036; 85027; 85610; 85730; 88305; 88311; 93005; 93923; 93971; C1713; C1769; C1892; C1894; G0269; J0690; J1650; J1815; J1885; J2250; J2370; J2405; J2543; J2704; J2710; J3010; J3370; J3490; J7040; J7042; J7050; J7120; Q9967; S0028; 97116; 97530; 97535; 97605; J7030

== ENCOUNTER 2016-11-21 07:00 | Outpatient (CLI) | payer BC ==
[~2016-11-21] VITALS: Ht 162.6 cm; Wt 68.0 kg
[2016-11-21] VITALS (11 sets, daily range): BP systolic 118–166; BP diastolic 78–99
[~2016-11-21 07:00] MED LIST changes: -CEFAZOLIN 2GM PREMIX 50 ML IV PRN; -CEFAZOLIN SODIUM IRR ONE; +DOCU100C28 PO; -DOCU100C5 PO; -FENTANYL PF 100 MCG/2 ML VIAL. IV PRN; -IV RINGERS,LACTATED 1000ML 1,000 ML IV SCH; -LIDOCAINE 1% 1 ML SYRINGE. ID PRN; +METF-620 PO; -METF10002 PO; -NORMAL SALINE IRR ONE; -ONDANSETRON PF 4 MG/2 ML VIAL. IV PRN; -PROCHLORPERAZINE 10 MG/2 ML VIAL. IV PRN
[2016-11-21 07:40] LABS: BASO # 0.1 x10^3/uL (0.0-0.2); BASO % 1 % (0-3); EOS % 3 % (0-3); HEMATOCRIT 31.2 % (36.0-47.0); HEMOGLOBIN 10.5 g/dL (12.0-15.5); LYMPH # 2.3 x10^3/uL (1.0-4.8); LYMPH % 43 % (24-48); MEAN CORPUSCULAR HEMOGLOBIN 28 pg (25-35); MEAN CORPUSCULAR HGB CONC 34 g/dL (31-37); MEAN CORPUSCULAR VOLUME 84 fL (79-100); MONO % 7 % (0-9); NEUT % 46 % (31-73); PLATELET COUNT 236 x10^3/uL (140-400); RED BLOOD COUNT 3.71 x10^6/uL (3.50-5.40); RED CELL DISTRIBUTION WIDTH 14.7 % (11.5-14.5); WHITE BLOOD COUNT 5.3 x10^3/uL (4.0-11.0)
[2016-11-21 07:53] LABS: CALCIUM 9.5 mg/dL (8.5-10.1); CREATININE 0.8 mg/dL (0.6-1.0); GFR 89.1; POTASSIUM 3.6 mmol/L (3.5-5.1)
[2016-11-21] MEDS ORDERED: IBUP-1060 PO (08:10)
[2016-11-21 08:20] LABS: INR 0.9 (0.8-1.1); PROTHROMBIN TIME PATIENT 11.3 SEC (11.7-14.0)
[2016-11-21] MEDS ORDERED: LIDOCAINE 1% / SOD BICARB 8.4% 20 ML VIAL. IJ ONE ×2 (08:20→09:15)
[2016-11-21] MEDS ORDERED: IOHEXOL 300 MG/ML 100ML VIAL. ONE (08:21)
[2016-11-21] MEDS ORDERED: IODIXANOL 320 MG/ML 100 ML VIAL. ONE (08:21)
[2016-11-21] MEDS ORDERED: IODIXANOL 320MG/ML 50ML VIAL. ONE ×2 (08:21→09:45)
[2016-11-21] MEDS ORDERED: HEPARIN for ARTERIAL LINE 1,500 ML ONE (08:21)
[2016-11-21] MEDS ORDERED: fentaNYL PF VIAL 250 MCG/5 ML VIAL ONE (08:33)
[2016-11-21] MEDS ORDERED: MIDAZOLAM HCL/PF 5 MG/5 ML VIAL. ONE (08:33)
[2016-11-21] MEDS ORDERED: HEPARIN for IV BOLUS 10,000 UNIT/10 ML VIAL. ONE (09:12)
[2016-11-21] MEDS ORDERED: fentaNYL PF VIAL 250 MCG/5 ML VIAL IV ONE (09:15)
[2016-11-21] MEDS ORDERED: IOHEXOL 300 MG/ML 100ML VIAL. IART ONE (09:15)
[2016-11-21] MEDS ORDERED: MIDAZOLAM HCL/PF 5 MG/5 ML VIAL. IV ONE (09:15)
[2016-11-21] MEDS ORDERED: IODIXANOL 320 MG/ML 100 ML VIAL. IART ONE (09:15)
[2016-11-21] MEDS ORDERED: CONTRAST GIVEN MC PRN (09:15)
[2016-11-21] MEDS ORDERED: HEPARIN for IV BOLUS 10,000 UNIT/10 ML VIAL. IV ONE (09:45)
[2016-11-21] MEDS ORDERED: hydrALAZINE 20 MG/ML VIAL. ONE (10:04)
[2016-11-21] MEDS ORDERED: hydrALAZINE 20 MG/ML VIAL. IVP ONE (10:15)
[2016-11-21] MEDS ORDERED: LABETALOL 20 MG/4 ML DISP.SYRIN. ONE (10:15)
[2016-11-21] MEDS ORDERED: LABETALOL 20 MG/4 ML DISP.SYRIN. IVP ONE (10:30)
[2016-11-21] MEDS ORDERED: NITROGLYCERIN SUBLINGUAL 0.4 MG BOTTLE OF 25. SL PRN (11:15)
[2016-11-21] MEDS ORDERED: CLOPIDOGREL BISULFATE 75 MG TABLET PO ONE (11:15)
[2016-11-21] MEDS ORDERED: 0.9 % SODIUM CHLORIDE 10 ML DISP.SYRIN. IV PRN (11:15)
--- NOTE | 2016-11-21 11:23 | PDOC4 ---
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 Access site stable. EMILY APARICIO DO Nov 21, 2016 11:23
[2016-11-21] MEDS ORDERED: IV NORMAL SALINE 1000ML BAG 1,000 ML IV SCH (11:30)
[2016-11-21] MEDS ORDERED: ASPIRIN CHEWABLE 81 MG TABLET. ONE (11:31)
[2016-11-21] MEDS ORDERED: oxyCODONE/APAP 5/325 1 TAB TABLET PO ONE (12:15)
[2016-11-21] MEDS ORDERED: CLOP75TA PO (13:50)
[2016-11-21] MEDS ORDERED: ASPI-482 PO (13:50)
[2016-11-21] MEDS ORDERED: OXYC-323 PO (13:50)
--- NOTE | 2016-11-21 16:00 | OP ---
DATE OF SURGERY: 11/21/2016 ATTENDING SURGEON: Dr. Emily Aparicio. PREOPERATIVE DIAGNOSES: 1. Atherosclerosis with claudication and early rest pain of the right lower extremity. 2. Non-insulin dependent diabetes mellitus. 3. Hypertension. 4. Hyperlipidemia. 5. Morbid obesity. POSTOPERATIVE DIAGNOSES: 1. Atherosclerosis with claudication and early rest pain of the right lower extremity. 2. Non-insulin dependent diabetes mellitus. 3. Hypertension. 4. Hyperlipidemia. 5. Morbid obesity. PROCEDURES: 1. Ultrasound-guided access of the left common femoral artery. 2. Introduction of catheter into the abdominal aorta. 3. Abdominal aortogram. 4. Selective right lower extremity angiogram. 5. Percutaneous, endovascular, balloon angioplasty of the right anterior tibial artery using a 1.5 x 20 0.014 angioplasty balloon followed by a 2 x 20 0.014 angioplasty balloon. 6. Percutaneous, endovascular, balloon angioplasty of the above-knee segment of the patient's vein bypass graft using a 4 x 80 angioplasty balloon. 7. Left common femoral artery StarClose. ANESTHESIA: Moderate sedation with local. SPECIMENS: None. COMPLICATIONS: None. Total fluoroscopy time was 9 minutes. PREOPERATIVE INDICATIONS: The patient is a very pleasant 60-year-old female who had undergone a right femoral to anterior tibial artery bypass by my partner, Dr. Rebolledo, for tissue loss. She subsequently was able to heal her tissue loss and presented on routine surveillance with a very high-grade velocities in her distal anastomosis of her bypass graft. Given this finding, the patient was consented for angiography with intervention for graft preservation. The patient was also having right lower extremity claudication symptoms. Given this finding, the patient was consented for the procedure, and she understood all risks, benefits, and alternatives of the procedure prior to proceeding with surgery. DESCRIPTION OF PROCEDURE: The patient was brought to the Catheterization Interventional Suite and placed in supine position. After establishing adequate sedation, the patient's groins were prepped and draped in sterile fashion. Next, timeout procedure was performed. We did review her allergy list, her medication list, and confirmed that we had appropriate instruments within the room. Following this, using a sterile ultrasound probe, the left common femoral artery was directly visualized using the ultrasound. Next, 1% lidocaine was infiltrated underneath the skin under direct ultrasound guidance. Following this, a micropuncture needle was used to access the left common femoral artery under direct ultrasound guidance. Next, a microwire was inserted under fluoroscopy guidance. Following this, a small skin incision was made. The needle was removed, and a microsheath was inserted. Next, an 0.035 J wire was inserted into the abdominal aorta under fluoroscopic guidance. Following this, microsheath was exchanged for a 5-[place] short sheath, which was appropriately flushed with heparinized saline solution. Next, an OmniPlus catheter was advanced into the abdominal aorta, and then abdominal aortogram was performed. The abdominal aortogram findings are as follows: The proximal abdominal aorta is widely patent. The mid and distal abdominal aorta are widely patent. The right and left common iliac artery is widely patent. The right and left hypogastric arteries are widely patent. The right and left external iliac arteries are widely patent. At this point in time, the OmniPlus catheter was used to select the right common iliac artery and then a 0.035 guidewire was advanced into the right superficial femoral artery. Next, a catheter was inserted over the 0.035 guidewire into the superficial femoral artery and then the guidewire was exchanged for 0.035 J wire. Next, our 5-[place] sheath was removed and exchanged for a 6-[place] 45 cm sheath, which was positioned into the right common femoral artery. Next, selective right lower extremity angiogram was performed. The right lower extremity angiogram findings are as follows: The common femoral artery is widely patent. The right profunda femoral artery is widely patent. The superficial femoral artery has some mild non-flow limiting stenosis at its origin and then there is a bypass graft originating from the proximal superficial femoral artery just distal to the common femoral bifurcation. The bypass graft at its origin is widely patent. There is some flow limiting stenosis, which I would estimate at approximately 70% where the graft is tunneled across the anterior thigh leading to the lateral compartment of the leg. Distal to this area, the bypass graft is widely patent to the level of the distal anastomosis. There is a high-grade stenosis, which I would estimate at approximately 99% stenosed at the distal anastomosis of the vein bypass graft to the anterior tibial artery. The anterior tibial artery is preserved beyond this point and fills the dorsalis pedis artery into the foot. At this point in time, a guidewire Advantage wire was used under a smart mask to select the patient's bypass graft on the right, and this was after administering weight-based heparin. We were able to guide the wire in the catheter down to the below-knee segment without difficulty. Following this, the 0.035 wire was exchanged for an 0.014 Command wire. The 0.014 Command wire was positioned across the distal anastomosis into the dorsalis pedis artery under fluoroscopy guidance. This was also performed under a smart mask. Following this, a 1.5 x 20 angioplasty balloon was positioned across the high-grade stenosis and distal anastomosis, and this was inflated to nominal pressure. Following this, a 2 x 20 angioplasty balloon was positioned across the distal anastomosis and inflated to nominal pressure. Next, a completion angiogram was performed, which did reveal markedly improved flow through the distal anastomosis with no obvious residual flow limiting stenosis. There was some spasm in the anterior tibial artery just distal to the anastomosis, but the vessel reconstituted normally beyond this point. I was reluctant to use a larger balloon given the small size of the anterior tibial artery beyond the level of the anastomosis. At this point in time, our attention was focused on the area of flow limiting stenosis in the central thigh where the graft was tunneled across the thigh. Referencing angiogram was performed in this location confirming again approximately 60% to 70% stenosis in this area of the bypass graft. Following this, a 4 x 80 angioplasty balloon was positioned across this lesion and inflated to nominal pressure. Following this, a completion angiogram confirmed marked improvement through this segment with no residual flow-limiting stenosis. There was also no evidence of flow limiting dissection. After being satisfied with the angiographic results, our 0.014 wire was withdrawn, and then our sheath was pulled back into the left iliac system, and our 0.014 wire was exchanged for an 0.035 J wire, which was positioned in place using fluoroscopy. Next, I did confirm that the left common femoral artery was safe for closure, and therefore, our 6-[place] sheath was removed, and a StarClose device was inserted and deployed successfully. The patient had excellent hemostasis at the access site. The patient tolerated the procedure well and was transferred to the Postanesthesia Care Unit in stable condition. EMILY APARICIO DO DR: DAYNE/kylee JOB#: [id number] / [id number]
[2016-11-22] MEDS ORDERED: CLOPIDOGREL BISULFATE 75 MG TABLET PO SCH (08:00)
[2016-11-22] MEDS ORDERED: ASPIRIN ENTERIC COATED 81 MG TABLET.DR. PO SCH (08:00)
== END 2016-11-21 14:20 | disposition home or self-care (01) ==
LOC: INTRAD 07:00
PROVIDERS: ATTEND Surgery
DX: I70.221 Atherosclerosis of native arteries of extremities with rest pain, right leg (principal); E11.9 Type 2 diabetes mellitus without complications; I10 Essential (primary) hypertension; E78.5 Hyperlipidemia, unspecified; E66.01 Morbid (severe) obesity due to excess calories; Z68.43 Body mass index [BMI] 50.0-59.9, adult; E78.00 Pure hypercholesterolemia, unspecified; Z90.49 Acquired absence of other specified parts of digestive tract; Z90.710 Acquired absence of both cervix and uterus; Z86.39 Personal history of other endocrine, nutritional and metabolic disease; Z88.6 Allergy status to analgesic agent
CPT/HCPCS: 36415; 37224; 37228; 75710; 76937; 80048; 85027; 85610; 99152; C1713; C1725; C1760; C1769; C1892; C1894; J0360; J2250; J3010; J3490; J7030; Q9967; G0269

== ENCOUNTER → 2017-06-26 | Outpatient (CLI) | payer OTHER, BC | END | disposition home or self-care (01) | LOC: MAMMO 09:12 | DX: Z12.31 Encounter for screening mammogram for malignant neoplasm of breast (principal) | CPT/HCPCS: 77067 ==

== ENCOUNTER 2017-06-27 08:44 | Outpatient (CLI) | payer OTHER ==
[2017-06-27] MEDS ORDERED: IODIXANOL 320 MG/ML 100 ML VIAL. (09:11)
[2017-06-27] MEDS ORDERED: LIDOCAINE WITH 8.4% SOD BICARB 3 ML DISP.SYRIN. IJ (09:11)
[2017-06-27 09:20] LABS: ADD MAN DIFF? NO
[2017-06-27 09:22] LABS: BASO # 0.1 x10^3/uL (0.0-0.2); BASO % 1 % (0-3); EOS # 0.1 x10^3/uL (0.0-0.7); EOS % 2 % (0-3); HEMATOCRIT 33.5 % (36.0-47.0); HEMOGLOBIN 11.2 g/dL (12.0-15.5); LYMPH # 2.2 x10^3/uL (1.0-4.8); LYMPH % 41 % (24-48); MEAN CORPUSCULAR HEMOGLOBIN 29 pg (25-35); MEAN CORPUSCULAR HGB CONC 34 g/dL (31-37); MEAN CORPUSCULAR VOLUME 86 fL (79-100); MONO # 0.4 x10^3/uL (0.0-1.1); MONO % 8 % (0-9); NEUT # 2.6 x10^3uL (1.8-7.7); NEUT % 49 % (31-73); PLATELET COUNT 251 x10^3/uL (140-400); RED BLOOD COUNT 3.88 x10^6/uL (3.50-5.40); RED CELL DISTRIBUTION WIDTH 14.1 % (11.5-14.5); WHITE BLOOD COUNT 5.4 x10^3/uL (4.0-11.0)
[2017-06-27] MEDS ORDERED: hydrALAZINE 20 MG/ML VIAL. (09:28)
[2017-06-27] MEDS: hydrALAZINE 20 MG/ML VIAL. IVP (09:30)
[2017-06-27 09:32] LABS: ANION GAP 8 (6-14); BLOOD UREA NITROGEN 19 mg/dL (7-20); BUN/CREATININE RATIO 24 (6-20); CALCIUM 9.4 mg/dL (8.5-10.1); CARBON DIOXIDE 26 mmol/L (21-32); CHLORIDE 105 mmol/L (98-107); CREATININE 0.8 mg/dL (0.6-1.0); GFR 88.8; GLUCOSE 190 mg/dL (70-99); POTASSIUM 3.7 mmol/L (3.5-5.1); SODIUM 139 mmol/L (136-145)
[2017-06-27 09:38] LABS: ALBUMIN 3.5 g/dL (3.4-5.0); ALBUMIN/GLOBULIN RATIO 0.8 (1.0-1.7); ALK PHOS 124 U/L (46-116); ALT (SGPT) 29 U/L (14-59); AST (SGOT) 17 U/L (15-37); TOTAL BILIRUBIN 0.4 mg/dL (0.2-1.0)
[2017-06-27 09:42] LABS: INR 0.9 (0.8-1.1); PROTHROMBIN TIME PATIENT 11.8 SEC (11.7-14.0)
[2017-06-27] MEDS ORDERED: MIDAZOLAM HCL/PF 2 MG/2 ML VIAL. (10:15)
[2017-06-27] MEDS ORDERED: fentaNYL PF VIAL 100 MCG/2 ML VIAL (10:16)
[2017-06-27] MEDS ORDERED: FLUMAZENIL 0.5 MG/5 ML VIAL. IV (10:16)
[2017-06-27] MEDS ORDERED: NALOXONE 0.4 MG/ML VIAL. (10:16)
[2017-06-27] MEDS: MIDAZOLAM HCL/PF 2 MG/2 ML VIAL. IV (10:30)
[2017-06-27] MEDS: fentaNYL PF VIAL 100 MCG/2 ML VIAL IV (10:30)
[2017-06-27] MEDS: LIDOCAINE WITH 8.4% SOD BICARB 3 ML DISP.SYRIN. IJ ×2 (10:30)
[2017-06-27] MEDS: IODIXANOL 320 MG/ML 100 ML VIAL. IV (11:07)
== END 2017-06-27 15:20 | disposition home or self-care (01) ==
LOC: INTRAD 08:44
DX: I70.202 Unspecified atherosclerosis of native arteries of extremities, left leg (principal); E78.00 Pure hypercholesterolemia, unspecified; I10 Essential (primary) hypertension; E11.9 Type 2 diabetes mellitus without complications; Z90.49 Acquired absence of other specified parts of digestive tract; Z86.39 Personal history of other endocrine, nutritional and metabolic disease; Z87.39 Personal history of other diseases of the musculoskeletal system and connective tissue; Z88.6 Allergy status to analgesic agent
CPT/HCPCS: 36246; 36415; 75625; 75716; 76937; 80053; 85025; 85610; 99152; 99153; C1760; C1769; C1892; C1894; G0269; J0360

== ENCOUNTER 2017-11-22 22:14 | Emergency (ER) | payer OTHER ==
[2017-11-22] MEDS: fentaNYL PF VIAL 100 MCG/2 ML VIAL IM (23:15)
[2017-11-22] MEDS: GABAPENTIN 300 MG CAPSULE. PO (23:16)
== END 2017-11-22 23:24 | disposition home or self-care (01) ==
LOC: ER 23:24
DX: M79.672 Pain in left foot (principal); M79.675 Pain in left toe(s); E11.9 Type 2 diabetes mellitus without complications; I73.9 Peripheral vascular disease, unspecified; I10 Essential (primary) hypertension; E78.00 Pure hypercholesterolemia, unspecified; Z90.49 Acquired absence of other specified parts of digestive tract; Z90.710 Acquired absence of both cervix and uterus; Z88.5 Allergy status to narcotic agent
CPT/HCPCS: 73630; 96372; 99284; J3010

== ENCOUNTER 2018-07-26 22:27 | Emergency (ER) | payer OTHER ==
[~2018-07-26] VITALS: Ht 165.1 cm; Wt 79.4 kg
[~2018-07-26 22:27] MED LIST changes: -CALC500T PO; +CALC500T31 PO; +CLOP75TA PO; +DICL100G18 TP; +IBUP-1060 PO; -METF-620 PO; +METF10007 PO; +NAPR-514 PO; -NAPR500T3 PO; +OXYC1TAB15 PO
[2018-07-27 00:07] LABS: BASO # 0.1 x10^3/uL (0.0-0.2); BASO % 1 % (0-3); EOS # 0.1 x10^3/uL (0.0-0.7); EOS % 1 % (0-3); HEMATOCRIT 32.6 % (36.0-47.0); LYMPH # 2.6 x10^3/uL (1.0-4.8); LYMPH % 28 % (24-48); MEAN CORPUSCULAR HEMOGLOBIN 29 pg (25-35); MEAN CORPUSCULAR HGB CONC 34 g/dL (31-37); MEAN CORPUSCULAR VOLUME 85 fL (79-100); MONO # 0.5 x10^3/uL (0.0-1.1); MONO % 6 % (0-9); NEUT % 64 % (31-73); PLATELET COUNT 342 x10^3/uL (140-400); RED BLOOD COUNT 3.83 x10^6/uL (3.50-5.40); RED CELL DISTRIBUTION WIDTH 13.8 % (11.5-14.5); WHITE BLOOD COUNT 9.3 x10^3/uL (4.0-11.0)
--- NOTE | 2018-07-27 00:07 | PHYS DOC ---
Past Medical History Past Medical History: Diabetes-Type II, High Cholesterol, Hypertension, Vascular Disease Past Surgical History: Cholecystectomy, Hysterectomy Additional Past Surgical Histo: right left vein graft Alcohol Use: None Drug Use: None Adult General Chief Complaint Chief Complaint: ABDOMINAL PAIN HPI HPI Patient is a 62 year old female who presents with one week abdominal pain and nausea. The abdominal pain is diffuse but also wraps around towards her left flank. Patient has been able to drink and eat but notes an overall decrease in her appetite. Pain is worse at night. She has not found anything that makes it better. No associated vomiting, diarrhea, constipation, dysuria, hematuria, fevers, chills, or upper respiratory symptoms. She has a history of diabetes and hypertension and reports not taking her insulin tonight and says she has been out of her bp medication for about a week now. Review of Systems Review of Systems Constitutional: Denies fever or chills [] HENT: Denies nasal congestion or sore throat [] Respiratory: Denies cough or shortness of breath [] Cardiovascular: No chest pain, palpitations GI: Reports abdominal pain and nausea, Denies vomiting, diarrhea, constipation [ ] : Denies dysuria or hematuria [] Musculoskeletal: Reports left flank pain Integument: Denies rash or skin lesions [] Neurologic: Denies headache, focal weakness or sensory changes [] Complete systems were reviewed and found to be within normal limits, except as documented in this note. Current Medications Current Medications Current Medications Medications (Trade) Dose Ordered Sig/Chai Start Time Stop Time Status Last Admin Dose Admin Famotidine (Pepcid Vial) 20 mg 1X ONCE 07/27/18 00:15 07/27/18 00:16 DC 07/27/18 00:23 20 MG Fentanyl Citrate (Fentanyl 2ml Vial) 50 mcg 1X ONCE 07/27/18 03:45 07/27/18 03:46 DC 07/27/18 03:47 50 MCG Hyoscyamine (Anaspaz) 0.125 mg 1X ONCE 07/27/18 03:45 07/27/18 03:46 DC 07/27/18 03:45 0.125 MG Ondansetron HCl (Zofran) 4 mg 1X ONCE 07/27/18 00:15 07/27/18 00:16 DC 07/27/18 00:18 4 MG Sodium Chloride 1,000 ml @ 1,000 mls/hr 1X ONCE 07/27/18 00:15 07/27/18 01:14 DC 07/27/18 00:17 1,000 MLS/HR Allergies Allergies Allergies Coded Allergies Type Severity Reaction Last Updated Verified hydromorphone Allergy Intermediate HALLUCINATIONS 08/04/16 Yes hydrocodone Adverse Reaction Intermediate Nausea and Vomiting 08/03/16 Yes morphine Adverse Reaction Intermediate HALLUCINATIONS 08/04/16 Yes Physical Exam Physical Exam Constitutional: Well developed, well nourished, no acute distress, non-toxic appearance. [] HENT: Normocephalic, atraumatic, oropharynx moist Eyes: PERRL, EOMI, conjunctiva normal, no discharge. [] Neck: Normal range of motion, no tenderness, supple, no meningeal signs Cardiovascular:Heart rate regular rhythm, no murmur [] Lungs & Thorax: Bilateral breath sounds clear to auscultation [] Abdomen: Soft, mild generalized tenderness Skin: Warm, dry, no erythema, no rash. [] Back: No tenderness, Left CVA tenderness. [] Extremities: No tenderness, ROM intact, no edema. [] Neurologic: Alert and oriented X 3, normal motor function, normal sensory function, no focal deficits noted. [] Psychologic: Affect normal, judgement normal, mood normal. [] Current Patient Data Vital Signs Vital Signs Date Time Temp Pulse Resp B/P (MAP) Pulse Ox O2 Delivery O2 Flow Rate FiO2 07/27/18 03:47 24 99 Room Air 07/27/18 03:45 86 181/91 (121) 07/26/18 23:22 98.0 98.0 Lab Values Laboratory Tests Test 07/26/18 23:30 07/26/18 23:55 White Blood Count 9.3 x10^3/uL (4.0-11.0) Red Blood Count 3.83 x10^6/uL (3.50-5.40) Hemoglobin 11.0 g/dL (12.0-15.5) L Hematocrit 32.6 % (36.0-47.0) L Mean Corpuscular Volume 85 fL (79-100) Mean Corpuscular Hemoglobin 29 pg (25-35) Mean Corpuscular Hemoglobin Concent 34 g/dL (31-37) Red Cell Distribution Width 13.8 % (11.5-14.5) Platelet Count 342 x10^3/uL (140-400) Neutrophils (%) (Auto) 64 % (31-73) Lymphocytes (%) (Auto) 28 % (24-48) Monocytes (%) (Auto) 6 % (0-9) Eosinophils (%) (Auto) 1 % (0-3) Basophils (%) (Auto) 1 % (0-3) Neutrophils # (Auto) 6.0 x10^3uL (1.8-7.7) Lymphocytes # (Auto) 2.6 x10^3/uL (1.0-4.8) Monocytes # (Auto) 0.5 x10^3/uL (0.0-1.1) Eosinophils # (Auto) 0.1 x10^3/uL (0.0-0.7) Basophils # (Auto) 0.1 x10^3/uL (0.0-0.2) Urine Collection Type Unknown Urine Color Yellow Urine Clarity Clear Urine pH 5.5 Urine Specific [place] 1.015 Urine Protein 100 mg/dL (NEG-TRACE) Urine Glucose (UA) Negative mg/dL (NEG) Urine Ketones (Stick) Negative mg/dL (NEG) Urine Blood Negative (NEG) Urine Nitrite Negative (NEG) Urine Bilirubin Negative (NEG) Urine Urobilinogen Dipstick 0.2 mg/dL (0.2 mg/dL) Urine Leukocyte Esterase Small (NEG) Urine RBC Occ /HPF (0-2) Urine WBC 5-10 /HPF (0-4) Urine Squamous Epithelial Cells Many /LPF Urine Bacteria Moderate /HPF (0-FEW) Urine Mucus Slight /LPF Glucose (Fingerstick) 235 mg/dL (70-99) H Prothrombin Time 11.1 SEC (11.7-14.0) L Prothrombin Time INR 0.8 (0.8-1.1) PTT 34 SEC (24-38) Sodium Level 142 mmol/L (136-145) Potassium Level 4.1 mmol/L (3.5-5.1) Chloride Level 102 mmol/L (98-107) Carbon Dioxide Level 27 mmol/L (21-32) Anion Gap 13 (6-14) Blood Urea Nitrogen 30 mg/dL (7-20) H Creatinine 1.3 mg/dL (0.6-1.0) H Estimated GFR (Cockcroft-Gault) 50.6 BUN/Creatinine Ratio 23 (6-20) H Glucose Level 271 mg/dL (70-99) H Lactic Acid Level 1.5 mmol/L (0.4-2.0) Calcium Level 9.9 mg/dL (8.5-10.1) Total Bilirubin 0.3 mg/dL (0.2-1.0) Aspartate Amino Transferase (AST) 20 U/L (15-37) Alanine Aminotransferase (ALT) 25 U/L (14-59) Alkaline Phosphatase 173 U/L (46-116) H Creatine Kinase 105 U/L (26-192) Creatine Kinase MB (Mass) 1.3 ng/mL (0.0-3.6) Creatine Kinase MB Relative Index 1.2 % (0-4) Troponin I Quantitative 0.033 ng/mL (0.000-0.055) Total Protein 8.4 g/dL (6.4-8.2) H Albumin 3.2 g/dL (3.4-5.0) L Albumin/Globulin Ratio 0.6 (1.0-1.7) L Lipase 175 U/L (73-393) Laboratory Tests 07/26/18 23:30 Laboratory Tests 07/26/18 23:55 Microbiology 07/27/18 Urine Culture - Final, Complete 07/27/18 Urine Culture Result 1 (RAJESH) - Final, Complete EKG EKG @0012 NSR at 94bpm, NO ST elevation, Q wave in aVL, incomplete RBBB Radiology/Procedures Radiology/Procedures PROCEDURE: CT ABDOMEN PELVIS WO CONTRAST INDICATION: flank pain; abd pain COMPARISON: December 2012 TECHNIQUE: Axial CT images obtained through the abdomen and pelvis without contrast. Limited assessment of solid organ structures and vasculature secondary to lack of intravenous contrast.. One or more of the following individualized dose reduction techniques were utilized for this examination: 1. Automated exposure control; 2. Adjustment of the mA and/or kV according to patient size; 3. Use of iterative reconstruction technique. FINDINGS: Groundglass opacities at the lung bases. Nodular opacity at right lung base measuring up to about 9 mm. Moderate calcific atherosclerosis. Fat-containing inguinal hernias. Prominent lymph nodes in groin. No intrahepatic bile duct dilation. Postcholecystectomy changes. Suspected cystic lesion within the liver. No peripancreatic fluid collection. Spleen unremarkable. Numerous bilateral renal stones. No left-sided hydronephrosis. Urinary bladder has minimal urine within it at time of exam. Multiple calcifications are seen within the bilateral pelvis. There are some laxity of the anterior abdominal wall near umbilicus. No definite periappendiceal inflammation. No dilated loops of bowel to suggest obstruction. Degenerative changes throughout the spine with osteophyte formation. There are some suspected Schmorl's nodes within the lumbar spine. IMPRESSION: 1. Numerous bilateral nonobstructive renal stones are identified. There is also multiple calcifications within the bilateral hemipelvis however given the lack of more proximal hydronephrosis these may be secondary to phleboliths rather than distal ureter stone however if there is high clinical concern and given that the patient has numerous renal stones it would be difficult to exclude a tiny nonobstructive distal ureter stone on this exam. 2. No periappendiceal inflammation. 3. There are some groundglass and nodular opacities at lung bases. Could be secondary to atelectasis but mild edema or small airway inflammation is possible given this finding. Electronically signed by: Maikel Kelley MD (07/27/2018 3:28 AM) [facility] Course & Med Decision Making Course & Med Decision Making Pertinent Labs and Imaging studies reviewed. (See chart for details) Patient presents with generalized abdominal pain with radiation to left flank with associated nausea. Abdomen non-peritoneal. Symptomatic treatment provided. Labs obtained and posted to chart. WBC and lactic acid WNL. Creat slightly elevated from normal. Increased from last year per [employer] review. IVF hydration given. UA with signs of infection vs contamination. Given findings and patient's lack of symptoms more likely contamination. Empiric antibiotics therefore held. UCX pending. CT abd/pelvis with several nonobstructive renal stone and distal phleboliths. Cannot fully exclude distal stone, however, no signs of hydronephrosis or hydroureter noted. Patient stable for discharge with outpatient follow-up with PCP/GI. GI referral provided. Discussed findings and plan with patient and family, who acknowledge understanding and agreement. Dragon Disclaimer Dragon Disclaimer This electronic medical record was generated, in whole or in part, using a voice recognition dictation system. Departure Departure Impression: Primary Impression: Abdominal pain Additional Impression: Acute renal insufficiency Disposition: 01 HOME, SELF-CARE Condition: STABLE Referrals: DEMETRIO YUNG (PCP) YENNIFER GARCIA MD Patient Instructions: Abdominal Pain (Nonspecific) Scripts Famotidine (PEPCID) 20 Mg Tablet 20 MG PO BID, #14 TAB Prov: BECKY MCINTYRE DO 07/27/18 Hyoscyamine Sulfate (LEVSIN-SL) 0.125 Mg Tab.subl 1-2 TAB SL PRN Q4HRS PRN for PAIN, #20 TAB 0 Refills Prov: BECKY MCINTYRE DO 07/27/18 Ondansetron (ONDANSETRON ODT) 4 Mg Tab.rapdis 1 TAB PO PRN Q6-8HRS PRN for VOMITING, #16 TAB Prov: BECKY MCINTYRE DO 07/27/18 Problem Qualifiers Primary Impression: Abdominal pain Abdominal location: lower abdomen, unspecified Qualified Codes: R10.30 - Lower abdominal pain, unspecified BECKY MCINTYRE DO Jul 27, 2018 00:07
[2018-07-27] MEDS ORDERED: FAMOTIDINE 20 MG/2 ML VIAL IVP ONE (00:15)
[2018-07-27] MEDS ORDERED: IV NORMAL SALINE 1000ML BAG 1,000 ML IV ONE (00:15)
[2018-07-27] MEDS ORDERED: ONDANSETRON PF 4 MG/2 ML VIAL. IV ONE (00:15)
[2018-07-27 00:26] LABS: BILIRUBIN,URINE NEGATIVE (NEG); CLARITY,URINE CLEAR; COLOR,URINE YELLOW; NITRITE,URINE NEGATIVE (NEG); PH,URINE 5.5; PROTEIN,URINE 100 mg/dL (NEG-TRACE); UROBILINOGEN,URINE 0.2 mg/dL (0.2 mg/dL)
[2018-07-27 00:27] LABS: PROTHROMBIN TIME PATIENT 11.1 SEC (11.7-14.0)
[2018-07-27 00:29] LABS: CALCIUM 9.9 mg/dL (8.5-10.1); CREATININE 1.3 mg/dL (0.6-1.0); GFR 50.6; POTASSIUM 4.1 mmol/L (3.5-5.1)
[2018-07-27] MEDS ORDERED: fentaNYL PF VIAL 100 MCG/2 ML VIAL IV ONE ×2 (00:30→03:45)
[2018-07-27 00:35] LABS: ALBUMIN 3.2 g/dL (3.4-5.0); ALBUMIN/GLOBULIN RATIO 0.6 (1.0-1.7); TOTAL BILIRUBIN 0.3 mg/dL (0.2-1.0); TOTAL PROTEIN 8.4 g/dL (6.4-8.2)
[2018-07-27 00:40] LABS: BACTERIA,URINE MODERATE /HPF (0-FEW); RBC,URINE OCC /HPF (0-2); SQUAMOUS EPITHELIAL CELL,UR MANY /LPF
--- NOTE | 2018-07-27 03:31 | RAD ---
INDICATION: flank pain; abd pain COMPARISON: December 2012 TECHNIQUE: Axial CT images obtained through the abdomen and pelvis without contrast. Limited assessment of solid organ structures and vasculature secondary to lack of intravenous contrast.. One or more of the following individualized dose reduction techniques were utilized for this examination: 1. Automated exposure control; 2. Adjustment of the mA and/or kV according to patient size; 3. Use of iterative reconstruction technique. FINDINGS: Groundglass opacities at the lung bases. Nodular opacity at right lung base measuring up to about 9 mm. Moderate calcific atherosclerosis. Fat-containing inguinal hernias. Prominent lymph nodes in groin. No intrahepatic bile duct dilation. Postcholecystectomy changes. Suspected cystic lesion within the liver. No peripancreatic fluid collection. Spleen unremarkable. Numerous bilateral renal stones. No left-sided hydronephrosis. Urinary bladder has minimal urine within it at time of exam. Multiple calcifications are seen within the bilateral pelvis. There are some laxity of the anterior abdominal wall near umbilicus. No definite periappendiceal inflammation. No dilated loops of bowel to suggest obstruction. Degenerative changes throughout the spine with osteophyte formation. There are some suspected Schmorl's nodes within the lumbar spine. IMPRESSION: 1. Numerous bilateral nonobstructive renal stones are identified. There is also multiple calcifications within the bilateral hemipelvis however given the lack of more proximal hydronephrosis these may be secondary to phleboliths rather than distal ureter stone however if there is high clinical concern and given that the patient has numerous renal stones it would be difficult to exclude a tiny nonobstructive distal ureter stone on this exam. 2. No periappendiceal inflammation. 3. There are some groundglass and nodular opacities at lung bases. Could be secondary to atelectasis but mild edema or small airway inflammation is possible given this finding. Electronically signed by: Maikel Kelley MD (07/27/2018 3:28 AM) [facility]
[2018-07-27] MEDS ORDERED: ONDA4TAB12 PO (03:38)
[2018-07-27] MEDS ORDERED: HYOS0.1265 SL (03:38)
[2018-07-27] MEDS ORDERED: FAMO-63 PO (03:38)
[2018-07-27 03:45] VITALS: BP 181/91
[2018-07-27] MEDS ORDERED: HYOSCYAMINE 0.125 MG TAB.RAPDIS PO ONE (03:45)
--- NOTE | 2018-07-27 10:25 | EKG ---
[facility] [address] [place] [address] Test Date: 2018-07-27 Test Time: 00:12:10 Pat Name: ANA ARREOLA Department: Room: Gender: F Small Order Cutter: : 1955 Requested By: BECKY MCINTYRE Order Number: [id number] Reading MD: Marcellus Desir Measurements Intervals [place] Rate: 94 P: 128 OK: 182 QRS: -124 QRSD: 98 T: 98 QT: 378 QTc: 473 Interpretive Statements SINUS RHYTHM INCOMPLETE RIGHT BUNDLE BRANCH BLOCK QRS(T) CONTOUR ABNORMALITY CONSISTENT WITH INFERIOR INFARCT PROBABLY OLD ABNORMAL ECG Electronically Signed On 08-07-2018 10:15:37 DRESS FITTER by Marcellus Desir
== END 2018-07-27 03:56 | disposition home or self-care (01) ==
LOC: ER 22:27
DX: N28.9 Disorder of kidney and ureter, unspecified (principal); R10.30 Lower abdominal pain, unspecified; R10.84 Generalized abdominal pain; E11.9 Type 2 diabetes mellitus without complications; E78.00 Pure hypercholesterolemia, unspecified; I10 Essential (primary) hypertension; Z90.49 Acquired absence of other specified parts of digestive tract; Z90.710 Acquired absence of both cervix and uterus; Z88.5 Allergy status to narcotic agent; Z88.8 Allergy status to other drugs, medicaments and biological substances; Z79.4 Long term (current) use of insulin
CPT/HCPCS: 36415; 74176; 80053; 81001; 82553; 82962; 83605; 83690; 84484; 85025; 85610; 85730; 87086; 93005; 96374; 96375; 96376; 99284; J2405; J3010; J3490; J7030

== ENCOUNTER 2019-04-30 06:53 | Outpatient (CLI) | payer OTHER ==
[~2019-04-30] VITALS: Ht 162.6 cm; Wt 86.2 kg
[2019-04-30] VITALS (13 sets, daily range): BP systolic 95–176; BP diastolic 67–87
[~2019-04-30 06:53] MED LIST changes: +FAMO-63 PO; -GLIM4TAB2 PO; +GLIM4TAB4 PO; +HYOS0.1265 SL; +LISI1TAB19 PO; -LISI1TAB5 PO; +ONDA4TAB12 PO
[2019-04-30] MEDS ORDERED: TELM1TAB25 PO (07:24)
[2019-04-30] MEDS ORDERED: INSU100C SQ (07:24)
[2019-04-30] MEDS ORDERED: AMLO5TAB10 PO (07:24)
[2019-04-30] MEDS ORDERED: FURO40TA4 PO (07:24)
[2019-04-30 07:30] LABS: BASO # 0.1 x10^3/uL (0.0-0.2); BASO % 2 % (0-3); EOS # 0.1 x10^3/uL (0.0-0.7); EOS % 2 % (0-3); HEMATOCRIT 33.6 % (36.0-47.0); HEMOGLOBIN 11.3 g/dL (12.0-15.5); LYMPH # 2.3 x10^3/uL (1.0-4.8); LYMPH % 39 % (24-48); MEAN CORPUSCULAR HEMOGLOBIN 30 pg (25-35); MEAN CORPUSCULAR HGB CONC 34 g/dL (31-37); MEAN CORPUSCULAR VOLUME 88 fL (79-100); MONO # 0.5 x10^3/uL (0.0-1.1); MONO % 8 % (0-9); NEUT # 2.9 x10^3/uL (1.8-7.7); NEUT % 49 % (31-73); PLATELET COUNT 226 x10^3/uL (140-400); RED CELL DISTRIBUTION WIDTH 13.8 % (11.5-14.5); WHITE BLOOD COUNT 5.9 x10^3/uL (4.0-11.0)
[2019-04-30 07:32] LABS: PROTHROMBIN TIME PATIENT 11.4 SEC (11.7-14.0)
[2019-04-30] MEDS ORDERED: LIDOCAINE WITH 8.4% SOD BICARB 3 ML DISP.SYRIN. ONE (08:37)
[2019-04-30] MEDS ORDERED: MIDAZOLAM HCL/PF 2 MG/2 ML VIAL. ONE (08:49)
[2019-04-30] MEDS ORDERED: fentaNYL PF VIAL 100 MCG/2 ML VIAL ONE (08:49)
[2019-04-30] MEDS ORDERED: LIDOCAINE WITH 8.4% SOD BICARB 3 ML DISP.SYRIN. IJ ONE (09:15)
[2019-04-30] MEDS ORDERED: fentaNYL PF VIAL 100 MCG/2 ML VIAL IV ONE (09:15)
[2019-04-30] MEDS ORDERED: MIDAZOLAM HCL/PF 2 MG/2 ML VIAL. IV ONE (09:15)
--- NOTE | 2019-04-30 09:17 | PDOC ---
MODERATE SEDATION ASSESSMENT RISKS/ALTERNATIVES Risks/Alternatives Risks and alternatives of this type of sedation and procedure discussed with: RISK/ALTERNATIVES: Patient H & P ON CHART H & P H & P on chart and reviewed for co-morbid conditions and appropriate labs. H&P ON CHART: Yes STATUS PREG STATUS ASSESSED: Yes MEDS/ALLERGIES REVIEWED Meds/Allergies Reviewed Medications and Allergies including time and route of recently administered narcotics and sedatives. MEDS/ALLERGIES REVIEWED: Yes ASA RATING ASA RATING: II AIRWAY ASSESSMENT Airway Assessment Airway patency, oral function limitations, presence of caps, crowns, dentures, partials, and ability to extend neck assessed. AIRWAY ASSESSMENT: Yes MALLAMPATI SCORE MALLAMPATI SCORE: II PRE-SEDATION ASSESSMENT PRE-SEDATION ASSESSMENT: Yes ANNA DHALIWAL MD Apr 30, 2019 09:17
--- NOTE | 2019-04-30 09:18 | PDOC ---
BRIEF OPERATIVE NOTE Pre-Op Diagnosis MGUS Post-Op Diagnosis same Procedure Performed CT bone marrow biopsy Surgeon Lashanda Anesthesia Type: Conscious Sedation Specimens Obtained 2 x 3cc aspirates and 1 x 10g core Findings CT Bone Marrow biopsy ANNA DHALIWAL MD Apr 30, 2019 09:18
--- NOTE | 2019-04-30 13:00 | RAD ---
Procedure: CT-guided bone marrow aspiration and biopsy Clinical Indication: Adult female with MGUS Sedation: Conscious sedation was administered with a total intraprocedural [id number] time of 10 minutes. The patient was monitored by a qualified independent observer throughout the time of sedation. Please refer to the medical record for exact doses of medications utilized to achieve moderate sedation. Antibiotics: None Fluoro Time: Not applicable Contrast: None Sterility: The procedure was performed in its entirety using appropriate elements of sterile technique. Consent: The procedure was explained in its entirety to the patient or the patients designated sales representative uniforms by a member of the treatment team, including a discussion of the risks, benefits and commonly accepted alternatives to the procedure, as well as the expected consequences of no therapy whatsoever. Discussion of the risks included, but was not limited to, those that are most frequent and those that are rare but possibly severe or life-threatening, as well as the possibility of unforeseen complications. Technique and Findings: Following informed consent, the patient was prepped and draped in usual sterile fashion. Preliminary CT scan of the area of interest was performed. 1% Lidocaine was used to achieve local anesthesia. Under periodic CT surveillance, an 11-gauge needle was advanced through the cortex of the posterior superior iliac spine and 2 separate 2 mL marrow aspirates were obtained and preserved on site by the assistant professor nurse education. A single 11-gauge core biopsy specimen was then obtained and preserved in formalin. The needle was then removed and hemostasis was achieved with manual compression. Complications: No immediate Impression: 1. CT-guided bone marrow aspiration and biopsy as described PQRS Compliance Statement: One or more of the following individualized dose reduction techniques were utilized for this examination: 1. Automated exposure control 2. Adjustment of the mA and/or kV according to patient size 3. Use of iterative reconstruction technique
== END 2019-04-30 11:47 | disposition home or self-care (01) ==
LOC: INTRAD 06:53
PROVIDERS: ATTEND Internal Medicine Hematology & Oncology
DX: D47.2 Monoclonal gammopathy (principal); G62.9 Polyneuropathy, unspecified; I10 Essential (primary) hypertension; E11.42 Type 2 diabetes mellitus with diabetic polyneuropathy; E78.5 Hyperlipidemia, unspecified; Z79.84 Long term (current) use of oral hypoglycemic drugs; Z88.6 Allergy status to analgesic agent
CPT/HCPCS: 36415; 38222; 77012; 85025; 85610; 85730; 88184; 88185; 88237; 99152; J2250; J3010